=== PATIENT | female | born 1945 | race Caucasian/White ===

== ENCOUNTER → 2017-10-25 02:32 | Outpatient (CLI) | payer MEDICARE, SELFPAY ==
--- NOTE | 2017-10-25 13:01 | DI.REPORT_ITS ---
SYMPTOMS/DIAGNOSIS: SCREENING, Z12.31 MAMMOGRAMS: Mammograms were interpreted according to the usual protocol including computer analysis with CAD system, tomosynthesis and C view imaging. Comparison is with the prior examinations. Breast density B. There is an asymmetric density in the medial right breast seen on the craniocaudad view. This area should be further evaluated with a spot compression view. Ultrasound may be indicated at that time. IMPRESSION: Additional views of the right breast as described above. Category 0. MQSA ASSESSMENT OF FINDINGS: Incomplete: Needs additional imaging evaluation. Category 0. Patient will receive a letter notifying them of these results. BI-RADS category B. There are scattered areas of fibroglandular density.
== END ==
PROVIDERS: PCP Family Medicine; Visit Provider Family Medicine
DX: Z12.31 Encounter for screening mammogram for malignant neoplasm of breast (principal); R92.8 Other abnormal and inconclusive findings on diagnostic imaging of breast
CPT/HCPCS: 77063; 77067

== ENCOUNTER 2017-10-28 00:54 | Outpatient (CLI) | payer MEDICARE, SELFPAY ==
--- NOTE | 2017-10-28 09:29 | DI.REPORT_ITS ---
SYMPTOM/DIAGNOSIS: F/U MAMMO, ASYMMETRIC DENSITY RT BREAST RIGHT BREAST ADDITIONAL VIEWS AND RIGHT BREAST ULTRASOUND: Additional images are interpreted according to the usual protocol including tomosynthesis and 2D imaging. Compression CC spot film of the right breast reveals persistence of a small radiodensity in the right breast. Further assessment with ultrasound was carried out. No cyst or mass is seen. SUMMARY: A small asymmetric density in the medial right breast is seen only in the CC projection and in fact appears less prominent than on a prior examination of 03/13/13. Category 3. Follow up right mammogram and ultrasound is suggested in 6 months is suggested for further review. MQSA ASSESSMENT OF FINDINGS: Probably benign. Six month follow-up recommended. Category 3. Patient will receive a letter notifying them of these results. BI-RADS category B. There are scattered areas of fibroglandular density.
== END 2017-10-28 00:55 ==
PROVIDERS: PCP Family Medicine; Visit Provider Family Medicine
DX: Z12.31 Encounter for screening mammogram for malignant neoplasm of breast (principal); R92.8 Other abnormal and inconclusive findings on diagnostic imaging of breast; N60.81 Other benign mammary dysplasias of right breast
CPT/HCPCS: 76642; 77063; 77067

== ENCOUNTER 2018-02-05 11:17 | Inpatient (IN) | payer MEDICARE, SELFPAY ==
[2018-02-05] VITALS (14 sets, daily range): BP systolic 115–139; BP diastolic 47–92; PULSE 62–83; RESP 11–18; TEMP 35.8–36.8; O2SAT 96–100
--- NOTE | 2018-02-05 11:25 | W.ED.GENAD ---
Discharge Plan Disposition Patient Disposition: [facility] INPATIENT Condition: Serious Discharge Details Chief Complaint: Orthopedic Clinical Impression: Closed trimalleolar fracture of right ankle Reason For Visit: BIMALLEOLAR FX R ANKLE Admit Date/Time: 02/05/18 12:30 Admit Provider: Ozzy Dias Attending Provider: Ozzy Dias Primary Care Provider: Tanika Meyer ED Provider: Margarito Liriano Discharge Data Discharge Date/Time-TO BE ENTERED AT DEPARTURE: 02/05/18 13:38 Medical Decision Making <Satish Winters NP - Last Filed: 02/06/18 08:34> Plan to initiate IV and provide Fentanyl for pain control. Zofran if needed. Will change splint prior to x-ray. Will x-ray foot, ankle and tib/fib. Patient received 50mg of Fentanyl with good effect. I assisted Dr. Liriano with removing EMS splint and placing in posterior ortho glass splint. He was successful in reducing the displacement at the ankle medially. She tolerated well. I did feel an initial clunk of the ankle bones with better alignment of the ankle. Dorsalis pedis pulse strong and regular. Good sensation to the toes and foot. Good color and temperature to the foot pre and post splint placement. Care will be transitioned to Dr. Liriano for disposition of the patient. He is in agreement. <Margarito Liriano MD - Last Filed: 02/05/18 12:29> 12:15 -- Asked by ROBB Winters to participate in care. Please see his documentation regarding initial presentation and care. On initial exam, right ankle with obvious fracture dislocation with tenting of skin medially. Neurovasc intact in foot. Patient provided verbal consent to reduction and splinting for pain and immobilization for imaging. Patient given fentanyl 50mcg, gentle traction applied and talus reduced medially. Posterior splint applied. Xray reviewed and interpreted by me: trimaleolar fx 12:20 -- Spoke with Dr. Dias: I discussed case presentation, ED course and treatment. He will admit for OR likely later today. He requests bridging orders be placed to include NPO, fentanyl 50mcg q1h PRN. coal handling supervisor notified. HPI <Satish Winters NP - Last Filed: 02/06/18 08:34> General Mode of arrival: EMS. Date/Time Provider Initiated Documentation: 02/05/18 11:23. Limitations to Documentation: no limitations. Information obtained by: patient. History of Present Illness 72 year old F presents to the emergency department with the chief complaint of ankle pain, described as moderate, with intensity rated at 8. Quality is described as aching, and is localized to the right (ankle). Patient started experiencing this minute(s) and it has been constant. No relieving factors improve symptom(s), Movement worsens symptoms . HPI Narrative: 72 y/o female brought in by [place] ambulance for right ankle injury after fall. She slipped on her carpeted stairs causing twisting injury to the right ankle. She twisted the foot and ankle inward. Noted deformity and pain immediately. Denies any other injury. Related Data Home Medications Medication Instructions Recorded Confirmed multivitamin 1 ea PO DAILY 08/11/12 02/05/18 levothyroxine 50 mcg PO DAILY #90 tab-cap 18 02/05/18 metoprolol tartrate 0.5 tab PO DAILY PRN #45 tab 07/27/17 02/05/18 albuterol sulfate [Proair Hfa] 1 - 2 puff INHALATION Q6H PRN #1 09/07/17 02/05/18 inhaler gabapentin 300 mg capsule 300 mg PO DAILY PRN #90 tab 11/29/17 02/05/18 eszopiclone 2 mg tablet 2 mg PO HS PRN #30 tab 02/03/18 02/05/18 hydrocodone 5 mg-acetaminophen 325 1 tab PO TID PRN #90 tab-cap MDD 3 02/03/18 02/05/18 mg tablet latanoprost 0.005 % eye drops 1 drp OPHTHALMIC (EYE) HS ml 02/03/18 02/05/18 penicillin V potassium 500 mg PO TID 02/05/18 02/05/18 Previous Rx's Medication Instructions Recorded levothyroxine 50 mcg PO DAILY #90 tab-cap 07/27/17 albuterol sulfate [Proair Hfa] 1 - 2 puff INHALATION Q6H PRN #1 09/07/17 inhaler gabapentin 300 mg capsule 300 mg PO DAILY PRN #90 tab 11/29/17 eszopiclone 2 mg tablet 2 mg PO HS PRN #30 tab 02/03/18 hydrocodone 5 mg-acetaminophen 325 1 tab PO TID PRN #90 tab-cap MDD 3 02/03/18 mg tablet Allergies Allergy/AdvReac Type Severity Reaction Status Date / Time No Known Drug Allergies Allergy Unverified 02/05/18 11:22 General Stated Complaint: Orthopedic MADISON: 3 Review of Systems <Satish Winters NP - Last Filed: 02/06/18 08:34> Cardiovascular Reports system reviewed and no additional complaints, except as docu Respiratory Reports system reviewed and no additional complaints, except as docu Gastrointestinal Reports system reviewed and no additional complaints, except as docu Musculoskeletal Comments: right ankle pain with deformity Neurologic Reports system reviewed and no additional complaints, except as docu Exam <Satish Winters NP - Last Filed: 02/06/18 08:34> Const General: cooperative, healthy appearing, comfortable and no acute distress Nutritional Appearance: average body habitus Orientation: alert, awake and oriented x3 HENMT Head: atraumatic Ears: hearing grossly normal bilaterally and external ears normal General nose exam: external nose normal and nares normal Eyes General: appearance normal, both eyes and all related structures Neck Neck: normal visual inspection and full ROM Resp Effort & Inspection: normal respiratory effort Cardio Rate: regular rate Rhythm: regular rhythm Extrem General: abnormal to inspection (ankle splinted by ems. deformity noted to ankle. Swelling noted. Dorsalis pedis pulse strong and regular. ), normal capillary refill and no calf tenderness Right lower extremity: normal capillary refill, hip/thigh Details: normal ROM; no tenderness and no swelling, knee Details: no tenderness and no swelling, ankle Details: abnormal to inspection (deformity noted to the ankle) Details: obviously dislocated, tenderness (ankle and foot), swelling (ankle), abnormal ROM (pain to move ankle/foot. Good CSMT to toes. She does have chronic abnormal sensation to great toe after her back surgery. ) Details: pain with active ROM and pain with passive ROM and achilles tendon exam abnormal Details: tenderness to palpation of achilles tendon and foot Details: normal capillary refill, normal to inspection and tenderness Location: of the calcaneus Ankle/foot/toe images: 1. swelling and deformity to the ankle. Ankle looks displaced laterally 2. swelling and deformity to the ankle. Ankle looks displaced laterally Psych Appearance: grossly normal Speech and Movement: speech and movement normal Mood: congruent mood Affect: normal affect Attitude: cooperative Thought Process: normal Thought Content: normal Insight: insight good Course <Satish Winters NP - Last Filed: 02/06/18 08:34> Vital Signs Temperature 36.3 C L 02/05/18 11:18 Pulse 72 02/05/18 11:18 Respiratory Rate 12 02/05/18 11:18 Blood Pressure 134/92 H 02/05/18 11:18 Pulse Oximetry 100 02/05/18 11:18 Temperature 36.3 C L 02/05/18 11:18 Temperature Source Temporal Artery Scan 02/05/18 11:18 Pulse 72 02/05/18 11:18 Respiratory Rate 12 02/05/18 11:18 Respiratory Effort Non-Labored 02/05/18 11:21 Blood Pressure 134/92 H 02/05/18 11:18 Pulse Oximetry 100 02/05/18 11:18 Oxygen Delivery Method Room Air 02/05/18 11:18 Oxygen Flow Rate 0 02/05/18 11:18 Pain Level 8 02/05/18 11:18 <Margarito Liriano MD - Last Filed: 02/05/18 12:29> Orthopedic Fracture Reduction Fracture #1: Side: right Fracture Reduction Location: tibia and fibula Analgesia: other (fentanyl 50mcg) Technique: direct manipulation Post Reduction X-rays Demonstrate: anatomical reduction Post-reduction neuro exam: intact Post-reduction vascular exam: intact Splint Applied: Yes Patient Tolerated Procedure: well and no complications Sign Out <Satish Winters NP - Last Filed: 02/06/18 08:34> Sign Out Data: Sign Out Comment: Care will be transitioned to Dr. Liriano for disposition of the patient. He is in agreement. Last updated by Satish Winters NP at 02/05/18 12:11
--- NOTE | 2018-02-05 11:31 | ED.GENADUL_ITS ---
Discharge Plan Disposition Patient Disposition: [facility] INPATIENT Condition: Serious Discharge Details Chief Complaint: Orthopedic Clinical Impression: Closed trimalleolar fracture of right ankle Reason For Visit: BIMALLEOLAR FX R ANKLE Admit Date/Time: 02/05/18 12:30 Admit Provider: Ozzy Dias Attending Provider: Ozzy Dias Primary Care Provider: Tanika Meyer ED Provider: Margarito Liriano Discharge Data Discharge Date/Time-TO BE ENTERED AT DEPARTURE: 02/05/18 13:38 Medical Decision Making <Satish Winters NP - Last Filed: 02/06/18 08:34> Plan to initiate IV and provide Fentanyl for pain control. Zofran if needed. Will change splint prior to x-ray. Will x-ray foot, ankle and tib/fib. Patient received 50mg of Fentanyl with good effect. I assisted Dr. Liriano with removing EMS splint and placing in posterior ortho glass splint. He was successful in reducing the displacement at the ankle medially. She tolerated well. I did feel an initial clunk of the ankle bones with better alignment of the ankle. Dorsalis pedis pulse strong and regular. Good sensation to the toes and foot. Good color and temperature to the foot pre and post splint placement. Care will be transitioned to Dr. Liriano for disposition of the patient. He is in agreement. <Margarito Liriano MD - Last Filed: 02/05/18 12:29> 12:15 -- Asked by ROBB Winters to participate in care. Please see his documentation regarding initial presentation and care. On initial exam, right ankle with obvious fracture dislocation with tenting of skin medially. Neurovasc intact in foot. Patient provided verbal consent to reduction and splinting for pain and immobilization for imaging. Patient given fentanyl 50mcg, gentle traction applied and talus reduced medially. Posterior splint applied. Xray reviewed and interpreted by me: trimaleolar fx 12:20 -- Spoke with Dr. Dias: I discussed case presentation, ED course and treatment. He will admit for OR likely later today. He requests bridging orders be placed to include NPO, fentanyl 50mcg q1h PRN. insurance sales supervisor notified. HPI <Satish Winters NP - Last Filed: 02/06/18 08:34> General Mode of arrival: EMS . Date/Time Provider Initiated Documentation: 02/05/18 11:23 . Limitations to Documentation: no limitations . Information obtained by: patient . History of Present Illness 72 year old F presents to the emergency department with the chief complaint of ankle pain, described as moderate, with intensity rated at 8. Quality is described as aching, and is localized to the right (ankle). Patient started experiencing this minute(s) and it has been constant. No relieving factors improve symptom(s), Movement worsens symptoms . HPI Narrative: 72 y/o female brought in by [place] ambulance for right ankle injury after fall. She slipped on her carpeted stairs causing twisting injury to the right ankle. She twisted the foot and ankle inward. Noted deformity and pain immediately. Denies any other injury. Related Data Home Medications Medication Instructions Recorded Confirmed multivitamin 1 ea PO DAILY 08/11/12 02/05/18 levothyroxine 50 mcg PO DAILY #90 tab-cap 18 02/05/18 metoprolol tartrate 0.5 tab PO DAILY PRN #45 tab 07/27/17 02/05/18 albuterol sulfate [Proair Hfa] 1 - 2 puff INHALATION Q6H PRN #1 09/07/17 inhaler gabapentin 300 mg capsule 300 mg PO DAILY PRN #90 tab 11/29/17 02/05/18 eszopiclone 2 mg tablet 2 mg PO HS PRN #30 tab 02/03/18 02/05/18 hydrocodone 5 mg-acetaminophen 325 1 tab PO TID PRN #90 tab-cap MDD 3 02/03/18 02/05/18 mg tablet latanoprost 0.005 % eye drops 1 drp OPHTHALMIC (EYE) HS ml 02/03/18 02/05/18 penicillin V potassium 500 mg PO TID 02/05/18 02/05/18 Previous Rx's Medication Instructions Recorded levothyroxine 50 mcg PO DAILY #90 tab-cap 07/27/17 albuterol sulfate [Proair Hfa] 1 - 2 puff INHALATION Q6H PRN #1 09/07/17 inhaler gabapentin 300 mg capsule 300 mg PO DAILY PRN #90 tab 11/29/17 eszopiclone 2 mg tablet 2 mg PO HS PRN #30 tab 02/03/18 hydrocodone 5 mg-acetaminophen 325 1 tab PO TID PRN #90 tab-cap MDD 3 02/03/18 mg tablet Allergies Allergy/AdvReac Type Severity Reaction Status Date / Time No Known Drug Allergies Allergy Unverified 02/05/18 11:22 General Stated Complaint: Orthopedic MADISON: 3 Review of Systems <Satish Winters NP - Last Filed: 02/06/18 08:34> Cardiovascular Reports system reviewed and no additional complaints, except as docu Respiratory Reports system reviewed and no additional complaints, except as docu Gastrointestinal Reports system reviewed and no additional complaints, except as docu Musculoskeletal Comments: right ankle pain with deformity Neurologic Reports system reviewed and no additional complaints, except as docu Exam <Satish Winters NP - Last Filed: 02/06/18 08:34> Const General: cooperative, healthy appearing, comfortable and no acute distress Nutritional Appearance: average body habitus Orientation: alert, awake and oriented x3 HENMT Head: atraumatic Ears: hearing grossly normal bilaterally and external ears normal General nose exam: external nose normal and nares normal Eyes General: appearance normal, both eyes and all related structures Neck Neck: normal visual inspection and full ROM Resp Effort & Inspection: normal respiratory effort Cardio Rate: regular rate Rhythm: regular rhythm Extrem General: abnormal to inspection (ankle splinted by ems. deformity noted to ankle. Swelling noted. Dorsalis pedis pulse strong and regular. ), normal capillary refill and no calf tenderness Right lower extremity: normal capillary refill, hip/thigh Details: normal ROM; no tenderness and no swelling, knee Details: no tenderness and no swelling, ankle Details: abnormal to inspection (deformity noted to the ankle) Details: obviously dislocated, tenderness (ankle and foot), swelling (ankle), abnormal ROM (pain to move ankle/foot. Good CSMT to toes. She does have chronic abnormal sensation to great toe after her back surgery. ) Details: pain with active ROM and pain with passive ROM and achilles tendon exam abnormal Details: tenderness to palpation of achilles tendon and foot Details: normal capillary refill, normal to inspection and tenderness Location: of the calcaneus Ankle/foot/toe images: 2 1. swelling and deformity to the ankle. Ankle looks displaced laterally 2. swelling and deformity to the ankle. Ankle looks displaced laterally Psych Appearance: grossly normal Speech and Movement: speech and movement normal Mood: congruent mood Affect: normal affect Attitude: cooperative Thought Process: normal Thought Content: normal Insight: insight good Course <Satish Winters NP - Last Filed: 02/06/18 08:34> Vital Signs Temperature 36.3 C L 02/05/18 11:18 Pulse 72 02/05/18 11:18 Respiratory Rate 12 02/05/18 11:18 Blood Pressure 134/92 H 02/05/18 11:18 Pulse Oximetry 100 02/05/18 11:18 Temperature 36.3 C L 02/05/18 11:18 Temperature Source Temporal Artery Scan 02/05/18 11:18 Pulse 72 02/05/18 11:18 Respiratory Rate 12 02/05/18 11:18 Respiratory Effort Non-Labored 02/05/18 11:21 Blood Pressure 134/92 H 02/05/18 11:18 Pulse Oximetry 100 02/05/18 11:18 Oxygen Delivery Method Room Air 02/05/18 11:18 Oxygen Flow Rate 0 02/05/18 11:18 Pain Level 8 02/05/18 11:18 <Margarito Liriano MD - Last Filed: 02/05/18 12:29> Orthopedic Fracture Reduction Fracture #1: Side: right Fracture Reduction Location: tibia and fibula Analgesia: other (fentanyl 50mcg) Technique: direct manipulation Post Reduction X-rays Demonstrate: anatomical reduction Post-reduction neuro exam: intact Post-reduction vascular exam: intact Splint Applied: Yes Patient Tolerated Procedure: well and no complications Sign Out <Satish Winters NP - Last Filed: 02/06/18 08:34> Sign Out Data: Sign Out Comment: Care will be transitioned to Dr. Liriano for disposition of the patient. He is in agreement. Last updated by Satish Winters NP at 02/05/18 12:11
[2018-02-05] MEDS: Ondansetron 4 MG/2 ML VIAL IVP (11:35)
[2018-02-05] MEDS: Normal Saline 1,000 ML 150 ML IV (11:35)
[2018-02-05] MEDS: fentaNYL 100 MCG/2 ML VIAL 50 MCG IVP ×2 (11:36→12:21)
--- NOTE | 2018-02-05 12:05 | DI.RAD_ITS ---
SYMPTOM/DIAGNOSIS: FELL AND TWISTED ANKLE. DEFORMITY RIGHT ANKLE: A posterior splint is in place. There is a comminuted trimalleolar fracture. There is significant displacement of the talus laterally as well as posteriorly with respect to the distal tibia. There is significant separation of the malleolar fracture. No talar dome defect is seen. IMPRESSION: Displaced trimalleolar fracture.
--- NOTE | 2018-02-05 12:10 | DI.RAD_ITS ---
SYMPTOM/DIAGNOSIS: FELL AND TWISTED ANKLE. DEFORMITY RIGHT FOOT: There is a posterior splint in place which somewhat obscures the bony detail. A trimalleolar fracture is seen. No fractures are visible in the foot.
--- NOTE | 2018-02-05 12:15 | DI.RAD_ITS ---
SYMPTOM/DIAGNOSIS: DEFORMITY AFTER FALL. RIGHT TIBIA AND FIBULA: Posterior splint is in place. There are fractures of the medial and lateral malleoli as well as posterior malleolus with significant displacement. No fractures are seen more proximally in the lower leg or knee. IMPRESSION: Trimalleolar fracture
--- NOTE | 2018-02-05 12:37 | DI.VRAD_ITS ---
EXAM: XR Right Foot Complete, 3 or more Views EXAM DATE/TIME: 02/05/2018 11:26 AM CLINICAL HISTORY: 72 years old, female; Pain; Foot; Right; Patient HX: Patient fell this morning, pain right foot after fall. TECHNIQUE: XR Right foot 3 or more views. COMPARISON: No relevant prior studies available. FINDINGS: Bones/joints: Degenerative changes in the first metatarsal phalangeal joint This patient has a significant ankle fracture subluxation. Soft tissues: Normal. Other findings: This study is seen through plaster which obscures detail IMPRESSION: This patient has a significant ankle fracture subluxation. Dictated and Authenticated by: Dave Lakhani MD. Ordering:INDIGO GERMAIN MD
--- NOTE | 2018-02-05 12:37 | DI.VRAD_ITS ---
EXAM: XR Right Ankle Complete, 3 or more Views EXAM DATE/TIME: 02/05/2018 11:25 AM CLINICAL HISTORY: 72 years old, female; Pain; Ankle; Right; Patient HX: Right ankle pain, patient fell down steps this morning. TECHNIQUE: XR Right ankle 3 or more views. COMPARISON: No relevant prior studies available. FINDINGS: Bones/joints: Comminuted displaced distal tibia fracture, distal fibula fracture and medial malleolar fracture. There may be a posterior malleolar fracture. There is posterior subluxation of the talus with respect to the tibia.. Soft tissues: Circumferential soft tissue swelling IMPRESSION: 1. Comminuted displaced distal tibia fracture, distal fibula fracture and medial malleolar fracture. There may be a posterior malleolar fracture. 2. There is posterior subluxation of the talus with respect to the tibia.. CT may be helpful for further evaluation Dictated and Authenticated by: Dave Lakhani MD. Ordering:INDIGO GERMAIN MD
--- NOTE | 2018-02-05 12:38 | DI.VRAD_ITS ---
EXAM: XR Right Tibia and Fibula, 2 Views EXAM DATE/TIME: 02/05/2018 11:32 AM CLINICAL HISTORY: 72 years old, female; Pain; Ankle and lower leg; Right; Patient HX: Patient with pain after fall. Deformity noted. TECHNIQUE: XR Right tibia and fibula 2 views COMPARISON: No relevant prior studies available. FINDINGS: Bones/joints: Displaced tibial fractures and fibular fractures. Subluxation of the tibiotalar joint. No tibial shaft fracture. Soft tissues: Normal. IMPRESSION: 1. Displaced tibial fractures and fibular fractures. 2. Subluxation of the tibiotalar joint. 3. No tibial shaft fracture. Dictated and Authenticated by: Dave Lakhani MD. Ordering:INDIGO GERMAIN MD
--- NOTE | 2018-02-05 15:14 | DI.RAD_ITS ---
SYMPTOM/DIAGNOSIS: RIGHT ANKLE FRACTURE C-ARM FLUOROSCOPY RIGHT ANKLE:: Fluoroscopy Time: 9.0 sec Fluoroscopy was provided in the O.R. for Dr. Dias. Hard copy images show placement of two K-wires through the medial malleolus as well as screw and plate fixation of the lateral malleolus. Please see procedure note for details.
[2018-02-05] MEDS: Lactated Ringers 1,000 ML 125 ML IV (15:43)
--- NOTE | 2018-02-05 16:06 | NUR.NOTE ---
Nursing Note: 1600 PT TRASPORTED TO OR FOR SURGERY VIA STRETCHER WITH i LR RUNNING AT 125CC/HR ,KD INPLACE,MASHA ON,
[2018-02-05] MEDS: Lactated Ringers 1,000 ML 30 ML IV (16:08)
--- NOTE | 2018-02-05 18:15 | DI.RAD_ITS ---
SYMPTOM/DIAGNOSIS: CHECK ORIF BIMALLEOLAR FX RT ANKLE, IN RR RIGHT ANKLE: Comparison is made with intraoperative images performed earlier the same day. A splint is in place. The patient is status post ORIF for trimalleolar fracture. Alignment appears anatomic.
--- NOTE | 2018-02-05 18:32 | NUR.NOTE ---
Nursing [id number] pt is alert,aware,and oriented x 3 returned from surgery via stretcher to room 215- has bulky dressing on right lower leg and up on 3 pillows ,,pt denies any pain discomfort at this time
[2018-02-05] MEDS: DEXTROSE 5%-0.9% SALINE 1,000 ML 125 ML IV (19:53)
[2018-02-05] MEDS: oxyCODONE-CR 10 MG TABCR PO (22:38)
[2018-02-05] MEDS: Docusate Sodium 100 MG CAP PO (22:38)
[2018-02-05] MEDS: Latanoprost 0.005% 2.5 ML BTL OP (22:39)
[2018-02-05] MEDS: Acetaminophen 325 MG TAB 650 MG PO (23:48)
[2018-02-06] VITALS (7 sets, daily range): BP systolic 124–145; BP diastolic 69–86; PULSE 68–92; RESP 16–18; TEMP 36–37.8; O2SAT 96–98
[2018-02-06] MEDS: DEXTROSE 5%-0.9% SALINE 1,000 ML 125 ML IV (03:53)
[2018-02-06] MEDS: oxyCODONE 5 mg/Acetaminophen 325 mg TAB 1 TAB PO ×3 (04:10→15:55)
[2018-02-06] MEDS: Levothyroxine 50 MCG TAB PO (06:47)
--- NOTE | 2018-02-06 07:34 | PHARADMIT ---
Admission Pharmacy Clinical Review BiMALEOLAR FRACTURE RIGHT ANKLE patient went to OR yesterday afternoon, probable discharge later today.
[2018-02-06] MEDS: Multivitamin w/Minerals TAB 1 TAB PO (08:23)
[2018-02-06] MEDS: Docusate Sodium 100 MG CAP PO ×2 (08:23→20:27)
[2018-02-06] MEDS: Pantoprazole 40 MG TABCR PO (08:23)
--- NOTE | 2018-02-06 08:32 | PDOC.CMIN ---
Care Management Initial Assess REASON FOR HOSPITALIZATION:: Bimalleolar Fx R Ankle PAST MEDICAL HISTORY/PAST SURGICAL HISTORY:: Back pain, cataract, chronic pain disorder, depression, esophageal reflux, glaucoma, hepatitis C, Hypothyroidism, impaired renal function, seasonal allergies, spinal stenosis, ectopic , solitary kidney nephrectomy, appendectomy, shoulder surgeries, bilat wrists, ovarian cyst, spinal fusion, recent dental infection. PREVIOUS FUNCTIONAL STATUS/SOCIAL/FAMILY SUPPORTS:: Germaine resides in [place]. One of her grandson's moved in to help her care for her ailing who was on Hospice. Germaine's recently (September 2017) after a long ferrara with Parkinson's Dementia. Germaine reports her daughter, son in law and three grandchildren also moved in due to losing their home over an estate dispute. She reports having plenty of help at home. The grandchildren are ages 3, 8, and 11 and attend [employer]. When asked if Germaine has had space and time to grieve the loss of her , she states I don't think so. She was slated to go to [place] soon, but reports the trip is now on hold. She is independent with ADLs in the community at baseline. CURRENT FUNCTIONAL STATUS:: Germaine is pleasant in interaction and forthcoming with information. At first attempt at CM interview a visitor arrives; her grandson and great grandson. Next attempt, crutches were brought to her and then her brother called from out of state. CM was able to gather most needed information and will continue to attempt to meet with Germaine. ADVANCE DIRECTIVES:: On file at [facility], Gerry Bravo as Agent, Verona Ellsworth as Alternate. Has patient been provided with information about the portal?: Yes Did the patient sign up for the portal?: No CODE STATUS:: Full Code INSURANCE COVERAGE / FINANCIAL ISSUES:: Medicaid, Medicare CURRENT HOME/COMMUNITY SERVICES/EQUIPMENT:: Hospital bed, side rails, bedside commode, grab bars, tub seat/bench, wheelchair, walker PRIMARY CARE PHYSICIAN:: Tanika Meyer. POTENTIAL DISCHARGE NEEDS:: Crutches for home use, PT/OT evaluations, follow up appointments. PATIENT/FAMILY EDUCATION NEEDS:: Review of instructions; encouragement of healthy coping; outlets and support groups for caregiver support and grieving. ANTICIPATED BARRIERS TO DISCHARGE:: None identified at this time. TRANSPORTATION:: Via private vehicle with family. PLAN:: Germaine will work with PT/OT to prepare for discharge, her pain will continue to be monitored and treated. She will return home when ready per MD, she will utilize crutches and FWW. CM will continue to monitor and support discharge planning considerations as well as provide resources for caregiver burnout/grief support. Germaine will transport via private vehicle with family.
[2018-02-06] MEDS: oxyCODONE-CR 10 MG TABCR PO ×2 (09:54→21:40)
--- NOTE | 2018-02-06 10:40 | HPE_ITS ---
DATE OF ADMISSION: February 05, 2018 REASON FOR ADMISSION: Bimalleolar fracture dislocation of the right ankle closed. IMPRESSION: Bimalleolar fracture dislocation of right ankle, possibly a trimalleolar fracture. PLAN: I recommended open reduction and internal fixation later today. We will do a posterolateral a pproach to the ankle so I can check the posterior tibia for any fractures to rule out a trimalleolar fracture. If a posterior malleolar fragment is identified, I would fix that as well as the medial an d lateral sides. HISTORY: This is a 72-year-old, white female who earlier this morning slipped on her carpeted stairs , causing an external rotation injury to her right ankle. She noticed immediately severe pain and a deformity of her ankle. She was unable to bear weight on her right foot after this. She was transpo rted to the Emergency Room by EMS who splinted her ankle. She was seen by the ER provider who noted a significant deformity of her ankle. He corrected the deformity and someone put her in a splint. I t was noted that neurovascular status of the right foot was completely normal postreduction and splin ting. I was then contacted for further treatment. Since the patient had only had two sips of coffee this morning, I felt that optimum treatment would be to take her to the Operating Room today and fix her ankle fracture before swelling sets in. I explained to the patient that there was a 24-hour win jakob before there would be too much swelling and this would force the surgery to be postponed five day s or so to allow the swelling to subside. She agreed with my recommendation and wished to have her a nkle fixed today if possible. SIGNIFICANT PAST HISTORY: She has one kidney, having had the other one removed. REVIEW OF SYSTEMS: She is hypothyroid is on thyroid medication. She has a history of hepatitis C th at was treated with antivirals and interferon and she states it was cured. She also has hypertension . She is status post spinal surgery and has some chronic back pain for which she is being treated wi gabapentin. She takes albuterol as well and this is for probable asthma. MEDICATIONS: 1. Eyedrops. 2. Eszopiclone 2 mg p.o. q.h.s. 3. Hydrocodone. 4. Acetaminophen 5 mg/325 mg, 1 p.o. t.i.d. for chronic back pain. 5. Multivitamin, 1 a day. 6. Levothyroxine 50 mcg p.o. daily. 7. Metoprolol 25 mg, one-half tab p.o. daily. 8. Albuterol sulfate inhaler, 1-2 puffs q.6h. p.r.n. 9. Gabapentin 300 mg p.o. daily p.r.n. 10. Penicillin VK 500 mg tablet p.o. t.i.d. for unknown reason. PHYSICAL EXAMINATION: HEAD: Normocephalic, no evidence of any external trauma to her head. EYES: Her pupils are equal, reactive to light and accommodation. Sclerae are not icteric. ENT: External auditory canals are clear. Tongue is well papillated and midline. Pharynx is clear. NECK: No bruits, no masses even palpating her thyroid. LUNGS: She is breathing easily. Her lungs are clear to auscultation. HEART: No murmurs are appreciated. Rate is regular. ABDOMEN: Flat, nontender, active bowel sounds. NEURO: She is oriented to time, place, person, and situation. Cranial nerves are intact. EXTREMITIES: Her right lower extremity is in a splint. She has good sensation to light touch of her toes. She is able to move her toes actively and has good capillary refill in her toes of her right foot. IMAGING: I reviewed her x-rays and I cannot tell whether this is a bimalleolar fracture with comminu tion of the fibula or a trimalleolar fracture.
--- NOTE | 2018-02-06 10:44 | W.PM.PROGNOT ---
Date of Service Date of service: 02/06/18 Time of Service: 10:44 Assessment and Plan (1) Bimalleolar fracture of right ankle: Start date: 02/05/18 Start time: 10:51 Current visit: Yes Status: Acute Assessment: Stable postop day #1 ORIF of bimalleolar fracture dislocation of the right ankle. Her popliteal nerve block has not worn off yet. Plan: Mobilize with PT. Will discharge home when she is independent with transfers and ambulation and needing only p.o. pain meds when her nerve block wears off. (2) Status post nephrectomy: Current visit: Yes Status: Acute Subjective Interval history since last seen: Germaine reports that her right foot is still numb. She is having no pain. Her back is sore from lying supine all night. Exam Narrative Exam Narrative: She is afebrile vital signs are stable. She has good capillary refill of the toes of the right foot. She can lift her right leg off the pillows. Her toes are not numb to light touch. The toes are not swollen. She is voiding since her Gomes catheter has been DC'd. Objective Objective Clinical Data: Vital Signs Temperature 37.2 C 02/06/18 07:35 Temperature Source Tympanic 02/06/18 07:35 Pulse 82 02/06/18 07:35 Pulse Rhythm Regular 02/05/18 23:35 Respiratory Rate 17 02/06/18 07:35 Respiratory Effort Non-Labored 02/05/18 23:35 Respiratory Depth Normal 02/05/18 23:35 Respiratory Pattern Normal 02/05/18 23:35 Blood Pressure 124/76 02/06/18 07:35 Pulse Oximetry 97 02/06/18 07:35 Respiratory End-tidal CO2 32 02/05/18 18:18 Oxygen Delivery Method Room Air 02/06/18 07:35 Oxygen Flow Rate 0 02/06/18 07:35 Pain Level 7 02/06/18 07:35 Intake & Output 02/05/18 02/05/18 02/06/18 11:59 23:59 11:59 Intake Total 1387.0 / 1387.0 1500 / 1500 Output Total 1200 / 1200 700 / 700 Balance 187.0 / 187.0 800 / 800 Weight 58.967 kg 58.967 kg 58.967 kg Intake: IV 1387.0 / 1387.0 1100 / 1100 Oral 400 / 400 Output: Urine 1200 / 1200 700 / 700 Other: Urine Color Yellow Yellow Urine Appearance Clear Clear Urine Odor None Normal Comment gomes removed in Pacu Emesis Description None Voiding Methods Bedside Commode
--- NOTE | 2018-02-06 10:53 | PT.INIE ---
Date of service: 02/06/18 Time of Service: 09:15 PT Notes Inpatient Physical Therapy Evaluation Date: 02/06/18 Referring Doctor: Ozzy Dias MD PT Orders: PT CONSULT: Postop ORIF of bimalleolar fracture right ankle, nonweightbearing on right foot. Gait training with walker or crutches. Precautions: Nonweightbearing right foot Patient Profile/Admitting Diagnosis: Patient is status post ORIF of right bimalleolar fracture 02/05/2018. Patient fell while ambulating down her carpeted stairs at home, twisting her ankle. 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 Her has passed Parkinson's. Her bedroom is on the second floor, and she just returned to sleeping with schedule him, since her 's passing 3 years ago. Bathroom is on the main floor, with a walk-in shower stall, and accommodated with handicapped rails new the toilet and sink. She does have a shower chair. Current Functional Limitations: Nonweightbearing right lower extremity, requires use of assistive device of walker or crutches. She will be unable to drive, she will be unable to ambulate her stairs. She would only be able to tolerate short household distances, she will not be able to do any housework activities or cooking. She will dependent and on her family for support. Equipment Owned/DME: Walker Subjective: Reports no discomfort, her right lower extremity is still numb and she is unable to move her toes yet. Objective: [] General Observation: Reclined in bed, with right lower extremity elevated on pillows, cast on the right ankle. IV left elbow. She has good color, appears in no distress or great pain. Mental Status: A and O x3 Pain: 0/10 Vital Signs: BP 125/66, HR 75 ROM: Right Upper Extremity: WNL Left Upper Extremity: WNL, with pain of the left shoulder and endrange flexion and abduction, of mild level. Right Lower Extremity: Right hip grossly WNL, knee WNL. Ankle casted. Left Lower Extremity: WNL Strength: Right Upper Extremity: Grossly 5/5 Left Upper Extremity: Grossly 5/5 Right Lower Extremity: Hip flexion 5/5, right knee flexion extension at least 3/5 with ease and good motor control. Left Lower Extremity: Grossly 5/5 Sensation: Numbness right toes, otherwise WNL. Bed Mobility/Transfers: Independent with bed mobility, supervision with sit to stand at walker, and vice versa. Contact-guard with transfer to chair, with use of walker and hopping gait. Nonweightbearing right LE. Gait: Walker, nonweightbearing right lower extremity Balance: [] Static Sitting: Good Dynamic Sitting: Good Static Standing: Good with walker Dynamic Standing: Fair Special Tests: Mobility Limitations Standardized Measure [facility]-PAC 6 clicks Basic Mobility Inpatient Short Form: Raw Score: 21 Standardized Score: [] CMS Score: 28% disability CMS Modifier: CJ Informed Consent/Education: Patient instructed in purpose of PT consult and plan of care. Assessment: Patient is a 72 year old female referred to physical therapy services with the diagnosis of status post ORIF of bimalleolar fracture right ankle, 02/05/2018. Patient presents with clinical signs and symptoms consistent with this diagnosis, as demonstrated by the following impairment level findings: Nonweightbearing right lower extremity, casted right ankle. Impairments are contributing to the following functional limitations: Dependent on use of walker, and possibly crutches in the future, for all ambulation, limited to household distances. She is unable to drive, she is unable to ambulate stairs easily, she will be dependent on her family for assist. She requires supervision for transfer activities, at the present time. [facility] score 28% disability. Patient is assessed as a [X] Low 92231 [] Moderate 41569 [] High 93074 complexity based on the following: History: See comorbidities Examination: See above impairments and functional limitations Presentation: Stable and predictable Decision Making: Easy Goals: Goals X1 week 1. Supine-Sit, Independent with walker 2. Sit-Supine independent with walker 3. Sit-Stand independent with walker 4. Stand-Sit independent with walker 5. Bed-Chair independent with walker 6. Chair-Bed independent with walker 7. Gait independent, nonweightbearing right lower extremity, with use of walker or crutches 8. Stairs with close supervision of family, one crutch or bilateral rails. 9. Independent with home exercise program 10. Balance Good with AD and NWB status of R LE. Plan of Care/Treatment Plan: 1-2x/day, 7 days/week x 1 week. Plan of care has been reviewed with the [facility] providing the service under Physical Therapy direction. Initiate Physical Therapy intervention for strengthening, bed mobility, transfers, gait, stairs, balance training, use of assistive device. Awaiting standard walker and crutches from [facility], to be utilized tomorrow. DISCHARGE RECOMMENDATIONS: Home with family supervision, with walker and crutches. Outpatient therapy as ordered by MD, when appropriate. TREATMENT CODE/TIME: 40 minutes, 92845 G Codes in the area mobility of walking and moving around: current status [id number]; projected status GP [id number].
--- NOTE | 2018-02-06 10:58 | IN_ITS ---
Date of service: 02/06/18 Time of Service: 09:15 PT Notes Inpatient Physical Therapy Evaluation Date: 02/06/18 Referring Doctor: Ozzy Dias MD PT Orders: PT CONSULT: Postop ORIF of bimalleolar fracture right ankle, nonweightbearing on right foot. Gait training with walker or crutches. Precautions: Nonweightbearing right foot Patient Profile/Admitting Diagnosis: Patient is status post ORIF of right bimalleolar fracture 02/05/2018. Patient fell while ambulating down her carpeted stairs at home, twisting her ankle. 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 Her has passed Parkinson's. Her bedroom is on the second floor, and she just returned to sleeping with schedule him, since her 's passing 3 years ago. Bathroom is on the main floor, with a walk-in shower stall, and accommodated with handicapped rails new the toilet and sink. She does have a shower chair. Current Functional Limitations: Nonweightbearing right lower extremity, requires use of assistive device of walker or crutches. She will be unable to drive, she will be unable to ambulate her stairs. She would only be able to tolerate short household distances, she will not be able to do any housework activities or cooking. She will dependent and on her family for support. Equipment Owned/DME: Walker Subjective: Reports no discomfort, her right lower extremity is still numb and she is unable to move her toes yet. Objective: [] General Observation: Reclined in bed, with right lower extremity elevated on pillows, cast on the right ankle. IV left elbow. She has good color, appears in no distress or great pain. Mental Status: A and O x3 Pain: 0/10 Vital Signs: BP 125/66, HR 75 ROM: Right Upper Extremity: WNL Left Upper Extremity: WNL, with pain of the left shoulder and endrange flexion and abduction, of mild level. Right Lower Extremity: Right hip grossly WNL, knee WNL. Ankle casted. Left Lower Extremity: WNL Strength: Right Upper Extremity: Grossly 5/5 Left Upper Extremity: Grossly 5/5 Right Lower Extremity: Hip flexion 5/5, right knee flexion extension at least 3/ 5 with ease and good motor control. Left Lower Extremity: Grossly 5/5 Sensation: Numbness right toes, otherwise WNL. Bed Mobility/Transfers: Independent with bed mobility, supervision with sit to stand at walker, and vice versa. Contact-guard with transfer to chair, with use of walker and hopping gait. Nonweightbearing right LE. Gait: Walker, nonweightbearing right lower extremity Balance: [] Static Sitting: Good Dynamic Sitting: Good Static Standing: Good with walker Dynamic Standing: Fair Special Tests: Mobility Limitations Standardized Measure [facility]-PAC 6 clicks Basic Mobility Inpatient Short Form: Raw Score: 21 Standardized Score: [] CMS Score: 28% disability CMS Modifier: CJ Informed Consent/Education: Patient instructed in purpose of PT consult and plan of care. Assessment: Patient is a 72 year old female referred to physical therapy services with the diagnosis of status post ORIF of bimalleolar fracture right ankle, 02/05/2018. Patient presents with clinical signs and symptoms consistent with this diagnosis, as demonstrated by the following impairment level findings : Nonweightbearing right lower extremity, casted right ankle. Impairments are contributing to the following functional limitations: Dependent on use of walker , and possibly crutches in the future, for all ambulation, limited to household distances. She is unable to drive, she is unable to ambulate stairs easily, she will be dependent on her family for assist. She requires supervision for transfer activities, at the present time. [facility] score 28% disability. Patient is assessed as a [X] Low 13469 [] Moderate 24022 [] High 05649 complexity based on the following: History: See comorbidities Examination: See above impairments and functional limitations Presentation: Stable and predictable Decision Making: Easy Goals: Goals X1 week 1. Supine-Sit, Independent with walker 2. Sit-Supine independent with walker 3. Sit-Stand independent with walker 4. Stand-Sit independent with walker 5. Bed-Chair independent with walker 6. Chair-Bed independent with walker 7. Gait independent, nonweightbearing right lower extremity, with use of walker or crutches 8. Stairs with close supervision of family, one crutch or bilateral rails. 9. Independent with home exercise program 10. Balance Good with AD and NWB status of R LE. Plan of Care/Treatment Plan: 1-2x/day, 7 days/week x 1 week. Plan of care has been reviewed with the [facility] providing the service under Physical Therapy direction. Initiate Physical Therapy intervention for strengthening, bed mobility, transfers, gait, stairs, balance training, use of assistive device. Awaiting standard walker and crutches from [facility], to be utilized tomorrow. DISCHARGE RECOMMENDATIONS: Home with family supervision, with walker and crutches. Outpatient therapy as ordered by MD, when appropriate. TREATMENT CODE/TIME: 40 minutes, 10319 G Codes in the area mobility of walking and moving around: current status [id number]; projected status GP [id number].
--- NOTE | 2018-02-06 11:04 | ROE_ITS ---
DATE OF PROCEDURE: February 05, 2018 PREOPERATIVE DIAGNOSIS: Bimalleolar fracture dislocation, right ankle, possible trimalleolar fractur e. POSTOPERATIVE DIAGNOSIS: Bimalleolar fracture dislocation, right ankle, closed. PROCEDURE: #1. Open reduction and internal fixation of bimalleolar fracture dislocation, right ankle. #2. Application of Vargas compressive dressing and posterior short leg fiberglass splint. SURGEON: Ozzy Dias M.D. GUM PULLER: Yakov Randhawa PA-C ANESTHESIA: General, Brannon Schmidt CRNA INDICATIONS: This is a 72-year-old white female who slipped on her stairs at home today sustaining a n external rotation injury to her right ankle. She was brought to the Emergency Room where it was no miguel that she had a visible deformity, with severe pain and inability to step on her right foot. X-ra ys showed that she had at least a bimalleolar fracture dislocation and possibly a trimalleolar fractu re. The ankle mortise was disrupted and open reduction and internal fixation was recommended as opti mum treatment. The patient wished to have me proceed as soon as possible to fix the fracture. PROCEDURE: The patient was taken to the Operating Room on 02/05/18. A lower extremity regional block was performed by the nurse portrait artist preoperatively. She was then placed supine on the operating table, a proximal tourniquet was applied to the right thigh, and a roll was placed under her right bu ttock. The right ankle and lower leg were then prepped and draped free in the usual sterile fashion. Under proximal tourniquet control, I made a small curved incision centered over the anterior aspect o f the medial malleolus. The incision was about 3 inches in length. The incision was carried down to the periosteum. The saphenous vein was identified and retracted anteriorly. The fracture site was entered. I irrigated a hematoma from the fracture site. I was then able to retract the medial malle olar fracture distally and look inside and view the ankle. The patient had some scuffing of the medi al dome of the talus on the articular cartilage. It was just a superficial injury and not deep. Aft er thorough irrigation of the joint, I provisionally reduced the medial malleolar fracture and tempor arily fixed it with two parallel 0.062 K-wires. I then took an AP view with the image intensifier an d found that the ankle was anatomically reduced on the AP view. I then made a posterolateral incision on the ankle beginning at the distal tip of the fibula and exte nding proximally about 5 inches. The incision was carried down to the peroneal fascia which was inci sed in line with the skin incision. I went medial to the peroneal muscle and exposed the posterior t ibia. I could not visualize or palpate a fracture of the posterior tibia. I then took a lateral vie w of the ankle with the C-arm and no posterior malleolar fracture fragment was identified. What we w ere seeing on the x-rays preoperatively was really a portion of the distal fibula that was displaced posteriorly. I then cleaned the fibula fracture which was a short spiral fracture. I cleaned the fracture hematom a with irrigation and suction. I then reduced the fracture with a self-centering towel clip. I then fixed the fracture using a 3.5 cortical screw inserted with a lag technique from posterior to anteri or. The screw was maximally tightened, compressing the fracture. The self-centering towel clip was now removed. The fracture was then further fixed with a neutralization plate. I used a 7-hole one-t hird tubular plate contoured to fit the lateral fibula. The plate was then secured to the fibula wit h appropriate-length locking and nonlocking screws. A nonlocking screw was placed initially to bring the plate in close proximity to the bone. Then I was able to alternate between locking and nonlocki ng screws. The holes that were adjacent to the lag screw were left unfilled in the plate. A final c heck of the ankle with AP and lateral views with the C-arm showed anatomic reduction of the fracture. The screws were all felt to be good length and closure could be begun. Both incisions were irrigated with Betadine and saline solution. The wound margins were infiltrated with 0.5% Marcaine with epinephrine solution for postoperative analgesia. The K-wires used to fix th e medial malleolus were bent, cut short, and then the bent ends impacted into the tip of the medial m alleolus with a tamp and a mallet. The skin and subcu were approximated on the medial side with inte rrupted near-far far-near sutures of #3-0 nylon suture to relieve tension on the skin. On the latera l side I repaired the peroneal fascia laterally with interrupted gtvhib-ax-vpubz sutures of #2-0 Vicr yl suture material. Distally in the wound I just approximated the subcu with a few interrupted #2-0 Vicryl sutures. The skin edges were approximated with interrupted near-far far-near sutures of #3-0 nylon to take tension off the wound and allow for postoperative swelling. The wounds were dressed wi th Xeroform gauze, sterile gauze 4x4s, covered with ABD pads, and wrapped with a 4-inch Kerlix bandag e. The right ankle was then incorporated in a short leg Vargas compressive dressing and then a short leg fiberglass splint was applied over the compressive dressing to maintain the ankle in neutral dors iflexion. The splint was applied with a 6-inch Reyes bandage. The tourniquet was released. [facility] reversed without complications. Blood loss was minimal due to tourniquet use. The patient is admitted for postoperative antibiotics for 24 hours, mobilization with Physical Therap y, and pain control following ORIF of her ankle fracture.
--- NOTE | 2018-02-06 12:02 | INITIAL_ITS ---
Care Management Initial Assess REASON FOR HOSPITALIZATION:: Bimalleolar Fx R Ankle PAST MEDICAL HISTORY/PAST SURGICAL HISTORY:: Back pain, cataract, chronic pain disorder, depression, esophageal reflux, glaucoma, hepatitis C, Hypothyroidism, impaired renal function, seasonal allergies, spinal stenosis, ectopic , solitary kidney nephrectomy, appendectomy, shoulder surgeries, bilat wrists, ovarian cyst, spinal fusion, recent dental infection. PREVIOUS FUNCTIONAL STATUS/SOCIAL/FAMILY SUPPORTS:: Germaine resides in [place]. One of her grandson's moved in to help her care for her ailing who was on Hospice. Germaine's recently (September 2017) after a long ferrara with Parkinson's Dementia. Germaine reports her daughter, son in law and three grandchildren also moved in due to losing their home over an estate dispute. She reports having plenty of help at home. The grandchildren are ages 3 , 8, and 11 and attend [employer]. When asked if Germaine has had space and time to grieve the loss of her , she states I don't think so. She was slated to go to [place] soon, but reports the trip is now on hold. She is independent with ADLs in the community at baseline. CURRENT FUNCTIONAL STATUS:: Germaine is pleasant in interaction and forthcoming with information. At first attempt at CM interview a visitor arrives; her grandson and great grandson. Next attempt, crutches were brought to her and then her brother called from out of state. CM was able to gather most needed information and will continue to attempt to meet with Germaine. ADVANCE DIRECTIVES:: On file at [facility], Gerry Bravo as Agent, Verona Ellsworth as Alternate. Has patient been provided with information about the portal?: Yes Did the patient sign up for the portal?: No CODE STATUS:: Full Code INSURANCE COVERAGE / FINANCIAL ISSUES:: Medicaid, Medicare CURRENT HOME/COMMUNITY SERVICES/EQUIPMENT:: Hospital bed, side rails, bedside commode, grab bars, tub seat/bench, wheelchair, walker PRIMARY CARE PHYSICIAN:: Tanika Meyer. POTENTIAL DISCHARGE NEEDS:: Crutches for home use, PT/OT evaluations, follow up appointments. PATIENT/FAMILY EDUCATION NEEDS:: Review of instructions; encouragement of healthy coping; outlets and support groups for caregiver support and grieving. ANTICIPATED BARRIERS TO DISCHARGE:: None identified at this time. TRANSPORTATION:: Via private vehicle with family. PLAN:: Germaine will work with PT/OT to prepare for discharge, her pain will continue to be monitored and treated. She will return home when ready per MD, she will utilize crutches and FWW. CM will continue to monitor and support discharge planning considerations as well as provide resources for caregiver burnout/grief support. Germaine will transport via private vehicle with family.
--- NOTE | 2018-02-06 12:02 | PT.INTREAT ---
Date of service: 02/06/18 Time of Service: 11:45 PT Notes Gait training [id number]: Fitted crutches to patient. Instructed in use of cructhes, with 3-point gait, NWB Erica CORTES. CGx1. Ambulated 20 ft. Instructed in sit to stand with crutches in L hand, with proper transfer to R hand once standing, and same transition from stand to sit. Treatment time: 10 minutes
--- NOTE | 2018-02-06 12:06 | PTTR_ITS ---
Date of service: 02/06/18 Time of Service: 11:45 PT Notes Gait training [id number]: Fitted crutches to patient. Instructed in use of cructhes , with 3-point gait, NWB Erica CORTES. CGx1. Ambulated 20 ft. Instructed in sit to stand with crutches in L hand, with proper transfer to R hand once standing, and same transition from stand to sit. Treatment time: 10 minutes
[2018-02-06] MEDS: fentaNYL 100 MCG/2 ML VIAL 50 MCG IVP ×3 (14:45→20:29)
[2018-02-06] MEDS: Normal Saline Flush 10 ML SYR IVP ×3 (14:47→20:29)
[2018-02-06] MEDS: Gabapentin 300 MG CAP PO (15:55)
[2018-02-06] MEDS: Latanoprost 0.005% 2.5 ML BTL OP (21:41)
[2018-02-07] MEDS: oxyCODONE 5 mg/Acetaminophen 325 mg TAB 1 TAB PO ×3 (00:56→19:56)
[2018-02-07] MEDS: fentaNYL 100 MCG/2 ML VIAL 50 MCG IVP ×3 (02:06→08:50)
[2018-02-07] MEDS: Normal Saline Flush 10 ML SYR IVP ×4 (02:10→08:52)
[2018-02-07 05:09] VITALS: BP 121/74; PULSE 96; RESP 16; TEMP 37; O2SAT 99
[2018-02-07] MEDS: Levothyroxine 50 MCG TAB PO (05:42)
[2018-02-07 06:50] VITALS: BP 129/75; PULSE 68; RESP 16; TEMP 38.1; O2SAT 95
[2018-02-07] MEDS: Multivitamin w/Minerals TAB 1 TAB PO (08:50)
[2018-02-07] MEDS: Acetaminophen 325 MG TAB 650 MG PO (08:50)
[2018-02-07] MEDS: Pantoprazole 40 MG TABCR PO (08:51)
[2018-02-07] MEDS: Docusate Sodium 100 MG CAP PO ×2 (08:51→19:53)
[2018-02-07] MEDS: oxyCODONE-CR 10 MG TABCR PO (10:19)
--- NOTE | 2018-02-07 11:52 | PT.INTREAT ---
Date of service: 02/07/18 Time of Service: 11:52 PT Notes Inpatient Physical Therapy Treatment Note Date: 02/07/18 PRECAUTIONS: NWB on R SUBJECTIVE: Germaine states that she is having burning pain in her R ankle this morning, however, is willing to participate in PT. OBJECTIVE: PAIN: See subjective portion of this note. BED MOBILITY/TRANSFERS Supine-sit: S Sit-stand: SBA with FWW; CGA with B ax crutches Stand-sit: S with FWW; SBA with B ax crutches GAIT Assistive Device: FWW; B ax crutches Weight bearing: NWB on R Assist: CGA with FWW; Min A with B ax crutches Distance: 10' x2 with FWW; 5' with B ax crutches Deviation: Unsteady and max cueing with B ax crutches THEREX: Patient completed a LE strengthening and stabilization program, as per flow sheet. ASSESSMENT: Patient tolerated session with c/o increased fatigue with gait training. She was able to tolerate a progression in her gait distance today, as well as the addition of a ther ex program. She would benefit from continued gait and transfer training as well as strengthening for improved mobility. PLAN: Continue with PT's POC TREATMENT CODE/TIME: 30 minutes; TA/TP
[2018-02-07 13:37] VITALS: BP 117/68; PULSE 75; RESP 18; TEMP 37.3; O2SAT 95
--- NOTE | 2018-02-07 14:50 | PDOC.CMPRO ---
- If Service Date Differs Date of service: 02/07/18 Time of Service: 14:50 Care Management Progress Note S/O: CM met with patient at the bedside she is alert and engaged with CM. She states that she continues to have a lot of discomfort, and requesting IV pain medication. She understands that she will need to be non weight bearing for 6 weeks and has a plan to manage at home with support family. A; Germaine is a 72 year old female admitted status post Open reduction and internal fixation of bimalleolar fracture dislocation, right ankle. and application of Vargas compressive dressing and posterior short leg fiberglass splint on 02/08/18. P: Germaine will remain acute today, she continues to receive IV pain management and PT/OT, her pain will continue to be monitored and treated. She will return home when ready per MD, she will utilize crutches and FWW. CM will continue to monitor and support discharge planning considerations
--- NOTE | 2018-02-07 15:02 | PT.INTREAT ---
Date of service: 02/07/18 Time of Service: 15:02 PT Notes Inpatient Physical Therapy Treatment Note Date: 02/07/18 PRECAUTIONS:NWB on R SUBJECTIVE: Germaine is stating that she is having less pain this afternoon, but would like to get back to bed as she is feeling fatigued. OBJECTIVE: PAIN: No c/o pain BED MOBILITY/TRANSFERS Sit-supine: S Sit-stand: S with FWW Stand-sit: S with FWW GAIT Assistive Device: FWW Weight bearing: NWB on R Assist: SBA Distance: 20' x2 THEREX: Patient completed a LE strengthening and stabilization program, as per flow sheet. ASSESSMENT: Patient tolerated session well without c/o pain. She did c/o increased UE fatigue with gait training, but was able to tolerate a progression in gait distance with FWW support. She would benefit from continued gait training as well as strengthening for improved mobility. PLAN: Continue with PT's POC TREATMENT CODE/TIME: 25 minutes; TA/TP
--- NOTE | 2018-02-07 15:03 | CHAPLAIN ---
Germiane was in bed, getting some ice on her leg, when I visited. She told me that we'd met before when her , Len, was a patient here often, dealing with Parkinsons and dementia. According to Care Management notes, he in September. Germaine has been reading to pass the time, and said she has lots of help at home. She was suppose to leave for [place] in March to stay with a friend, but will have to postpone that trip now. I will check in with Sonya tomorrow to see if she would like support around the recent of her .
[2018-02-07 16:00] VITALS: BP 120/70; PULSE 72; RESP 18; TEMP 37.3; O2SAT 95
[2018-02-07] MEDS: Latanoprost 0.005% 2.5 ML BTL OP (19:53)
[2018-02-07] MEDS: Gabapentin 300 MG CAP PO (19:54)
[2018-02-07 19:58] VITALS: BP 124/74; PULSE 68; RESP 18; TEMP 37; O2SAT 98
[2018-02-08 00:25] VITALS: BP 123/73; PULSE 76; RESP 18; TEMP 37.9; O2SAT 93
[2018-02-08 04:10] VITALS: BP 123/68; PULSE 68; RESP 17; TEMP 37; O2SAT 97
[2018-02-08] MEDS: oxyCODONE 5 mg/Acetaminophen 325 mg TAB 1 TAB PO ×2 (04:36→09:17)
[2018-02-08] MEDS: Levothyroxine 50 MCG TAB PO (06:38)
[2018-02-08 09:10] VITALS: O2SAT 97
[2018-02-08] MEDS: Docusate Sodium 100 MG CAP PO (09:17)
[2018-02-08] MEDS: Pantoprazole 40 MG TABCR PO (09:17)
[2018-02-08] MEDS: Multivitamin w/Minerals TAB 1 TAB PO (09:17)
[2018-02-08 09:45] VITALS: BP 101/64; PULSE 68; RESP 17; TEMP 36.9; O2SAT 97
--- NOTE | 2018-02-08 10:20 | PT.INTREAT ---
Date of service: 02/08/18 Time of Service: 10:20 PT Notes Inpatient Physical Therapy Treatment Note Date: 02/08/18 PRECAUTIONS: NWB on R SUBJECTIVE: Germaine reports that she has been transferring independently from bed<>commode. She reports that she feels safe doing so. OBJECTIVE: PAIN: No c/o pain BED MOBILITY/TRANSFERS Sit-stand: I Stand-sit: I GAIT Assistive Device: FWW Weight bearing: NWB on R Assist: S Distance: 20' + 10' + 5' x2 STAIRS: Up/down 3x4 using B rails and a hop-to pattern with SBA; up/down 3x4 using 1 rail/ax crutch and a hop-to pattern with CGA WHEELCHAIR MOBILITY: Patient performed self-propulsion with wc, independently, 50'x2 ASSESSMENT: Patient tolerated session well without complaint. She was able to tolerate stair training with CGA/SBA. She is demonstrating independence with transfers at this time. PLAN: Stacy with PT's POC TREATMENT CODE/TIME: 25 minutes; TAx2
--- NOTE | 2018-02-08 10:23 | PTTR_ITS ---
Date of service: 02/08/18 Time of Service: 10:20 PT Notes Inpatient Physical Therapy Treatment Note Date: 02/08/18 PRECAUTIONS: NWB on R SUBJECTIVE: Germaine reports that she has been transferring independently from bed <>commode. She reports that she feels safe doing so. OBJECTIVE: PAIN: No c/o pain BED MOBILITY/TRANSFERS Sit-stand: I Stand-sit: I GAIT Assistive Device: FWW Weight bearing: NWB on R Assist: S Distance: 20' + 10' + 5' x2 STAIRS: Up/down 3x4 using B rails and a hop-to pattern with SBA; up/down 3x4 using 1 rail/ax crutch and a hop-to pattern with CGA WHEELCHAIR MOBILITY: Patient performed self-propulsion with wc, independently, 50'x2 ASSESSMENT: Patient tolerated session well without complaint. She was able to tolerate stair training with CGA/SBA. She is demonstrating independence with transfers at this time. PLAN: Stacy with PT's POC TREATMENT CODE/TIME: 25 minutes; TAx2
[2018-02-08 12:45] VITALS: BP 106/65; PULSE 72; RESP 17; TEMP 36.9; O2SAT 95
--- NOTE | 2018-02-08 12:46 | W.PM.DS.N ---
Date of service: 02/08/18 Time of Service: 12:46 DS: Diagnosis Discharge Diagnosis (1) Bimalleolar fracture of right ankle: Status: Acute (2) Status post nephrectomy: Status: Acute Discharge Plan Disposition Patient Disposition: HOME Condition: Good Discharge Details Chief Complaint: Orthopedic Clinical Impression: Closed trimalleolar fracture of right ankle Reason For Visit: BIMALLEOLAR FX R ANKLE Admit Date/Time: 02/05/18 12:30 Admit Provider: Ozzy Dias Attending Provider: Ozzy Dias Primary Care Provider: Tanika Meyer ED Provider: Margarito Liriano [place] [facility] Hospital Course: Patient was taken to to OR on 02/05/18 for ORIF of bimalleolar fx R ankle. No intraop complications. She was admitted for post-op pain control and mobilization NWB on R. She remained afebrile throughout her post-op recovery. By 02/08/18, she was independant with transfers and ambulation. She was using only PO pain meds. I felt she had completed all acute care goals and was ready for discharge. Home Meds and New Rx's Prescriptions: New hydrocodone-acetaminophen 5-325 mg tablet 1 tab PO Q6H PRN (Reason: pain) Qty: 20 RF: 0 No Action latanoprost 0.005 % drops 1 drp ophthalmic (eye) HS RF: 0 eszopiclone 2 mg tablet 2 mg PO HS PRN Qty: 30 RF: 3 hydrocodone-acetaminophen 5-325 mg tablet 1 tab PO TID MDD 3 PRN (Reason: pain) Qty: 90 RF: 0 multivitamin 1 EACH tablet 1 ea PO DAILY RF: 0 levothyroxine 50 MCG tablet 50 mcg PO DAILY Qty: 90 RF: 12 metoprolol tartrate 25 MG tablet 0.5 tab PO DAILY PRNQty: 45 RF: 4 albuterol sulfate [ProAir HFA] 8.5 GM HFA aerosol inhaler 1 - 2 puff Inhalation Q6H PRN Qty: 1 RF: 12 gabapentin 300 mg capsule 300 mg PO DAILY PRN (Reason: neuropathy) Qty: 90 RF: 5 penicillin V potassium 500 mg Tablet 500 mg PO TID RF: 0 Discharge Instructions Additional Instructions: Elevate R ankle when sitting. Keep splint and dressings dry until return. Return to 's office on 02/17/18. Referrals: Ozzy Dias MD [ [facility] STAFF PHYSICIAN] - (f/u 02/17/18) Activity:: Activity as Tolerated Equipment/Supplies:: Walker Diet:: As Tolerated Discharge Orders Discharge Orders: Discharge Order (Routine); Ordered 02/08/18 Ordered By: Ozzy Dias DS: Data Vitals/I&O Vitals and I&O: Vital Signs Temperature 37.0 C 02/08/18 04:10 Temperature Source Skin 02/08/18 04:10 Pulse 68 02/08/18 04:10 Pulse Rhythm Regular 02/08/18 11:54 Respiratory Rate 17 02/08/18 04:10 Respiratory Effort Non-Labored 02/08/18 11:54 Respiratory Depth Normal 02/08/18 11:54 Respiratory Pattern Normal 02/08/18 11:54 Blood Pressure 123/68 02/08/18 04:10 Pulse Oximetry 97 02/08/18 09:10 Respiratory End-tidal CO2 32 02/05/18 18:18 Oxygen Delivery Method Room Air 02/08/18 09:10 Oxygen Flow Rate 0 02/08/18 09:10 Pain Level 4 02/08/18 09:17 Comment 02/08/18 04:10 Intake & Output 02/07/18 02/08/18 02/08/18 23:59 11:59 23:59 Intake Total 990 / 990 930 / 930 Output Total 1150 / 1150 1200 / 1200 Balance -160 / -160 -270 / -270 Intake: Oral 990 / 990 930 / 930 Output: Urine 1150 / 1150 1200 / 1200 Other: Urine Color Yellow Yellow Urine Appearance Clear Clear Urine Odor Normal Normal Voiding Methods Bedside Commode Bedside Commode [facility] Spinal stenosis (Chronic 09/03/14) Seasonal allergies (Chronic 07/27/13) Impaired renal function (Chronic 07/27/13) Hypothyroidism (Chronic 09/10/14) Hepatitis C (Chronic) Glaucoma (Chronic 07/27/13) Esophageal reflux (Chronic) Depression (Chronic) Cataract (Chronic 04/06/17) Back pain (Chronic) Chronic pain disorder (Chronic 12/10/16) Family History Mother Breast cancer Lung cancer Father CAD (coronary artery disease) Hypertension Heart disease Alcohol abuse Sister Myocardial infarction Heart disease Alcohol abuse Brother Arrhythmia Hypertension Heart disease Son Hypertension Daughter No problems noted. Maternal Grandfather Nephritis Paternal Grandfather Esophageal cancer Maternal Grandmother Stroke Paternal Grandmother Dementia PROCEDURES , Ectopic Family History Mother Breast cancer Lung cancer Father CAD (coronary artery disease) Hypertension Heart disease Alcohol abuse Sister Myocardial infarction Heart disease Alcohol abuse Brother Arrhythmia Hypertension Heart disease Son Hypertension Daughter No problems noted. Maternal Grandfather Nephritis Paternal Grandfather Esophageal cancer Maternal Grandmother Stroke Paternal Grandmother Dementia Medical History Spinal stenosis (Chronic 09/03/14) Seasonal allergies (Chronic 07/27/13) Impaired renal function (Chronic 07/27/13) Hypothyroidism (Chronic 09/10/14) Hepatitis C (Chronic) Glaucoma (Chronic 07/27/13) Esophageal reflux (Chronic) Depression (Chronic) Cataract (Chronic 04/06/17) Back pain (Chronic) Chronic pain disorder (Chronic 12/10/16) Social History current occupational status: retired pets and animals: No frequency: 1-2 times per week duration: decline to answer Smoking/Tobacco Use Status: Never alcohol intake: current alcohol intake frequency: a few times a week Alcohol type: wine substance use type: does not use alysa/jew: Yarsanism special alysa needs: No Surgical History PROCEDURES , Ectopic Social History current occupational status: retired pets and animals: No frequency: 1-2 times per week duration: decline to answer Smoking/Tobacco Use Status: Never alcohol intake: current alcohol intake frequency: a few times a week Alcohol type: wine substance use type: does not use alysa/jew: Yarsanism special alysa needs: No
--- NOTE | 2018-02-08 12:53 | DSE_ITS ---
Date of service: 02/08/18 Time of Service: 12:46 DS: Diagnosis Discharge Diagnosis (1) Bimalleolar fracture of right ankle: Status: Acute (2) Status post nephrectomy: Status: Acute Discharge Plan Disposition Patient Disposition: HOME Condition: Good Discharge Details Chief Complaint: Orthopedic Clinical Impression: Closed trimalleolar fracture of right ankle Reason For Visit: BIMALLEOLAR FX R ANKLE Admit Date/Time: 02/05/18 12:30 Admit Provider: Ozzy Dias Attending Provider: Ozzy Dias Primary Care Provider: Tanika Meyer ED Provider: Margarito Liriano [facility] Hospital Course: Patient was taken to to OR on 02/05/18 for ORIF of bimalleolar fx R ankle. No intraop complications. She was admitted for post-op pain control and mobilization NWB on R. She remained afebrile throughout her post-op recovery. By 02/08/18, she was independant with transfers and ambulation. She was using only PO pain meds. I felt she had completed all acute care goals and was ready for discharge. Home Meds and New Rx's Prescriptions: New hydrocodone-acetaminophen 5-325 mg tablet 1 tab PO Q6H PRN (Reason: pain) Qty: 20 RF: 0 No Action latanoprost 0.005 % drops 1 drp ophthalmic (eye) HS RF: 0 eszopiclone 2 mg tablet 2 mg PO HS PRN Qty: 30 RF: 3 hydrocodone-acetaminophen 5-325 mg tablet 1 tab PO TID MDD 3 PRN (Reason: pain) Qty: 90 RF: 0 multivitamin 1 EACH tablet 1 ea PO DAILY RF: 0 levothyroxine 50 MCG tablet 50 mcg PO DAILY Qty: 90 RF: 12 metoprolol tartrate 25 MG tablet 0.5 tab PO DAILY PRNQty: 45 RF: 4 albuterol sulfate [ProAir HFA] 8.5 GM HFA aerosol inhaler 1 - 2 puff Inhalation Q6H PRN Qty: 1 RF: 12 gabapentin 300 mg capsule 300 mg PO DAILY PRN (Reason: neuropathy) Qty: 90 RF: 5 penicillin V potassium 500 mg Tablet 500 mg PO TID RF: 0 Discharge Instructions Additional Instructions: Elevate R ankle when sitting. Keep splint and dressings dry until return. Return to 's office on 02/17/18. Referrals: Ozzy Dias MD [ [facility]FF [facility]YSICIAN] - (f/u 02/17/18) Activity:: Activity as Tolerated Equipment/Supplies:: Walker Diet:: As Tolerated Discharge Orders Discharge Orders: Discharge Order (Routine); Ordered 02/08/18 Ordered By: Ozzy Dias DS: Data Vitals/I&O Vitals and I&O: Vital Signs Temperature 37.0 C 02/08/18 04:10 Temperature Source Skin 02/08/18 04:10 Pulse 68 02/08/18 04:10 Pulse Rhythm Regular 02/08/18 11:54 Respiratory Rate 17 02/08/18 04:10 Respiratory Effort Non-Labored 02/08/18 11:54 Respiratory Depth Normal 02/08/18 11:54 Respiratory Pattern Normal 02/08/18 11:54 Blood Pressure 123/68 02/08/18 04:10 Pulse Oximetry 97 02/08/18 09:10 Respiratory End-tidal CO2 32 02/05/18 18:18 Oxygen Delivery Method Room Air 02/08/18 09:10 Oxygen Flow Rate 0 02/08/18 09:10 Pain Level 4 02/08/18 09:17 Comment 02/08/18 04:10 Intake & Output 02/07/18 02/08/18 02/08/18 23:59 11:59 23:59 Intake Total 990 / 990 930 / 930 Output Total 1150 / 1150 1200 / 1200 Balance -160 / -160 -270 / -270 Intake: Oral 990 / 990 930 / 930 Output: Urine 1150 / 1150 1200 / 1200 Other: Urine Color Yellow Yellow Urine Appearance Clear Clear Urine Odor Normal Normal Voiding Methods Bedside Commode Bedside Commode [facility] Spinal stenosis (Chronic 09/03/14) Seasonal allergies (Chronic 07/27/13) Impaired renal function (Chronic 07/27/13) Hypothyroidism (Chronic 09/10/14) Hepatitis C (Chronic) Glaucoma (Chronic 07/27/13) Esophageal reflux (Chronic) Depression (Chronic) Cataract (Chronic 04/06/17) Back pain (Chronic) Chronic pain disorder (Chronic 12/10/16) Family History Mother Breast cancer Lung cancer Father CAD (coronary artery disease) Hypertension Heart disease Alcohol abuse Sister Myocardial infarction Heart disease Alcohol abuse Brother Arrhythmia Hypertension Heart disease Son Hypertension Daughter No problems noted. Maternal Grandfather Nephritis Paternal Grandfather Esophageal cancer Maternal Grandmother Stroke Paternal Grandmother Dementia PROCEDURES , Ectopic Family History Mother Breast cancer Lung cancer Father CAD (coronary artery disease) Hypertension Heart disease Alcohol abuse Sister Myocardial infarction Heart disease Alcohol abuse Brother Arrhythmia Hypertension Heart disease Son Hypertension Daughter No problems noted. Maternal Grandfather Nephritis Paternal Grandfather Esophageal cancer Maternal Grandmother Stroke Paternal Grandmother Dementia Medical History Spinal stenosis (Chronic 09/03/14) Seasonal allergies (Chronic 07/27/13) Impaired renal function (Chronic 07/27/13) Hypothyroidism (Chronic 09/10/14) Hepatitis C (Chronic) Glaucoma (Chronic 07/27/13) Esophageal reflux (Chronic) Depression (Chronic) Cataract (Chronic 04/06/17) Back pain (Chronic) Chronic pain disorder (Chronic 12/10/16) Social History current occupational status: retired pets and animals: No frequency: 1-2 times per week duration: decline to answer Smoking/Tobacco Use Status: Never alcohol intake: current alcohol intake frequency: a few times a week Alcohol type: wine substance use type: does not use alysa/methodist: Restorationist special alysa needs: No Surgical History PROCEDURES , Ectopic Social History current occupational status: retired pets and animals: No frequency: 1-2 times per week duration: decline to answer Smoking/Tobacco Use Status: Never alcohol intake: current alcohol intake frequency: a few times a week Alcohol type: wine substance use type: does not use alysa/methodist: Restorationist special alysa needs: No
--- NOTE | 2018-02-08 14:48 | PT.INDS ---
Date of service: 02/08/18 Time of Service: 14:49 PT Notes Inpatient Physical Therapy Discharge Summary Date: 02/08/18 Dates of Service: 02/05/18-02/08/18 SUBJECTIVE: NT OBJECTIVE: 02/05/18-02/08/18 BED MOBILITY/TRANSFERS: Supine-sit : supervision Sit-supine : supervision Sit-stand : independent Stand-sit : independent GAIT: supervision with FWW 20ftx2 NWB R LE Wheelchair Mobility: independent 50ftx2 STAIRS: up/down 3 with railings, SBA BALANCE: Static sitting: normal Dynamic sitting: normal Static standing: fair Dynamic standing: fair ASSESSMENT: Pt was seen for 4 PT Visits. Progressed from supervision standing transfers to independent, from CGA gait with FWW 5ft to superivsion gait with FWW 20ft, able to ascend/descend 3 steps with railings SBA, with crutches CGA NAB R LE. Pt is discharged to home setting, home PT recommended for continued gait and stair training. GOALS 1. Supine-Sit, Independent with walker 2. Sit-Supine independent with walker 3. Sit-Stand independent with walker 4. Stand-Sit independent with walker 5. Bed-Chair independent with walker 6. Chair-Bed independent with walker 7. Gait independent, nonweightbearing right lower extremity, with use of walker or crutches 8. Stairs with close supervision of family, one crutch or bilateral rails. 9. Independent with home exercise program 10. Balance Good with AD and NWB status of R LE. Pt met goals # 3, 4 - recommend home PT to meet remaining goals DISCHARGE RECOMMENDATIONS: Home with family supervision, with walker and crutches. G Codes in the area mobility of walking and moving around: projected status GP [id number], discharge GP [id number] Maria Teresa Winter PT
--- NOTE | 2018-02-08 15:42 | CHAPLAIN ---
Germaine was sitting up in her chair reading when I visited. She said she expects to be discharged home today, and that she has her son and his family living with her and able to help her out. Germaine's , Len, who had Parkinson and Alzhiemer's disease, this past summer. 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 She talked about him losing his ability to read and listen to her read to him, and slowly become unable to the things he enjoyed. We talked about adjusting to a new normal after someone you've cared for dies. Germaine likes to read mysteries, and has a couple of [employer] books to read now. She was planning to go to [place] with a friend for weeks this winter, but her injury has delayed her trip.
--- NOTE | 2018-02-08 16:10 | PDOC.CMDIS ---
- If Service Date Differs Date of service: 02/08/18 Time of Service: 16:10 LACE Index Scoring Tool - Questions: Length of Stay (in days): 4 - 6 Acuity (Admit via E.D.?): Yes Comorbidities: Liver or Renal Disease E.D. Visits: 1 - Answers: Total Score: 13 Risk of Readmission: High Risk Care Management Discharge Reason for Hospitalization: Bimalleolar Fx R Ankle Discharge Plan: Germaine is being discharged home with no services at this time. PT has recomended home PT however patieint declines. Germaine has a plan to manage her pain which she feels is tolerable. She will transport home with her daughter via private car. CM offered informaiton related to local grief support groups and local therapist. Germaine declines at this time. CM offered support and encourage her to call if she has any questions related to plan of care or resources. Germaine has her own equipment. Patient/Family Education Needs: Discharge education, limitations and follow up plan of care. Ask me three discussion and self management.
== END 2018-02-08 15:25 | disposition home or self-care (01) | DRG 494 ==
LOC: ER 13:26 → MS 13:42
PROVIDERS: Admitting Provider Orthopaedic Surgery; Emergency Provider Student in an Organized Health Care Education/Training Program; PCP Family Medicine; Visit Provider Orthopaedic Surgery
PROC: 0QSG04Z Reposition Right Tibia with Internal Fixation Device, Open Approach (ICD-10-PCS; CPT 27814; principal; 2018-02-05 16:00)
DX: S82.841A Displaced bimalleolar fracture of right lower leg, initial encounter for closed fracture (principal); X50.0XXA Overexertion from strenuous movement or load, initial encounter; E03.9 Hypothyroidism, unspecified; G89.29 Other chronic pain; I10 Essential (primary) hypertension
CPT/HCPCS: 27814; 29515; 76942; 96361; 96374; 96375; 96376; 97110; 97116; 97161; 97530; 99222; 99285; NC; 73590; 73600; 73610; 73630; 99284; E0114; J0690; J1100; J2370; J2405; J3010; J7042

== ENCOUNTER 2018-02-17 12:11 | Outpatient (CLI) | payer MEDICARE, SELFPAY ==
--- NOTE | 2018-02-17 12:09 | DI.RAD_ITS ---
SYMPTOM/DIAGNOSISs: ORIF RT ANKLE RIGHT ANKLE: There is generalized soft tissue swelling. The patient is status post fixation of fractures of the medial and lateral malleolus. The medial malleolus with pins, the lateral malleolus with a plate and screw fixation device. There has been no significant interval change when compared with images of 02/05/18.
== END 2018-02-17 12:31 ==
PROVIDERS: PCP Family Medicine; Visit Provider Physician Assistant
DX: S82.841D Displaced bimalleolar fracture of right lower leg, subsequent encounter for closed fracture with routine healing (principal); W10.8XXD Fall (on) (from) other stairs and steps, subsequent encounter
CPT/HCPCS: 73610; L4361

== ENCOUNTER → 2018-02-24 10:11 | Outpatient (BNVA) | payer MEDICARE, SELFPAY | PROVIDERS: PCP Family Medicine; Referring Provider Family Medicine; Visit Provider Orthopaedic Surgery | DX: R69 Illness, unspecified (principal) ==

== ENCOUNTER 2018-03-17 10:52 | Outpatient (CLI) | payer OTHER, SELFPAY ==
--- NOTE | 2018-03-17 10:47 | DI.RAD_ITS ---
SYMPTOMS/DIAGNOSIS: INJURY RIGHT ANKLE: Three views. Comparison examination is 02/17/18. There are again seen sideplate, screws and pins transfixing fractures of the distal right tibia and fibula. The orthopedic hardware shows no evidence of failure. The fracture components are stable in alignment. The fracture lines are still visualized. No new fractures or dislocations are appreciated.
== END 2018-03-17 11:12 ==
PROVIDERS: PCP Family Medicine; Referring Provider Family Medicine; Visit Provider Orthopaedic Surgery
DX: S82.841D Displaced bimalleolar fracture of right lower leg, subsequent encounter for closed fracture with routine healing (principal); W01.0XXD Fall on same level from slipping, tripping and stumbling without subsequent striking against object, subsequent encounter
CPT/HCPCS: 73610

== ENCOUNTER 2018-04-12 10:03 | Outpatient (CLI) | payer OTHER, SELFPAY ==
--- NOTE | 2018-04-12 09:59 | DI.RAD_ITS ---
SYMPTOM/DIAGNOSIS: S/P ORIF RT ANKLE FRACTURE RIGHT ANKLE: Three views. Comparison is made with 03/17/18. There are again seen sideplate screws and pins transfixing fractures involving the distal right tibia and fibula. There has been no change in the orthopedic hardware or fracture components compared to the prior examination. No new fractures or dislocations are seen. The bones appear mildly osteopenic, likely reflecting decreased use.
== END 2018-04-12 10:23 ==
PROVIDERS: PCP Family Medicine; Referring Provider Family Medicine; Visit Provider Orthopaedic Surgery
DX: S82.841D Displaced bimalleolar fracture of right lower leg, subsequent encounter for closed fracture with routine healing; X50.0XXD Overexertion from strenuous movement or load, subsequent encounter
CPT/HCPCS: 73610; L1902

== ENCOUNTER 2018-06-24 02:51 | Outpatient (CLI) | payer OTHER, SELFPAY ==
[2018-06-24 12:57] LABS: ALT 29 U/L (12-78); AST 20 U/L (15-37); Albumin 4.3 g/dL (3.4-5.0); Alkaline Phosphatase 64 U/L (46-116); Anion Gap 10.3 mmol/L (3-11); BUN 18 mg/dL (7-18); Bilirubin, Total 0.6 mg/dL (0.2-1.0); CO2 28.7 mmol/L (21.0-32.0); CREATININE 1.29 mg/dL (0.55-1.02); Calcium 10.2 mg/dL (8.5-10.1); Chloride 102 mmol/L (98-107); Glucose 107 mg/dL (70-100); Potassium 4.2 mmol/L (3.5-5.1); Sodium 141 mmol/L (136-145); TSH (W/Ref FT4) 3.19 uIU/mL (0.358-3.74); Total Protein 7.9 g/dL (6.4-8.2)
== END 2018-06-24 03:11 ==
PROVIDERS: PCP Family Medicine; Visit Provider Family Medicine
DX: E03.9 Hypothyroidism, unspecified (principal); N28.9 Disorder of kidney and ureter, unspecified
CPT/HCPCS: 36415; 80053; 84443

== ENCOUNTER 2018-07-26 00:09 | Outpatient (CLI) | payer OTHER, SELFPAY ==
--- NOTE | 2018-07-26 09:19 | DI.COMBO_ITS ---
SYMPTOM/DIAGNOSIS: F/U ABNL MAMMO, 6 MO F/U, R92.8, SMALL ASYMMETRIC DENSITY RIGHT MAMMOGRAM AND RIGHT BREAST ULTRASOUND: Mammograms were interpreted according to the usual protocol including computer analysis with CAD system, tomosynthesis and C view imaging. Comparison is made with 09/2017. Breast density, Category B. No suspicious masses or microcalcifications are seen in the right breast. The nodular density in the medial right breast is unchanged in size. A right breast ultrasound was performed of the upper inner and lower inner quadrants were evaluated sonographically. No cystic or solid masses are present. IMPRESSION: No definite evidence for malignancy. The patient should return for mammography in 3 months for her screening left mammogram. At that time, right mammogram and ultrasound should be obtained for follow up . Category 3. MQSA ASSESSMENT OF FINDINGS: Probably benign. Six month follow-up recommended. Category 3. Patient will receive a letter notifying them of these results. BI-RADS category B. There are scattered areas of fibroglandular density. The results were discussed with the patient on the date of the examination.
== END 2018-07-26 00:29 ==
PROVIDERS: PCP Family Medicine; Visit Provider Family Medicine
DX: Z12.31 Encounter for screening mammogram for malignant neoplasm of breast (principal); R92.8 Other abnormal and inconclusive findings on diagnostic imaging of breast; N60.81 Other benign mammary dysplasias of right breast
CPT/HCPCS: 76642; 77061; 77065; G0279

== ENCOUNTER 2018-11-11 11:46 | Outpatient (CLI) | payer OTHER, SELFPAY ==
[2018-11-11 13:17] LABS: ALT 26 U/L (14-59); AST 13 U/L (15-37); Albumin 4.3 g/dL (3.4-5.0); Alkaline Phosphatase 61 U/L (46-116); Anion Gap 9.8 mmol/L (3-11); BUN 18 mg/dL (7-18); Bilirubin, Total 0.6 mg/dL (0.2-1.0); CO2 28.2 mmol/L (21.0-32.0); CREATININE 1.27 mg/dL (0.55-1.02); Calcium 9.6 mg/dL (8.5-10.1); Chloride 104 mmol/L (98-107); Estimated GFR 41.02 (mL/min/1.73m2); Glucose 116 mg/dL (70-100); Potassium 4.2 mmol/L (3.5-5.1); Sodium 142 mmol/L (136-145); Total Protein 7.6 g/dL (6.4-8.2)
[2018-11-14 11:37] LABS: Hepatitis C Ab w Rflx HCV PCR Reactive (NEGAT)
[2018-11-15 15:58] LABS: HCV RNA Detection Quantitative Undetected IU/mL (UNDECT)
== END 2018-11-11 12:06 ==
PROVIDERS: PCP Family Medicine; Visit Provider Family Medicine
DX: B19.20 Unspecified viral hepatitis C without hepatic coma (principal); N28.9 Disorder of kidney and ureter, unspecified
CPT/HCPCS: 36415; 80053; 86803; 87522

== ENCOUNTER 2018-11-14 00:31 | Outpatient (CLI) | payer OTHER, SELFPAY ==
--- NOTE | 2018-11-14 06:56 | MERGEMPI_ITS ---
*[facility]* *[facility]* [address] [place] [address] Myocardial Perfusion Imaging - SPECT Doe protocol Date of study: 11/14/2018 *PATIENT PRESENTATION* Height: 165.1cm (65in) Blood Pressure: Weight: 59.5kg (131lb) BSA: 1.65m^2 Referring physician: Sonny Cross Ordering physician: Tanika Meyer Impressions: - Normal myocardial perfusion and contraction after maximal exercise. - Low risk of cardiac events. Summary: 1. Myocardial perfusion imaging: No myocardial perfusion defects noted. 2. The calculated left ventricular ejection fraction after stress: 70%. LV global systolic function is normal. No left ventricular regional motion abnormality. 3. Stress ECG conclusions: The stress ECG is negative. 4. Stress: The target heart rate was achieved. The heart rate response to stress is exaggerated. There is a normal resting blood pressure with an appropriate response to stress. The patient experienced no chest pain during stress. Exercise capacity is above normal for age. 5. Treadmill exercise testing was performed using the Doe protocol. The patient exercised for 6 min 52 sec, to protocol stage 3, to a maximal work rate of 8.4mets. Exercise was terminated due to achievement of target heart rate. Indication: R07.9, Appropriate Use Criteria: A (Appropriate). History: REASON FOR TESTING: PATIENT TESTING TODAY FOR PRE OPERATIVE SURGICAL CLEARANCE FOR CATERACT SURGERY. FOR 1 YEAR NOW PATIENT HAS BEEN EXPERIENCING SOME MIDSTERNAL/EPIGASTRIC CHEST DISCOMFORT THAT LASTS 5 TO 20 MINUTES. THIS DISCOMFORT HAS INCREASED IN FREQUENCY TO DAILY OVER THE LAST FEW MONTHS. SHE ALSO REPORTS, 2 WEEKS AGO, AN EPISODE OF EXTREME DIZZYNESS AND VOMITING--DIZZYNESS LASTING APPROXIMATELY ONE HOUR. AND LAST WEDNESDAY HAD ANOTHER SPELL OF NAUSEA AND DIZZYNESS THAT LASTED APPROXIMATLEY TWO HOURS. PATIENT DENIES CHEST PAIN UPON ARRIVAL TO TESTING TODAY. SIGNIFICANT PAST MEDICAL HISTORY: CARDIAC MURMUR, NEPHRECTOMY, SPINAL FUSION, GERD, CHRONIC PAIN DISORDER. SMOKING STATUS: NEVER. EXERCISE ROUTINE: GARDENING AND DAILY ADL'S. AND SHE ALSO HAS AN 8 YEAR OLD GRANDSON WHO LIVES WITH HER. Risk factors: Family history of coronary artery disease. Cholesterol: 243mg/dl. HDL: 44mg/dl. LDL: 166mg/dl. Triglycerides: 157mg/dl. ALLERGIES: NO KNOWN DRUG ALLERGIES. SEASONAL ALLERGIES. CATS AND DOGS. DUST. MEDICATIONS: MULTIVITAMIN DAILY, GABAPENTIN 300 MG DAILY PRN, LATANOPROST 0.005% EYE DROPS HS, LEVOTHYROXINE 50 MCG DAILY, METOPROLOL TARTRATE 12.5 MG PRN, HYDROCODONE/ACETAMINOPHEN 5/325 MG PRN. Imaging Technique: Protocol: Doe protocol. Acquisition: Gated SPECT; 1 day - rest/stress. The patient was imaged in the supine position. Attenuation correction used. Isotope administration: - Rest. Tc[99m]-sestamibi. Dose: 9.7mCi. Injection time: 09:00 AM. Injection to stress time: 00:45. - Stress. Tc[99m]-sestamibi. Dose: 32mCi. Injection time: 11:15 AM. 1-2 min before end of exercise Baseline ECG: SINUS RHYTHM. HR 76 BPM. RARE PAC'S. Normal sinus rhythm. Occasional ventricular ectopy. Stress protocol: + +---+ + !Stage !HR !BP (mmHg) ! + +---+ + !Baseline supine !76 !160/68 (99) ! + +---+ + !Baseline standing !69 !112/52 (72) ! + +---+ + !Stage I; 1.7mph, 10degrees; 3 min !115!160/84 (109)! + +---+ + !Stage II; 2.5mph, 12degrees; 3 min!136!172/82 (112)! + +---+ + !Peak stress !150! ! + +---+ + !Recovery; 1 min !120!190/84 (119)! + +---+ + !Recovery; 3 min !93 !160/64 (96) ! + +---+ + !Recovery; 6 min !88 !142/70 (94) ! + +---+ + !Recovery; 9 min !83 !120/70 (87) ! + +---+ + * Stress results: STRESS TEST ENDED IN 6 MINUTES 52 SECONDS DUE TO PATIENT HAVING MET 100% OF HER TARGET HEART RATE. NORMAL HEART RATE AND BLOOD PRESSURE. MAX HEART RATE: 150 103 % OF TARGET HEART RATE ACHIEVED. MET'S: 8.38. FREQUENT PAC'S AND PVC'S POST RECOVERY FROM EXERCISE. PATIENT STATED SHE COULD FEEL PALPITATIONS. BURNING MIDSTERNAL CHEST PAIN AT 5 MINUTES 29 SECONDS OF EXERCISE. BURNING PAIN RELIEVED WITH STOPPING EXERCISE. NO SIGNIFICANT ST SEGMENT CHANGES. ABOVE AVERAGE FUNCTIONAL CAPACITY. Maximal heart rate during stress was 150bpm (103% of maximal predicted heart rate). The maximal predicted heart rate was 145bpm. The target heart rate was achieved. The heart rate response to stress is exaggerated. There is a normal resting blood pressure with an appropriate response to stress. The rate-pressure product for the peak heart rate and blood pressure was 95328zd Hg/min. The patient experienced no chest pain during stress. Exercise capacity is above normal for age. Stress ECG: The stress ECG is negative. Myocardial perfusion: Imaging information: gated. The image quality was excellent. Left ventricular size is normal. No myocardial perfusion defects noted. Ventricular Function (Wall Motion): The calculated left ventricular ejection fraction after stress: 70%. LV global systolic function is normal. No left ventricular regional motion abnormality. Study data: Sonny Cross MD supervised and was readily available during the procedure. This study was interpreted by [facility]. Study status: Routine. Consent: The risks, benefits, and alternatives to the procedure were explained to the patient and informed consent was obtained. Procedure: Initial setup. A baseline ECG was recorded. Surface ECG leads and manual cuff blood pressure measurements were monitored. Heart sounds: Normal. Lung sounds: Normal. Treadmill exercise testing was performed using the Doe protocol. The patient exercised for 6 min 52 sec, to protocol stage 3, to a maximal work rate of 8.4mets. Exercise was terminated due to achievement of target heart rate. Study completion: All catheters inserted during the procedure were removed. The patient tolerated the procedure well and was discharged from the lab. Discharge: The patient left the laboratory in stable condition. Birthdate: Patient birthdate: 1945. Sex: Gender: female. Study date: Study date: 11/14/2018. Study time: 00:01 AM. Signature Documentation: - The imaging portion of this study was interpreted by [employer] Sonny Cross MD. - The Stress ECG portion of this study was interpreted by oSnny Cross MD. Electronically signed by Sonny Cross 11/14/2018 13:30
== END 2018-11-14 00:51 ==
PROVIDERS: PCP Family Medicine; Visit Provider Family Medicine
DX: R07.9 Chest pain, unspecified (principal); R10.13 Epigastric pain; R01.1 Cardiac murmur, unspecified; K21.9 Gastro-esophageal reflux disease without esophagitis; Z82.49 Family history of ischemic heart disease and other diseases of the circulatory system
CPT/HCPCS: 78452; 93016; 93018; 93017

== ENCOUNTER 2019-04-21 02:40 | Outpatient (CLI) | payer OTHER, SELFPAY ==
--- NOTE | 2019-04-21 11:35 | DI.RAD_ITS ---
EXAM: XR HIP RT COMPLETE AP PELVIS INDICATION: r hip pain, M25.551. COMPARISON: BILATERAL HIPS ADULT from 07/07/2016 TECHNIQUE: 2D digital imaging was performed. FINDINGS: The hip joint spaces show mild bilateral narrowing as well as acetabular spurring, slightly greater o n the left side. There is minimal spurring at the greater trochanters. Mild degenerative changes ar e seen of the inferior SI joints as well as pubic symphysis. IMPRESSION: Mild degenerative changes. DATA REPOSITORY: RADIATION DOSE DELIVERED:
--- NOTE | 2019-04-21 11:38 | DI.RAD_ITS ---
EXAM: XR LUMBAR SPINE COMPLETE INDICATION: LBP and r hip pain, SPINAL STENOSIS, M48.00. COMPARISON: No exams were available for comparison TECHNIQUE: 2D digital imaging was performed. FINDINGS: There is a severe levorotoscoliosis. There has been previous surgery with fusion from the L3 through L5 levels. Vertebral bodies are well maintained in height. There are small endplate osteophytes. Th ere are facet degenerative changes greatest at L 4-5 and L5-S1. The aorta is calcified and normal in diameter. There is a large quantity of stool incidentally noted. IMPRESSION: Scoliosis, degenerative changes and postsurgical changes. DATA REPOSITORY: RADIATION DOSE DELIVERED:
== END 2019-04-21 03:00 ==
PROVIDERS: PCP Family Medicine; Visit Provider Family Medicine
DX: M25.551 Pain in right hip (principal); M54.5 Low back pain; M17.0 Bilateral primary osteoarthritis of knee; Z98.1 Arthrodesis status; M25.78 Osteophyte, vertebrae; M41.26 Other idiopathic scoliosis, lumbar region; M47.27 Other spondylosis with radiculopathy, lumbosacral region; M47.26 Other spondylosis with radiculopathy, lumbar region
CPT/HCPCS: 72110; 73502

== ENCOUNTER → 2019-08-07 09:53 | Outpatient (BNVA) | payer OTHER, SELFPAY | PROVIDERS: PCP Family Medicine; Referring Provider Family Medicine; Visit Provider Student in an Organized Health Care Education/Training Program | DX: M25.551 Pain in right hip (principal); M70.61 Trochanteric bursitis, right hip; M16.11 Unilateral primary osteoarthritis, right hip | CPT/HCPCS: 20610; 99213; J1040 ==

== ENCOUNTER 2019-08-08 01:46 | Outpatient (CLI) | payer OTHER, SELFPAY ==
--- NOTE | 2019-08-08 06:20 | DI.US_ITS ---
EXAM: MG MAMMO DIAGNOSTIC BI CLINICAL HISTORY: 3-6 MO F/U ABNORMAL RT BREAST,R92.8. COMPARISON: US US BREAST RT COMPLETE from 08/08/2019 TECHNIQUE: Craniocaudal and mediolateral oblique Full Field Digital Mammography views of the bilater al breast with Computer Aided Diagnosis followed by Tomosynthesis and right breast ultrasound. FINDINGS: Mammography/Tomosynthesis: Masses/Architectural Distortion: The asymmetric density in the medial right breast is unchanged. No suspicious masses are seen. Microcalcifications: No suspicious pleomorphic-type are seen. Skin Thickening/Nipple Retraction: None. Right breast US: Echotexture: Normal appearance of the glandular tissue. Shadowing: No suspicious foci. Cyst: None. Solid lesions: None seen. Ductal dilation: None. IMPRESSION: 1. No evidence of malignancy is noted. 2. A six-month follow-up right mammogram and ultrasound are recommended for re-evaluation of the nodu lar density in the medial breast. BI-RADS Category 3 - 6 month - Probably Benign Finding: Recommend follow-up mammography in 6 months Breast Density - Category B - Scattered areas of fibroglandular density Findings were discussed with the patient on the date of the examination. A negative radiographic report should not delay biopsy if a dominant or clinically suspicious mass is present. Up to ten percent of cancers are not identified on mammography. A negative report may reinforce clinical impression. Adenosis and dense breasts may obscure an underlying neoplasm. False positive reports average 6 to 10%. Patient will receive a letter notifying them of these results.
== END 2019-08-08 02:06 ==
PROVIDERS: PCP Family Medicine; Visit Provider Family Medicine
DX: Z12.31 Encounter for screening mammogram for malignant neoplasm of breast (principal); R92.8 Other abnormal and inconclusive findings on diagnostic imaging of breast; N60.81 Other benign mammary dysplasias of right breast
CPT/HCPCS: 76642; 77062; 77066; G0279

== ENCOUNTER 2019-11-27 13:15 | Outpatient (CLI) | payer OTHER, SELFPAY | END 2019-11-27 13:35 | PROVIDERS: PCP Family Medicine; Visit Provider Student in an Organized Health Care Education/Training Program | DX: M25.551 Pain in right hip (principal); M70.61 Trochanteric bursitis, right hip | CPT/HCPCS: 20610; 99213; J1040 ==

== ENCOUNTER 2020-01-01 12:57 | Outpatient (REF) | payer OTHER, SELFPAY ==
[2020-01-01 14:10] LABS: *AMPHETAMINES SCREEN URINE Negative (Negative); *BARBITURATES SCREEN URINE Negative (Negative); *BENZODIAZEPINES SCREEN URINE Negative (Negative); Cannabinoids THC Negative (Negative); Cocaine Screen,Urine Negative (Negative); METHADONE URINE SCREEN Negative (Negative); OPIATES URINE SCREEN POSITIVE (Negative)
[2020-01-01 14:12] LABS: Tricyclic Antidepressants Negative (Negative)
== END 2020-01-01 13:17 ==
LOC: LBN 12:57
PROVIDERS: PCP Family Medicine; Visit Provider Family Medicine
DX: G89.4 Chronic pain syndrome (principal)
CPT/HCPCS: 80307

== ENCOUNTER 2020-02-13 03:34 | Outpatient (CLI) | payer OTHER, SELFPAY ==
[2020-02-13 12:56] LABS: ALT 52 U/L (14-59); AST 33 U/L (15-37); Albumin 4.3 g/dL (3.4-5.0); Alkaline Phosphatase 46 U/L (46-116); Anion Gap 9.6 mmol/L (3-11); BUN 24 mg/dL (7-18); Bilirubin, Total 0.6 mg/dL (0.2-1.0); CO2 29.4 mmol/L (21.0-32.0); CREATININE 1.26 mg/dL (0.55-1.02); Calcium 9.9 mg/dL (8.5-10.1); Calculated LDL 128 mg/dL (<100); Chloride 106 mmol/L (98-107); Cholesterol 196 mg/dL (<200); Estimated GFR 41.29 (mL/min/1.73m2); Glucose 84 mg/dL (74-106); HDL Cholesterol 55 mg/dL (40-60); Sodium 145 mmol/L (136-145); Total Protein 7.4 g/dL (6.4-8.2); Triglyceride 65 mg/dL (<150)
[2020-02-14 10:41] LABS: Hepatitis C Ab w Rflx HCV PCR Reactive (Negative)
[2020-02-15 14:06] LABS: HCV RNA Qualitative Undetected (Undetected)
== END 2020-02-13 03:54 ==
PROVIDERS: PCP Family Medicine; Visit Provider Family Medicine
DX: E03.9 Hypothyroidism, unspecified (principal); I10 Essential (primary) hypertension; B19.20 Unspecified viral hepatitis C without hepatic coma
CPT/HCPCS: 36415; 80053; 80061; 86803; 87522; 84443

== ENCOUNTER 2020-02-20 01:13 | Outpatient (CLI) | payer OTHER, SELFPAY ==
--- NOTE | 2020-02-20 09:45 | DI.MRI_ITS ---
EXAM: MR LOWER JOINT RT WO CLINICAL HISTORY: RT HIP PAIN,M25.551,RT HIP OA,M16.11,BURSITIS,M70.61,DJD RT HIP,. TECHNIQUE: Multiplanar multisequence MRI was performed. COMPARISON: CR XR LUMBAR SPINE COMPLETE from 04/21/2019 CR XR HIP RT COMPLETE AP PELVIS from 04/21/2019 FINDINGS: BONES: There is no fracture or contusion pattern. JOINTS: Articular cartilage is unremarkable. No effusion is present. TENDONS:There is increased signal around the right gluteus medius tendon. There may be some thinning of the gluteus medius tendon at its insertion site onto the greater trochanter. MUSCLES: There is hyperintense signal seen within the right gluteal muscles, particularly the gluteus medius muscle. LABRUM: The labrum appears unremarkable on this noncontrast examination. The lateral meniscus is unr emarkable. SOFT TISSUES: Please see the above discussion under muscles. OTHER: IMPRESSION: Hyperintense edema seen within the right gluteus muscles, particularly the gluteus medius muscle. In creased signal seen around the right gluteus medius tendon with thinning of the tendon which may repr esent a partial tear and/or degeneration. The findings are consistent with gluteus medius muscle str ain and possible partial tear/degeneration of the gluteus medius tendon. DATA REPOSITORY:
== END 2020-02-20 01:33 ==
PROVIDERS: PCP Family Medicine; Visit Provider Student in an Organized Health Care Education/Training Program
DX: M62.89 Other specified disorders of muscle (principal); M25.551 Pain in right hip; M16.11 Unilateral primary osteoarthritis, right hip; M70.61 Trochanteric bursitis, right hip; M67.853 Other specified disorders of tendon, right hip
CPT/HCPCS: 73721

== ENCOUNTER 2020-03-22 08:15 | Outpatient (CLI) | payer OTHER, SELFPAY ==
[2020-03-23 16:57] LABS: COVID-19 RT-PCR Result NEGATIVE (Negative)
== END 2020-03-22 08:35 ==
PROVIDERS: PCP Family Medicine; Visit Provider Student in an Organized Health Care Education/Training Program
DX: Z11.52 Encounter for screening for COVID-19 (principal); Z01.818 Encounter for other preprocedural examination
CPT/HCPCS: 99213; U0003

== ENCOUNTER 2020-03-26 08:19 | Day surgery (SDC) | payer OTHER, SELFPAY ==
[2020-03-26] VITALS (8 sets, daily range): BP systolic 93–129; BP diastolic 54–78; PULSE 59–85; RESP 11–18; TEMP 35.5–37.1; O2SAT 95–100
--- NOTE | 2020-03-26 08:22 | PDOC.DSDIS_ITS ---
Documented by User: REECE Maradiaga 03/26/20 08:27 Discharge Plan Disposition Patient Disposition: HOME Condition: Good Discharge Details Reason For Visit: R hip trochanteric bursitis Attending Provider: Scotty Ortega Primary Care Provider: Tanika Meyer Home Meds and New Rx's Prescriptions: New hydrocodone-acetaminophen 5-325 mg tablet 1 tab PO Q6H PRN (Reason: pain) Qty: 6 RF: 0 ibuprofen 600 mg tablet 600 mg PO TID PRN (Reason: pain) Qty: 30 RF: 0 acetaminophen 500 mg capsule 1,000 mg PO Q8H PRN PRNQty: 90 RF: 0 Continued latanoprost 0.005 % drops 1 drp ophthalmic (eye) HS RF: 0 gabapentin 300 mg capsule 600 mg PO QHS Qty: 180 RF: 5 multivitamin 1 EACH tablet 1 ea PO DAILY RF: 0 albuterol sulfate [ProAir HFA] 90 mcg/actuation HFA aerosol inhaler 1 - 2 puff Inhalation Q6H PRN Qty: 1 RF: 12 levothyroxine 50 mcg tablet 50 mcg PO DAILY Qty: 90 RF: 12 metoprolol tartrate 25 mg tablet 12.5 mg PO DAILY PRN (Reason: palpitation) Qty: 45 RF: 0 Discontinued hydrocodone-acetaminophen 5-325 mg tablet 1 tab PO TID MDD 3 PRN (Reason: pain) Qty: 90 RF: 0 Discharge Instructions Additional Instructions: Hi Bursa Discharge Instructions Activity: You may move and walk as tolerated but always use two crutches or a walker until instructed otherwise. You should try to take short walks a few times a day. You have no restrictions on movement or positioning, but do not try to force what you do. You will find some stiffness and weakness. Do not try to strengthen this too early, continue to practice walking. Always keep some support on your arms/hands while ambulating or standing. - Outpatient physical therapy can be helpful to help return you to a normal gait and improve your flexibility and strength. This can start around 2 weeks. For some patients, it?s not necessary. Usually this is determined at the time of discharge or at the first post-operative visit. Dressing: Keep the surgical dressing in place for at least one week. After the first week it may be removed and replace with light gauze and tape or nothing. It may get wet after 3 days but avoid soaking the dressing. If it gets wet, just lightly pat dry. There are no sutures to be removed. Medications: - You should take Tylenol and an anti-inflammatory Ibuprofen as your primary pain control medications - You have been prescribed a stronger pain medication Hydrocodone for breakthrough pain, take as needed as prescribed. - If you have constipation you should take Colace or Miralax (both over-the-c ounter). It takes most people 3-4 days to have a bowel movement. Follow-up: 2 weeks Equipment/Supplies: Walker Activity:: Walker at all times Shower/Bathe:: 72 hours Diet:: As Tolerated Discharge Orders Discharge Orders: Discharge Order (Routine); Ordered 03/26/20 Ordered By: Yakov Randhawa DS: Diagnosis Discharge Diagnosis (1) Trochanteric bursitis, right hip: Status: Chronic Documented by User: Scotty Ortega MD 03/26/20 11:02 Discharge Plan Disposition Patient Disposition: HOME Condition: Good Discharge Details Reason For Visit: R hip trochanteric bursitis Attending Provider: Scotty Ortega Primary Care Provider: Tanika Meyer Home Meds and New Rx's Prescriptions: New hydrocodone-acetaminophen 5-325 mg tablet 1 tab PO Q6H PRN (Reason: pain) Qty: 6 RF: 0 ibuprofen 600 mg tablet 600 mg PO TID PRN (Reason: pain) Qty: 30 RF: 0 acetaminophen 500 mg capsule 1,000 mg PO Q8H PRN PRNQty: 90 RF: 0 Continued latanoprost 0.005 % drops 1 drp ophthalmic (eye) HS RF: 0 gabapentin 300 mg capsule 600 mg PO QHS Qty: 180 RF: 5 multivitamin 1 EACH tablet 1 ea PO DAILY RF: 0 albuterol sulfate [ProAir HFA] 90 mcg/actuation HFA aerosol inhaler 1 - 2 puff Inhalation Q6H PRN Qty: 1 RF: 12 levothyroxine 50 mcg tablet 50 mcg PO DAILY Qty: 90 RF: 12 metoprolol tartrate 25 mg tablet 12.5 mg PO DAILY PRN (Reason: palpitation) Qty: 45 RF: 0 Discontinued hydrocodone-acetaminophen 5-325 mg tablet 1 tab PO TID MDD 3 PRN (Reason: pain) Qty: 90 RF: 0 Discharge Instructions Additional Instructions: Hi Bursa Discharge Instructions Activity: You may move and walk as tolerated but always use two crutches or a walker until instructed otherwise. You should try to take short walks a few times a day. You have no restrictions on movement or positioning, but do not try to force what you do. You will find some stiffness and weakness. Do not try to strengthen this too early, continue to practice walking. Always keep some support on your arms/hands while ambulating or standing. - Outpatient physical therapy can be helpful to help return you to a normal gait and improve your flexibility and strength. This can start around 2 weeks. For some patients, it?s not necessary. Usually this is determined at the time of discharge or at the first post-operative visit. Dressing: Keep the surgical dressing in place for at least one week. After the first week it may be removed and replace with light gauze and tape or nothing. It may get wet after 3 days but avoid soaking the dressing. If it gets wet, just lightly pat dry. There are no sutures to be removed. Medications: - You should take Tylenol and an anti-inflammatory Ibuprofen as your primary pain control medications - You have been prescribed a stronger pain medication Hydrocodone for breakthrough pain, take as needed as prescribed. - If you have constipation you should take Colace or Miralax (both [id number]). It takes most people 3-4 days to have a bowel movement. Follow-up: 2 weeks Equipment/Supplies: Walker Activity:: Walker at all times Shower/Bathe:: 72 hours Diet:: As Tolerated Discharge Orders Discharge Orders: Discharge Order (Routine); Ordered 03/26/20 Ordered By: Yakov Randhawa
[2020-03-26] MEDS: Lactated Ringers 1,000 ML 80 ML IV (09:07)
[2020-03-26] MEDS: ceFAZolin 2 GM/50 ML BAG IVPB (10:16)
[2020-03-26] MEDS: Bupivacaine 0.25% Pres-Free 30 ML VIAL (10:42)
[2020-03-26] MEDS: Ketorolac 30 MG/ML VIAL (10:42)
[2020-03-26] MEDS: HYDROcodone 5/Acetaminophen 325 TAB PO (12:49)
--- NOTE | 2020-03-26 17:00 | W.PM.OP ---
Date of service: 03/26/20 Time of Service: 11:00 Operative Note Operative Note DATE OF PROCEDURE: 03/26/20 PRE-OP DIAGNOSIS: Recalcitrant Trochanteric Bursitis, RIGHT, with abductor tendon tear POST-OP DIAGNOSIS: same PROCEDURE: Open Debridement/Excision of RIGHT Trochanteric Bursa, Repair of Abductor Tendons, and Iliotibial Band Lengthening SURGEON: Scotty Ortega HEARING AIDE TECHNICIAN: Yakov Randhawa ANESTHESIA: GETA ESTIMATED BLOOD LOSS: 50 PATHOLOGY: none sent COMPLICATIONS: None Patient was transported to: PACU Patient's condition: stable Indications: Germaine is a 74 year old female who I have seen for recurrent symptoms of lateral hip pain with notable weakness. A diagnosis of trochanteric bursitis with abductor tendon tear was made. Conservative treatment options were employed first. However, pain continued. After failure of conservative treatment options and MRI which confirmed abductor tendon tear, I recommended surgical intervention. I reviewed the technical details of the surgery. I reviewed the risk of the surgery to include bleeding, infection, pain, stiffness, damage to nerves and vessels, damage to muscles and tendons, hardware failure, fracture, continued weakness, blood clot. Despite these risks, the patient desired to proceed. Findings: The iliotibial band was significantly tight. The bursa was inflamed and excised and debrided. There was a full thickness tear of the abductor tendons over the anteiror half of the greater trochanter. Iliotibial band was lengthened with a transverse tenotomy. Procedure Description: Germaine was greeted in the preoperative holding area. The identity was confirmed with the correct site and side. The consent was reviewed with the patient and signed. History and physical was updated. The patient was taken back to the operating room. A general anesthetic was administered. The patient was then positioned into the left lateral decubitus position for access to the right hip. All bony prominences well-padded. The right hip was prepped with ChloraPrep and draped in a standard fashion. Prophylactic antibiotics in the form of Cefazolin were administered. A timeout was performed for safe surgery. An approximately 10 cm incision was made overlying the posterior lateral hip. This was centered over the vastus ridge extending just proximal to the tip of the greater trochanter. The skin was incised sharply. Bleeding was stopped with light cautery. The iliotibial band was identified and cleared for better visualization. It was noted to be quite taut against the lateral femur. The iliotibial band was then incised longitudinally extending into the gluteus fascia and extending distally along the IT band. This was split bluntly and a Charnley retractor was inserted. We had excellent visualization of the lateral femur and the trochanteric bursa. There was notable bursitis with an enlarged and inflamed bursa. This was excised sharply with electrocautery and remnants debrided with a rongeur. Once this was fully removed we had excellent visualization of the insertion of the abductor tendons. They were inspected both visually and by palpation on both the lateral and medial surfaces. There was a clear, full thickness tear of the anterior aspet of the abductor tendons with retractions. The edge was frayed but there was still good tnedon bulk with clear donor site off of the trochanter. An Riana clamp was placed on the tendon edge and it was easily mobilized back to the greater trochanter. I further examined the undersurface of the tendons to make sure there is no retracted stump that I did not capture with a clamp. The posterior half of the greater trochanter was attached without notable tearing. I then used a rongeur, curette, and a rasp to prepare the trochanteric surface. The torn edge of the tendon was debrided with a rongeur. A single 6.5 mm Mitek Bere anchor was then placed with excellent purchase into the trochanter. This was tested by pulling on the sutures and there is no displacement of the anchor. I then placed a running Krak?w suture into the abductor tendons with 1 limb of each suture. The other limb was brought to the tendon only one time to use as a pulldown chi type reduction maneuver of the tendon. With this post suture, I was easily able to reduce the tendon back down to bone. The sutures were then tied. This was repeated for the second set of sutures. There is no excellent reduction of the tendon back down to bone. Using a #2 FiberWire I reinforced the torn edge of the abductor tendons to the vastus lateralis edge and the fascia of the lateral proximal femur. The wound was then thoroughly irrigated. There is no other tearing appreciated. The deep tissues were injected with a mixture of 0.5% bupivacaine and 20 cc of Exparel. The iliotibial band was then closed with a #1 Vicryl. Once the longitudinal split was closed completely the point of maximal tightness was incised transversely. This was done between sutures allowing for some the longitudinal split open as well creating a cruciate style tenotomy for lengthening, gaining about 1-1/2 cm to 2 cm of extra length. Once again the deep tissues and iliotibial band were injected with the remainder of the bupivacaine/Exparel cocktail. The wound was thoroughly irrigated. The deep tissues were closed with 0 Vicryl followed by 2-0 Vicryl. The skin was closed with a 4-0 Monocryl in a running subcuticular fashion which was reinforced with skin glue and Steri-Strips. The wound was dressed with Mepilex silver dressing. At the end of the case all counts are correct. The patient was transitioned back into the supine position. There were no notable complications. The patient was transferred to the PACU in stable condition.
== END 2020-03-26 14:00 | disposition home or self-care (01) ==
PROVIDERS: PCP Family Medicine; Visit Provider Student in an Organized Health Care Education/Training Program
PROC: (CPT 27062; principal; 2020-03-26 10:45)
DX: M70.61 Trochanteric bursitis, right hip (principal); M25.551 Pain in right hip; S76.011A Strain of muscle, fascia and tendon of right hip, initial encounter; X58.XXXA Exposure to other specified factors, initial encounter
CPT/HCPCS: 27062; 27305; C1713; J0690; J1885; J2001; J2405; J2704

== ENCOUNTER → 2020-04-08 08:06 | Outpatient (BNVA) | payer OTHER, SELFPAY | PROVIDERS: PCP Family Medicine; Referring Provider Family Medicine; Visit Provider Physician Assistant | DX: Z47.89 Encounter for other orthopedic aftercare (principal); M70.61 Trochanteric bursitis, right hip ==

== ENCOUNTER → 2020-05-06 09:30 | Outpatient (BNVA) | payer OTHER, SELFPAY | PROVIDERS: PCP Family Medicine; Visit Provider Student in an Organized Health Care Education/Training Program | DX: Z47.89 Encounter for other orthopedic aftercare (principal); M70.61 Trochanteric bursitis, right hip ==

== ENCOUNTER → 2020-06-17 09:10 | Outpatient (BNVA) | payer OTHER, SELFPAY | PROVIDERS: PCP Family Medicine; Visit Provider Student in an Organized Health Care Education/Training Program | DX: Z47.89 Encounter for other orthopedic aftercare (principal); M70.61 Trochanteric bursitis, right hip ==

== ENCOUNTER → 2020-08-12 08:58 | Outpatient (BNVA) | payer OTHER, SELFPAY | PROVIDERS: PCP Family Medicine; Visit Provider Student in an Organized Health Care Education/Training Program | DX: Z47.89 Encounter for other orthopedic aftercare (principal); M70.61 Trochanteric bursitis, right hip | CPT/HCPCS: 99213 ==

== ENCOUNTER 2020-10-08 18:22 | Outpatient (REF) | payer OTHER, SELFPAY ==
[2020-10-08 19:28] LABS: *AMPHETAMINES SCREEN URINE Negative (Negative); *BARBITURATES SCREEN URINE Negative (Negative); *BENZODIAZEPINES SCREEN URINE Negative (Negative); Cannabinoids THC Negative (Negative); Cocaine Screen,Urine Negative (Negative); METHADONE URINE SCREEN Negative (Negative); OPIATES URINE SCREEN Positive (Negative)
[2020-10-08 19:33] LABS: Tricyclic Antidepressants Negative (Negative)
== END 2020-10-08 18:23 | disposition home or self-care (01) ==
LOC: LBN 18:22
PROVIDERS: PCP Family Medicine; Visit Provider Family Medicine
DX: M54.5 Low back pain (principal); G89.4 Chronic pain syndrome; Z79.891 Long term (current) use of opiate analgesic
CPT/HCPCS: 80307

== ENCOUNTER 2020-10-21 00:49 | Outpatient (CLI) | payer OTHER, SELFPAY ==
--- NOTE | 2020-10-21 07:30 | DI.RAD_ITS ---
Exam(s) XR CERVICAL SPINE COMP 4-5V EXAM: XR CERVICAL SPINE COMP 4-5V CLINICAL HISTORY: neck pain, decreased rom, M54.2. TECHNIQUE: 2D digital imaging was performed. COMPARISON: No exams were available for comparison FINDINGS: There is no evidence of fracture, listhesis, nor offset of the spinal laminar line. There is disc space narrowing at C5-6 and C6-7 levels. No prominent Luschka joint osteophytes. No c ervical ribs. Mild facet arthropathy at multiple levels. No osseous lesions IMPRESSION: Chronic degenerative disc disease C5-6 and C6-7. DATA REPOSITORY: RADIATION DOSE DELIVERED:
== END 2020-10-21 01:09 ==
PROVIDERS: PCP Family Medicine; Visit Provider Family Medicine
DX: M50.322 Other cervical disc degeneration at C5-C6 level (principal); M50.323 Other cervical disc degeneration at C6-C7 level; M14.88 Arthropathies in other specified diseases classified elsewhere, vertebrae
CPT/HCPCS: 72050

== ENCOUNTER 2022-03-18 03:24 | Outpatient (CLI) | payer MEDICARE, SELFPAY ==
[2022-03-18 12:43] LABS: HCT 41.7 % (36.0-46.0); MCHC 33.6 % (32.0-36.0); MCV 93 fL (80-95); Platelet Count 219 10^3/uL (130-400); RBC 4.51 10^6/uL (3.93-5.22); RDW 12.8 % (11.7-14.6); RDW-SD 43.4 fL; WBC 4.32 10^3/uL (4.4-10.8)
[2022-03-18 13:11] LABS: ALT 55 U/L (14-59); AST 41 U/L (15-37); Albumin 4.2 g/dL (3.4-5.0); Alkaline Phosphatase 59 U/L (46-116); BUN 22 mg/dL (7-18); Bilirubin, Total 0.6 mg/dL (0.2-1.0); CREATININE 1.4 mg/dL (0.55-1.02); Chloride 103 mmol/L (98-107); Estimated GFR 38.51 (mL/min/1.73m2); Glucose 103 mg/dL (74-106); Potassium 4.1 mmol/L (3.5-5.1); Sodium 134 mmol/L (136-145); Total Protein 7.9 g/dL (6.4-8.2)
[2022-03-18 13:31] LABS: FREE T4 1.03 ng/dL (0.76-1.46)
[2022-03-19 10:40] LABS: Hepatitis C Ab w Rflx HCV PCR Reactive (Negative)
[2022-03-20 13:51] LABS: HCV RNA Qualitative Undetected (Undetected)
== END 2022-03-18 03:25 | disposition home or self-care (01) ==
LOC: LOS 03:25
PROVIDERS: PCP Family Medicine; Visit Provider Family Medicine
DX: E03.9 Hypothyroidism, unspecified (principal); B19.20 Unspecified viral hepatitis C without hepatic coma; N28.9 Disorder of kidney and ureter, unspecified
CPT/HCPCS: 36415; 80053; 85027; 86803; 87522; 84439; 84443

== ENCOUNTER 2022-06-19 19:11 | Emergency (ER) | payer MEDICARE, SELFPAY ==
[2022-06-19 19:15] VITALS: BP 156/104; PULSE 78; RESP 16; TEMP 37.1; O2SAT 97
--- NOTE | 2022-06-19 20:04 | W.ED.GENAD ---
Discharge Plan Disposition Patient Disposition: Home Discharge Details Clinical Impression: Skin tear of left upper extremity Primary Care Provider: Tanika Meyer ED Provider: Meir Mi Home Meds and New Rx's Prescriptions: Continued albuterol sulfate [ProAir HFA] 90 mcg/actuation HFA aerosol inhaler 1 - 2 puff Inhalation Q6H PRN Qty: 1 12RF latanoprost 0.005 % drops 1 drp ophthalmic (eye) HS Patient Comments: Left eye only levothyroxine 50 mcg tablet 50 mcg PO DAILY Qty: 90 0RF metoprolol tartrate 25 mg tablet 12.5 mg PO DAILY PRN (Reason: palpitation) Qty: 45 0RF Rx Instructions: 12.5MG DAILY PRN escitalopram oxalate 10 mg tablet 10 mg PO DAILY Qty: 90 5RF gabapentin 300 mg capsule 600 mg PO QHS Qty: 180 3RF diphth,pertus(acell),tetanus 2.5-8-5 Lf-mcg-Lf/0.5mL syringe 0.5 ml IM ONCE Qty: 0.5 0RF Rx Instructions: as a single dose multivitamin 1 EACH tablet 1 ea PO DAILY memantine [Namenda] 5 mg tablet 5 mg PO BID Qty: 60 6RF hydrocodone-acetaminophen 5-325 mg tablet 1 tab PO Q6H MDD 4 PRN (Reason: pain) Qty: 90 0RF acetaminophen 500 mg capsule 1,000 mg PO Q8H PRN PRNQty: 90 0RF Discharge Instructions Instructions: Skin Tear (ED) Additional Instructions: Please monitor for signs of infection and return immediately if these occur. Otherwise perform standard wound care and only clip edges of Steri-Strips if they start to become loose. You may replace any that completely fall off if it has been less than 2 weeks. Feel free to follow-up with your primary care provider as needed for reassessment. Referrals: Tanika Meyer MD, [place] [Primary Care Provider] - Medical Decision Making 4 cm x 1.5 cm at maximum with skin tear to dorsal aspect of left hand. Exam otherwise unremarkable, full range of motion full sensation full cap refill no deep structures involved. Skin tear repaired with Steri-Strips and approximated well except for little bit more tension needed on radial aspect of care. Patient instructed to monitor for any signs of infection and return if these occur. Otherwise wound was appropriately dressed and patient's tetanus was updated given that it been more than 10 years. After discussion of diagnosis and plan of care patient has no further needs, questions, or concerns and states clear understanding to return to the emergency department for any worsening symptoms. This documentation was generated using [employer] dictation system, please disregard any oddities of phrase or misspellings. HPI General Mode of arrival: ambulatory. Date/Time Provider Initiated Documentation: 06/19/22 19:18. Limitations to Documentation: no limitations. Information obtained by: patient and RN notes reviewed. History of Present Illness 76 year old F presents to the emergency department with the chief complaint of left hand injury-skin tear, described as mild, Quality is described as burning, and is localized to the left and upper extremity. Patient started experiencing this hour(s) (1) and it has been constant. No relieving factors improve symptom(s), No exacerbating factors reported . Patient notes no other symptoms.. Patient did receive the following treatments prior to arrival, none Related Data Home Medications Medication Instructions Recorded Confirmed multivitamin 1 ea PO DAILY 08/11/12 06/19/22 latanoprost 0.005 % eye drops 1 drp ophthalmic (eye) HS 02/03/18 06/19/22 acetaminophen 500 mg capsule 1,000 mg PO Q8H PRN PRN #90 caps 03/26/20 06/19/22 albuterol sulfate 90 mcg/actuation 1 - 2 puff inhalation Q6H PRN ##1 04/08/20 06/19/22 aerosol inhaler (ProAir HFA) memantine 5 mg tablet (Namenda) 5 mg PO BID #60 tabs 03/25/22 06/19/22 diphth,pertus(acell),tetanus 2.5 0.5 ml IM ONCE #0.5 mL 04/20/22 06/19/22 Lf unit-8 mcg-5 Lf/0.5mL IM syringe escitalopram oxalate 10 mg tablet 10 mg PO DAILY #90 tabs 04/20/22 06/19/22 gabapentin 300 mg capsule 600 mg PO QHS neuropathy #180 tabs 04/20/22 06/19/22 levothyroxine 50 mcg tablet 50 mcg PO DAILY #90 tab-caps 04/20/22 06/19/22 metoprolol tartrate 25 mg tablet 12.5 mg PO DAILY PRN palpitation 04/20/22 06/19/22 #45 tabs hydrocodone 5 mg-acetaminophen 325 1 tab PO Q6H PRN pain #90 tabs 05/29/22 06/19/22 mg tablet Previous Rx's Medication Instructions Recorded acetaminophen 500 mg capsule 1,000 mg PO Q8H PRN PRN #90 caps 03/26/20 albuterol sulfate 90 mcg/actuation 1 - 2 puff inhalation Q6H PRN ##1 04/08/20 aerosol inhaler (ProAir HFA) memantine 5 mg tablet (Namenda) 5 mg PO BID #60 tabs 03/25/22 diphth,pertus(acell),tetanus 2.5 0.5 ml IM ONCE #0.5 mL 04/20/22 Lf unit-8 mcg-5 Lf/0.5mL IM syringe escitalopram oxalate 10 mg tablet 10 mg PO DAILY #90 tabs 04/20/22 gabapentin 300 mg capsule 600 mg PO QHS neuropathy #180 tabs 04/20/22 levothyroxine 50 mcg tablet 50 mcg PO DAILY #90 tab-caps 04/20/22 metoprolol tartrate 25 mg tablet 12.5 mg PO DAILY PRN palpitation 04/20/22 #45 tabs hydrocodone 5 mg-acetaminophen 325 1 tab PO Q6H PRN pain #90 tabs 05/29/22 mg tablet Allergies Allergy/AdvReac Type Severity Reaction Status Date / Time cat dander Allergy Mild Itching Verified 06/19/22 19:18 seasonal Allergy Mild Other (See Uncoded 06/19/22 19:18 Comment) General Stated Complaint: Laceration MADISON: 4 Review of Systems Narrative: 6 systems reviewed and unremarkable except what is marked below. Musculoskeletal Musculoskeletal: Denies deformity, Denies arthralgias, Denies limited range of motion, Denies numbness, Denies stiffness and Denies tingling Integumentary/Breasts Skin/Breast: Reports as per HPI and Reports wounds Neurologic Neurologic: Denies numbness and Denies tingling PFSH All Active Problems (Updated 06/19/22 @ 20:08 by Meir Mi NP) Skin tear of left upper extremity (Acute) Bunion of great toe of right foot (Acute) Memory deficit (Acute) Environmental allergies (Acute) Rupture of hip abductor tendon (Acute) s/p right trochanteric bursectomy, abductor tendon repair and IT band lengthening DOS: 03/26/20 Degenerative joint disease of right hip (Acute) Trochanteric bursitis, right hip (Chronic) s/p right trochanteric bursectomy, abductor tendon repair and IT band lengthening DOS: 03/26/20 Injection: 11/27/2019; 08/07/2019 Spinal stenosis (Chronic 09/03/14) Seasonal allergies (Chronic 07/27/13) Impaired renal function (Chronic 07/27/13) 1969- 5 kidney surgeries R - 1; L -3 surgeries and then removal. 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 , Ectopic Left PROCEDURES SOLITARY KIDNEY NEPHRECT left SPINAL FUSION NOS L ovarian cystectomy - benign teratoma S/P removal of left ovary 07/27/13 tubal Status post open reduction with internal fixation (ORIF) of fracture of ankle Family History Mother , AGE 85 Breast cancer Lung cancer Father , AGE 63 CAD (coronary artery disease) Hypertension Heart disease Alcohol abuse Sister , AGE 45 Myocardial infarction Heart disease Alcohol abuse Brother Arrhythmia Hypertension Heart disease Son Hypertension Hyperlipidemia Daughter No problems noted. Maternal Grandfather , age 58 Nephritis Paternal Grandfather , 50s Esophageal cancer Maternal Grandmother , 70s Stroke Hypertension Paternal Grandmother , age 94 Dementia Social History (Updated 11/25/21 @ 15:05 by Betty Onofre) Smoking/Tobacco Use Status: Never Second Hand Exposure: Yes Smoking risk assessment performed?: Yes Alcohol Intake: current Alcohol Intake frequency: a few times a week Alcohol type: wine Drug use: Never Substance use type: does not use Caregiver/Support person: No Household members: family and other Details: great-grandson Housing: apartment Communication Needs: Hard of Hearing and Corrective Lenses Do you need help understanding health information?: Never Pets and animals: Yes Pets and animals: dog(s) Sexually active: No Do you think of yourself as: straight/heterosexual Current gender identity: female What is your relationship status?: How often do you talk on the phone with friends or family?: three or more times per week How often do you get together with friends or relatives?: three or more times per week How often do you attend spiritism or jehovah's witness services?: decline to answer Do you belong to any clubs or organized social groups?: yes Panel score (0-1 are the most socially isolated patients): 2 What type of physical activity do you participate in: walking Duration: 30-45 minutes/day Frequency: daily Leonie/Orthodox: Anabaptism Special leonie needs: No Seatbelt use: always Drive intox or ride w/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: No Do you feel safe at home: Yes Do you feel safe in your relationship?: Yes Additional Social history: Exam Const General: cooperative, no acute distress and not ill appearing Orientation: alert, awake and oriented x3 HENMT Mouth: moist mucous membranes Resp Effort & Inspection: normal respiratory effort, able to speak in complete sentences and no respiratory distress Skin General skin exam: no rashes or lesions noted Neuro General: patient alert, patient awake, patient oriented x3, moves all extremities and no focal motor deficits Sensory Exam: no sensory deficits noted Extrem General: normal exam except as noted Left upper extremity: hand Details: neuromotor exam normal, neurosensory exam normal, tendon exam normal, normal ROM of fingers and laceration dorsal hand dorsal aspect central Details: irregular, flap, actively bleeding, superficial, with motor nerve function intact and with sensation intact Course Vital Signs Vital signs: Vital Signs Temperature 37.1 C 06/19/22 19:15 Pulse 78 06/19/22 19:15 Respiratory Rate 16 06/19/22 19:15 Blood Pressure 156/104 H 06/19/22 19:15 Pulse Oximetry 97 06/19/22 19:15 Temperature 37.1 C 06/19/22 19:15 Temperature Source Temporal Artery Scan 06/19/22 19:15 Pulse 78 06/19/22 19:15 Respiratory Rate 16 06/19/22 19:15 Respiratory Effort Normal 06/19/22 19:15 Blood Pressure 156/104 H 06/19/22 19:15 Blood Pressure Position Sitting 06/19/22 19:15 Pulse Oximetry 97 06/19/22 19:15 Pain Level 4 06/19/22 19:15
[2022-06-19 20:25] VITALS: BP 139/89; PULSE 76; RESP 18; O2SAT 96
== END 2022-06-19 20:33 | disposition home or self-care (01) ==
PROVIDERS: Emergency Provider Nurse Practitioner Family; PCP Family Medicine
DX: S61.412A Laceration without foreign body of left hand, initial encounter (principal); X58.XXXA Exposure to other specified factors, initial encounter; Z23 Encounter for immunization
CPT/HCPCS: 90471; 99283

== ENCOUNTER 2022-10-25 13:17 | Emergency (ER) | payer MEDICARE, SELFPAY ==
[2022-10-25 13:36] VITALS: BP 186/97; PULSE 60; RESP 20; TEMP 36.7; O2SAT 100
--- NOTE | 2022-10-25 13:45 | DI.RAD_ITS ---
Exam(s) XR WRIST LT COMP NAVICULAR EXAM: XR WRIST LT COMP NAVICULAR CLINICAL HISTORY: fall. TECHNIQUE: 2D digital imaging was performed of the left wrist. Four images were obtained. Scaphoid , PA, oblique and lateral views were obtained. COMPARISON: No exams were available for comparison FINDINGS: BONES: There is an acute mildly displaced fracture through the base of the ulnar styloid process. Th ere is a comminuted fracture of the distal metaphysis of the right radius. The fracture is impacted and mildly displaced. There does appear to be extension into the radiocarpal joint. No bony destruc tive lesion is seen. JOINTS: The carpal bones are normally aligned. There are marked degenerative changes seen at the 1st CMC joint characterized by joint space narrowing and osteophytes. SOFT TISSUE: Normal. IMPRESSION: 1. Acute intra-articular distal radial fracture. 2. Mildly displaced ulnar styloid process fracture. DATA REPOSITORY: RADIATION DOSE DELIVERED:
[2022-10-25] MEDS: Acetaminophen 325 MG TAB 650 MG PO (14:01)
--- NOTE | 2022-10-25 14:39 | DI.VRAD_ITS ---
PROCEDURE INFORMATION: Exam: XR Left Wrist Exam date and time: 10/25/2022 2:12 PM Age: 77 years old Clinical indication: Injury or trauma; Fall TECHNIQUE: Imaging protocol: Radiologic exam of the left wrist. Views: 3 or more views. COMPARISON: No relevant prior studies available. FINDINGS: Bones/joints: Comminuted displaced impacted distal radius fracture. Fracture fragments are displaced volarly which is unusual. This may represent acute fracture on previously healed malunion. Severe degenerative changes in the thumb carpometacarpal joint Soft tissues: Significant soft tissue swelling of the wrist IMPRESSION: Comminuted displaced impacted distal radius fracture. Fracture fragments are displaced volarly which is unusual. This may represent acute fracture on previously healed malunion. Dictated and Authenticated by: Dave Lakhani MD. Ordering:FRANDY Worley MD
--- NOTE | 2022-10-25 15:00 | DI.CT_ITS ---
Exam(s) CT UPPER EXTREMITY LT WO EXAM: CT UPPER EXTREMITY LT WO CLINICAL HISTORY: wrist fracture TECHNIQUE: Imaging Protocol: Axial computed tomography images with coronal and sagittal reformatted images were created and reviewed. CONTRAST MATERIAL: Noncontrast COMPARISON: CR,XR XR WRIST LT COMP NAVICULAR from 10/25/2022 FINDINGS: There is artifact related to patient arm positioning. Bones: There is comminuted intra-articular fracture of the distal radius. There is impaction. The u lnar styloid is also fractured. No additional carpal fractures are identified however subtle fractur es may be missed due to artifact. Degenerative changes are noted at the 1st carpal metacarpal joint. Widening of the scapholunate distance could represent acute or scapholunate ligament disruption. No cellulitic or osteomyelitic changes are identified. Soft Tissues: A cast is in place. Swelling around distal radius and ulna. IMPRESSION: Somewhat limited exam. Comminuted intra-articular fracture of the distal radius. Ulnar styloid frac ture.. RADIATION DOSE DELIVERED: 118.9mGy.cm Total DLP DATA REPOSITORY: All CT scans at this facility are submitted to the National Radiology Data Registry (NRDR) Dose Index Registry (DIR) with the [employer] (ACR). RADIATION OPTIMIZATION: All CT scans at this facility use at least one of these dose optimization te chniques: automated exposure control; mA and/or kV adjustment per patient size (includes targeted exa ms where dose is matched to clinical indication); or iterative reconstruction.
[2022-10-25 15:12] LABS: Abs Immature Grans 0.02 10^3/uL (0.0-0.06); Absolute Basophil Count 0.04 10^3/uL (0.0-0.2); Absolute Eosinophil Count 0.12 10^3/uL (0.0-0.7); Absolute Lymphocyte Count 1.73 10^3/uL (1.2-3.4); Absolute Monocyte Count 0.41 10^3/uL (0.1-0.8); Absolute Neutrophil Count 6.05 10^3/uL (1.2-6.7); Basophils % 0.5; Eosinophils % 1.4; HCT 43.6 % (36.0-46.0); HGB 14.2 g/dL (11.2-15.7); Immature Grans % 0.2; Lymphocytes % 20.7; MCH 30.9 pg (27.0-33.0); MCHC 32.6 % (32.0-36.0); MCV 95 fL (80-95); MPV 10.4 fL (8.0-11.0); Monocytes % 4.9; Neutrophils % 72.3; Platelet Count 203 10^3/uL (130-400); RDW 12.7 % (11.7-14.6); WBC 8.37 10^3/uL (4.4-10.8)
[2022-10-25] MEDS: HYDROmorphone 2 MG/ML SYR 0.5 MG IVP ×2 (15:25→15:59)
[2022-10-25 15:28] LABS: ALT 31 U/L (14-59); AST 26 U/L (15-37); Albumin 4.2 g/dL (3.4-5.0); Alkaline Phosphatase 58 U/L (46-116); Anion Gap 9.8 mmol/L (3-11); BUN 17 mg/dL (7-18); Bilirubin, Total 0.7 mg/dL (0.2-1.0); CO2 27.2 mmol/L (21.0-32.0); CREATININE 1.3 mg/dL (0.55-1.02); Calcium 9.9 mg/dL (8.5-10.1); Chloride 103 mmol/L (98-107); Estimated GFR 41.83 (mL/min/1.73m2); Glucose 115 mg/dL (74-106); Potassium 4.5 mmol/L (3.5-5.1); Sodium 140 mmol/L (136-145); Total Protein 7.9 g/dL (6.4-8.2)
--- NOTE | 2022-10-25 15:51 | W.ED.GENAD ---
Discharge Plan Disposition Patient Disposition: Home Discharge Details Clinical Impression: Distal radius fracture, left Primary Care Provider: Tanika Meyer ED Provider: Meir Mi Home Meds and New Rx's Prescriptions: Continued albuterol sulfate [ProAir HFA] 90 mcg/actuation HFA aerosol inhaler 1 - 2 puff Inhalation Q6H PRN Qty: 1 12RF metoprolol tartrate 25 mg tablet 12.5 mg PO DAILY PRN (Reason: palpitation) Qty: 45 0RF Rx Instructions: 12.5MG DAILY PRN escitalopram oxalate 10 mg tablet 10 mg PO DAILY Qty: 90 5RF gabapentin 300 mg capsule 600 mg PO QHS Qty: 180 3RF timolol 0.5 % drops 1 drp ophthalmic (eye) DAILY lisinopril 20 mg tablet 20 mg PO DAILY Qty: 90 5RF multivitamin 1 EACH tablet 1 ea PO DAILY hydrocodone-acetaminophen 5-325 mg tablet 1 tab PO Q6H MDD 4 PRN (Reason: pain) Qty: 90 0RF levothyroxine 50 mcg tablet 50 mcg PO DAILY Qty: 90 7RF memantine [Namenda] 5 mg tablet 5 mg PO BID Qty: 180 6RF fluorometholone 0.1 % drops,suspension 1 drp ophthalmic (eye) 2XD Patient Comments: INSTILL 1 DROP INTO BOTH EYES TWICE A DAY, SHAKE WELL BEFORE USE acetaminophen 500 mg capsule 1,000 mg PO Q8H PRN PRNQty: 90 0RF Discharge Instructions Instructions: Wrist Fracture in Adults (ED) Additional Instructions: Please continue to take your normally prescribed pain medication. Please follow-up with orthopedic surgeon for definitive care of your wound. Please leave splinting in place at all times but you may apply ice to help with swelling. If you have any new or significant worsening of symptoms, numbness tingling, or other concerns feel free to return to the emergency department for reassessment Referrals: Scotty Ortega MD [ [facility] STAFF PHYSICIAN] - Discharge Data Discharge Date/Time-TO BE ENTERED AT DEPARTURE: 10/25/22 16:39 Medical Decision Making Patient presenting to the emergency department for chief complaint of fall with injury to left wrist. Patient reports previous fracture of left wrist approximately 20 years ago with need of surgical repair. Patient denies any other injury or trauma. Physical exam shows obvious deformity and ecchymosis to most area of palpable pain is to the distal radius. Radial pulses intact and distal to injury there is intact sensation motor and cap refill. We will plan on performing radiological imaging. Pending results will give patient acetaminophen. Review of radiological imaging shows a comminuted displaced and impacted distal radius fracture with some volar displaced fragments. There is note of previously healed fracture. Given comminuted fracture with somewhat complex presentation did speak with Dr. Ortega who recommended hematoma block, fingertrap with 5-minute wait hanging and patient placed in a volar splint. Hematoma block was performed under sterile procedure with 10 cc of lidocaine instilled, patient was able to tolerate fingertrap and splinting. CT imaging was ordered as per Dr. Ortega. Patient already has prescribed Vicodin for back pain which she states she will take as needed for wrist pain pending follow-up with orthopedic surgeon. After discussion of diagnosis and plan of care patient has no further needs, questions, or concerns and states clear understanding to return to the emergency department for any worsening symptoms. This documentation was generated using [employer] system, please disregard any oddities of phrase or misspellings. preop labs were drawn and reviewed and CBC is unremarkable. CMP does show creatinine of 1.3 with a GFR of 41 otherwise normal CMP of note creatinine is at patient's baseline. Imaging Data Radiologic Study: Imaging: X-Ray Radiologist's impression: Exam(s) PROCEDURE INFORMATION: Exam: XR Left Wrist Exam date and time: 10/25/2022 2:12 PM Age: 77 years old Clinical indication: Injury or trauma; Fall TECHNIQUE: Imaging protocol: Radiologic exam of the left wrist. Views: 3 or more views. COMPARISON: No relevant prior studies available. FINDINGS: Bones/joints: Comminuted displaced impacted distal radius fracture. Fracture fragments are displaced volarly which is unusual. This may represent acute fracture on previously healed malunion. Severe degenerative changes in the thumb carpometacarpal joint Soft tissues: Significant soft tissue swelling of the wrist IMPRESSION: Comminuted displaced impacted distal radius fracture. Fracture fragments are displaced volarly which is unusual. This may represent acute fracture on previously healed malunion. Dictated and Authenticated by: Dave Lakhani MD. HPI General Mode of arrival: ambulatory. Date/Time Provider Initiated Documentation: 10/25/22 13:55. Limitations to Documentation: no limitations. Information obtained by: patient and RN notes reviewed. History of Present Illness 77 year old F presents to the emergency department with the chief complaint of Fall with injury to left wrist, described as moderate and severe, and is localized to the left and upper extremity. Patient started experiencing this minute(s) (45) and it has been constant. No relieving factors improve symptom(s), No exacerbating factors reported . Patient notes no other symptoms.. Patient did receive the following treatments prior to arrival, none Related Data Home Medications Medication Instructions Recorded Confirmed multivitamin 1 ea PO DAILY 08/11/12 07/06/22 acetaminophen 500 mg capsule 1,000 mg PO Q8H PRN PRN #90 caps 03/26/20 07/06/22 albuterol sulfate 90 mcg/actuation 1 - 2 puff inhalation Q6H PRN ##1 04/08/20 07/06/22 aerosol inhaler (ProAir HFA) escitalopram oxalate 10 mg tablet 10 mg PO DAILY #90 tabs 04/20/22 07/06/22 gabapentin 300 mg capsule 600 mg PO QHS neuropathy #180 tabs 04/20/22 10/25/22 metoprolol tartrate 25 mg tablet 12.5 mg PO DAILY PRN palpitation 04/20/22 10/25/22 #45 tabs lisinopril 20 mg tablet 20 mg PO DAILY #90 tabs 07/06/22 10/25/22 timolol 0.5 % eye drops 1 drp ophthalmic (eye) DAILY 07/06/22 07/06/22 hydrocodone 5 mg-acetaminophen 325 1 tab PO Q6H PRN pain #90 tabs 10/21/22 10/25/22 mg tablet levothyroxine 50 mcg tablet 50 mcg PO DAILY #90 tab-caps 10/23/22 10/25/22 memantine 5 mg tablet (Namenda) 5 mg PO BID #180 tabs 10/24/22 10/25/22 fluorometholone 0.1 % eye 1 drp ophthalmic (eye) 2XD 10/25/22 10/25/22 drops,suspension Previous Rx's Medication Instructions Recorded acetaminophen 500 mg capsule 1,000 mg PO Q8H PRN PRN #90 caps 03/26/20 albuterol sulfate 90 mcg/actuation 1 - 2 puff inhalation Q6H PRN ##1 04/08/20 aerosol inhaler (ProAir HFA) escitalopram oxalate 10 mg tablet 10 mg PO DAILY #90 tabs 04/20/22 gabapentin 300 mg capsule 600 mg PO QHS neuropathy #180 tabs 04/20/22 metoprolol tartrate 25 mg tablet 12.5 mg PO DAILY PRN palpitation 04/20/22 #45 tabs lisinopril 20 mg tablet 20 mg PO DAILY #90 tabs 07/06/22 hydrocodone 5 mg-acetaminophen 325 1 tab PO Q6H PRN pain #90 tabs 10/21/22 mg tablet levothyroxine 50 mcg tablet 50 mcg PO DAILY #90 tab-caps 10/23/22 memantine 5 mg tablet (Namenda) 5 mg PO BID #180 tabs 10/24/22 Allergies Allergy/AdvReac Type Severity Reaction Status Date / Time cat dander Allergy Mild Itching Verified 10/25/22 13:40 seasonal Allergy Mild Other (See Uncoded 10/25/22 13:40 Comment) General Stated Complaint: Orthopedic MADISON: 3 Review of Systems Constitutional Constitutional: Denies body ache(s), Denies chills and Denies fever(s) Cardiovascular Cardiovascular: Denies chest pain and Denies dyspnea Respiratory Respiratory: Denies dyspnea Gastrointestinal Gastrointestinal: Denies abdominal pain, Denies nausea and Denies vomiting Musculoskeletal Musculoskeletal: Reports as per HPI, Reports arthralgias, Reports joint swelling, Reports limited range of motion, Denies numbness and Denies tingling Integumentary/Breasts Skin/Breast: Denies rash Neurologic Neurologic: Denies confusion, Denies numbness, Denies sensory deficit and Denies tingling Psychiatric Psychiatric: Denies confusion PFSH All Active Problems (Updated 10/25/22 @ 16:07 by Meir Mi NP) Distal radius fracture, left (Acute) Bunion of great toe of right foot (Acute) Memory deficit (Acute) Environmental allergies (Acute) Rupture of hip abductor tendon (Acute) s/p right trochanteric bursectomy, abductor tendon repair and IT band lengthening DOS: 03/26/20 Degenerative joint disease of right hip (Acute) Trochanteric bursitis, right hip (Chronic) s/p right trochanteric bursectomy, abductor tendon repair and IT band lengthening DOS: 03/26/20 Injection: 11/27/2019; 08/07/2019 Spinal stenosis (Chronic 09/03/14) Seasonal allergies (Chronic 07/27/13) Impaired renal function (Chronic 07/27/13) 1969- 5 kidney surgeries R - 1; L -3 surgeries and then removal. 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 , Ectopic Left PROCEDURES SOLITARY KIDNEY NEPHRECT left SPINAL FUSION NOS L ovarian cystectomy - benign teratoma S/P removal of left ovary 07/27/13 tubal Status post open reduction with internal fixation (ORIF) of fracture of ankle Family History Mother , AGE 85 Breast cancer Lung cancer Father , AGE 63 CAD (coronary artery disease) Hypertension Heart disease Alcohol abuse Sister , AGE 45 Myocardial infarction Heart disease Alcohol abuse Brother Arrhythmia Hypertension Heart disease Son Hypertension Hyperlipidemia Daughter No problems noted. Maternal Grandfather , age 58 Nephritis Paternal Grandfather , 50s Esophageal cancer Maternal Grandmother , 70s Stroke Hypertension Paternal Grandmother , age 94 Dementia Social History Smoking/Tobacco Use Status: Never Second Hand Exposure: Yes Smoking risk assessment performed?: Yes Alcohol Intake: current Alcohol Intake frequency: a few times a week Alcohol type: wine Drug use: Never Substance use type: does not use Caregiver/Support person: No Household members: family and other Details: great-grandson Housing: apartment Communication Needs: Hard of Hearing and Corrective Lenses Do you need help understanding health information?: Never Pets and animals: Yes Pets and animals: dog(s) Sexually active: No Do you think of yourself as: straight/heterosexual Current gender identity: female What is your relationship status?: How often do you talk on the phone with friends or family?: three or more times per week How often do you get together with friends or relatives?: three or more times per week How often do you attend tenriism or roman catholic services?: decline to answer Do you belong to any clubs or organized social groups?: yes Panel score (0-1 are the most socially isolated patients): 2 What type of physical activity do you participate in: walking Duration: 30-45 minutes/day Frequency: daily Leonie/Yarsani: Moravian Special leonie needs: No Seatbelt use: always Drive intox or ride w/intox bottom hoop driver: No Do you feel safe at home: Yes Do you feel safe in your relationship?: Yes Additional Social history: Exam Const General: cooperative, no acute distress and not ill appearing Orientation: alert, awake and oriented x3 HENMT Mouth: moist mucous membranes Resp Effort & Inspection: normal respiratory effort, able to speak in complete sentences and no respiratory distress Cardio Rate: regular rate Rhythm: regular rhythm Pulses: radial pulses present and normal peripheral pulses Skin General skin exam: no rashes or lesions noted Neuro General: patient alert, patient awake, patient oriented x3, moves all extremities and no focal motor deficits Sensory Exam: no sensory deficits noted Extrem General: normal exam except as noted Left upper extremity: wrist Details: abnormal to inspection Details: obvious deformity, abnormal ROM Details: pain with active ROM, pain with passive ROM and with range as follows (None due to pain), ecchymosis, deformity, normal vascular exam and radial pulse present; no abrasions and no lacerations Course Vital Signs Vital signs: Vital Signs Temperature 36.7 C 10/25/22 13:36 Pulse 60 10/25/22 13:36 Respiratory Rate 20 10/25/22 13:36 Blood Pressure 186/97 H 10/25/22 13:36 Pulse Oximetry 100 10/25/22 13:36 Temperature 36.7 C 10/25/22 13:36 Temperature Source Skin 10/25/22 13:36 Pulse 60 10/25/22 13:36 Respiratory Rate 20 10/25/22 13:36 Respiratory Effort Normal 10/25/22 14:10 Blood Pressure 186/97 H 10/25/22 13:36 Pulse Oximetry 100 10/25/22 13:36 Oxygen Delivery Method Room Air 10/25/22 13:36 Oxygen Flow Rate 0 10/25/22 13:36 Pain Level 8 10/25/22 13:36 Lab/Test Results Lab/Test Results: Laboratory Tests Range/Units 10/25/22 10/25/22 15:08 15:08 WBC (4.4-10.8) 10^3/uL 8.37 RBC (3.93-5.22) 10^6/uL 4.60 Hgb (11.2-15.7) g/dL 14.2 Hct (36.0-46.0) % 43.6 MCV (80-95) fL 95 MCH (27.0-33.0) pg 30.9 MCHC (32.0-36.0) % 32.6 RDW (11.7-14.6) % 12.7 Plt Count (130-400) 10^3/uL 203 MPV (8.0-11.0) fL 10.4 Immature Gran % 0.2 Neutrophils % 72.3 Lymphocytes % 20.7 Monocytes % 4.9 Eosinophils % 1.4 Basophils % 0.5 Nucleated RBC % (0.0-0.3) % 0.0 Absolute Neutrophils (1.2-6.7) 10^3/uL 6.05 Absolute Lymphocytes (1.2-3.4) 10^3/uL 1.73 Absolute Monocytes (0.1-0.8) 10^3/uL 0.41 Absolute Eosinophils (0.0-0.7) 10^3/uL 0.12 Absolute Basophils (0.0-0.2) 10^3/uL 0.04 Sodium (136-145) mmol/L 140 Potassium (3.5-5.1) mmol/L 4.5 Chloride (98-107) mmol/L 103 Carbon Dioxide (21.0-32.0) mmol/L 27.2 Anion Gap (3-11) mmol/L 9.8 BUN (7-18) mg/dL 17 Creatinine (0.55-1.02) mg/dL 1.3 H Est GFR (CKD-EPI 2020) (mL/min/1.73m2) 41.83 Glucose (74-106) mg/dL 115 H Calcium (8.5-10.1) mg/dL 9.9 Total Bilirubin (0.2-1.0) mg/dL 0.7 AST (15-37) U/L 26 ALT (14-59) U/L 31 Alkaline Phosphatase (46-116) U/L 58 Total Protein (6.4-8.2) g/dL 7.9 Albumin (3.4-5.0) g/dL 4.2 Procedures Orthopedic Joint Reduction Joint #1: Time Out Performed: Yes Joint Reduction Location: other (wrist) Analgesia: hematoma block Local Anesthesia: Lidocaine 1% Amount of anesthesic used (mL): 10 Technique used: direct manipulation Post-reduction neuro exam: intact and no change Post-reduction vascular: intact and no change Post Reduction X-Ray Obtained: Yes Post Reduction X-Ray Results: reduced Splint Applied: Yes Patient Tolerated Procedure: well and no complications
--- NOTE | 2022-10-25 16:44 | DI.VRAD_ITS ---
PROCEDURE INFORMATION: Exam: CT Left Upper Extremity Without Contrast, Wrist Exam date and time: 10/25/2022 4:22 PM Age: 77 years old Clinical indication: Injury or trauma; Fall; Blunt trauma (contusions or hematomas); Left; Patient HX: Wrist fracture TECHNIQUE: Imaging protocol: Computed tomography of the left upper extremity without contrast. Exam focused on the wrist. COMPARISON: CR XR WRIST LT COMP NAVICULAR 10/25/2022 2:12 PM FINDINGS: Bones/joints: Comminuted displaced fracture of the distal radius. . This is an intra-articular fracture. Fracture fragments are displaced to the volar aspect of the wrist.. Soft tissues: Soft tissue swelling of the wrist IMPRESSION: Comminuted displaced fracture of the distal radius. . This is an intra-articular fracture. Fracture fragments are displaced to the volar aspect of the wrist.. Dictated and Authenticated by: Dave Lakhani MD. Ordering:FRANDY Worley MD
== END 2022-10-25 16:39 | disposition home or self-care (01) ==
PROVIDERS: Emergency Provider Nurse Practitioner Family; PCP Family Medicine
DX: S52.502A Unspecified fracture of the lower end of left radius, initial encounter for closed fracture; W19.XXXA Unspecified fall, initial encounter
CPT/HCPCS: 80053; 96374; 96376; 99285; 25605; 73110; 73200; 85025; J1170

== ENCOUNTER 2022-10-29 13:22 | Outpatient (CLI) | payer MEDICARE, SELFPAY ==
--- NOTE | 2022-10-29 11:30 | DI.RAD_ITS ---
Exam(s) XR WRIST LT LIMITED EXAM: XR WRIST LT LIMITED CLINICAL HISTORY: LEFT DISTAL RADIUS FX. TECHNIQUE: 2D digital imaging was performed of the left wrist. Three images were obtained. PA and lateral views were obtained. COMPARISON: CR,XR XR WRIST LT COMP NAVICULAR from 10/25/2022 FINDINGS: The patient's wrist is in a cast. BONES: There is again seen an acute fracture of the ulnar styloid process. There is also a comminute d intra-articular impacted fracture of the distal radius. JOINTS: The carpal bones are normally aligned. Marked degenerative changes are seen at the 1st CMC alvino int characterized by joint space narrowing and osteophytes. SOFT TISSUE: Normal. IMPRESSION: Distal left radial ulnar fractures as described. DATA REPOSITORY: RADIATION DOSE DELIVERED:
== END 2022-10-29 13:23 | disposition home or self-care (01) ==
LOC: DIORS 13:22
PROVIDERS: PCP Family Medicine; Referring Provider Family Medicine; Visit Provider Student in an Organized Health Care Education/Training Program
DX: S52.502A Unspecified fracture of the lower end of left radius, initial encounter for closed fracture (principal); X58.XXXA Exposure to other specified factors, initial encounter
CPT/HCPCS: 99213; 73100

== ENCOUNTER 2022-11-05 13:55 | Outpatient (CLI) | payer MEDICARE, SELFPAY ==
--- NOTE | 2022-11-05 12:03 | DI.RAD_ITS ---
Exam(s) XR WRIST LT LIMITED EXAM: XR WRIST LT LIMITED CLINICAL HISTORY: F/U FRACTURE. TECHNIQUE: 2D digital imaging was performed of the left wrist. Two images were obtained. PA and la teral views were obtained. COMPARISON: CR XR WRIST LT LIMITED from 10/29/2022 FINDINGS: BONES: There has been no change in alignment of the fracture involving the distal radius which is com minuted and intra-articular. There is also no change in alignment of the ulnar styloid process fract ure. No bony destructive lesion is seen. JOINTS: The carpal bones are normally aligned. Marked degenerative changes are again seen at the 1st carpometacarpal joint. SOFT TISSUE: Normal. IMPRESSION: Stable alignment of the distal radial and ulnar fractures. DATA REPOSITORY: RADIATION DOSE DELIVERED:
== END 2022-11-05 13:56 | disposition home or self-care (01) ==
LOC: DIORS 13:55
PROVIDERS: PCP Family Medicine; Referring Provider Family Medicine; Visit Provider Student in an Organized Health Care Education/Training Program
DX: S52.502D Unspecified fracture of the lower end of left radius, subsequent encounter for closed fracture with routine healing (principal); X58.XXXD Exposure to other specified factors, subsequent encounter
CPT/HCPCS: 99213; 73100

== ENCOUNTER 2022-11-12 12:15 | Outpatient (CLI) | payer MEDICARE, SELFPAY ==
--- NOTE | 2022-11-12 11:30 | DI.RAD_ITS ---
Exam(s) XR WRIST LT LIMITED EXAM: XR WRIST LT LIMITED INDICATION: F/U FRACTURE. COMPARISON: CR XR WRIST LT LIMITED from 11/05/2022 TECHNIQUE: 2D digital imaging was performed. Two views. FINDINGS: The cast has been removed. There has been no change in the alignment of the distal radial and ulnar styloid fractures. DATA REPOSITORY: RADIATION DOSE DELIVERED:
== END 2022-11-12 12:16 | disposition home or self-care (01) ==
LOC: DIORS 12:15
PROVIDERS: PCP Family Medicine; Referring Provider Family Medicine
DX: S52.351D Displaced comminuted fracture of shaft of radius, right arm, subsequent encounter for closed fracture with routine healing (principal); X58.XXXD Exposure to other specified factors, subsequent encounter
CPT/HCPCS: 73100

== ENCOUNTER 2022-11-24 20:28 | Outpatient (REF) | payer MEDICARE, SELFPAY ==
[2022-11-24 21:23] LABS: *AMPHETAMINES SCREEN URINE Negative (Negative); *BARBITURATES SCREEN URINE Negative (Negative); *BENZODIAZEPINES SCREEN URINE Negative (Negative); Cannabinoids THC Negative (Negative); Cocaine Screen,Urine Negative (Negative); METHADONE URINE SCREEN Negative (Negative); OPIATES URINE SCREEN Positive (Negative)
[2022-11-24 21:26] LABS: Tricyclic Antidepressants Negative (Negative)
== END 2022-11-24 20:29 | disposition home or self-care (01) ==
LOC: LBN 20:28
PROVIDERS: PCP Family Medicine; Visit Provider Family Medicine
DX: G89.4 Chronic pain syndrome (principal); Z79.891 Long term (current) use of opiate analgesic
CPT/HCPCS: 80307

== ENCOUNTER 2022-11-30 11:35 | Outpatient (CLI) | payer MEDICARE, SELFPAY ==
--- NOTE | 2022-11-30 11:00 | DI.RAD_ITS ---
Exam(s) XR WRIST LT LIMITED EXAM: XR WRIST LT LIMITED CLINICAL HISTORY: F/U L DISTAL RADIUS FX. TECHNIQUE: 2D digital imaging was performed. COMPARISON: CR XR WRIST LT LIMITED from 11/12/2022 FINDINGS: Two views. The appearance of the fracture sites in the distal radius and ulnar styloid are unchanged. Significant degenerative changes again noted at the 1st carpometacarpal joint. IMPRESSION: No change from 11/12/2022. DATA REPOSITORY: RADIATION DOSE DELIVERED:
== END 2022-11-30 11:36 | disposition home or self-care (01) ==
LOC: DIORS 11:35
PROVIDERS: PCP Family Medicine; Visit Provider Student in an Organized Health Care Education/Training Program
DX: S52.502D Unspecified fracture of the lower end of left radius, subsequent encounter for closed fracture with routine healing (principal); X58.XXXD Exposure to other specified factors, subsequent encounter; Z87.81 Personal history of (healed) traumatic fracture
CPT/HCPCS: 99213; 73100

== ENCOUNTER 2022-12-21 13:15 | Outpatient (CLI) | payer MEDICARE, SELFPAY ==
--- NOTE | 2022-12-21 13:15 | DI.RAD_ITS ---
Exam(s) XR WRIST LT LIMITED EXAM: XR WRIST LT LIMITED INDICATION: left distal radius fx. COMPARISON: CR XR WRIST LT LIMITED from 11/30/2022 TECHNIQUE: 2D digital imaging was performed. Two views. FINDINGS: There has been no change in the alignment of the distal radial fracture. There has been increased h ealing since the previous exam. Ulnar styloid fracture is nonunited. Severe degenerative changes ag ain noted at 1st carpal metacarpal joint. DATA REPOSITORY: RADIATION DOSE DELIVERED:
== END 2022-12-22 10:46 | disposition home or self-care (01) ==
LOC: DIORS 01-18 13:35
PROVIDERS: PCP Family Medicine; Visit Provider Student in an Organized Health Care Education/Training Program
DX: S52.502D Unspecified fracture of the lower end of left radius, subsequent encounter for closed fracture with routine healing; X58.XXXD Exposure to other specified factors, subsequent encounter
CPT/HCPCS: 99213; 73100

== ENCOUNTER 2023-01-25 15:08 | Outpatient (CLI) | payer MEDICARE, SELFPAY ==
--- NOTE | 2023-01-25 13:30 | DI.RAD_ITS ---
Exam(s) XR WRIST LT LIMITED EXAM: XR WRIST LT LIMITED CLINICAL HISTORY: F/U FRACTURE. TECHNIQUE: 2D digital imaging was performed of the left wrist. Two images were obtained. PA and la teral views were obtained. COMPARISON: CR XR WRIST LT LIMITED from 12/21/2022 FINDINGS: BONES: There is stable alignment of the distal radial and ulnar fractures. There does appear to be c ontinuous healing of the distal radial fracture. No new fracture is seen. No bony destructive lesio n is seen. The bones are osteopenic. JOINTS: The carpal bones are normally aligned. Degenerative changes are seen at the 1st CMC joint and the radiocarpal joint. SOFT TISSUE: Normal. IMPRESSION: Stable alignment of the distal left radius and ulna. DATA REPOSITORY: RADIATION DOSE DELIVERED:
== END 2023-01-25 15:09 | disposition home or self-care (01) ==
LOC: DIORS 15:08
PROVIDERS: PCP Family Medicine; Visit Provider Student in an Organized Health Care Education/Training Program
DX: S52.502D Unspecified fracture of the lower end of left radius, subsequent encounter for closed fracture with routine healing (principal); X58.XXXD Exposure to other specified factors, subsequent encounter
CPT/HCPCS: 99213; 73100

== ENCOUNTER 2023-04-19 15:46 | Outpatient (CLI) | payer MEDICARE, SELFPAY ==
--- NOTE | 2023-04-19 13:35 | DI.RAD_ITS ---
Exam(s) XR WRIST LT LIMITED EXAM: XR WRIST LT LIMITED CLINICAL HISTORY: left wrist fracture. TECHNIQUE: 2D digital imaging was performed of the left wrist. Two images were obtained. PA and la teral views were obtained. COMPARISON: CR XR WRIST LT LIMITED from 01/25/2023 FINDINGS: BONES: There has been no change in alignment of the distal left radial and ulnar fractures. The ulna r fracture shows continued healing. No new fracture is seen. No bony destructive lesion is seen. JOINTS: The carpal bones are normally aligned. There are degenerative changes seen at the 1st CMC sujey nt. SOFT TISSUE: Chondrocalcinosis is present. IMPRESSION: Stable alignment of the distal left radial and ulnar fractures. DATA REPOSITORY: RADIATION DOSE DELIVERED:
== END 2023-04-19 15:47 | disposition home or self-care (01) ==
LOC: DIORS 15:46
PROVIDERS: PCP Family Medicine; Referring Provider Family Medicine; Visit Provider Student in an Organized Health Care Education/Training Program
DX: M75.82 Other shoulder lesions, left shoulder (principal); S52.502D Unspecified fracture of the lower end of left radius, subsequent encounter for closed fracture with routine healing; X58.XXXD Exposure to other specified factors, subsequent encounter
CPT/HCPCS: 20605; 20610; 73100; J1030; J1040

== ENCOUNTER → 2023-06-08 02:24 | Outpatient (CLI) | payer MEDICARE, SELFPAY ==
--- NOTE | 2023-06-08 06:30 | DI.US_ITS ---
APPROVED REPORT EXAM: Comprehensive 2D, Doppler, and color-flow Echocardiogram Patient Location: Out-Patient Teacher Selection Specialist: Kylee Salcedo RDCS (AE) Indications: SOB Other Information Study Quality: Adequate Conclusion Normal left ventricular wall thickness and chamber size.EF is 50-55%. Wall motion is normal Normal right ventricular size and function both atria are normal in size The aortic valve is sclerotic and trileaflet without stenosis . There is trace to mild aortic regurgi tation Normal mitral valve with mild regurgitation Normal tricuspid valve with mild regurgitation. Estimated right ventricular systolic pressure is 26 m mHg Mildly dilated aortic root Wall motion Left Ventricle The left ventricle is normal size. The left ventricular systolic function is normal. The left ventric ular ejection fraction is within the normal range. There is normal left ventricular wall thickness. T here is normal LV segmental wall motion. There is no ventricular septal defect visualized. LVEF is 52 %. Right Ventricle Right ventricle is grossly normal in size. Right ventricular systolic function is grossly normal. Atria The left atrium size is normal. The right atrium size is normal. The interatrial septum is intact wit h no evidence for an atrial septal defect. Aortic Valve The Aortic valve is sclerotic. Aortic valve is trileaflet. There is no aortic valvular stenosis. Trac e to mild aortic regurgitation. Mitral Valve The mitral valve is normal in structure. No evidence of mitral valve stenosis. Mild mitral regurgitat ion. Tricuspid Valve The tricuspid valve is normal in structure. There is no tricuspid valve stenosis. Mild tricuspid regu rgitation. The RVSP is 26.3 mmHg. Pulmonic Valve The pulmonary valve is normal in structure. There is no pulmonic valvular stenosis. Trace pulmonic re gurgitation. Great Vessels Aortic root is mildly dilated. The ascending aorta is normal in size. Aortic arch is normal in calib er. IVC is normal in size and collapses >50% with inspiration. Pericardium There is no pericardial effusion. 2D Dimensions IVSD d PLAX 0.91 cm F: 0.6-1.0 Ao Root d 3.56 cm F: 2.7 - 3.3 LVPW d PLAX 0.89 cm F: 0.6 - 1.0 Ao Asc Diam d 3.14 cm F: 2.3 - 3.1 LVID d PLAX 4.00 cm F: 3.8 - 5.2 LVDs 2.94 cm F: 2.2 - 3.5 LV EF Teichholz 52.5 % FS 26.58 % LV EDV (Teich) 70.2 mL LV ESV (Teich) 33.3 mL M-Mode TAPSE 2.21 cm (M/F) >1.7 Auto EF LV EDV A4C 78.2 mL LV EDV A2C 64.8 mL LV EDV BP 71.2 mL LV ESV A4C 37.4 mL LV ESV A2C 31.4 mL LV ESV BP 34.7 mL LVEF(%) A4C 52.2 % LVEF(%) A2C 51.6 % LVEF(%) BP 51.3 % LV SV A4C 40.8 ml LV SV A2C 33.4 ml LV SV BP 36.5 ml LV CO A4C 2.4 L/min LV CO A2C 2.1 L/min LV CO BP 2.2 L/min HR A4C 59.31 BPM HR A2C 61.65 BPM LV EDV Index (BP) LA Volume LA Length A4C 4.3 cm LA Length A2C 5.0 cm LA Area A4C s 13.57 cm2 LA Area A2C s 16.45 cm2 LA Vol A4C A-L 36.33 mL LA Vol A2C A-L 45.92 mL LA Vol Biplane A-L 44.0 mL LA Vol/BSA A4C A-L LA Vol/BSA A2C A-L LA Vol/BSA BP A-L 26.2 mL/m2 LA Vol A4C MOD 33.7 mL LA Vol A2C MOD 41.7 mL LA Vol BP MOD 39.9 mL RA Volume RA Area A4C 11.2 cm2 RA ESV A4C (A-L) 21.4mL RA Vol/BSA A4C A-L RA Length A4C 5.0 cm RA ESV A4C (MOD) 20.9mL LV Diastology MV E' medial 0.062 (>0.07 m/s) MV E Vmax 0.84 (0.4-1.3 m/s) MV E/E' MED 13.73 (<14) MV A Vmax 1.00 (0.4-1.3 m/s) MV E' lateral 0.062 (>0.1 m/s) E/A Ratio 0.8 MV E/E' LAT 13.73 (<14) MV E' Average 0.062 m/s MV E/E'(average) 13.73 Aortic Valve AoV Vmax 1.12 m/s LVOT Vmax 0.77 m/s AoV Peak Grad 29.1 mmHg LVOT Peak Grad 2.4 mmHg AoV Area (Vmax) 2.07 cm2 LVOT VTI 0.195 m AoV VTI 0.303 m LVOT Mean Grad 1.4 mmHg AoV Mean Ajith. 0.86 m/s LVOT SV 59.24 mL AoV Mean Grad 3.3 mmHg LVOT Diam s 1.95 cm AoV Area (VTI) 1.95 cm2 AV Regurg Peak Gr. 53.20 mmHg Velocity Ratio 0.69 AR Decel Mccormick 1.2m/sec2 AR DT 3062 msec AR PHT 888 msec AR Vmax 3.65 m/s Mitral Valve MV DT 181 (160-240 msec) MV Vmax TIPS 0.96 m/s MV Mean Grad 1.2 (<2mmHg) MV VTI 0.294 m Pulmonary Valve PV Vmax 0.59 (0.5-1.5 m/s) RVOT Vmax 0.43 m/s PV Peak Grad 1.4 mmHg RVOT Peak Gr. 0.7 mmHg PV Mean Ajith 0.44 m/s RVOT VTI 0.121 m PV Mean Grad 0.9 mmHg RVOT Mean Gr. 0.4 mmHg Tricuspid Valve RA Pressure 3.00 mmHg TR Vmax 2.41 m/s TV S' 0.09 m/s TR Peak Grad 23.3 mmHg RVSP (TR) 26.3 mmHg
== END ==
PROVIDERS: PCP Family Medicine; Visit Provider Family Medicine
DX: R06.02 Shortness of breath (principal)
CPT/HCPCS: 93306

== ENCOUNTER 2023-08-05 05:09 | Outpatient (CLI) | payer MEDICARE, SELFPAY ==
[2023-08-05 10:53] LABS: HCT 40.1 % (36.0-46.0); HGB 13.1 g/dL (11.2-15.7); MCH 31.1 pg (27.0-33.0); MCHC 32.7 % (32.0-36.0); MCV 95 fL (80-95); MPV 10.7 fL (8.0-11.0); Platelet Count 183 10^3/uL (130-400); RBC 4.21 10^6/uL (3.93-5.22); RDW 12.7 % (11.7-14.6); RDW-SD 44.2 fL; WBC 3.92 10^3/uL (4.4-10.8)
[2023-08-05 11:06] LABS: Hemoglobin A1C 5.8 % (<5.7)
[2023-08-05 11:30] LABS: Iron 111 ug/dL (50-170)
[2023-08-05 11:34] LABS: ALT 43 U/L (14-59); AST 26 U/L (15-37); Alkaline Phosphatase 49 U/L (46-116); Anion Gap 10.8 mmol/L (3-11); BUN 18 mg/dL (7-18); Bilirubin, Total 0.7 mg/dL (0.2-1.0); CO2 26.2 mmol/L (21.0-32.0); CREATININE 1.4 mg/dL (0.55-1.02); Calcium 9.6 mg/dL (8.5-10.1); Chloride 107 mmol/L (98-107); Estimated GFR 38.27 (mL/min/1.73m2); Glucose 109 mg/dL (74-106); Potassium 3.8 mmol/L (3.5-5.1); Sodium 144 mmol/L (136-145); TSH (W/Ref FT4) 1.63 uIU/mL (0.36-3.74); Total Protein 7.4 g/dL (6.4-8.2); Vitamin B12 391 pg/mL (193-986)
[2023-08-06 09:32] LABS: Hepatitis C Ab w Rflx HCV PCR Reactive (Negative)
[2023-08-09 11:56] LABS: HCV RNA Qualitative Undetected (Undetected)
== END 2023-08-05 05:10 | disposition home or self-care (01) ==
LOC: LOS 05:09
PROVIDERS: PCP Family Medicine; Visit Provider Family Medicine
DX: E03.9 Hypothyroidism, unspecified; E11.9 Type 2 diabetes mellitus without complications; I10 Essential (primary) hypertension; L65.9 Nonscarring hair loss, unspecified
CPT/HCPCS: 36415; 80053; 85027; 86803; 87522; 82607; 83036; 83540; 84443

== ENCOUNTER → 2023-10-28 14:39 | Outpatient (BNVA) | payer MEDICARE, SELFPAY | PROVIDERS: PCP Family Medicine; Referring Provider Family Medicine; Visit Provider Student in an Organized Health Care Education/Training Program | DX: M19.032 Primary osteoarthritis, left wrist (principal); S52.502P Unspecified fracture of the lower end of left radius, subsequent encounter for closed fracture with malunion; X58.XXXD Exposure to other specified factors, subsequent encounter | CPT/HCPCS: 20605; J1010 ==

== ENCOUNTER 2024-03-09 04:51 | Outpatient (CLI) | payer MEDICARE, SELFPAY ==
[2024-03-09 12:40] LABS: Hemoglobin A1C 5.8 % (<5.7)
[2024-03-09 13:07] LABS: TSH (W/Ref FT4) 5.12 uIU/mL (0.36-3.74); Vitamin B12 412 pg/mL (193-986)
[2024-03-09 13:33] LABS: FREE T4 1.07 ng/dL (0.76-1.46)
== END 2024-03-09 04:52 | disposition home or self-care (01) ==
LOC: LOS 04:51
PROVIDERS: PCP Family Medicine; Visit Provider Family Medicine
DX: E03.9 Hypothyroidism, unspecified (principal); E53.8 Deficiency of other specified B group vitamins; E11.9 Type 2 diabetes mellitus without complications
CPT/HCPCS: 36415; 82607; 83036; 84439; 84443

== ENCOUNTER 2024-04-17 14:42 | Inpatient (IN) | payer MEDICARE, SELFPAY ==
[2024-04-17] VITALS (14 sets, daily range): BP systolic 106–147; BP diastolic 63–85; PULSE 83–110; RESP 10–23; TEMP 36.5–37; O2SAT 93–98
--- NOTE | 2024-04-17 15:02 | DI.US_ITS ---
Exam(s) US ABDOMEN EXAM: US ABDOMEN CLINICAL HISTORY: ruq abdominal pain TECHNIQUE: Ultrasound of complete upper abdomen performed COMPARISON: None FINDINGS: There is no ascites evident. LIVER: Liver is mildly hyperechoic indicating steatosis. There no discrete focal hepatic lesions janet dent. GALLBLADDER/BILIARY: Gallbladder appears mildly distended. It contains mild sludge but no shadowing calcified gallstones. Gallbladder wall is not edematous and there is no pericholecystic fluid. The common hepatic duct isdilated, measuring 13-14mm at the level of shanna hepatis. CBD measures 17 mm PANCREAS: There is no evidence of pancreatic mass nor dilatation of the pancreatic duct. SPLEEN: The spleen is not enlarged and there are no intrasplenic lesions evident. KIDNEYS:Kidneys exhibit normal size with no evidence of solid mass, calculus, nor hydronephrosis. The re is a 2.5 x 2.0 cm benign cyst in the right kidney. The left kidney is either severely atrophic or absent. ABDOMINAL AORTA: There is no evidence of abdominal aortic aneurysm. IVC: Normal diameter where visualized. IMPRESSION: 1. Gallbladder is distended and there is also dilatation of the common hepatic duct and common bowel duct up to 17 mm. No pancreatic head mass identified. The lower most CBD is not able to be seen. Findings are most probably consistent with obstructing finding in lower CBD such is calculus or stric ture/neoplasm. CT scan recommended 2. Hepatic steatosis. No neoplastic lesions identified in the liver. Pancreas and spleen appear un remarkable. 3. Atrophic or absent left kidney. Benign 2.5 cm cyst noted in the right kidney. This does not req uire further workup. Discussed by myself with ER physician 04/17/2024 at 5:15 p.m. DATA REPOSITORY:
--- NOTE | 2024-04-17 15:03 | W.ED.GENAD ---
Discharge Plan Disposition Patient Disposition: Admit to [facility] Condition: Stable Discharge Details Clinical Impression: Abdominal pain, RUQ, Elevated bilirubin Primary Care Provider: Tanika Meyer ED Provider: Satish Butler Home Meds and New Rx's Prescriptions: No Action albuterol sulfate [ProAir HFA] 90 mcg/actuation HFA aerosol inhaler 1 - 2 puff Inhalation Q6H PRN Qty: 1 12RF metoprolol tartrate 25 mg tablet 12.5 mg PO DAILY PRN (Reason: palpitation) Qty: 45 6RF Rx Instructions: 12.5MG DAILY PRN memantine 10 mg tablet 10 mg PO BID Qty: 180 6RF gabapentin 300 mg capsule 600 mg PO BID Qty: 360 3RF mecobalamin (vitamin B12) 1,000 mcg tablet,chewable 1,000 mcg PO DAILY Qty: 90 4RF timolol 0.5 % drops 1 drp ophthalmic (eye) BID multivitamin 1 EACH tablet 1 ea PO DAILY lisinopril 20 mg tablet 20 mg PO DAILY Qty: 90 5RF levothyroxine 50 mcg tablet 50 mcg PO DAILY Qty: 90 7RF hydrocodone-acetaminophen 5-325 mg tablet 1 tab PO TID MDD 3 PRN (Reason: pain) Qty: 90 0RF HPI General Mode of arrival: ambulatory. Date/Time Provider Initiated Documentation: 04/17/24 14:47. Limitations to Documentation: no limitations. Information obtained by: patient. History of Present Illness 78 year old F presents to the emergency department with the chief complaint of ruq pain, described as moderate, Patient started experiencing this week(s) (2) and it has been intermittent. No relieving factors improve symptom(s), Patient notes fever/chills and malaise; denies chest pain, nausea/vomiting and shortness of breath. Patient did receive the following treatments prior to arrival, none Related Data Home Medications ?Medication ?Instructions ?Recorded ?Confirmed multivitamin 1 ea PO DAILY 08/11/12 04/17/24 albuterol sulfate 90 mcg/actuation 1 - 2 puff inhalation Q6H PRN ##1 04/08/20 04/17/24 aerosol inhaler (ProAir HFA) timolol 0.5 % eye drops 1 drp ophthalmic (eye) BID 11/24/22 04/17/24 lisinopril 20 mg tablet 20 mg PO DAILY #90 tabs 07/23/23 04/17/24 levothyroxine 50 mcg tablet 50 mcg PO DAILY #90 tab-caps 11/24/23 04/17/24 gabapentin 300 mg capsule 600 mg (2 x 300 mg) PO BID 12/28/23 04/17/24 neuropathy #360 tabs mecobalamin (vitamin B12) 1,000 1,000 mcg PO DAILY #90 tabs 12/28/23 04/17/24 mcg chewable tablet memantine 10 mg tablet 10 mg PO BID #180 tabs 12/28/23 04/17/24 metoprolol tartrate 25 mg tablet 12.5 mg (1/2 x 25 mg) PO DAILY PRN 12/28/23 04/17/24 palpitation #45 tabs hydrocodone 5 mg-acetaminophen 325 1 tab PO TID PRN pain #90 tabs 03/29/24 04/17/24 mg tablet Previous Rx's ?Medication ?Instructions ?Recorded albuterol sulfate 90 mcg/actuation 1 - 2 puff inhalation Q6H PRN ##1 04/08/20 aerosol inhaler (ProAir HFA) lisinopril 20 mg tablet 20 mg PO DAILY #90 tabs 07/23/23 levothyroxine 50 mcg tablet 50 mcg PO DAILY #90 tab-caps 11/24/23 gabapentin 300 mg capsule 600 mg (2 x 300 mg) PO BID 12/28/23 neuropathy #360 tabs mecobalamin (vitamin B12) 1,000 1,000 mcg PO DAILY #90 tabs 12/28/23 mcg chewable tablet memantine 10 mg tablet 10 mg PO BID #180 tabs 12/28/23 metoprolol tartrate 25 mg tablet 12.5 mg (1/2 x 25 mg) PO DAILY PRN 12/28/23 palpitation #45 tabs hydrocodone 5 mg-acetaminophen 325 1 tab PO TID PRN pain #90 tabs 03/29/24 mg tablet Allergies Allergy/AdvReac Type Severity Reaction Status Date / Time cat dander Allergy Mild Itching Verified 04/17/24 14:55 seasonal Allergy Mild Other (See Uncoded 04/17/24 14:55 Comment) General Stated Complaint: Abd Prob MADISON: 3 Review of Systems All systems reviewed & are unremarkable except as noted in HPI and below Constitutional Constitutional: Reports chills, Denies fever(s) and Reports weakness Cardiovascular Cardiovascular: Denies chest pain and Denies dyspnea Respiratory Respiratory: Denies cough and Denies dyspnea Gastrointestinal Gastrointestinal: Reports abdominal pain, Denies nausea and Denies vomiting Neurologic Neurologic: Reports weakness Psychiatric Psychiatric: Denies depression Exam Const General: no acute distress Orientation: alert HENPR Head: normal to inspection Ears: external ears normal General nose exam: external nose normal Mouth: moist mucous membranes Eyes General: appearance normal, both eyes and all related structures Neck Neck: normal visual inspection Resp Effort & Inspection: normal respiratory effort and able to speak in complete sentences Cardio Rate: regular rate GI Palpation: soft and tender Skin General skin exam: no rashes or lesions noted Neuro General: patient alert and patient oriented x3 Extrem General: normal to inspection Psych Mental Status: mental status grossly normal Course Vital Signs Vital signs: Vital Signs Temperature 36.5 C 04/17/24 14:47 Pulse 101 H 04/17/24 14:47 Respiratory Rate 10 L 04/17/24 14:47 Blood Pressure 115/63 04/17/24 14:47 Pulse Oximetry 94 04/17/24 14:47 Temperature 36.5 C 04/17/24 14:47 Temperature Source Oral 04/17/24 14:47 Pulse 101 H 04/17/24 14:47 Respiratory Rate 10 L 04/17/24 14:47 Blood Pressure 115/63 04/17/24 14:47 Blood Pressure Position Sitting 04/17/24 14:47 Pulse Oximetry 94 04/17/24 14:47 Oxygen Delivery Method Room Air 04/17/24 14:47 Oxygen Flow Rate 0 04/17/24 14:47 Pain Level 5 04/17/24 14:47 Medical Decision Making 6-year-old female with a history of a single kidney, hypothyroidism, chronic back pain, who comes in with 2 weeks of intermittent right upper quadrant pain but has been constant since last night and also developed chills overnight. Denies any chest pain, difficulty breathing, cough, vomiting. Her abdomen is soft and nondistended but she is tender in the right upper quadrant, has some yellow discoloration of her eyes which she is not sure is new or not. Concern for possible cholecystitis vs cholangitis vs pancreatic mass, will check CBC, CMP, UA and obtain an ultrasound to further evaluate. Labs show elevated LFTs, no leukocytosis but her procalcitonin is elevated so ordered Zosyn. She feels better but still does have tenderness on exam. Ultrasound reading read as distended gallbladder and CBD. Recommend CT which I ordered. She is hemodynamically stable currently. CT does not really show any other significant findings Compared to the ultrasound. Given her elevated LFTs and bilirubin I am concerned that this potentially could be developing cholangitis. I discussed the case with our on-call surgeon Dr. Lewis who agrees with IV antibiotics and admission for MRCP, will discuss with hospitalist about admitting Differential Diagnosis Differential Diagnosis: Cholecystitis, pancreatitis, biliary colic Medical Records Medical records reviewed: Yes I reviewed the patient's medical records. Imaging Data Radiologic Study: Attestation: I personally reviewed and interpreted this imaging study as follows: Imaging: CT Scan Radiologist's impression: IMPRESSION: 1. Gallbladder is distended and there is also dilatation of the common hepatic duct and common bowel duct up to 17 mm. No pancreatic head mass identified. The lower most CBD is not able to be seen. Findings are most probably consistent with obstructing finding in lower CBD such is calculus or stricture/neoplasm. CT scan recommended 2. Hepatic steatosis. No neoplastic lesions identified in the liver. Pancreas and spleen appear unremarkable. 3. Atrophic or absent left kidney. Benign 2.5 cm cyst noted in the right kidney. This does not require further workup. Lab Data Lab results reviewed: Yes I reviewed the patient's lab results. Quality:SDOH Health Related Social Needs: No Data to Display PFSH All Active Problems (Updated 04/17/24 @ 19:24 by Satish Butler MD) Elevated bilirubin (Acute) Abdominal pain, RUQ (Acute) Dilated cbd, acquired (Acute) B12 deficiency (Acute) Arthritis of left wrist (Acute) Displaced fracture of distal end of left radius with malunion (Acute) Polyneuropathic pain (Acute) Tendonitis of left rotator cuff (Chronic) 80 mg Depo-medrol injection: 04/19/23 Bunion of great toe of right foot (Acute) Memory deficit (Acute) Environmental allergies (Acute) Rupture of hip abductor tendon (Acute) s/p right trochanteric bursectomy, abductor tendon repair and IT band lengthening DOS: 03/26/20 Degenerative joint disease of right hip (Acute) Trochanteric bursitis, right hip (Chronic) s/p right trochanteric bursectomy, abductor tendon repair and IT band lengthening DOS: 03/26/20 Injection: 11/27/2019; 08/07/2019 Spinal stenosis (Chronic 09/03/14) Seasonal allergies (Chronic 07/27/13) Impaired renal function (Chronic 07/27/13) 1969- 5 kidney surgeries R - 1; L -3 surgeries and then removal. Ovarian V Crossing syndrome Hypothyroidism (Chronic 09/10/14) Hepatitis C (Chronic) s/p tx Glaucoma (Chronic 07/27/13) Esophageal reflux (Chronic) Depression (Chronic) Back pain (Chronic) chronic chronic narcotics MRi and spinal at [facility] [place]: scoliosis and spinal stenosis Chronic pain disorder (Chronic 12/10/16) Medical History Neck pain Skin lesion Dysphonia Face lesion Right hip pain Chest pain Cataract Abnormal mammogram (~07/26/18) 6m f/u Shoulder pain Cardiac murmur mid-systolic click Wrist fracture, bilateral 2006; Shoulder fracture, left 07/27/13 Stress due to spouse with dementia 03/04/15 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 H/O spinal fusion L3-L5 S/P removal of left ovary 07/27/13 tubal Status post open reduction with internal fixation (ORIF) of fracture of ankle Bimalleolar fracture of right ankle S/P ORIF DOS: 02/05/18 , Ectopic Left PROCEDURES SOLITARY KIDNEY NEPHRECT left SPINAL FUSION NOS L ovarian cystectomy - benign teratoma Family History Mother , AGE 85 Breast cancer Lung cancer Father , AGE 63 CAD (coronary artery disease) Hypertension Heart disease Alcohol abuse Sister , AGE 45 Myocardial infarction Heart disease Alcohol abuse Brother Arrhythmia Hypertension Heart disease Son Hypertension Hyperlipidemia Daughter No problems noted. Maternal Grandfather , age 58 Nephritis Paternal Grandfather , 50s Esophageal cancer Maternal Grandmother , 70s Stroke Hypertension Paternal Grandmother , age 94 Dementia Social History Smoking/Tobacco Use Status: Never Tobacco: How many years used: 0 Second Hand Exposure: Yes Smoking risk assessment performed?: Yes Alcohol Intake: current Alcohol Intake frequency: a few times a week Alcohol type: wine Drug use: Never Substance use type: does not use Caregiver/Support person: No Household members: family and other Details: great-grandson Housing: apartment Communication Needs: Hard of Hearing and Corrective Lenses Do you need help understanding health information?: Never Pets and animals: No Sexually active: No Do you think of yourself as: straight/heterosexual Current gender identity: female What is your relationship status?: How often do you talk on the phone with friends or family?: three or more times per week How often do you get together with friends or relatives?: three or more times per week How often do you attend jainism or anglican services?: decline to answer Do you belong to any clubs or organized social groups?: yes Panel score (0-1 are the most socially isolated patients): 2 What type of physical activity do you participate in: walking Duration: decline to answer Frequency: 1-2 times per week Leonie/Yazidi: [employer] Special leonie needs: No Seatbelt use: always Drive intox or ride w/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
[2024-04-17 16:03] LABS: COVID-19 PCR Negative (Negative); Influenza A PCR Negative (Negative); Influenza B PCR Negative (Negative); RSV PCR Negative (Negative)
[2024-04-17 16:13] LABS: Source NASOPHARYNX
[2024-04-17 16:35] LABS: Abs Immature Grans 0.03 10^3/uL (0.0-0.06); Absolute Basophil Count 0.03 10^3/uL (0.0-0.2); Absolute Eosinophil Count 0.01 10^3/uL (0.0-0.7); Absolute Lymphocyte Count 0.35 10^3/uL (1.2-3.4); Absolute Monocyte Count 0.35 10^3/uL (0.1-0.8); Absolute Neutrophil Count 6.84 10^3/uL (1.2-6.7); Basophils % 0.4 %; Eosinophils % 0.1 %; HCT 43.9 % (36.0-46.0); HGB 14.5 g/dL (11.2-15.7); Immature Grans % 0.4 %; Lymphocytes % 4.6 %; MCH 30.9 pg (27.0-33.0); MCV 94 fL (80-95); MPV 10.3 fL (8.0-11.0); Monocytes % 4.6 %; Neutrophils % 89.9 %; Platelet Count 134 10^3/uL (130-400); RBC 4.69 10^6/uL (3.93-5.22); RDW 12.7 % (11.7-14.6); RDW-SD 43.3 fL; WBC 7.61 10^3/uL (4.4-10.8)
[2024-04-17] MEDS: ACETAMINOPHEN 1,000 MG/100 ML BAG 400 MG IVPB (16:44)
[2024-04-17 16:58] LABS: ALT 373 U/L (14-59); AST 386 U/L (15-37); Albumin 4.1 g/dL (3.4-5.0); Alkaline Phosphatase 92 U/L (46-116); Anion Gap 6.6 mmol/L (3-11); BUN 16 mg/dL (7-18); Bilirubin, Total 4.63 mg/dL (0.2-1.0); CO2 28.4 mmol/L (21.0-32.0); CREATININE 1.5 mg/dL (0.55-1.02); Calcium 9.9 mg/dL (8.5-10.1); Chloride 105 mmol/L (98-107); Estimated GFR 35.01 (mL/min/1.73m2); Glucose 139 mg/dL (74-106); Lipase 31 U/L (<78); Magnesium 1.7 mg/dL (1.8-2.4); Potassium 3.3 mmol/L (3.5-5.1); Sodium 140 mmol/L (136-145); TSH (W/Ref FT4) 0.99 uIU/mL (0.36-3.74); Total Protein 8.1 g/dL (6.4-8.2)
[2024-04-17 17:11] LABS: Procalcitonin 3.26 ng/mL
--- NOTE | 2024-04-17 17:15 | DI.CT_ITS ---
Exam(s) CT ABDOMEN PELVIS W EXAM: CT ABDOMEN PELVIS W CLINICAL HISTORY: ruq pain, distended gallbladder and cbd enlarged. TECHNIQUE: Imaging Protocol: Axial computed tomography images with coronal and sagittal reformatted images were created and reviewed CONTRAST MATERIAL: Intravenous: Omnipaque-350 100cc Oral: None COMPARISON: No exams were available for comparison FINDINGS: VISUALIZED LUNG BASES: No nodules nor pleural effusions evident. Prominent hiatal hernia is noted. ABDOMEN: There is no ascites. LIVER: Liver is diffusely hypodense implying steatosis. There no discrete focal hepatic lesions evid ent. There are minimal dilatation of intrahepatic ducts. GALLBLADDER/BILIARY: The gallbladder is moderately distended. There are no obvious radiopaque gallst ones. Gallbladder wall thickness is upper normal. There is no pericholecystic fluid. Common hepati c duct is dilated exhibiting diameter of 11 mm. CBD is dilated, also exhibiting diameter 11 mm. At the level the pancreatic head this CBD is 6 mm. There is no obvious radiopaque calculus in the lower CBD. Junction of the CBD and wall of the duodenum is somewhat obscured by a duodenal diverticulum a t this level which measures 1.7 x 1.8 cm size. PANCREAS: There is no evidence of obvious pancreatic mass. There is no obvious dilatation of the moreno creatic duct. SPLEEN: Spleen is not enlarged. No obvious intrasplenic lesions. Splenic and portal veins are paten t. ADRENALS: There are no significant adrenal masses. KIDNEYS:There is a cyst in the posterior cortex of the right kidney measuring 2.3 by 2.2 cm. This is not require further workup. No solid renal masses. No calculi nor hydronephrosis.. Left kidney is not evident, either non developed or surgically absent. There is no abnormal tissue in the left avila al fossa nor regional adenopathy. ABDOMINAL AORTA: Abdominal aorta is not enlarged. LYMPH NODES:There is no retroperitoneal nor paraaortic adenopathy. ABDOMINAL WALL: No evidence of significant anterior abdominal wall nor inguinal hernia. GI: There is no evidence of bowel obstruction, free air, nor abscess. There is abundant fecal material in the rectum. PELVIS: GI: No evidence of appendicitis.No evidence of sigmoid diverticulitis. LYMPH NODES: There is no intrapelvic nor inguinal adenopathy. REPRODUCTIVE: Uterus is heterogeneous. Difficult to determine endometrium from myometrium. There ar e no abnormal adnexal masses. No free fluid in the pelvis. URINARY BLADDER: No calculi nor obvious masses evident OSSEOUS: Scoliosis. Multilevel degenerative changes. No listhesis. Multilevel facet arthropathy. IMPRESSION: 1. Gallbladder is mildly distended and extrahepatic biliary tree is moderately dilated. There does n ot appear to be an obvious radiopaque calculus within the lower CBD nor pancreatic head mass. This a domenic is somewhat obscured by a duodenal diverticulum at this location. Consider MRCP. There are no ominous focal hepatic lesions. Hepatic steatosis noted 2. Left kidney is absent. Right kidney exhibits normal size 3. Heterogeneous uterus difficult to determine endometrium from myometrium and if clinically indicate d can be further studied with ultrasound. Findings discussed with ER physician 04/17/2022 at 6:45 p.m. RADIATION DOSE DELIVERED: 359.69mGy.cm Total DLP DATA REPOSITORY: All CT scans at this facility are submitted to the National Radiology Data Registry (NRDR) Dose Index Registry (DIR) with the [employer] (ACR). RADIATION OPTIMIZATION: All CT scans at this facility use at least one of these dose optimization te chniques: automated exposure control; mA and/or kV adjustment per patient size (includes targeted exa ms where dose is matched to clinical indication); or iterative reconstruction.
[2024-04-17] MEDS: Normal Saline 1,000 ML 1000 ML IV (18:11)
[2024-04-17] MEDS: Normal Saline - Diluent 50 ML VIAL IJ (18:14)
[2024-04-17] MEDS: Omnipaque 350 MG/ML 100 ML BTL 75 ML IJ (18:15)
[2024-04-17 18:41] LABS: Bilirubin Negative (Negative); Blood Negative (Negative); Clarity Clear (Clear); Glucose Negative (Negative); Ketones Trace mg/dL (Negative); Leukocyte Esterase Trace (Negative); Nitrite Negative (Negative); Specific Gravity 1.015 (1.005-1.025); Urobilinogen 0.2 mg/dL (Up to 0.2); pH 5.5 (5-8)
[2024-04-17 18:47] LABS: Bacteria Few HPF (Negative); Crystals Negative HPF (Negative); Epithelial Cells Rare HPF (Negative); RBC Negative HPF (0-2)
[2024-04-17 18:48] LABS: C & S Indicated? Yes; Casts Negative LPF (Negative); Mucus Trace (Negative)
--- NOTE | 2024-04-17 19:03 | SCONE_ITS ---
Date of service: 04/17/24 Time of Service: 19:04 Assessment and Plan Assessment and plan (1) Dilated cbd, acquired: Status: Acute Assessment and plan: 78 yo woman with dilated common bile duct of unclear etiology but suspicious to be at level of sphincter or Panc head. No gallstones and no US evidence of cholecystitis. Picture concerning for developing cholangitis. Reportedly HD stable. Recommend: admit to hospitalist service, surgery will follow along IV abx MRCP in the morning GI consultation for ERCP decompression vs stent vs brushings/biopsy If patient decompensates or starts to worsen clinically, urgent or emergent GI consult for transfer and ERCP control of the CBD. History of Present Illness Narrative: Called by ED provider about patient with 2 weeks of abdominal discomfort and vague, malaise symptoms. U/S and CT showed dilated CBD but no stones. Associated duo diverticulum. Bilirubin elevated 4.6 WBC not elevated but neutrophil shift and elevated proCalc. PFSH All Active Problems (Updated 04/17/24 @ 19:06 by Nico Lewis MD) Dilated cbd, acquired (Acute) B12 deficiency (Acute) Arthritis of left wrist (Acute) Displaced fracture of distal end of left radius with malunion (Acute) Polyneuropathic pain (Acute) Tendonitis of left rotator cuff (Chronic) 80 mg Depo-medrol injection: 04/19/23 Bunion of great toe of right foot (Acute) Memory deficit (Acute) Environmental allergies (Acute) Rupture of hip abductor tendon (Acute) s/p right trochanteric bursectomy, abductor tendon repair and IT band lengthening DOS: 03/26/20 Degenerative joint disease of right hip (Acute) Trochanteric bursitis, right hip (Chronic) s/p right trochanteric bursectomy, abductor tendon repair and IT band lengthening DOS: 03/26/20 Injection: 11/27/2019; 08/07/2019 Spinal stenosis (Chronic 09/03/14) Seasonal allergies (Chronic 07/27/13) Impaired renal function (Chronic 07/27/13) 1969- 5 kidney surgeries R - 1; L -3 surgeries and then removal. Ovarian V Crossing syndrome Hypothyroidism (Chronic 09/10/14) Hepatitis C (Chronic) s/p tx Glaucoma (Chronic 07/27/13) Esophageal reflux (Chronic) Depression (Chronic) Back pain (Chronic) chronic chronic [place] [facility] [place]osis and spinal stenosis Chronic pain disorder (Chronic 12/10/16) Medical History Neck pain Skin lesion Dysphonia Face lesion Right hip pain Chest pain Cataract Abnormal mammogram (~07/26/18) 6m f/u Shoulder pain Cardiac murmur mid-systolic click Wrist fracture, bilateral 2006;1989' Shoulder fracture, left 07/27/13 Stress due to spouse with dementia 03/04/15 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 H/O spinal fusion L3-L5 S/P removal of left ovary 07/27/13 tubal Status post open reduction with internal fixation (ORIF) of fracture of ankle Bimalleolar fracture of right ankle S/P ORIF DOS: 02/05/18 , Ectopic Left PROCEDURES SOLITARY KIDNEY NEPHRECT left SPINAL FUSION NOS L ovarian cystectomy - benign teratoma Family History Mother , AGE 85 Breast cancer Lung cancer Father , AGE 63 CAD (coronary artery disease) Hypertension Heart disease Alcohol abuse Sister , AGE 45 Myocardial infarction Heart disease Alcohol abuse Brother Arrhythmia Hypertension Heart disease Son Hypertension Hyperlipidemia Daughter No problems noted. Maternal Grandfather , age 58 Nephritis Paternal Grandfather , 50s Esophageal cancer Maternal Grandmother , 70s Stroke Hypertension Paternal Grandmother , age 94 Dementia Social History Smoking/Tobacco Use Status: Never Tobacco: How many years used: 0 Second Hand Exposure: Yes Smoking risk assessment performed?: Yes Alcohol Intake: current Alcohol Intake frequency: a few times a week Alcohol type: wine Drug use: Never Substance use type: does not use Caregiver/Support person: No Household members: family and other Details: great-grandson Housing: apartment Communication Needs: Hard of Hearing and Corrective Lenses Do you need help understanding health information?: Never Pets and animals: No Sexually active: No Do you think of yourself as: straight/heterosexual Current gender identity: female What is your relationship status?: How often do you talk on the phone with friends or family?: three or more times per week How often do you get together with friends or relatives?: three or more times per week How often do you attend protestant or jehovah's witness services?: decline to answer Do you belong to any clubs or organized social groups?: yes Panel score (0-1 are the most socially isolated patients): 2 What type of physical activity do you participate in: walking Duration: decline to answer Frequency: 1-2 times per week Leonie/Druze: Mormon Special leonie needs: No Seatbelt use: always Drive intox or ride w/intox driver 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 Results Last Vital Signs Temp 98.2 F 04/17/24 16:56 Pulse 110 H 04/17/24 16:56 Resp 18 04/17/24 16:56 BP 106/78 04/17/24 16:56 Pulse Ox 98 04/17/24 16:56 Labs 04/17/24 16:25 04/17/24 16:25 Labs: Laboratory Results - last 24 hr 04/17/24 04/17/24 04/17/24 15:15 16:13 16:25 WBC 7.61 RBC 4.69 Hgb 14.5 Hct 43.9 MCV 94 MCH 30.9 MCHC 33.0 RDW 12.7 Plt Count 134 MPV 10.3 Immature Gran % 0.4 Neutrophils % 89.9 Lymphocytes % 4.6 Monocytes % 4.6 Eosinophils % 0.1 Basophils % 0.4 Nucleated RBC % 0.0 Absolute Neutrophils 6.84 H Absolute Lymphocytes 0.35 L Absolute Monocytes 0.35 Absolute Eosinophils 0.01 Absolute Basophils 0.03 Sodium 140 Potassium 3.3 L Chloride 105 Carbon Dioxide 28.4 Anion Gap 6.6 BUN 16 Creatinine 1.5 H Est GFR (CKD-EPI 2020) 35.01 Glucose 139 H Calcium 9.9 Magnesium 1.7 L Total Bilirubin 4.63 H AST 386 H ALT 373 H Alkaline Phosphatase 92 Total Protein 8.1 Albumin 4.1 Lipase 31 Procalcitonin 3.26 TSH 0.99 Urine Color Yellow Urine Clarity Clear Urine pH 5.5 Ur Specific [place] 1.015 Urine Protein 30 H Urine Ketones Trace H Urine Blood Negative Urine Nitrite Negative Urine Bilirubin Negative Urine Urobilinogen 0.2 Ur Leukocyte Esterase Trace H Urine RBC Negative Urine WBC 5-10 Ur Epithelial Cells Rare Urine Crystals Negative Urine Bacteria Few Urine Casts Negative Urine Mucus Trace Ur Culture Indicated? Yes Urine Glucose Negative COVID-19 Source NASOPHARYNX SARS-CoV-2 (PCR) Negative Influenza Type A (PCR) Negative Influenza Type B (PCR) Negative RSV (PCR) Negative
[2024-04-17 19:13] LABS: Lab Add On Test DONE
[2024-04-17 19:23] LABS: Bilirubin, Direct 3.4 mg/dL (0.0-0.2)
--- NOTE | 2024-04-17 19:39 | W.PM.HP.N ---
Date of service: 04/17/24 Time of Service: 19:39 Assessment and Plan Assessment and plan (1) Abdominal pain, RUQ: Status: Acute Assessment and plan: Jaundice. The case is adhering more closely to a painless jaundice picture, though obviously there has been some pain; which is to say I think this is likely a low obstructive lesion. Without fever or leukocytosis it is hard at this point to call a cholangitis, though with the uncertainties in the case I think empiric antibiotics sooner than later is sales. 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 In short, will obtain MRCP and continue Zosyn, with prn analgesics for now (has required only APAP at this point). Further w/u per MRCP. Surgery to follow along. Reviewed ADs, requests Full Code. History of Present Illness History of Present Illness Chief Complaint: RUQ pain Narrative: 78 female here with two weeks of ROQ pain, at first less intense, perhaps intermittent, then more constant and intense over past 1-2 days, prompting her visit. No radiation, no nausea/vomiting, some degree of anorexia perhaps but she thinks this is more a oysterman issue. In ER findings of note for absence of fever (patient did say she had a chill shortly before arrival), normal white count, AST 386, ALT 373, TBili 3.4, Alk phos 92; U/S shows dilated gall bladder and CBD but no pericholic fluid and no stone; CT with similar findings. Patient given APAP and Zosyn. Surgery consulted, advised MRCP I was asked to evaluate for admission. Review of Systems Narrative: per HPI PFSH All Active Problems Elevated bilirubin (Acute) Abdominal pain, RUQ (Acute) Dilated cbd, acquired (Acute) B12 deficiency (Acute) Arthritis of left wrist (Acute) Displaced fracture of distal end of left radius with malunion (Acute) Polyneuropathic pain (Acute) Tendonitis of left rotator cuff (Chronic) 80 mg Depo-medrol injection: 04/19/23 Bunion of great toe of right foot (Acute) Memory deficit (Acute) Environmental allergies (Acute) Rupture of hip abductor tendon (Acute) s/p right trochanteric bursectomy, abductor tendon repair and IT band lengthening DOS: 03/26/20 Degenerative joint disease of right hip (Acute) Trochanteric bursitis, right hip (Chronic) s/p right trochanteric bursectomy, abductor tendon repair and IT band lengthening DOS: 03/26/20 Injection: 11/27/2019; 08/07/2019 Spinal stenosis (Chronic 09/03/14) Seasonal allergies (Chronic 07/27/13) Impaired renal function (Chronic 07/27/13) 1969- 5 kidney surgeries R - 1; L -3 surgeries and then removal. Ovarian V Crossing syndrome Hypothyroidism (Chronic 09/10/14) Hepatitis C (Chronic) s/p tx Glaucoma (Chronic 07/27/13) Esophageal reflux (Chronic) Depression (Chronic) Back pain (Chronic) chronic chronic narcotics MR[place] spinal [place] [facility] [place]: scoliosis and spinal stenosis Chronic pain disorder (Chronic 12/10/16) Medical History Neck pain Skin lesion Dysphonia Face lesion Right hip pain Chest pain Cataract Abnormal mammogram (~07/26/18) 6m f/u Shoulder pain Cardiac murmur mid-systolic click Wrist fracture, bilateral 2006;1989' Shoulder fracture, left 07/27/13 Stress due to spouse with dementia 03/04/15 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 H/O spinal fusion L3-L5 S/P removal of left ovary 07/27/13 tubal Status post open reduction with internal fixation (ORIF) of fracture of ankle Bimalleolar fracture of right ankle S/P ORIF DOS: 02/05/18 , Ectopic Left PROCEDURES SOLITARY KIDNEY NEPHRECT left SPINAL FUSION NOS L ovarian cystectomy - benign teratoma Family History Mother , AGE 85 Breast cancer Lung cancer Father , AGE 63 CAD (coronary artery disease) Hypertension Heart disease Alcohol abuse Sister , AGE 45 Myocardial infarction Heart disease Alcohol abuse Brother Arrhythmia Hypertension Heart disease Son Hypertension Hyperlipidemia Daughter No problems noted. Maternal Grandfather , age 58 Nephritis Paternal Grandfather , 50s Esophageal cancer Maternal Grandmother , 70s Stroke Hypertension Paternal Grandmother , age 94 Dementia Social History Smoking/Tobacco Use Status: Never Tobacco: How many years used: 0 Second Hand Exposure: Yes Smoking risk assessment performed?: Yes Alcohol Intake: current Alcohol Intake frequency: a few times a week Alcohol type: wine Drug use: Never Substance use type: does not use Caregiver/Support person: No Household members: family and other Details: great-grandson Housing: apartment Communication Needs: Hard of Hearing and Corrective Lenses Do you need help understanding health information?: Never Pets and animals: No Sexually active: No Do you think of yourself as: straight/heterosexual Current gender identity: female What is your relationship status?: How often do you talk on the phone with friends or family?: three or more times per week How often do you get together with friends or relatives?: three or more times per week How often do you attend rastafari or mormonism services?: decline to answer Do you belong to any clubs or organized social groups?: yes Panel score (0-1 are the most socially isolated patients): 2 What type of physical activity do you participate in: walking Duration: decline to answer Frequency: 1-2 times per week Leonie/Latter Day: Spiritism Special leonie needs: No Seatbelt use: always Drive intox or ride w/intox otr 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: No Do you feel safe at home: Yes Do you feel safe in your relationship?: Yes Additional Social history: Meds Allergies and Home Medications Allergies Allergy/AdvReac Type Severity Reaction Status Date / Time cat dander Allergy Mild Itching Verified 04/17/24 14:55 seasonal Allergy Mild Other (See Uncoded 04/17/24 14:55 Comment) Home Medications ?Medication ?Instructions ?Recorded ?Confirmed ?Type multivitamin 1 ea PO DAILY 08/11/12 04/17/24 History albuterol sulfate 90 mcg/actuation 1 - 2 puff inhalation Q6H PRN ##1 04/08/20 04/17/24 Rx aerosol inhaler (ProAir HFA) timolol 0.5 % eye drops 1 drp ophthalmic (eye) BID 11/24/22 04/17/24 History lisinopril 20 mg tablet 20 mg PO DAILY #90 tabs 07/23/23 04/17/24 Rx levothyroxine 50 mcg tablet 50 mcg PO DAILY #90 tab-caps 11/24/23 04/17/24 Rx gabapentin 300 mg capsule 600 mg (2 x 300 mg) PO BID 12/28/23 04/17/24 Rx neuropathy #360 tabs mecobalamin (vitamin B12) 1,000 1,000 mcg PO DAILY #90 tabs 12/28/23 04/17/24 Rx mcg chewable tablet memantine 10 mg tablet 10 mg PO BID #180 tabs 12/28/23 04/17/24 Rx metoprolol tartrate 25 mg tablet 12.5 mg (1/2 x 25 mg) PO DAILY PRN 12/28/23 04/17/24 Rx palpitation #45 tabs hydrocodone 5 mg-acetaminophen 325 1 tab PO TID PRN pain #90 tabs 03/29/24 04/17/24 Rx mg tablet Exam Narrative Exam Narrative: 106/78, 110, 36.8, 18, 98% RA. HEENT muddy sclera, without dhaval icterus; neck supple; lungs clear; heart RRR; abdomen +BS, soft and NT; extremities w/o edema; neuro Ox3, lucid, moves all 4s Results Labs 04/17/24 16:25 04/17/24 16:25 Labs: Laboratory Results - last 24 hr 04/17/24 04/17/24 04/17/24 15:15 16:13 16:25 WBC 7.61 RBC 4.69 Hgb 14.5 Hct 43.9 MCV 94 MCH 30.9 MCHC 33.0 RDW 12.7 Plt Count 134 MPV 10.3 Immature Gran % 0.4 Neutrophils % 89.9 Lymphocytes % 4.6 Monocytes % 4.6 Eosinophils % 0.1 Basophils % 0.4 Nucleated RBC % 0.0 Absolute Neutrophils 6.84 H Absolute Lymphocytes 0.35 L Absolute Monocytes 0.35 Absolute Eosinophils 0.01 Absolute Basophils 0.03 Sodium 140 Potassium 3.3 L Chloride 105 Carbon Dioxide 28.4 Anion Gap 6.6 BUN 16 Creatinine 1.5 H Est GFR (CKD-EPI 2020) 35.01 Glucose 139 H Calcium 9.9 Magnesium 1.7 L Total Bilirubin 4.63 H Conjugated Bilirubin 3.4 H AST 386 H ALT 373 H Alkaline Phosphatase 92 Total Protein 8.1 Albumin 4.1 Lipase 31 Procalcitonin 3.26 TSH 0.99 Urine Color Yellow Urine Clarity Clear Urine pH 5.5 Ur Specific [place] 1.015 Urine Protein 30 H Urine Ketones Trace H Urine Blood Negative Urine Nitrite Negative Urine Bilirubin Negative Urine Urobilinogen 0.2 Ur Leukocyte Esterase Trace H Urine RBC Negative Urine WBC 5-10 Ur Epithelial Cells Rare Urine Crystals Negative Urine Bacteria Few Urine Casts Negative Urine Mucus Trace Ur Culture Indicated? Yes Urine Glucose Negative COVID-19 Source NASOPHARYNX SARS-CoV-2 (PCR) Negative Influenza Type A (PCR) Negative Influenza Type B (PCR) Negative RSV (PCR) Negative Add-On Test Request DONE Last Vital Signs Temp 36.8 C 04/17/24 16:56 Pulse 110 H 04/17/24 16:56 Resp 18 04/17/24 16:56 BP 106/78 04/17/24 16:56 Pulse Ox 98 04/17/24 16:56 PAWSS Have you Been Recently Intoxicated or Drunk Within the Last 30 days?: No Have you Ever Experienced Previous Episodes of Alcohol Withdrawal?: No Have you ever Experienced Withdrawal Seizures?: No Have you ever Experienced Delirium Tremens(DT)s?: No Have you ever undergone Alcohol Rehabilitation Treatment (i.e, inpt ot outpatient treatment programs)?: No Have you ever Experienced Blackouts?: No Have you ever Combined Alcohol with other Downers within the last 90 days?: No Have you ever Combined Alcohol with any other Substance of Abuse during the last 90 days?: No Positive Blood Alcohol level on Presentation? [PCS.BAL]: No Evidence of Increased Autonomic Activity (i.e. HR>120, tremor, sweating, agitation, nausea)?: No Result: 0 Time Spent Time spent with Patient: 55-74 minutes Time was spent: preparing to see the patient(eg.review tests), obtaining and/or reviewing separately otained hiistory, ordering medications,tests, procedures, referring, communicating with other health ambulatory care coordinator and indepentently interpreting results
--- NOTE | 2024-04-17 21:44 | W.PC.ACHO ---
Registration Status: Primary Language: Preferred Language: ED Information & Data Chief Complaint Abd Prob 04/17/24 16:52 Chief Complaint Abd Prob 04/17/24 15:03 Other Complaint AMS/LOC 04/17/24 14:47 Triage Note Patient here with ams per 04/17/24 14:47 son who she lives with. Patient states she has a pain under R rib, she believes it is her gallbladder. Having difficulty walking which is unusual for her. Medical / Surgical History (Last Reviewed 04/17/24 @ 19:50 by Star Mars MD) Neck pain Skin lesion Dysphonia Face lesion Right hip pain Chest pain Cataract Abnormal mammogram (~07/26/18) Shoulder pain Cardiac murmur Wrist fracture, bilateral Shoulder fracture, left Stress due to spouse with dementia S/p nephrectomy Cataract (04/06/17) (Last Reviewed 04/17/24 @ 19:50 by Star Mars MD) History of kidney surgery H/O spinal fusion S/P removal of left ovary Status post open reduction with internal fixation (ORIF) of fracture of ankle Bimalleolar fracture of right ankle , Ectopic PROCEDURES Most Recent Vital Signs Temperature 36.8 C 04/17/24 16:56 Temperature Source Oral 04/17/24 16:56 Pulse 84 04/17/24 21:40 Pulse 84 04/17/24 21:40 Respiratory Rate 18 04/17/24 21:40 Blood Pressure 126/73 04/17/24 20:30 Blood Pressure Mean 85 04/17/24 20:30 Blood Pressure Position Sitting 04/17/24 16:56 Pulse Oximetry 96 04/17/24 21:40 Oxygen Delivery Method Room Air 04/17/24 16:56 Oxygen Flow Rate 0 04/17/24 14:47 Pain Level 5 04/17/24 14:47 Allergies cat dander Allergy (Mild, Verified 04/17/24 14:55) Itching seasonal Allergy (Mild, Uncoded 04/17/24 14:55) Other (See Comment) runny nose Active Medications Generic Name Dose Route Start Last Admin Trade Name Freq PRN Reason Stop Dose Admin Iohexol 75 ml 04/17/24 18:15 04/17/24 18:15 Omnipaque 350 Mg/Ml 100 Ml Btl IJ 05/17/24 23:59 75 ml DIRECTED YOHANA Administration Sodium Chloride 50 ml 04/17/24 18:15 04/17/24 18:14 Normal Saline - Diluent 50 Ml Vial IJ 50 ml .FOR DI USE YOHANA Administration IV IV Catheter Type [Right Saline Lock Antecubital] IV Catheter Gauge [Right 18 Antecubital] Diet Orders Category Date Time Status Regular/Normal [DIET] Nutrition 04/18/24 Breakfast Ordered Diagnostics 04/17/24 04/17/24 04/17/24 Range/Units 16:25 16:13 15:15 WBC 7.61 (4.4-10.8) 10^3/uL RBC 4.69 (3.93-5.22) 10^6/uL Hgb 14.5 (11.2-15.7) g/dL Hct 43.9 (36.0-46.0) % MCV 94 (80-95) fL MCH 30.9 (27.0-33.0) pg MCHC 33.0 (32.0-36.0) % RDW 12.7 (11.7-14.6) % Plt Count 134 (130-400) 10^3/uL MPV 10.3 (8.0-11.0) fL Immature Gran % 0.4 % Neutrophils % 89.9 % Lymphocytes % 4.6 % Monocytes % 4.6 % Eosinophils % 0.1 % Basophils % 0.4 % Nucleated RBC % 0.0 (0.0-0.3) % Absolute Neutrophils 6.84 H (1.2-6.7) 10^3/uL Absolute Lymphocytes 0.35 L (1.2-3.4) 10^3/uL Absolute Monocytes 0.35 (0.1-0.8) 10^3/uL Absolute Eosinophils 0.01 (0.0-0.7) 10^3/uL Absolute Basophils 0.03 (0.0-0.2) 10^3/uL Sodium 140 (136-145) mmol/L Potassium 3.3 L (3.5-5.1) mmol/L Chloride 105 (98-107) mmol/L Carbon Dioxide 28.4 (21.0-32.0) mmol/L Anion Gap 6.6 (3-11) mmol/L BUN 16 (7-18) mg/dL Creatinine 1.5 H (0.55-1.02) mg/dL Est GFR (CKD-EPI 2020) 35.01 (mL/min/1.73m2) Glucose 139 H (74-106) mg/dL Calcium 9.9 (8.5-10.1) mg/dL Magnesium 1.7 L (1.8-2.4) mg/dL Total Bilirubin 4.63 H (0.2-1.0) mg/dL Conjugated Bilirubin 3.4 H (0.0-0.2) mg/dL AST 386 H (15-37) U/L ALT 373 H (14-59) U/L Alkaline Phosphatase 92 (46-116) U/L Total Protein 8.1 (6.4-8.2) g/dL Albumin 4.1 (3.4-5.0) g/dL Lipase 31 (<78) U/L Procalcitonin 3.26 ng/mL TSH 0.99 (0.36-3.74) uIU/mL Urine Color Yellow (Yellow) Urine Clarity Clear (Clear) Urine pH 5.5 (5-8) Ur Specific [place] 1.015 (1.005-1.025) Urine Protein 30 H (Neg-Trace) mg/dL Urine Ketones Trace H (Negative) mg/dL Urine Blood Negative (Negative) Urine Nitrite Negative (Negative) Urine Bilirubin Negative (Negative) Urine Urobilinogen 0.2 (Up to 0.2) mg/dL Ur Leukocyte Esterase Trace H (Negative) Urine RBC Negative (0-2) HPF Urine WBC 5-10 (0-5) HPF Ur Epithelial Cells Rare (Negative) HPF Urine Crystals Negative (Negative) HPF Urine Bacteria Few (Negative) HPF Urine Casts Negative (Negative) LPF Urine Mucus Trace (Negative) Ur Culture Indicated? Yes Urine Glucose Negative (Negative) mg/dL COVID-19 Source NASOPHARYNX SARS-CoV-2 (PCR) Negative (Negative) Influenza Type A (PCR) Negative (Negative) Influenza Type B (PCR) Negative (Negative) RSV (PCR) Negative (Negative) Add-On Test Request DONE 04/17/24 16:13 Urine Culture - Pending Urine - Reflex from Ua 04/17/24 18:00 Blood Culture - Pending Blood 04/17/24 17:52 Blood Culture - Pending Blood Intake and Output - 24 Hour Total 04/17/24 14:42 thru 04/17/24 18:12 Intake Total 100 Balance 100 Weight 59.421 kg Intake: IV 100 Problems (Last Reviewed 04/17/24 @ 19:50 by Star Mars MD) Abdominal pain, RUQ (Acute) Dilated cbd, acquired (Acute) v v v v v v v v v Sending and/or Receiving Nurses: Please use comment section below to note any information pertinent to the patient hand-off not included above. Information / Comments: report received, all questions answered. Report received from: JAMES Rowley at [id number]
[2024-04-17] MEDS: Normal Saline Flush 10 ML SYR IVP (22:33)
[2024-04-17] MEDS: Memantine 5 MG TAB 10 MG PO (22:33)
[2024-04-17] MEDS: MAGNESIUM SULFATE 1 GM/100 ML BAG IV_INF (22:33)
[2024-04-17] MEDS: Gabapentin 300 MG CAP 600 MG PO (22:33)
[2024-04-17] MEDS: POTASSIUM CHLORIDE/0.9% NACL 1,000 ML 75 MEQ IV (22:38)
[2024-04-17] MEDS: HYDROcodone 5/Acetaminophen 325 TAB PO (23:07)
--- NOTE | 2024-04-18 | DI.MRI_ITS ---
Exam(s) MR ABDOMEN WO EXAM: MR ABDOMEN WO CLINICAL HISTORY: jaundice TECHNIQUE: Multiplanar multisequence MRI of the Abdomen was performed. COMPARISON: MR MRI ABDOMEN WO CONTRAST from 03/15/[address] ABDOMEN PELVIS W from 04/17/2024 FINDINGS: The examination is limited due to patient motion artifact. Lung bases: There is a large hiatal hernia. There are tiny pleural effusions. Liver: There is diffuse fatty infiltration of the liver. There is no evidence of a hepatic mass. Pancreas: There is no evidence of a pancreatic mass. There is dilatation of the pancreatic duct. No peripancreatic fluid collections are seen. Gallbladder and Bile Ducts: The gallbladder is distended but no stones are identified. There is extr ahepatic and mild intrahepatic biliary ductal dilatation. No choledocholithiasis. Adrenals: Unremarkable. Kidneys: The left kidney is absent. There are 2 simple cysts seen on the right kidney. No follow-up is recommended. No suspicious renal mass is seen on the right. No obstructive uropathy. Spleen: Unremarkable. Bowel: There is a 1.8 x 1.4 cm duodenal diverticulum adjacent to the head of the pancreas and the amp lanre. There is diverticulosis seen in the colon. There is no evidence of bowel obstruction. Aorta: Unremarkable. Soft Tissues: Unremarkable. Bone: There is an S-type thoracolumbar scoliosis. Multilevel degenerative changes are present in the lumbar spine resulting in central spinal canal stenosis. Lymph Nodes: Unremarkable. IMPRESSION: 1. Intra and extrahepatic biliary ductal dilatation. No filling defects are seen to suggest choledoch olithiasis. No pancreatic mass is seen. 2. Note is made of a 1.8 x 1.4 cm duodenal diverticulum adjacent to the head of the pancreas and the ambulance. 3. Incidental findings in the abdomen as described. DATA REPOSITORY:
[2024-04-18] MEDS: Levothyroxine 50 MCG TAB PO (05:05)
[2024-04-18 06:05] LABS: HCT 36.3 % (36.0-46.0); HGB 12.2 g/dL (11.2-15.7); MCH 31.1 pg (27.0-33.0); MCHC 33.6 % (32.0-36.0); MCV 93 fL (80-95); MPV 11.1 fL (8.0-11.0); Platelet Count 125 10^3/uL (130-400); RBC 3.92 10^6/uL (3.93-5.22); RDW 13.1 % (11.7-14.6); RDW-SD 43.8 fL; WBC 7.97 10^3/uL (4.4-10.8)
[2024-04-18 06:20] LABS: ALT 443 U/L (14-59); AST 356 U/L (15-37); Bilirubin, Total 3.16 mg/dL (0.2-1.0)
[2024-04-18 07:49] VITALS: BP 103/60; PULSE 71; RESP 15; TEMP 36.7; O2SAT 96
[2024-04-18] MEDS: Multivitamin TAB 1 TAB PO (09:17)
[2024-04-18] MEDS: Gabapentin 300 MG CAP 600 MG PO (09:17)
[2024-04-18] MEDS: Memantine 5 MG TAB 10 MG PO ×2 (09:17→21:17)
[2024-04-18] MEDS: Cyanocobalamin 500 MCG TAB 1000 MCG PO (09:17)
[2024-04-18] MEDS: Lisinopril 20 MG TAB PO (09:17)
[2024-04-18] MEDS: HYDROcodone 5/Acetaminophen 325 TAB PO (09:18)
[2024-04-18] MEDS: Normal Saline Flush 10 ML SYR IVP ×2 (09:19→22:58)
[2024-04-18] MEDS: Timolol 0.5% 5 ML BTL OP ×2 (09:20→21:16)
[2024-04-18] MEDS: LORazepam 1 MG TAB PO (11:06)
--- NOTE | 2024-04-18 11:21 | W.PM.PROGNOT ---
Date of Service Date of service: 04/18/24 Time of Service: 11:21 Assessment and Plan Assessment and plan (1) Abdominal pain, RUQ: Status: Acute Assessment and plan: Jaundice. The case is adhering more closely to a painless jaundice picture, though obviously there has been some pain; which is to say I think this is likely a low obstructive lesion. Without fever or leukocytosis it is hard at this point to call a cholangitis, though with the uncertainties in the case I think empiric antibiotics sooner than later is sales. 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 In short, will obtain MRCP and continue Zosyn, with prn analgesics for now (has required only APAP at this point). Further w/u per MRCP. Surgery to follow along. Reviewed ADs, requests Full Code. 04/18/24 MRCP is pending read, pt was premedicated with ativan 2/2 claustrophobia. Awaiting results Subjective Subjective Interval history since last seen: PT seen and examined in her room this AM. POC d/w pt and son who was in the room. POC also d/w Dr. Lewis as well as the bedside nurse during MDR. Exam Narrative Exam Narrative: . HEENT muddy sclera, without dhaval icterus; neck supple; lungs clear; heart RRR; abdomen +BS, soft and NT; extremities w/o edema; neuro Ox3, lucid, moves all 4s\ no hepato or splenomegaly appreciated Objective Last Vital Signs Temp 36.7 C 04/18/24 07:49 Pulse 71 04/18/24 07:49 Resp 15 04/18/24 07:49 BP 103/60 04/18/24 07:49 Pulse Ox 96 04/18/24 07:49 Laboratory Results - last 24 hr 04/17/24 04/17/24 04/17/24 15:15 16:13 16:25 WBC 7.61 RBC 4.69 Hgb 14.5 Hct 43.9 MCV 94 MCH 30.9 MCHC 33.0 RDW 12.7 Plt Count 134 MPV 10.3 Immature Gran % 0.4 Neutrophils % 89.9 Lymphocytes % 4.6 Monocytes % 4.6 Eosinophils % 0.1 Basophils % 0.4 Nucleated RBC % 0.0 Absolute Neutrophils 6.84 H Absolute Lymphocytes 0.35 L Absolute Monocytes 0.35 Absolute Eosinophils 0.01 Absolute Basophils 0.03 Sodium 140 Potassium 3.3 L Chloride 105 Carbon Dioxide 28.4 Anion Gap 6.6 BUN 16 Creatinine 1.5 H Est GFR (CKD-EPI 2020) 35.01 Glucose 139 H Calcium 9.9 Magnesium 1.7 L Total Bilirubin 4.63 H Conjugated Bilirubin 3.4 H AST 386 H ALT 373 H Alkaline Phosphatase 92 Total Protein 8.1 Albumin 4.1 Lipase 31 Procalcitonin 3.26 TSH 0.99 Urine Color Yellow Urine Clarity Clear Urine pH 5.5 Ur Specific [place] 1.015 Urine Protein 30 H Urine Ketones Trace H Urine Blood Negative Urine Nitrite Negative Urine Bilirubin Negative Urine Urobilinogen 0.2 Ur Leukocyte Esterase Trace H Urine RBC Negative Urine WBC 5-10 Ur Epithelial Cells Rare Urine Crystals Negative Urine Bacteria Few Urine Casts Negative Urine Mucus Trace Ur Culture Indicated? Yes Urine Glucose Negative COVID-19 Source NASOPHARYNX SARS-CoV-2 (PCR) Negative Influenza Type A (PCR) Negative Influenza Type B (PCR) Negative RSV (PCR) Negative Add-On Test Request DONE 04/18/24 05:24 WBC 7.97 RBC 3.92 L Hgb 12.2 D Hct 36.3 MCV 93 MCH 31.1 MCHC 33.6 RDW 13.1 Plt Count 125 L MPV 11.1 H Immature Gran % Neutrophils % Lymphocytes % Monocytes % Eosinophils % Basophils % Nucleated RBC % Absolute Neutrophils Absolute Lymphocytes Absolute Monocytes Absolute Eosinophils Absolute Basophils Sodium Potassium Chloride Carbon Dioxide Anion Gap BUN Creatinine Est GFR (CKD-EPI 2020) Glucose Calcium Magnesium Total Bilirubin 3.16 H Conjugated Bilirubin AST 356 H ALT 443 H Alkaline Phosphatase Total Protein Albumin Lipase Procalcitonin TSH Urine Color Urine Clarity Urine pH Ur Specific [place] Urine Protein Urine Ketones Urine Blood Urine Nitrite Urine Bilirubin Urine Urobilinogen Ur Leukocyte Esterase Urine RBC Urine WBC Ur Epithelial Cells Urine Crystals Urine Bacteria Urine Casts Urine Mucus Ur Culture Indicated? Urine Glucose COVID-19 Source SARS-CoV-2 (PCR) Influenza Type A (PCR) Influenza Type B (PCR) RSV (PCR) Add-On Test Request PAWSS Have you Been Recently Intoxicated or Drunk Within the Last 30 days?: No Have you Ever Experienced Previous Episodes of Alcohol Withdrawal?: No Have you ever Experienced Withdrawal Seizures?: No Have you ever Experienced Delirium Tremens(DT)s?: No Have you ever undergone Alcohol Rehabilitation Treatment (i.e, inpt ot outpatient treatment programs)?: No Have you ever Experienced Blackouts?: No Have you ever Combined Alcohol with other Downers within the last 90 days?: No Have you ever Combined Alcohol with any other Substance of Abuse during the last 90 days?: No Positive Blood Alcohol level on Presentation? [PCS.BAL]: No Evidence of Increased Autonomic Activity (i.e. HR>120, tremor, sweating, agitation, nausea)?: No Result: 0 Time Spent with Patient Time Spent with Patient: 35-49 minutes Time was spent: preparing to see the patient(eg.review tests), obtaining and/or reviewing separately otained hiistory, ordering medications,tests, procedures, referring, communicating with other health animal care giver, indepentently interpreting results, counseling the patient and care coordination
--- NOTE | 2024-04-18 11:51 | PDOC.CMIN ---
Date of service: 04/18/24 Time of Service: 11:51 Care Management Initial Assmt Initial Assessment Reason for Hospitalization: abdominal pain and jaundice Functional Status/Living Situation Patient Presentation: Maulik, as Germaine prefers to be called, was sitting up in bed when CM met with her. She was conversing with Dr. Lewis who was explaining that she does not have biliaary stones and does not need surgery.. He was not sure what is causing her bilirubin and LFTs to be elevated and recommended an outpatient follow up with GI. Maulik lives on [address] [facility] in an apartment in her daughter's home. She shared that she lives with her adult son Bert and that it is really nice to all be together. 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 She is independent at baseline and is still able to do much of the cooking and housework at home although her son Bert does help a lot. Maulik does not receive any community services but does use a pole for ambulation as she is a bit unsteady. Town of Residence: [place] Resides with: Child Significant Other/Family: Local Employment Status: Retired Instrumental Activities of Daily Living (ADLs): Independent Activities/Hobbies/SocialSupport: knits and hooks rugs Medications Medication Management: No Issues/Barriers identified Physical Functioning/Mobility Assistive Device: uses a pole for ambulatory assistance owns a walker, commode and shower chair but does not use. Advance Directives Advance Directives: Do you have an Advance Directive: Y 12/22/22 13:43 AD On File at [facility]: Y 12/22/22 13:43 Date Asked 08/02/23 08/02/23 16:19 AD Date Reviewed 04/17/24 04/17/24 14:51 COLST On File at [facility] COLST Date Scanned Code Status Resuscitation Status Full Code Insurance Coverage/Financial Issues Insurance: BC/BS Medicare Advantage Care Team Visit Care Team Role Provider Type Tanika Meyer MD, [place] Primary Care Provider , [facility] Satish Butler MD Emergency Provider [facility] STAFF PHYSICIAN Star Mars MD Admit Provider [facility] STAFF PHYSICIAN Attending Provider Discharge Potential Discharge Needs: PCP F/U Appt Anticipated Barriers to Discharge: None Identified Patient/Family Education Needs: Review discharge instructions, discuss Ask Me Three Transportation: Private vehicle Plan: Anticipate Germaine will be discharged home, possibly with new home health services, when medically ready. She will follow up with her PCP and plan of care and transport with family.CM will follow and continue to support discharge planning. Social Determinants of Health Screening Will the Patient Participate in the Screening?: Declined to provide Do you worry about having a steady place to live?: choose not to answer PFSH All Active Problems Elevated bilirubin (Acute) Abdominal pain, RUQ (Acute) Dilated cbd, acquired (Acute) B12 deficiency (Acute) Arthritis of left wrist (Acute) Displaced fracture of distal end of left radius with malunion (Acute) Polyneuropathic pain (Acute) Tendonitis of left rotator cuff (Chronic) 80 mg Depo-medrol injection: 04/19/23 Bunion of great toe of right foot (Acute) Memory deficit (Acute) Environmental allergies (Acute) Rupture of hip abductor tendon (Acute) s/p right trochanteric bursectomy, abductor tendon repair and IT band lengthening DOS: 03/26/20 Degenerative joint disease of right hip (Acute) Trochanteric bursitis, right hip (Chronic) s/p right trochanteric bursectomy, abductor tendon repair and IT band lengthening DOS: 03/26/20 Injection: 11/27/2019; 08/07/2019 Spinal stenosis (Chronic 09/03/14) Seasonal allergies (Chronic 07/27/13) Impaired renal function (Chronic 07/27/13) 1969- 5 kidney surgeries R - 1; L -3 surgeries and then removal. Ovarian V Crossing syndrome Hypothyroidism (Chronic 09/10/14) Hepatitis C (Chronic) s/p tx Glaucoma (Chronic 07/27/13) Esophageal reflux (Chronic) Depression (Chronic) Back pain (Chronic) chronic chronic narcotics MRi and spinal at [facility] [place] [place]: scoliosis and spinal stenosis Chronic pain disorder (Chronic 12/10/16) Medical History Neck pain Skin lesion Dysphonia Face lesion Right hip pain Chest pain Cataract Abnormal mammogram (~07/26/18) 6m f/u Shoulder pain Cardiac murmur mid-systolic click Wrist fracture, bilateral 2006; Shoulder fracture, left 07/27/13 Stress due to spouse with dementia 03/04/15 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 H/O spinal fusion L3-L5 S/P removal of left ovary 07/27/13 tubal Status post open reduction with internal fixation (ORIF) of fracture of ankle Bimalleolar fracture of right ankle S/P ORIF DOS: 02/05/18 , Ectopic Left PROCEDURES SOLITARY KIDNEY NEPHRECT left SPINAL FUSION NOS L ovarian cystectomy - benign teratoma Family History Mother , AGE 85 Breast cancer Lung cancer Father , AGE 63 CAD (coronary artery disease) Hypertension Heart disease Alcohol abuse Sister , AGE 45 Myocardial infarction Heart disease Alcohol abuse Brother Arrhythmia Hypertension Heart disease Son Hypertension Hyperlipidemia Daughter No problems noted. Maternal Grandfather , age 58 Nephritis Paternal Grandfather , 50s Esophageal cancer Maternal Grandmother , 70s Stroke Hypertension Paternal Grandmother , age 94 Dementia Social History Smoking/Tobacco Use Status: Never Tobacco: How many years used: 0 Second Hand Exposure: Yes Smoking risk assessment performed?: Yes Alcohol Intake: current Alcohol Intake frequency: a few times a week Alcohol type: wine Drug use: Never Substance use type: does not use Caregiver/Support person: No Household members: family and other Details: great-grandson Housing: apartment Communication Needs: Hard of Hearing and Corrective Lenses Do you need help understanding health information?: Never Pets and animals: No Sexually active: No Do you think of yourself as: straight/heterosexual Current gender identity: female What is your relationship status?: How often do you talk on the phone with friends or family?: three or more times per week How often do you get together with friends or relatives?: three or more times per week How often do you attend islam or presybeterian services?: decline to answer Do you belong to any clubs or organized social groups?: yes Panel score (0-1 are the most socially isolated patients): 2 What type of physical activity do you participate in: walking Duration: decline to answer Frequency: 1-2 times per week Leonie/Baptist: Church Special leonie needs: No Seatbelt use: always Drive intox or ride w/intox goat driver: No Do you feel safe at home: Yes Do you feel safe in your relationship?: Yes Additional Social history:
--- NOTE | 2024-04-18 15:53 | PGE_ITS ---
Date of Service Date of service: 04/18/24 Time of Service: 15:53 Assessment and Plan Assessment and plan (1) Elevated bilirubin: Status: Acute Assessment and plan: 78 yo woman with elevated LFTs, elevated bilirubin, but without CBD obstructing debris and no stones in the GB to suggest one was passed. 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 No surgery. Recommend GI consultation and follow their recs. If persists and continues, might benefit from HB surgery consultation, but doubtful this will be beneficial. Subjective Subjective Interval history since last seen: MRCP shows no stones and obstructing lesion or bile duct debris. Objective Last Vital Signs Temp 98.1 F 04/18/24 07:49 Pulse 71 04/18/24 07:49 Resp 15 04/18/24 07:49 BP 103/60 04/18/24 07:49 Pulse Ox 96 04/18/24 07:49 Laboratory Results - last 24 hr 04/17/24 04/17/24 04/17/24 15:15 16:13 16:25 WBC 7.61 RBC 4.69 Hgb 14.5 Hct 43.9 MCV 94 MCH 30.9 MCHC 33.0 RDW 12.7 Plt Count 134 MPV 10.3 Immature Gran % 0.4 Neutrophils % 89.9 Lymphocytes % 4.6 Monocytes % 4.6 Eosinophils % 0.1 Basophils % 0.4 Nucleated RBC % 0.0 Absolute Neutrophils 6.84 H Absolute Lymphocytes 0.35 L Absolute Monocytes 0.35 Absolute Eosinophils 0.01 Absolute Basophils 0.03 Sodium 140 Potassium 3.3 L Chloride 105 Carbon Dioxide 28.4 Anion Gap 6.6 BUN 16 Creatinine 1.5 H Est GFR (CKD-EPI 2020) 35.01 Glucose 139 H Calcium 9.9 Magnesium 1.7 L Total Bilirubin 4.63 H Conjugated Bilirubin 3.4 H AST 386 H ALT 373 H Alkaline Phosphatase 92 Total Protein 8.1 Albumin 4.1 Lipase 31 Procalcitonin 3.26 TSH 0.99 Urine Color Yellow Urine Clarity Clear Urine pH 5.5 Ur Specific [place] 1.015 Urine Protein 30 H Urine Ketones Trace H Urine Blood Negative Urine Nitrite Negative Urine Bilirubin Negative Urine Urobilinogen 0.2 Ur Leukocyte Esterase Trace H Urine RBC Negative Urine WBC 5-10 Ur Epithelial Cells Rare Urine Crystals Negative Urine Bacteria Few Urine Casts Negative Urine Mucus Trace Ur Culture Indicated? Yes Urine Glucose Negative COVID-19 Source NASOPHARYNX SARS-CoV-2 (PCR) Negative Influenza Type A (PCR) Negative Influenza Type B (PCR) Negative RSV (PCR) Negative Add-On Test Request DONE 04/18/24 05:24 WBC 7.97 RBC 3.92 L Hgb 12.2 D Hct 36.3 MCV 93 MCH 31.1 MCHC 33.6 RDW 13.1 Plt Count 125 L MPV 11.1 H Immature Gran % Neutrophils % Lymphocytes % Monocytes % Eosinophils % Basophils % Nucleated RBC % Absolute Neutrophils Absolute Lymphocytes Absolute Monocytes Absolute Eosinophils Absolute Basophils Sodium Potassium Chloride Carbon Dioxide Anion Gap BUN Creatinine Est GFR (CKD-EPI 2020) Glucose Calcium Magnesium Total Bilirubin 3.16 H Conjugated Bilirubin AST 356 H ALT 443 H Alkaline Phosphatase Total Protein Albumin Lipase Procalcitonin TSH Urine Color Urine Clarity Urine pH Ur Specific [place] Urine Protein Urine Ketones Urine Blood Urine Nitrite Urine Bilirubin Urine Urobilinogen Ur Leukocyte Esterase Urine RBC Urine WBC Ur Epithelial Cells Urine Crystals Urine Bacteria Urine Casts Urine Mucus Ur Culture Indicated? Urine Glucose COVID-19 Source SARS-CoV-2 (PCR) Influenza Type A (PCR) Influenza Type B (PCR) RSV (PCR) Add-On Test Request PAWSS Have you Been Recently Intoxicated or Drunk Within the Last 30 days?: No Have you Ever Experienced Previous Episodes of Alcohol Withdrawal?: No Have you ever Experienced Withdrawal Seizures?: No Have you ever Experienced Delirium Tremens(DT)s?: No Have you ever undergone Alcohol Rehabilitation Treatment (i.e, inpt ot outpatient treatment programs)?: No Have you ever Experienced Blackouts?: No Have you ever Combined Alcohol with other Downers within the last 90 days?: No Have you ever Combined Alcohol with any other Substance of Abuse during the last 90 days?: No Positive Blood Alcohol level on Presentation? [PCS.BAL]: No Evidence of Increased Autonomic Activity (i.e. HR>120, tremor, sweating, agitation, nausea)?: No Result: 0 Time Spent with Patient Time Spent with Patient: <25 minutes Time was spent: referring, communicating with other health urgent care technician and indepentently interpreting results
[2024-04-18 15:57] VITALS: BP 100/56; PULSE 80; RESP 15; TEMP 38.7; O2SAT 93
[2024-04-18] MEDS: POTASSIUM CHLORIDE/0.9% NACL 1,000 ML 75 MEQ IV (16:29)
[2024-04-18] MEDS: Ibuprofen 400 MG TAB 600 MG PO (16:33)
[2024-04-18] MEDS: Enoxaparin 30 MG/0.3 ML SYR SC (18:10)
[2024-04-18] MEDS: Magnesium Chloride 64 MG TABCR PO (21:17)
[2024-04-18] MEDS: Potassium Chloride 20 MEQ TABCR PO (21:17)
[2024-04-18 23:15] VITALS: BP 109/66; PULSE 61; RESP 19; TEMP 36.9; O2SAT 95
[2024-04-19] MEDS: Levothyroxine 50 MCG TAB PO (06:13)
[2024-04-19 06:37] LABS: Absolute Basophil Count 0.03 10^3/uL (0.0-0.2); Absolute Eosinophil Count 0.15 10^3/uL (0.0-0.7); Absolute Monocyte Count 0.31 10^3/uL (0.1-0.8); Absolute Neutrophil Count 2.11 10^3/uL (1.2-6.7); Basophils % 0.8 %; Eosinophils % 4.1 %; HCT 32.3 % (36.0-46.0); HGB 10.7 g/dL (11.2-15.7); Lymphocytes % 29.7 %; MCHC 33.1 % (32.0-36.0); MCV 94 fL (80-95); MPV 11.1 fL (8.0-11.0); Monocytes % 8.4 %; RBC 3.45 10^6/uL (3.93-5.22); RDW 13.1 % (11.7-14.6); RDW-SD 44.8 fL
[2024-04-19 06:57] LABS: INR 1.1 (0.9-1.1); Prothrombin Time 11.1 sec (9.1-11.1)
[2024-04-19 07:03] LABS: Diff Comment PLT Morph Reviewed; Platelet Count 95 10^3/uL (130-400); RBC Morphology Normal
[2024-04-19 07:22] LABS: ALT 430 U/L (14-59); AST 298 U/L (15-37); Albumin 2.7 g/dL (3.4-5.0); Alkaline Phosphatase 58 U/L (46-116); Anion Gap 9.4 mmol/L (3-11); BUN 16 mg/dL (7-18); Bilirubin, Total 1.97 mg/dL (0.2-1.0); CO2 21.6 mmol/L (21.0-32.0); CREATININE 1.6 mg/dL (0.55-1.02); Chloride 111 mmol/L (98-107); Glucose 102 mg/dL (74-106); Potassium 4.6 mmol/L (3.5-5.1); Sodium 142 mmol/L (136-145)
--- NOTE | 2024-04-19 08:56 | W.PM.DS.N ---
Date of service: 04/19/24 Time of Service: 08:56 DS: Diagnosis Discharge Diagnosis (1) Elevated bilirubin: Status: Acute Discharge Plan Disposition Patient Disposition: Home Condition: Good Discharge Details Reason For Visit: Jaundice, Abdominal Pain Admit Date/Time: 04/17/24 19:58 Admit Provider: Star Mars Attending Provider: Star Mars Primary Care Provider: Tanika Meyer [facility] Course Hospital Course: Patient initially presented with complaints of 2 weeks of right upper quadrant pain became worse 1 to 2 days prior to arrival. She was found to have elevated AST ALT and T. bili with an ultrasound showing dilated gallbladder and common bile duct without pericolic fluid or stone. MRCP was performed which did not show any obstruction but did so dilated common bile duct and gallbladder as well as some local duodenal swelling. Appreciate general surgery consultation who thought that either localized duodenal swelling or stone (which is since passed), may have been caused. Patient's LFTs were monitored and showed significant improvement. Additionally, patient's right upper quadrant discomfort significantly improved and she was able to tolerate p.o. intake without any pain. Which time was determined the patient was stable for discharge home. Home Meds and New Rx's Prescriptions: Continued albuterol sulfate [ProAir HFA] 90 mcg/actuation HFA aerosol inhaler 1 - 2 puff Inhalation Q6H PRN Qty: 1 12RF memantine 10 mg tablet 10 mg PO BID Qty: 180 6RF gabapentin 300 mg capsule 600 mg PO BID Qty: 360 3RF mecobalamin (vitamin B12) 1,000 mcg tablet,chewable 1,000 mcg PO DAILY Qty: 90 4RF timolol 0.5 % drops 1 drp ophthalmic (eye) BID lisinopril 20 mg tablet 20 mg PO DAILY Qty: 90 5RF levothyroxine 50 mcg tablet 50 mcg PO DAILY Qty: 90 7RF hydrocodone-acetaminophen 5-325 mg tablet 1 tab PO TID MDD 3 PRN (Reason: pain) Qty: 90 0RF No Action metoprolol tartrate 25 mg tablet 12.5 mg PO DAILY PRN (Reason: palpitation) Qty: 45 6RF Rx Instructions: 12.5MG DAILY PRN multivitamin 1 EACH tablet 1 ea PO DAILY Discharge Instructions Activity:: Activity as Tolerated Equipment/Supplies:: No Equipment Needed Diet:: As Tolerated Discharge Orders Discharge Orders: Discharge Order (Routine); Ordered 04/19/24 Ordered By: Juanito Villanueva DS: Summary Time Spent with Patient providing and/or coordinating discharge services: Greater than 30 minutes Status at Discharge Functional status at discharge: independent ambulation Overall status at discharge: patient is back to baseline Mental Status: mental status grossly normal Speech and Movement: speech and movement normal Mood: congruent mood Affect: normal affect Quality:SDOH Health Related Social Needs: No Data to Display Exam Narrative Exam Narrative: Well-appearing female sitting up in bed in no acute distress, ANO x 4, heart regular rhythm, lungs clear to auscultation bilaterally, abdomen soft, nontender, nondistended Psych Mental Status: mental status grossly normal Speech and Movement: speech and movement normal Mood: congruent mood Affect: normal affect DS: Data Vitals/I&O Vitals and I&O: Vital Signs Temperature 98.4 F 04/18/24 23:15 Temperature Source Tympanic 04/18/24 23:15 Pulse 61 04/18/24 23:15 Pulse Rhythm Regular 04/17/24 22:02 Pulse 83 04/17/24 21:48 Respiratory Rate 19 04/18/24 23:15 Respiratory Effort Normal, Non-Labored 04/17/24 22:02 Respiratory Depth Normal 04/17/24 22:02 Respiratory Pattern Normal 04/17/24 22:02 Blood Pressure 109/66 04/18/24 23:15 Blood Pressure Mean 105 04/17/24 21:48 Blood Pressure Position Sitting 04/17/24 16:56 Pulse Oximetry 95 04/18/24 23:15 Oxygen Delivery Method Room Air 04/18/24 23:15 Oxygen Flow Rate 0 04/18/24 23:15 Pain Level 0 04/18/24 15:57 Intake & Output 04/18/24 04/19/24 04/19/24 17:59 05:59 17:59 Intake Total 1415 / 1415 681.00 / 2096.00 128.750 / 128.750 Balance 1415 / 1415 681.00 / 2096.00 128.750 / 128.750 Weight 138 lb 10.732 oz Intake: IV 1055 / 1055 681.00 / 1736.00 128.750 / 128.750 Oral 360 / 360 Other: Urine Color Yellow Yellow Urine Appearance Clear Clear Comment unmeasured, void in toilet unmeasured, void in toilet Data Completed and Pending Labs on day of discharge: Labs from last 24 hours 04/19/24 05:48 WBC 3.70 L RBC 3.45 L Hgb 10.7 L Hct 32.3 L MCV 94 MCH 31.0 MCHC 33.1 RDW 13.1 Plt Count 95 L MPV 11.1 H Immature Gran % 0.0 Neutrophils % 57.0 Lymphocytes % 29.7 Monocytes % 8.4 Eosinophils % 4.1 Basophils % 0.8 Nucleated RBC % 0.0 Absolute Neutrophils 2.11 Absolute Lymphocytes 1.10 L Absolute Monocytes 0.31 Absolute Eosinophils 0.15 Absolute Basophils 0.03 RBC Morphology Normal PT 11.1 INR 1.1 Sodium 142 Potassium 4.6 D Chloride 111 H Carbon Dioxide 21.6 Anion Gap 9.4 BUN 16 Creatinine 1.6 H Est GFR (CKD-EPI 2020) 32.40 Glucose 102 Calcium 9.0 Total Bilirubin 1.97 H AST 298 H ALT 430 H Alkaline Phosphatase 58 Total Protein 6.0 L Albumin 2.7 L Preliminary micro results at discharge 04/17/24 18:00 Blood Culture - Preliminary Blood NO GROWTH 24 HOURS 04/17/24 17:52 Blood Culture - Preliminary Blood NO GROWTH 24 HOURS PFSH All Active Problems Elevated bilirubin (Acute) Abdominal pain, RUQ (Acute) Dilated cbd, acquired (Acute) B12 deficiency (Acute) Arthritis of left wrist (Acute) Displaced fracture of distal end of left radius with malunion (Acute) Polyneuropathic pain (Acute) Tendonitis of left rotator cuff (Chronic) 80 mg Depo-medrol injection: 04/19/23 Bunion of great toe of right foot (Acute) Memory deficit (Acute) Environmental allergies (Acute) Rupture of hip abductor tendon (Acute) s/p right trochanteric bursectomy, abductor tendon repair and IT band lengthening DOS: 03/26/20 Degenerative joint disease of right hip (Acute) Trochanteric bursitis, right hip (Chronic) s/p right trochanteric bursectomy, abductor tendon repair and IT band lengthening DOS: 03/26/20 Injection: 11/27/2019; 08/07/2019 Spinal stenosis (Chronic 09/03/14) Seasonal allergies (Chronic 07/27/13) Impaired renal function (Chronic 07/27/13) 1969- 5 kidney surgeries R - 1; L -3 surgeries and then removal. Ovarian V Crossing syndrome Hypothyroidism (Chronic 09/10/14) Hepatitis C (Chronic) s/p tx Glaucoma (Chronic 07/27/13) Esophageal reflux (Chronic) Depression (Chronic) Back pain (Chronic) chronic chronic narcotics MRi and spinal at [facility]: scoliosis and spinal stenosis Chronic pain disorder (Chronic 12/10/16) Medical History Neck pain Skin lesion Dysphonia Face lesion Right hip pain Chest pain Cataract Abnormal mammogram (~07/26/18) 6m f/u Shoulder pain Cardiac murmur mid-systolic click Wrist fracture, bilateral 2006;1989' Shoulder fracture, left 07/27/13 Stress due to spouse with dementia 03/04/15 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 H/O spinal fusion L3-L5 S/P removal of left ovary 07/27/13 tubal Status post open reduction with internal fixation (ORIF) of fracture of ankle Bimalleolar fracture of right ankle S/P ORIF DOS: 02/05/18 , Ectopic Left PROCEDURES SOLITARY KIDNEY NEPHRECT left SPINAL FUSION NOS L ovarian cystectomy - benign teratoma Family History Mother , AGE 85 Breast cancer Lung cancer Father , AGE 63 CAD (coronary artery disease) Hypertension Heart disease Alcohol abuse Sister , AGE 45 Myocardial infarction Heart disease Alcohol abuse Brother Arrhythmia Hypertension Heart disease Son Hypertension Hyperlipidemia Daughter No problems noted. Maternal Grandfather , age 58 Nephritis Paternal Grandfather , 50s Esophageal cancer Maternal Grandmother , 70s Stroke Hypertension Paternal Grandmother , age 94 Dementia Social History Smoking/Tobacco Use Status: Never Tobacco: How many years used: 0 Second Hand Exposure: Yes Smoking risk assessment performed?: Yes Alcohol Intake: current Alcohol Intake frequency: a few times a week Alcohol type: wine Drug use: Never Substance use type: does not use Caregiver/Support person: No Household members: family and other Details: great-grandson Housing: apartment Communication Needs: Hard of Hearing and Corrective Lenses Do you need help understanding health information?: Never Pets and animals: No Sexually active: No Do you think of yourself as: straight/heterosexual Current gender identity: female What is your relationship status?: How often do you talk on the phone with friends or family?: three or more times per week How often do you get together with friends or relatives?: three or more times per week How often do you attend restorationism or catholic services?: decline to answer Do you belong to any clubs or organized social groups?: yes Panel score (0-1 are the most socially isolated patients): 2 What type of physical activity do you participate in: walking Duration: decline to answer Frequency: 1-2 times per week Leonie/Synagogue: Yarsanism Special leonie needs: No Seatbelt use: always Drive 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
--- NOTE | 2024-04-19 09:24 | PDOC.CMDIS ---
Date of service: 04/19/24 Time of Service: 09:24 LACE Index Scoring Tool Questions: Length of Stay (in days): 2 Was the patient admitted via the E.D.?: Yes E.D. Visits: 1 Answers: Total Score: 6 Risk of Readmission: Low Risk Care Management Discharge Plan Reason for Hospitalization: elevated bilirubin and abdominal pain Discharge Plan: Maulik is discharged home today with no new services. She will f/u with her PCP and continue per her plan of care. Maulik will transport home with family. Patient/Family Education Needs: Review of discharge instructions, activity, limitations and discuss ask me 3. SDOH Health Related Social Needs: No Data to Display
--- NOTE | 2024-04-19 09:46 | PDOC.CMPRO ---
Date of service: 04/19/24 Time of Service: 09:46 Social Determinants of Health Screening Will the Patient Participate in the Screening?: Declined to provide Do you worry about having a steady place to live?: choose not to answer
[2024-04-19] MEDS: Magnesium Chloride 64 MG TABCR PO (09:51)
[2024-04-19] MEDS: Gabapentin 300 MG CAP PO (09:52)
[2024-04-19] MEDS: Cyanocobalamin 500 MCG TAB 1000 MCG PO (09:52)
[2024-04-19] MEDS: Potassium Chloride 20 MEQ TABCR PO (09:52)
[2024-04-19] MEDS: Lisinopril 20 MG TAB PO (09:52)
[2024-04-19] MEDS: Multivitamin TAB 1 TAB PO (09:52)
[2024-04-19] MEDS: Memantine 5 MG TAB 10 MG PO (09:52)
[2024-04-19] MEDS: Timolol 0.5% 5 ML BTL OP (09:54)
[2024-04-19 10:10] VITALS: BP 144/81; PULSE 80; RESP 16; TEMP 36.5; O2SAT 98
== END 2024-04-19 10:26 | disposition home or self-care (01) | DRG 445 ==
LOC: ER 19:24 → MS 21:58
PROVIDERS: Hospitalist; Admitting Provider General Practice; Emergency Provider Emergency Medicine; PCP Family Medicine; Responsible Provider Family Medicine; Visit Provider General Practice
DX: K83.8 Other specified diseases of biliary tract (principal); R17 Unspecified jaundice; E53.8 Deficiency of other specified B group vitamins; R41.3 Other amnesia; M48.00 Spinal stenosis, site unspecified; E03.9 Hypothyroidism, unspecified; G89.29 Other chronic pain; Z90.5 Acquired absence of kidney; Z98.1 Arthrodesis status; K57.10 Diverticulosis of small intestine without perforation or abscess without bleeding
CPT/HCPCS: 00123; 36415; 80053; 83690; 84145; 85027; 87040; 87637; 96361; 96365; 99222; 99231; 99285; 74177; 74181; 76700; 81003; 81015; 82247; 82248; 83735; 84443; 84450; 84460; 85025; 85610; 87086; 99223; 99233; 99239; J0131; J1650; J2543; J3475; J3490

== ENCOUNTER 2024-04-25 14:12 | Outpatient (CLI) | payer MEDICARE, SELFPAY ==
--- NOTE | 2024-04-25 14:00 | RT.EKG_ITS ---
APPROVED REPORT Exam: Resting ECG Reason for Exam: Abnormal heart rhythm Patient Location: O HR:88 bpm ECG Measurements Heart Rate 88 AXIS WI 145 P 69 QRSd 78 QRS -3 QT 364 T -63 QTc 441 Conclusion Sinus rhythm...normal P axis, V-rate 50- 99 Ventricular premature complex...V complex w/ short R-R interval Inferior infarct, age indeterminate...Q>35mS, T neg, II III aVF Abnrm T, consider ischemia, anterolateral lds...T <-0.20mV, I aVL V2-V6
== END 2024-04-25 14:13 | disposition home or self-care (01) ==
LOC: DI.CM 14:13
PROVIDERS: PCP Family Medicine; Visit Provider Family Medicine
DX: I49.9 Cardiac arrhythmia, unspecified (principal)
CPT/HCPCS: 93010

== ENCOUNTER 2024-04-25 15:00 | Outpatient (REF) | payer MEDICARE, SELFPAY ==
[2024-04-25 21:11] LABS: HCT 42.7 % (36.0-46.0); HGB 14.2 g/dL (11.2-15.7); MCH 30.7 pg (27.0-33.0); MCHC 33.3 % (32.0-36.0); MCV 92 fL (80-95); MPV 12.9 fL (8.0-11.0); Platelet Count 258 10^3/uL (130-400); RBC 4.63 10^6/uL (3.93-5.22); RDW 13.1 % (11.7-14.6); RDW-SD 43.2 fL; WBC 4.88 10^3/uL (4.4-10.8)
[2024-04-25 21:27] LABS: ALT 117 U/L (14-59); AST 28 U/L (15-37); Albumin 4.2 g/dL (3.4-5.0); Alkaline Phosphatase 71 U/L (46-116); BUN 18 mg/dL (7-18); Bilirubin, Total 1.04 mg/dL (0.2-1.0); CREATININE 1.5 mg/dL (0.55-1.02); Calcium 10.5 mg/dL (8.5-10.1); Chloride 106 mmol/L (98-107); Estimated GFR 35.01 (mL/min/1.73m2); Glucose 154 mg/dL (74-106); Potassium 4.4 mmol/L (3.5-5.1); Sodium 142 mmol/L (136-145); Total Protein 8.1 g/dL (6.4-8.2)
== END 2024-04-25 15:01 | disposition home or self-care (01) ==
LOC: NCHCN 15:00
PROVIDERS: PCP Family Medicine; Visit Provider Family Medicine
DX: I10 Essential (primary) hypertension (principal); D64.9 Anemia, unspecified
CPT/HCPCS: 80053; 85027

== ENCOUNTER 2024-05-01 00:56 | Outpatient (CLI) | payer MEDICARE, SELFPAY ==
--- NOTE | 2024-05-01 07:00 | DI.NM_ITS ---
APPROVED REPORT Exam: Pharmacologic Patient Location: Out-Patient Room/Bed: Stress Nurse: Cami Rios RN Ordering Provider:AUDREY MORE, Contact Number: [phone] BMI: 23.20 Baseline Rhythm: Sinus Rhythm Indications: Fatigue, abnormal heart rhythm, Medical History Medical History: Cardiac Murmur, abnormal EKG, hypothyroidism, hepatitis C, depression, esophageal re flux, chronic pain disorder Cardiac Medications: Albuterol sulfate, gabapentin, hydrocodone with tylenol, levothyroxine, lisinopr il, memantine, timolol Allergies: Cat dander, seasonal Cardiac Risk Factors: Family hx, HTN Previous Cardiac Procedures: None Pretest Chest Pain Characteristics: None Exercise History: Sedentary Physical Disabilities: None Lung Sounds: Clear to auscultation Heart Sounds: Regular Stress Test Details Test: Pharmacologic stress testing performed using 0.4 mg of regadenoson per 5 mL given IV over 10 s econds. Reason for pharmacologic stress test: physical limitation. Nuclear Acquisition: Rest Tc-99m/Stress Tc-99m 1 day Rest Isotope: Tc-99m Sestamibi. Dose: 10.5 Date: 05/01/2024 Injection Time: 1100 Stress Isotope: Tc-99m Sestamibi. Dose: 31.0 Date: 05/01/2024 Injection Time: 1235 HR Resting HR Supine: 60 bpm Max Heart Rate (APMHR): 140 bpm Target HR (85% APMHR): 119 bpm Max HR Achieved: 91 bpm % of APMHR: 65 Recovery HR: 79 bpm BP Resting BP Supine: 130/64 mmHg Max BP: 140/80 mmHg Recovery BP: 122/78 mmHg ECG Resting ECG: Sinus Rhythm Stress ECG: Sinus Rhythm ST Change: Nondiagnostic low heart rate Arrhythmia: Occasional PVC's Recovery ECG: Sinus Rhythm Recovery ST Change: Nondiagnostic low heart rate Recovery Arrhythmia: Occasional PVC's Clinical Stress Symptoms: 4/10 chest pressure Angina Score: Non-Limiting Rate Pressure Product: [id number] Stress ECG Conclusion 1. Resting electrocardiogram showed low voltage and late transition 2. Patient underwent testing using pharmacologic stress with regadenoson 3. Peak heart rate achieved was 60% of maximal predicted for age 4. The electrocardiographic portion of the test was nondiagnostic 5. See MPI report Stress Test Summary STAGE HR BP SpO2 Symptoms NOTES Supine 60 130/64 1 min post Lexiscan injection 71 140/80 95% 3 min post Lexiscan injection 87 130/66 97% 4/10 chest heaviness 6 min post Lexiscan injection 79 122/78 Chest heaviness resolved. Patient proceeded to imaging ambulatory in no apparent distress. MPI Conclusion Myocardial perfusion is normal. There is no ischemia or evidence of prior infarction Ejection fraction is 78% with normal wall motion
[2024-05-01] MEDS: Regadenoson 0.4 MG/5 ML SYR IVP (13:22)
== END 2024-05-01 01:16 ==
LOC: DI 00:57
PROVIDERS: PCP Family Medicine; Visit Provider Internal Medicine Cardiovascular Disease
DX: I49.9 Cardiac arrhythmia, unspecified (principal); R94.31 Abnormal electrocardiogram [ECG] [EKG]; R53.83 Other fatigue
CPT/HCPCS: 78452; 93016; 93018; 93017; J2785

== ENCOUNTER 2024-06-29 03:40 | Outpatient (CLI) | payer MEDICARE, SELFPAY ==
[2024-06-29 12:31] LABS: ALT 34 U/L (14-59); AST 27 U/L (15-37); Albumin 4.1 g/dL (3.4-5.0); Alkaline Phosphatase 54 U/L (46-116); Anion Gap 8.9 mmol/L (3-11); BUN 21 mg/dL (7-18); Bilirubin, Total 0.6 mg/dL (0.2-1.0); CO2 29.1 mmol/L (21.0-32.0); CREATININE 1.4 mg/dL (0.55-1.02); Calcium 10.3 mg/dL (8.5-10.1); Chloride 107 mmol/L (98-107); Estimated GFR 38.03 (mL/min/1.73m2); Glucose 129 mg/dL (74-106); Sodium 145 mmol/L (136-145); Total Protein 7.9 g/dL (6.4-8.2)
== END 2024-06-29 03:41 | disposition home or self-care (01) ==
PROVIDERS: PCP Family Medicine; Visit Provider Family Medicine
DX: I10 Essential (primary) hypertension (principal)
CPT/HCPCS: 36415; 80053

== ENCOUNTER 2024-07-11 15:55 | Outpatient (REF) | payer MEDICARE, SELFPAY ==
[2024-07-11 14:06] LABS: *AMPHETAMINES SCREEN URINE Negative (Negative); *BARBITURATES SCREEN URINE Negative (Negative); *BENZODIAZEPINES SCREEN URINE Negative (Negative); Cannabinoids THC Negative (Negative); Cocaine Screen,Urine Negative (Negative); METHADONE URINE SCREEN Negative (Negative); OPIATES URINE SCREEN Positive (Negative)
[2024-07-11 14:08] LABS: Tricyclic Antidepressants Negative (Negative)
== END 2024-07-11 15:56 | disposition home or self-care (01) ==
LOC: LBN 15:55
PROVIDERS: PCP Family Medicine; Visit Provider Family Medicine
DX: G89.4 Chronic pain syndrome (principal)
CPT/HCPCS: 80307

== ENCOUNTER 2024-08-08 20:37 | Inpatient (IN) | payer MEDICARE, SELFPAY ==
[2024-08-08] VITALS (26 sets, daily range): BP systolic 92–171; BP diastolic 45–85; PULSE 85–120; RESP 16–31; TEMP 36.4; O2SAT 93–96
--- NOTE | 2024-08-08 20:45 | DI.CT_ITS ---
Exam(s) CT ABDOMEN PELVIS WO EXAM: CT ABDOMEN PELVIS WO CLINICAL HISTORY: Diffuse abd pain, N/V, hx solitary kidney. TECHNIQUE: Imaging Protocol: Axial computed tomography images with coronal and sagittal reformatted images were created and reviewed. COMPARISON: CT CT ABDOMEN PELVIS W from 04/17/2024 CT,NM,TMT NM MPI REST STRESS GRP from 05/01/2024 FINDINGS: ABDOMEN: Lung Bases: Coronary artery calcifications are present. There is a large hiatal hernia. Liver: Normal density. No measurable mass. Gallbladder and biliary tract: The gallbladder is distended measuring 4.3 cm in diameter. No gallsto jimmy are present. The extrahepatic bile duct measures 2 cm. No choledocholithiasis is seen. Pancreas: There is fatty atrophy seen of the pancreas particularly the head. No evidence of a pancre atic mass or peripancreatic fluid collection is seen. Spleen: Normal. Kidneys: There is a solitary right kidney.No radiodense stones or obstructive uropathy. There is agai n seen a simple right renal cyst. No follow-up is recommended. No evidence of obstructive uropathy. Adrenal glands: Both adrenal glands appear grossly unremarkable. Lymph nodes: Within normal limits. Abdominal Aorta: Abdominal portion non-dilated. Atherosclerotic calcification is present. PELVIS: Bladder:Symmetric distention, no gross wall thickening. Bowel: There is diverticulosis of the colon without evidence of acute diverticulitis. There is no ev idence of bowel obstruction or bowel wall thickening. No evidence of appendicitis is present. Peritoneal cavity: No ascites, collection or mesenteric inflammatory response. No free air. Reproductive organs: Unremarkable as visualized. Bones: Within normal limits. There is a left convex lumbar scoliosis. Soft Tissues: Within normal limits. IMPRESSION: 1. Gallbladder distension. Interval increase in size of the common bile duct to 2 cm. No cholelithi asis or choledocholithiasis is seen. No evidence of a pancreatic head mass is seen. MRCP is recomme nded for further evaluation. 2. Colonic diverticulosis without evidence of acute diverticulitis. 3. Solitary right kidney. 4. The preliminary [facility] report was reviewed. RADIATION DOSE DELIVERED: 827.12mGy.cm Total DLP DATA REPOSITORY: All CT scans at this facility are submitted to the National Radiology Data Registry (NRDR) Dose Index Registry (DIR) with the [employer] ([employer]). RADIATION OPTIMIZATION: All CT scans at this facility use at least one of these dose optimization te chniques: automated exposure control; mA and/or kV adjustment per patient size (includes targeted exa ms where dose is matched to clinical indication); or iterative reconstruction.
--- NOTE | 2024-08-08 20:45 | RT.EKG_ITS ---
APPROVED REPORT Exam: Resting ECG Reason for Exam: dizziness Patient Location: E HR:96 bpm ECG Measurements Heart Rate 96 AXIS HI 45 P 75 QRSd 82 QRS 11 QT 336 T -26 QTc 428 Conclusion Sinus rhythm, rate 96 No interval abnormalities No STEMI PVCs T wave inversion and flattening diffuse leads, not significantly cahnged from priors
[2024-08-08 21:30] LABS: Lactate 2.8 mmol/L (<or=2.0)
[2024-08-08 21:32] LABS: Abs Immature Grans 0.02 10^3/uL (0.0-0.06); Absolute Basophil Count 0.03 10^3/uL (0.0-0.2); Absolute Eosinophil Count 0.03 10^3/uL (0.0-0.7); Absolute Lymphocyte Count 0.48 10^3/uL (1.2-3.4); Absolute Monocyte Count 0.16 10^3/uL (0.1-0.8); Absolute Neutrophil Count 8.49 10^3/uL (1.2-6.7); Basophils % 0.3 %; Eosinophils % 0.3 %; HCT 44.4 % (36.0-46.0); HGB 14.7 g/dL (11.2-15.7); Immature Grans % 0.2 %; Lymphocytes % 5.2 %; MCHC 33.1 % (32.0-36.0); MCV 94 fL (80-95); Monocytes % 1.7 %; Neutrophils % 92.3 %; RBC 4.74 10^6/uL (3.93-5.22); RDW 12.7 % (11.7-14.6); RDW-SD 43.7 fL; WBC 9.21 10^3/uL (4.4-10.8)
[2024-08-08] MEDS: Ondansetron 4 MG/2 ML VIAL IVP ×2 (21:38→22:15)
[2024-08-08] MEDS: Acetaminophen 500 MG TAB 1000 MG PO (21:38)
[2024-08-08] MEDS: Lactated Ringers 1,000 ML 1000 ML IV (21:39)
--- NOTE | 2024-08-08 21:41 | W.ED.GENAD ---
Discharge Plan Disposition Patient Disposition: Admit to [facility] Condition: Fair Discharge Details Chief Complaint: Abd Prob Clinical Impression: Pancreatitis, Acalculous cholecystitis Primary Care Provider: Tanika Meyer ED Provider: Jaylyn Mata Home Meds and New Rx's Prescriptions: No Action albuterol sulfate [ProAir HFA] 90 mcg/actuation HFA aerosol inhaler 1 - 2 puff Inhalation Q6H PRN Qty: 1 12RF metoprolol tartrate 25 mg tablet 12.5 mg PO DAILY PRN (Reason: palpitation) Qty: 45 6RF Rx Instructions: 12.5MG DAILY PRN memantine 10 mg tablet 10 mg PO BID Qty: 180 6RF gabapentin 300 mg capsule 600 mg PO BID Qty: 360 3RF mecobalamin (vitamin B12) 1,000 mcg tablet,chewable 1,000 mcg PO DAILY Qty: 90 4RF timolol 0.5 % drops 1 drp ophthalmic (eye) BID multivitamin 1 EACH tablet 1 ea PO DAILY lisinopril 20 mg tablet 20 mg PO DAILY Qty: 90 5RF levothyroxine 50 mcg tablet 50 mcg PO DAILY Qty: 90 7RF hydrocodone-acetaminophen 5-325 mg tablet 1 tab PO TID MDD 3 PRN (Reason: pain) Qty: 90 0RF HPI General Mode of arrival: ambulatory. Date/Time Provider Initiated Documentation: 08/08/24 20:38. Limitations to Documentation: no limitations. Information obtained by: patient, family and old records reviewed. HPI Narrative: This is AN 79-year-old female patient with a past medical history significant for solitary kidney, GERD, chronic pain, and recent admission for acalculous cholecystitis versus recently passed gallstone, presenting for evaluation of generalized abdominal pain with nausea and vomiting. The patient reports that she started to feel unwell on Wednesday, has had excessive fatigue, lightheadedness, and decreased p.o. intake. She reports that her abdominal pain is diffuse, and seems to be worse when she eats. She has not noted a fever, has not had diarrhea, denies obstructive symptoms and passed stool today. She states that she has not had any dysuria, has tried Pepcid and Tums for her symptoms without improvement. Has had numerous abdominal surgeries, specifically corrective surgeries for obstructive kidney disease and nephrectomy of the left kidney. Related Data Home Medications ?Medication ?Instructions ?Recorded ?Confirmed multivitamin 1 ea PO DAILY 08/11/12 08/08/24 albuterol sulfate 90 mcg/actuation 1 - 2 puff inhalation Q6H PRN ##1 04/08/20 08/08/24 aerosol inhaler (ProAir HFA) timolol 0.5 % eye drops 1 drp ophthalmic (eye) BID 11/24/22 08/08/24 lisinopril 20 mg tablet 20 mg PO DAILY #90 tabs 07/23/23 08/08/24 levothyroxine 50 mcg tablet 50 mcg PO DAILY #90 tab-caps 11/24/23 08/08/24 gabapentin 300 mg capsule 600 mg (2 x 300 mg) PO BID 12/28/23 08/08/24 neuropathy #360 tabs mecobalamin (vitamin B12) 1,000 1,000 mcg PO DAILY #90 tabs 12/28/23 08/08/24 mcg chewable tablet memantine 10 mg tablet 10 mg PO BID #180 tabs 12/28/23 08/08/24 metoprolol tartrate 25 mg tablet 12.5 mg (1/2 x 25 mg) PO DAILY PRN 12/28/23 08/08/24 palpitation #45 tabs hydrocodone 5 mg-acetaminophen 325 1 tab PO TID PRN pain #90 tabs 07/07/24 08/08/24 mg tablet Previous Rx's ?Medication ?Instructions ?Recorded albuterol sulfate 90 mcg/actuation 1 - 2 puff inhalation Q6H PRN ##1 04/08/20 aerosol inhaler (ProAir HFA) lisinopril 20 mg tablet 20 mg PO DAILY #90 tabs 07/23/23 levothyroxine 50 mcg tablet 50 mcg PO DAILY #90 tab-caps 11/24/23 gabapentin 300 mg capsule 600 mg (2 x 300 mg) PO BID 12/28/23 neuropathy #360 tabs mecobalamin (vitamin B12) 1,000 1,000 mcg PO DAILY #90 tabs 12/28/23 mcg chewable tablet memantine 10 mg tablet 10 mg PO BID #180 tabs 12/28/23 metoprolol tartrate 25 mg tablet 12.5 mg (1/2 x 25 mg) PO DAILY PRN 12/28/23 palpitation #45 tabs hydrocodone 5 mg-acetaminophen 325 1 tab PO TID PRN pain #90 tabs 07/07/24 mg tablet Allergies Allergy/AdvReac Type Severity Reaction Status Date / Time cat dander Allergy Mild Itching Verified 08/08/24 20:41 General Stated Complaint: Abd Prob [place]: 3 Exam Narrative Exam Narrative: Gen: Awake and alert, in no apparent distress HEENT: Non-icteric sclera Neck: Supple Lungs: No apparent respiratory distress, normal respiratory effort. Lung sounds clear and equal bilaterally CV: Appears well perfused, heart regular rate and rhythm, strong distal pulses Abdomen: Non-distended, soft, tender to palpation throughout the abdomen without rigidity, rebound, guarding MSK: Moves 4 extremities without apparent limitation in ROM Skin: Visualized skin without rashes, cyanosis. Neuro: Normal Gait, no obvious focal deficits or facial asymmetry. Speaks in full, clear sentences. Psych: Appropriate for situation. Course Vital Signs Vital signs: Vital Signs Temperature 36.4 C 08/08/24 20:38 Pulse 90 08/08/24 20:38 Respiratory Rate 18 08/08/24 20:38 Blood Pressure 144/79 H 08/08/24 20:38 Pulse Oximetry 94 08/08/24 20:38 Temperature 36.4 C 08/08/24 20:42 Temperature Source Oral 08/08/24 20:42 Pulse 90 08/08/24 20:42 Respiratory Rate 18 08/08/24 20:42 Blood Pressure 144/79 H 08/08/24 20:42 Pulse Oximetry 94 08/08/24 20:42 Oxygen Delivery Method Room Air 08/08/24 20:42 Oxygen Flow Rate 0 08/08/24 20:42 Pain Level 8 08/08/24 21:38 Lab/Test Results Lab/Test Results: Laboratory Tests Range/Units 08/08/24 21:17 VBG Lactate (<or=2.0) mmol/L 2.8 H* Medical Decision Making This is an 79-year-old female patient presenting for evaluation of abdominal pain, nausea and vomiting, and lightheadedness. My differential includes but is not limited to intra-abdominal pathology including gastritis, gastroenteritis, pancreatitis, hepatitis, cholecystitis, cholangitis, appendicitis, diverticulitis, bowel obstruction, mesenteric ischemia, aortic pathology. Considered kidney injury especially in the setting of solitary kidney, urinary tract infection, renal stones. Considered metabolic electrolyte derangements, dehydration, liver injury. I will provide the patient with a dose of Zofran, Tylenol, and some IV fluids for rehydration in the setting of a poor oral intake. I obtained an EKG, which shows a sinus rhythm with PVCs but no evidence of acute ischemia. Will obtain laboratory studies to include CBC, CMP, magnesium, lipase, lactate, urinalysis, and troponin. We will obtain a noncontrasted CT study of her abdomen and pelvis given the risk of nephropathy and the solitary kidney patient. - I reviewed the patient's laboratory studies, which show no leukocytosis, anemia, or thrombocytopenia. Chemistry panel is most notable for creatinine of 1.3, largely at the patient's baseline. Bilirubin is notably elevated to 3.7 she has a new transaminitis with an AST of 247 and an ALT of 417. Her lipase is over 3000, troponin is negative and without interval increase on 1 hour recheck. Her lactate was elevated to 2.8. She did receive a liter of IV fluids for this finding. CT reviewed by myself, showing a dilated gallbladder with bile duct dilation, but no obvious gallstones or evidence of significant pancreatic abnormalities within the limits of the noncontrasted study. I did perform a bedside ultrasound that demonstrates the same, with no significant gallbladder wall thickening, pericholecystic fluid, or shadowing suggestive of gallstones. I discussed the case with the hospitalist and with Dr. Byrd of general surgery. Dr. Byrd recommends MRCP in the morning to evaluate for pathology that would be amenable to ERCP, does not recommend acute surgical intervention tonight. I did provide the patient with a dose of Zosyn in the emergency department as well as morphine and a second dose of Zofran for ongoing pain and nausea. This was successful in improving her symptoms and she did tolerate some oral fluids in the emergency department. The patient has been admitted to the hospitalist service for ongoing workup and management of her condition. Transferred to that team without incident hemodynamically stable under my care. Jaylyn Mata MD Quality:SDOH Health Related Social Needs: No Data to Display Critical Care Time Critical Care Time Critical Care Time: Yes Total Critical Care Time: 35 Attestation: Upon my evaluation, this patient had a high probability of imminent or life-threatening deterioration due to lactic acidosis, gallstone pancreatitis which required my direct attention, intervention, and personal management. I have personally provided 35 minutes of critical care time exclusive of time spent on separately billable procedures. Time includes review of laboratory data, radiology results, discussion with consultants, and monitoring for potential decompensation. Interventions were performed as documented above. Jaylyn Mata MD [facility] All Active Problems (Updated 08/08/24 @ 23:39 by Jaylyn Mata MD) Acalculous cholecystitis (Acute) Pancreatitis (Chronic) Balance disorder (Acute) Coordination abnormal (Acute) Fatigue (Acute) Abnormal EKG (Acute) Abnormal heart rhythm (Acute) Anemia (Chronic) LFT elevation (Acute) B12 deficiency (Acute) Arthritis of left wrist (Acute) Displaced fracture of distal end of left radius with malunion (Acute) Polyneuropathic pain (Acute) Tendonitis of left rotator cuff (Chronic) 80 mg Depo-medrol injection: 04/19/23 Bunion of great toe of right foot (Acute) Memory deficit (Acute) Environmental allergies (Acute) Rupture of hip abductor tendon (Acute) s/p right trochanteric bursectomy, abductor tendon repair and IT band lengthening DOS: 03/26/20 Degenerative joint disease of right hip (Acute) Trochanteric bursitis, right hip (Chronic) s/p right trochanteric bursectomy, abductor tendon repair and IT band lengthening DOS: 03/26/20 Injection: 11/27/2019; 08/07/2019 Spinal stenosis (Chronic 09/03/14) Seasonal allergies (Chronic 07/27/13) Impaired renal function (Chronic 07/27/13) 1969- 5 kidney surgeries R - 1; L -3 surgeries and then removal. Ovarian V Crossing syndrome Hypothyroidism (Chronic 09/10/14) Hepatitis C (Chronic) s/p tx Glaucoma (Chronic 07/27/13) Esophageal reflux (Chronic) Depression (Chronic) Back pain (Chronic) chronic chronic narcotics [place] [facility] [place]oliosis and spinal stenosis Chronic pain disorder (Chronic 12/10/16) Medical History Neck pain Skin lesion Dysphonia Face lesion Right hip pain Chest pain Cataract Abnormal mammogram (~07/26/18) 6m f/u Shoulder pain Cardiac murmur mid-systolic click Wrist fracture, bilateral 2006; Shoulder fracture, left 07/27/13 Stress due to spouse with dementia 03/04/15 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 H/O spinal fusion L3-L5 S/P removal of left ovary 07/27/13 tubal Status post open reduction with internal fixation (ORIF) of fracture of ankle Bimalleolar fracture of right ankle S/P ORIF DOS: 02/05/18 , Ectopic Left PROCEDURES SOLITARY KIDNEY NEPHRECT left SPINAL FUSION NOS L ovarian cystectomy - benign teratoma Family History Mother , AGE 85 Breast cancer Lung cancer Father , AGE 63 CAD (coronary artery disease) Hypertension Heart disease Alcohol abuse Sister , AGE 45 Myocardial infarction Heart disease Alcohol abuse Brother Arrhythmia Hypertension Heart disease Son Hypertension Hyperlipidemia Daughter No problems noted. Maternal Grandfather , age 58 Nephritis Paternal Grandfather , 50s Esophageal cancer Maternal Grandmother , 70s Stroke Hypertension Paternal Grandmother , age 94 Dementia Social History Smoking/Tobacco Use Status: Never Tobacco: How many years used: 0 Second Hand Exposure: Yes Smoking risk assessment performed?: Yes Alcohol Intake: current Alcohol Intake frequency: a few times a week Alcohol type: wine Drug use: Never Substance use type: does not use Caregiver/Support person: No Household members: family and other Details: great-grandson Housing: apartment Communication Needs: Hard of Hearing and Corrective Lenses Do you need help understanding health information?: Never Pets and animals: No Sexually active: No Do you think of yourself as: straight/heterosexual Current gender identity: female What is your relationship status?: How often do you talk on the phone with friends or family?: three or more times per week How often do you get together with friends or relatives?: three or more times per week How often do you attend mormonism or mandaen services?: decline to answer Do you belong to any clubs or organized social groups?: yes Panel score (0-1 are the most socially isolated patients): 2 What type of physical activity do you participate in: walking Duration: decline to answer Frequency: 1-2 times per week Leonie/Christianity: Mormon Special leonie needs: No Seatbelt use: always Drive intox or ride w/intox 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
[2024-08-08 21:44] LABS: Diff Comment PLT Morph Reviewed; RBC Morphology Normal
[2024-08-08 21:47] LABS: ALT 417 U/L (14-59); AST 247 U/L (15-37); Albumin 4.2 g/dL (3.4-5.0); Alkaline Phosphatase 116 U/L (46-116); Anion Gap 14.5 mmol/L (3-11); BUN 18 mg/dL (7-18); Bilirubin, Total 3.7 mg/dL (0.2-1.0); CO2 24.5 mmol/L (21.0-32.0); CREATININE 1.3 mg/dL (0.55-1.02); Chloride 102 mmol/L (98-107); Estimated GFR 41.31 (mL/min/1.73m2); Glucose 136 mg/dL (74-106); Potassium 4.4 mmol/L (3.5-5.1); Sodium 141 mmol/L (136-145); Total Protein 8.7 g/dL (6.4-8.2); Troponin I 8 ng/L (<or=51)
[2024-08-08 22:16] LABS: Lipase > 3000 U/L (<78)
[2024-08-08] MEDS: HYDROmorphone 2 MG/ML SYR 0.5 MG IVP (22:35)
[2024-08-08] MEDS: PIPERACILLIN/TAZO 3.375 GM in Normal Saline 50 ML IVPB (22:35)
[2024-08-08 22:56] LABS: Troponin I 9 ng/L (<or=51)
--- NOTE | 2024-08-08 23:14 | DI.VRAD_ITS ---
PROCEDURE INFORMATION: Exam: CT Abdomen And Pelvis Without Contrast Exam date and time: 08/08/2024 9:59 PM Age: 79 years old Clinical indication: Other: Diffuse abd pain, n/v, HX solitary kidney TECHNIQUE: Imaging protocol: Computed tomography of the abdomen and pelvis without contrast. COMPARISON: MR ABDOMEN WO 04/18/2024 11:19 AM FINDINGS: Lungs: Bibasilar atelectasis. Coronary arteries: There is mild atherosclerotic calcification of the coronary arteries. Diaphragm: A large hiatal hernia is present. Liver: Normal. No mass. Gallbladder and biliary ducts: Similar chronic dilatation of the biliary tree. Over distended gallbladder with no surrounding inflammatory changes. Pancreas: Normal. No ductal dilation. Spleen: Normal. No splenomegaly. Adrenal glands: Normal. No mass. Kidneys and ureters: Absent left kidney. Similar simple cyst in the interpolar region of the right kidney measuring 2.5 cm. No right hydronephrosis. Stomach and bowel: Moderate diverticulosis is present in the distal colon. Appendix: No evidence of appendicitis. Intraperitoneal space: Unremarkable. No free air. No significant fluid collection. Vasculature: The vasculature demonstrates diffuse moderate atherosclerotic calcification. There are numerous benign phleboliths in the pelvis. Lymph nodes: Unremarkable. No enlarged lymph nodes. Urinary bladder: Unremarkable as visualized. Reproductive: Unremarkable as visualized. Bones/joints: Curvature of the lumbar spine convex to the left. The pubic symphysis demonstrates moderate degenerative changes. There are mild degenerative changes of the sacroiliac joints. There are mild degenerative changes of the hip joints. Soft tissues: There is a fat-containing umbilical hernia. IMPRESSION: 1. Over distended gallbladder to be follow-up ultrasound if clinically warranted to rule out cholelithiasis or acute cholecystitis. 2. Diverticulosis with no changes of diverticulitis. Dictated and Authenticated by: Fernando Erickson MD. Orderin [facility] MD
--- NOTE | 2024-08-08 23:53 | SCONE_ITS ---
Date of service: 08/09/24 Time of Service: 05:30 Assessment and Plan Assessment and plan (1) Pancreatitis: Status: Chronic Assessment and plan: Germaine is an 79 year old woman with recurrent obstructive jaundice and now pancreatitis. The most common source of this is gallstone panscreatitis, but its hard to image that as the source with no evidence of any gallstones on the MRCP in April and the lack of obvious gallstones on todays ultrasound. 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 I've never seen this before, but it's at least conceivable that obstruction at that level could result in pancreatitis. I would have [facility] [place] [facility] review her old MRCP and see if they are willing to try endoscopy to stent the duct. History of Present Illness History of Present Illness Chief Complaint: abdominal pain and nausea Narrative: Sonya is an 79 year old woman. She noticed abdominal pain approximately 3 days ago. It was sharp and in the midepigastrum. She tried tums without much releif. The pain became more intense over the past 24 hours and has now been associated with nausea and a few episodes of low volume non-bloody emesis. Pain is worse after meals. She came to the emergency department. Lipase and LFT were elevated with lipase consistent with pancreatitis. CT scan showed a dilated biliary tree without signs of cholecystitis or gallasontes. Simliarly ED ultrasound was negative. A similar sequence occurred in April of this year with clinical history consistent with choledocolithiasis. MRCP did not show any stones in the duct or gallabladder, however and signs and symptoms resolved without intervention. Review of Systems Constitutional Constitutional: Reports fatigue and Reports poor appetite Eyes Eyes: Reports system reviewed and no additional complaints, except as documented ENT Ears, Nose, Mouth, and Throat: Reports system reviewed and no additional complaints, except as documented Cardiovascular Cardiovascular: Denies chest pain, Reports leg edema and Denies dyspnea Respiratory Respiratory: Denies chest congestion, Denies cough and Denies dyspnea Gastrointestinal Gastrointestinal: Reports abdominal pain, Reports bloating, Denies change in stool character, Reports dyspepsia, Reports nausea and Reports vomiting Endocrine Endocrine: Reports fatigue Hematologic/Lymphatic Hematologic/Lymphatic: Denies easy bleeding and Denies easy bruising PFSH All Active Problems Acalculous cholecystitis (Acute) Pancreatitis (Chronic) Balance disorder (Acute) Coordination abnormal (Acute) Fatigue (Acute) Abnormal EKG (Acute) Abnormal heart rhythm (Acute) Anemia (Chronic) LFT elevation (Acute) B12 deficiency (Acute) Arthritis of left wrist (Acute) Displaced fracture of distal end of left radius with malunion (Acute) Polyneuropathic pain (Acute) Tendonitis of left rotator cuff (Chronic) 80 mg Depo-medrol injection: 04/19/23 Bunion of great toe of right foot (Acute) Memory deficit (Acute) Environmental allergies (Acute) Rupture of hip abductor tendon (Acute) s/p right trochanteric bursectomy, abductor tendon repair and IT band lengthening DOS: 03/26/20 Degenerative joint disease of right hip (Acute) Trochanteric bursitis, right hip (Chronic) s/p right trochanteric bursectomy, abductor tendon repair and IT band lengthening DOS: 03/26/20 Injection: 11/27/2019; 08/07/2019 Spinal stenosis (Chronic 09/03/14) Seasonal allergies (Chronic 07/27/13) Impaired renal function (Chronic 07/27/13) 1969- 5 kidney surgeries R - 1; L -3 surgeries and then removal. Ovarian V Crossing syndrome Hypothyroidism (Chronic 09/10/14) Hepatitis C (Chronic) s/p tx Glaucoma (Chronic 07/27/13) Esophageal reflux (Chronic) Depression (Chronic) Back pain (Chronic) chronic chronic narcotics MRi and spinal at [facility] [place]: scoliosis and spinal stenosis Chronic pain disorder (Chronic 12/10/16) Medical History Neck pain Skin lesion Dysphonia Face lesion Right hip pain Chest pain Cataract Abnormal mammogram (~07/26/18) 6m f/u Shoulder pain Cardiac murmur mid-systolic click Wrist fracture, bilateral 2006;1989' Shoulder fracture, left 07/27/13 Stress due to spouse with dementia 03/04/15 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 H/O spinal fusion L3-L5 S/P removal of left ovary 07/27/13 tubal Status post open reduction with internal fixation (ORIF) of fracture of ankle Bimalleolar fracture of right ankle S/P ORIF DOS: 02/05/18 , Ectopic Left PROCEDURES SOLITARY KIDNEY NEPHRECT left SPINAL FUSION NOS L ovarian cystectomy - benign teratoma Family History Mother , AGE 85 Breast cancer Lung cancer Father , AGE 63 CAD (coronary artery disease) Hypertension Heart disease Alcohol abuse Sister , AGE 45 Myocardial infarction Heart disease Alcohol abuse Brother Arrhythmia Hypertension Heart disease Son Hypertension Hyperlipidemia Daughter No problems noted. Maternal Grandfather , age 58 Nephritis Paternal Grandfather , 50s Esophageal cancer Maternal Grandmother , 70s Stroke Hypertension Paternal Grandmother , age 94 Dementia Social History Smoking/Tobacco Use Status: Never Tobacco: How many years used: 0 Second Hand Exposure: Yes Smoking risk assessment performed?: Yes Alcohol Intake: current Alcohol Intake frequency: a few times a week Alcohol type: wine Drug use: Never Substance use type: does not use Caregiver/Support person: No Household members: family and other Details: great-grandson Housing: apartment Communication Needs: Hard of Hearing and Corrective Lenses Do you need help understanding health information?: Never Pets and animals: No Sexually active: No Do you think of yourself as: straight/heterosexual Current gender identity: female What is your relationship status?: How often do you talk on the phone with friends or family?: three or more times per week How often do you get together with friends or relatives?: three or more times per week How often do you attend baptist or sabianist services?: decline to answer Do you belong to any clubs or organized social groups?: yes Panel score (0-1 are the most socially isolated patients): 2 What type of physical activity do you participate in: walking Duration: decline to answer Frequency: 1-2 times per week Leonie/Islam: Hinduism Special leonie needs: No Seatbelt use: always Drive intox or ride w/intox 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 Do you feel safe at home: Yes Do you feel safe in your relationship?: Yes Additional Social history: Exam Const General: cooperative Nutritional Appearance: average body habitus Orientation: alert, awake and oriented x3 GI Inspection: non-distended Palpation: soft and tender in the epigastrum Auscultation: normal bowel sounds Results Last Vital Signs Temp 97.6 F 08/08/24 20:42 Pulse 90 08/08/24 20:42 Resp 18 08/08/24 20:42 BP 144/79 H 08/08/24 20:42 Pulse Ox 94 08/08/24 20:42 Labs 08/08/24 21:17 08/08/24 21:17 Labs: Laboratory Results - last 24 hr 08/08/24 08/08/24 08/08/24 21:17 22:31 23:57 WBC 9.21 RBC 4.74 Hgb 14.7 Hct 44.4 MCV 94 MCH 31.0 MCHC 33.1 RDW 12.7 Plt Count MPV Immature Gran % 0.2 Neutrophils % 92.3 Lymphocytes % 5.2 Monocytes % 1.7 Eosinophils % 0.3 Basophils % 0.3 Nucleated RBC % 0.0 Absolute Neutrophils 8.49 H Absolute Lymphocytes 0.48 L Absolute Monocytes 0.16 Absolute Eosinophils 0.03 Absolute Basophils 0.03 RBC Morphology Normal VBG Lactate 2.8 H* Sodium 141 Potassium 4.4 Chloride 102 Carbon Dioxide 24.5 Anion Gap 14.5 H BUN 18 Creatinine 1.3 H Est GFR (CKD-EPI 2020) 41.31 Glucose 136 H Calcium 10.0 Magnesium 2.0 Total Bilirubin 3.7 H AST 247 H ALT 417 H Alkaline Phosphatase 116 Troponin I 8 9 Cancelled Total Protein 8.7 H Albumin 4.2 Lipase > [address] scan report/results: report reviewed and image reviewed CT scan - pelvis: report reviewed and image reviewed
[2024-08-09] VITALS (48 sets, daily range): BP systolic 89–128; BP diastolic 40–83; PULSE 60–98; RESP 9–26; TEMP 35.3–37.3; O2SAT 96–97
--- NOTE | 2024-08-09 | DI.US_ITS ---
Exam(s) US ABDOMEN LIMITED EXAM: US ABDOMEN LIMITED CLINICAL HISTORY: gb stone TECHNIQUE: Ultrasound abdomen performed using standard protocol. COMPARISON: MR MR ABDOMEN WO from 04/18/[address] ABDOMEN PELVIS WO from 08/08/2024 FINDINGS: PANCREAS: Normal where visualized. LIVER: Normal. Hepatopetal flow in the Portal Vein. The liver measures in 17.6 cm length. No evidence of a hepatic mass. GALLBLADDER: No evidence of cholelithiasis. The gallbladder wall measures 4.9 mm. There is very mild pericholecystic fluid present. BILIARY SYSTEM: Common bile duct measures 1.4. No intrahepatic biliary ductal dilation. FONTANA'S SIGN: Negative. RIGHT KIDNEY: Kidney is normal in size. No evidence of renal calculi. No evidence of hydronephrosis. There is again seen a simple right renal cysts. This was present on prior examinations. No follow- up is recommended. ASCITES: None seen. IMPRESSION: 1. There is no evidence of cholelithiasis. 2. Gallbladder wall thickening and minimal pericholecystic fluid. 3. Extrahepatic biliary ductal dilatation up to 1.4 cm. No definite choledocholithiasis. MRCP shoul d be considered for further evaluation. DATA REPOSITORY:
--- NOTE | 2024-08-09 | DI.MRI_ITS ---
Exam(s) MR ABDOMEN WO EXAM: MR ABDOMEN WO CLINICAL HISTORY: gb stone TECHNIQUE: Multiplanar multisequence MRI of the Abdomen was performed. COMPARISON: MR MR ABDOMEN WO from 04/18/[address] ABDOMEN PELVIS WO from 08/08/2024 US US ABDOMEN LIMITED from 08/09/2024 FINDINGS: Lung bases: There is a large hiatal hernia. Liver: There is no evidence of a hepatic mass. There is fatty infiltration of the liver. Pancreas: There is fatty atrophy of the pancreas. No evidence of a pancreatic mass or peripancreatic fluid collection. Gallbladder and Bile Ducts: There are no gallstones. The common duct measures up to 1.7 cm. There a re no filling defects present to suggest choledocholithiasis. There is a small amount of pericholecy stic fluid. Adrenals: Unremarkable. Kidneys: The left kidney is absent. There is a simple cyst again seen on the right kidney. No follo w-up is recommended. There is no evidence of hydronephrosis. Spleen: Unremarkable. Bowel: There is diverticulosis seen in the colon but no evidence of acute diverticulitis. Aorta: Unremarkable. No aneurysmal dilatation. Soft Tissues: There is fatty atrophy of the paraspinal muscles. Bone: There is a left convex lumbar scoliosis. Lymph Nodes: Unremarkable. IMPRESSION: Distended gallbladder with biliary ductal dilatation of 1.7 cm. There is pericholecystic fluid seen. Ultrasound from the same day showed gallbladder wall thickening. Acalculous cholecystitis should b e considered. DATA REPOSITORY:
--- NOTE | 2024-08-09 00:07 | W.PM.HP.N ---
Date of service: 08/09/24 Time of Service: 00:07 Assessment and Plan Assessment and plan (1) Pancreatitis: Status: Chronic Assessment and plan: ivf/pain meds/npo contacted GS who agrees recheck lipase in am (2) LFT elevation: Status: Acute Assessment and plan: MRCP and formal usn consider hepatitis panel in am (3) Acalculous cholecystitis: Status: Acute Assessment and plan: mrcp and formal usn (4) S/p nephrectomy: Assessment and plan: noted dvpt with lovenox History of Present Illness History of Present Illness Chief Complaint: abd pain Narrative: This is an 79-year-old female who was seen in the hospital approximately 4 months ago for essentially same presentation. At that time an MRCP was done which was positive for a 1.8 x 1.4 cm duodenal diverticulum. At that time a consultation to general surgery was placed and has been reviewed. Patient presents today with diffuse abdominal pain over the last 3 days. She also has nausea and vomiting and a decreased appetite over the last few weeks. ED department has reached out to general surgery who are aware of the case. Consultation in the a.m. Review of Systems All systems reviewed & are unremarkable except as noted in HPI and below PFSH All Active Problems (Updated 08/08/24 @ 23:39 by Jaylyn Mata MD) Acalculous cholecystitis (Acute) Pancreatitis (Chronic) Balance disorder (Acute) Coordination abnormal (Acute) Fatigue (Acute) Abnormal EKG (Acute) Abnormal heart rhythm (Acute) Anemia (Chronic) LFT elevation (Acute) B12 deficiency (Acute) Arthritis of left wrist (Acute) Displaced fracture of distal end of left radius with malunion (Acute) Polyneuropathic pain (Acute) Tendonitis of left rotator cuff (Chronic) 80 mg Depo-medrol injection: 04/19/23 Bunion of great toe of right foot (Acute) Memory deficit (Acute) Environmental allergies (Acute) Rupture of hip abductor tendon (Acute) s/p right trochanteric bursectomy, abductor tendon repair and IT band lengthening DOS: 03/26/20 Degenerative joint disease of right hip (Acute) Trochanteric bursitis, right hip (Chronic) s/p right trochanteric bursectomy, abductor tendon repair and IT band lengthening DOS: 03/26/20 Injection: 11/27/2019; 08/07/2019 Spinal stenosis (Chronic 09/03/14) Seasonal allergies (Chronic 07/27/13) Impaired renal function (Chronic 07/27/13) 1969- 5 kidney surgeries R - 1; L -3 surgeries and then removal. Ovarian V Crossing syndrome Hypothyroidism (Chronic 09/10/14) Hepatitis C (Chronic) s/p tx Glaucoma (Chronic 07/27/13) Esophageal reflux (Chronic) Depression (Chronic) Back pain (Chronic) chronic chronic [place] [facility] [place] and spinal stenosis Chronic pain disorder (Chronic 12/10/16) Medical History Neck pain Skin lesion Dysphonia Face lesion Right hip pain Chest pain Cataract Abnormal mammogram (~07/26/18) 6m f/u Shoulder pain Cardiac murmur mid-systolic click Wrist fracture, bilateral 2006; Shoulder fracture, left 07/27/13 Stress due to spouse with dementia 03/04/15 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 H/O spinal fusion L3-L5 S/P removal of left ovary 07/27/13 tubal Status post open reduction with internal fixation (ORIF) of fracture of ankle Bimalleolar fracture of right ankle S/P ORIF DOS: 02/05/18 , Ectopic Left PROCEDURES SOLITARY KIDNEY NEPHRECT left SPINAL FUSION NOS L ovarian cystectomy - benign teratoma Family History Mother , AGE 85 Breast cancer Lung cancer Father , AGE 63 CAD (coronary artery disease) Hypertension Heart disease Alcohol abuse Sister , AGE 45 Myocardial infarction Heart disease Alcohol abuse Brother Arrhythmia Hypertension Heart disease Son Hypertension Hyperlipidemia Daughter No problems noted. Maternal Grandfather , age 58 Nephritis Paternal Grandfather , 50s Esophageal cancer Maternal Grandmother , 70s Stroke Hypertension Paternal Grandmother , age 94 Dementia Social History Smoking/Tobacco Use Status: Never Tobacco: How many years used: 0 Second Hand Exposure: Yes Smoking risk assessment performed?: Yes Alcohol Intake: current Alcohol Intake frequency: a few times a week Alcohol type: wine Drug use: Never Substance use type: does not use Caregiver/Support person: No Household members: family and other Details: great-grandson Housing: apartment Communication Needs: Hard of Hearing and Corrective Lenses Do you need help understanding health information?: Never Pets and animals: No Sexually active: No Do you think of yourself as: straight/heterosexual Current gender identity: female What is your relationship status?: How often do you talk on the phone with friends or family?: three or more times per week How often do you get together with friends or relatives?: three or more times per week How often do you attend temple or yarsani services?: decline to answer Do you belong to any clubs or organized social groups?: yes Panel score (0-1 are the most socially isolated patients): 2 What type of physical activity do you participate in: walking Duration: decline to answer Frequency: 1-2 times per week Leonie/Hinduism: Jehovah'S Witness Special leonie needs: No Seatbelt use: always Drive intox or ride w/intox 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 dedicated 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: No Do you feel safe at home: Yes Do you feel safe in your relationship?: Yes Additional Social history: Meds Allergies and Home Medications Allergies Allergy/AdvReac Type Severity Reaction Status Date / Time cat dander Allergy Mild Itching Verified 08/08/24 20:41 Home Medications ?Medication ?Instructions ?Recorded ?Confirmed ?Type multivitamin 1 ea PO DAILY 08/11/12 08/08/24 History albuterol sulfate 90 mcg/actuation 1 - 2 puff inhalation Q6H PRN ##1 04/08/20 08/08/24 Rx aerosol inhaler (ProAir HFA) timolol 0.5 % eye drops 1 drp ophthalmic (eye) BID 11/24/22 08/08/24 History lisinopril 20 mg tablet 20 mg PO DAILY #90 tabs 07/23/23 08/08/24 Rx levothyroxine 50 mcg tablet 50 mcg PO DAILY #90 tab-caps 11/24/23 08/08/24 Rx gabapentin 300 mg capsule 600 mg (2 x 300 mg) PO BID 12/28/23 08/08/24 Rx neuropathy #360 tabs mecobalamin (vitamin B12) 1,000 1,000 mcg PO DAILY #90 tabs 12/28/23 08/08/24 Rx mcg chewable tablet memantine 10 mg tablet 10 mg PO BID #180 tabs 12/28/23 08/08/24 Rx metoprolol tartrate 25 mg tablet 12.5 mg (1/2 x 25 mg) PO DAILY PRN 12/28/23 08/08/24 Rx palpitation #45 tabs hydrocodone 5 mg-acetaminophen 325 1 tab PO TID PRN pain #90 tabs 07/07/24 08/08/24 Rx mg tablet Exam Narrative Exam Narrative: HEENT-NCAT MMM EOMI PERRLA NECK-NO LAD NO JVD CV-RRR NO MRG LUNGS-CTAB NO AMU ABD-MILD TTP IN RUQ, NO PERITONEAL SIGNS, NO GUARDING EXT-NO CCE BILAT NEURO-CN 2-12 INTACT TESTED PSYCH-AAOX3 Results Labs 08/08/24 21:17 08/08/24 21:17 Labs: Laboratory Results - last 24 hr 08/08/24 08/08/24 08/08/24 21:17 22:31 23:57 WBC 9.21 RBC 4.74 Hgb 14.7 Hct 44.4 MCV 94 MCH 31.0 MCHC 33.1 RDW 12.7 Plt Count MPV Immature Gran % 0.2 Neutrophils % 92.3 Lymphocytes % 5.2 Monocytes % 1.7 Eosinophils % 0.3 Basophils % 0.3 Nucleated RBC % 0.0 Absolute Neutrophils 8.49 H Absolute Lymphocytes 0.48 L Absolute Monocytes 0.16 Absolute Eosinophils 0.03 Absolute Basophils 0.03 RBC Morphology Normal VBG Lactate 2.8 H* Sodium 141 Potassium 4.4 Chloride 102 Carbon Dioxide 24.5 Anion Gap 14.5 H BUN 18 Creatinine 1.3 H Est GFR (CKD-EPI 2020) 41.31 Glucose 136 H Calcium 10.0 Magnesium 2.0 Total Bilirubin 3.7 H AST 247 H ALT 417 H Alkaline Phosphatase 116 Troponin I 8 9 Cancelled Total Protein 8.7 H Albumin 4.2 Lipase > 3000 H Last Vital Signs Temp 36.4 C 08/08/24 20:42 Pulse 90 08/08/24 20:42 Resp 18 08/08/24 20:42 BP 144/79 H 08/08/24 20:42 Pulse Ox 94 08/08/24 20:42 Time Spent Time spent with Patient: 40-54 minutes Time was spent: preparing to see the patient(eg.review tests), obtaining and/or reviewing separately otained hiistory, ordering medications,tests, procedures, referring, communicating with other health careers adviser, indepentently interpreting results, counseling the patient and care coordination
[2024-08-09] MEDS: Lactated Ringers 1,000 ML 150 ML IV ×2 (00:40→11:12)
[2024-08-09 06:18] LABS: Lipase 1766 U/L (<78)
[2024-08-09 07:31] LABS: Abs Immature Grans 0.06 10^3/uL (0.0-0.06); Absolute Basophil Count 0.02 10^3/uL (0.0-0.2); Absolute Lymphocyte Count 0.85 10^3/uL (1.2-3.4); Absolute Monocyte Count 0.49 10^3/uL (0.1-0.8); Absolute Neutrophil Count 8.39 10^3/uL (1.2-6.7); Basophils % 0.2 %; HCT 34.6 % (36.0-46.0); HGB 11.6 g/dL (11.2-15.7); Immature Grans % 0.6 %; Lymphocytes % 8.7 %; MCH 31.1 pg (27.0-33.0); MCHC 33.5 % (32.0-36.0); MCV 93 fL (80-95); MPV 10.8 fL (8.0-11.0); Neutrophils % 85.5 %; Platelet Count 129 10^3/uL (130-400); RBC 3.73 10^6/uL (3.93-5.22); RDW 12.7 % (11.7-14.6); RDW-SD 43.5 fL; WBC 9.81 10^3/uL (4.4-10.8)
[2024-08-09 07:46] LABS: ALT 345 U/L (14-59); AST 231 U/L (15-37); Albumin 2.9 g/dL (3.4-5.0); Alkaline Phosphatase 86 U/L (46-116); Anion Gap 7.7 mmol/L (3-11); BUN 19 mg/dL (7-18); Bilirubin, Total 3.9 mg/dL (0.2-1.0); CO2 27.3 mmol/L (21.0-32.0); CREATININE 1.4 mg/dL (0.55-1.02); Calcium 9.2 mg/dL (8.5-10.1); Chloride 105 mmol/L (98-107); Glucose 153 mg/dL (74-106); Potassium 4.5 mmol/L (3.5-5.1); Sodium 140 mmol/L (136-145); Total Protein 6.5 g/dL (6.4-8.2)
[2024-08-09 07:54] LABS: Lipase 1235 U/L (<78)
[2024-08-09 09:24] LABS: Bilirubin Negative (Negative); Blood Negative (Negative); Clarity Clear (Clear); Glucose Negative (Negative); Ketones Trace mg/dL (Negative); Leukocyte Esterase Trace (Negative); Nitrite Negative (Negative); Specific Gravity <= 1.005 (1.005-1.025); pH 5.5 (5-8)
[2024-08-09 09:33] LABS: Bacteria Few HPF (Negative); C & S Indicated? No; Casts Negative LPF (Negative); Crystals Negative HPF (Negative); Epithelial Cells Rare HPF (Negative); Mucus Trace (Negative); RBC 0-2 HPF (0-2)
--- NOTE | 2024-08-09 11:18 | W.SURGCON ---
Date of service: 08/09/24 Time of Service: 11:18 Assessment and Plan Assessment and plan (1) Pancreatitis: Status: Chronic Assessment and plan: 79-year-old patient with a recurrent episode of pancreatitis, associated elevation of bilirubin, alkaline phosphatase and transaminases. The patient does not have gallstones but she has a chronically inflamed appearing gallbladder on ultrasound with thick snow. Episodic sudden onset of pancreatitis and a nondrinker suggests that the etiology is gallstones despite the absence of such on the ultrasound. Possibly she is developing and passing sludge which is causing the episodes. GI consultation is reasonable but if it is felt that the duodenal diverticulum is not the etiology, and statistically speaking is unlikely to be the etiology, consideration could be made to elective laparoscopic cholecystectomy. Despite the lag and improvement of the hepatic panel, it appears that the patient is improving clinically. I would recommend that clear liquids be started as soon as the MRI report is complete, and shows no indication to hold fluids. (2) Acalculous cholecystitis: Status: Acute Assessment and plan: As above, large thick-walled gallbladder suggests this diagnosis and could be an etiology for pancreas (3) LFT elevation: Status: Acute Assessment and plan: Continue to track lab History of Present Illness Narrative: 79-year-old patient presented to the emergency department 1 day ago with severe abdominal pain. The patient was seen and evaluated by Dr. Pipo Byrd but she does not recall that. She did have a similar episode in April 2024. She states that her pain is much improved now, she actually feels hungry after not having eaten for several days. She is passing some flatus but has not moved her bowels for several days. This morning she did have a formal gallbladder ultrasound in the radiology department, again revealing no stones but the gallbladder wall is thickened at 5 mm. There was an MRI as well but the official reading is not on the medical record yet. I viewed the MRI myself but had difficulty figuring it out with her scoliosis. Review of Systems Narrative: Patient denies chest pain or shortness of breath at rest. When she was first becoming ill with this episode she felt unsteady on her feet but that has improved. She has significant back pain from laying on the stretcher and has a history of arthritis in her back with sciatica. She feels that shortness of breath is secondary to her deconditioning from decreased physical activity. PFSH All Active Problems (Updated 08/09/24 @ 11:28 by Pepper Villafana MD) Acalculous cholecystitis (Acute) Pancreatitis (Chronic) Balance disorder (Acute) Coordination abnormal (Acute) Fatigue (Acute) Abnormal EKG (Acute) Abnormal heart rhythm (Acute) Anemia (Chronic) LFT elevation (Acute) B12 deficiency (Acute) Arthritis of left wrist (Acute) Displaced fracture of distal end of left radius with malunion (Acute) Polyneuropathic pain (Acute) Tendonitis of left rotator cuff (Chronic) 80 mg Depo-medrol injection: 04/19/23 Bunion of great toe of right foot (Acute) Memory deficit (Acute) Environmental allergies (Acute) Rupture of hip abductor tendon (Acute) s/p right trochanteric bursectomy, abductor tendon repair and IT band lengthening DOS: 03/26/20 Degenerative joint disease of right hip (Acute) Trochanteric bursitis, right hip (Chronic) s/p right trochanteric bursectomy, abductor tendon repair and IT band lengthening DOS: 03/26/20 Injection: 11/27/2019; 08/07/2019 Spinal stenosis (Chronic 09/03/14) Seasonal allergies (Chronic 07/27/13) Impaired renal function (Chronic 07/27/13) 1969- 5 kidney surgeries R - 1; L -3 surgeries and then removal. Ovarian V Crossing syndrome Hypothyroidism (Chronic 09/10/14) Hepatitis C (Chronic) s/p tx Glaucoma (Chronic 07/27/13) Esophageal reflux (Chronic) Depression (Chronic) Back pain (Chronic) chronic [place] [facility] [place] stenosis Chronic pain disorder (Chronic 12/10/16) Medical History Neck pain Skin lesion Dysphonia Face lesion Right hip pain Chest pain Cataract Abnormal mammogram (~07/26/18) 6m f/u Shoulder pain Cardiac murmur mid-systolic click Wrist fracture, bilateral 2006; Shoulder fracture, left 07/27/13 Stress due to spouse with dementia 03/04/15 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 H/O spinal fusion L3-L5 S/P removal of left ovary 07/27/13 tubal Status post open reduction with internal fixation (ORIF) of fracture of ankle Bimalleolar fracture of right ankle S/P ORIF DOS: 02/05/18 , Ectopic Left PROCEDURES SOLITARY KIDNEY NEPHRECT left SPINAL FUSION NOS L ovarian cystectomy - benign teratoma Family History Mother , AGE 85 Breast cancer Lung cancer Father , AGE 63 CAD (coronary artery disease) Hypertension Heart disease Alcohol abuse Sister , AGE 45 Myocardial infarction Heart disease Alcohol abuse Brother Arrhythmia Hypertension Heart disease Son Hypertension Hyperlipidemia Daughter No problems noted. Maternal Grandfather , age 58 Nephritis Paternal Grandfather , 50s Esophageal cancer Maternal Grandmother , 70s Stroke Hypertension Paternal Grandmother , age 94 Dementia Social History Smoking/Tobacco Use Status: Never Tobacco: How many years used: 0 Second Hand Exposure: Yes Smoking risk assessment performed?: Yes Alcohol Intake: current Alcohol Intake frequency: a few times a week Alcohol type: wine Drug use: Never Substance use type: does not use Caregiver/Support person: No Household members: family and other Details: great-grandson Housing: apartment Communication Needs: Hard of Hearing and Corrective Lenses Do you need help understanding health information?: Never Pets and animals: No Sexually active: No Do you think of yourself as: straight/heterosexual Current gender identity: female What is your relationship status?: How often do you talk on the phone with friends or family?: three or more times per week How often do you get together with friends or relatives?: three or more times per week How often do you attend yarsanism or samaritan services?: decline to answer Do you belong to any clubs or organized social groups?: yes Panel score (0-1 are the most socially isolated patients): 2 What type of physical activity do you participate in: walking Duration: decline to answer Frequency: 1-2 times per week Leonie/Taoism: Restorationism Special leonie needs: No Seatbelt use: always Drive intox or ride w/intox transit bus driver: No Do you feel safe at home: Yes Do you feel safe in your relationship?: Yes Additional Social history: Exam Narrative Exam Narrative: Patient is alert and cooperative, lying quietly in bed with her son at the bedside. HENMT Head: normal to inspection Mouth: oral mucosae normal Eyes General: appearance normal, both eyes and all related structures Resp Auscultation: clear to auscultation bilaterally (Lower field rhonchi clear with cough) Cardio Rate: regular rate Rhythm: regular rhythm Heart Sounds: S1 normal and S2 normal GI Inspection: normal to inspection Palpation: soft, no guarding and nontender Skin Other: Warm and dry Psych Appearance: grossly normal Mental Status: mental status grossly normal Mood: congruent mood Affect: normal affect Results Last Vital Signs Temp 35.3 C L 08/09/24 10:53 Pulse 70 08/09/24 10:53 Resp 14 08/09/24 10:53 BP 123/83 08/09/24 10:53 Pulse Ox 97 08/09/24 10:53 Labs 08/09/24 07:26 08/09/24 07:26 Labs: Laboratory Results - last 24 hr 08/08/24 08/08/24 08/08/24 21:17 22:31 23:57 WBC 9.21 RBC 4.74 Hgb 14.7 Hct 44.4 MCV 94 MCH 31.0 MCHC 33.1 RDW 12.7 Plt Count MPV Immature Gran % 0.2 Neutrophils % 92.3 Lymphocytes % 5.2 Monocytes % 1.7 Eosinophils % 0.3 Basophils % 0.3 Nucleated RBC % 0.0 Absolute Neutrophils 8.49 H Absolute Lymphocytes 0.48 L Absolute Monocytes 0.16 Absolute Eosinophils 0.03 Absolute Basophils 0.03 RBC Morphology Normal VBG Lactate 2.8 H* Sodium 141 Potassium 4.4 Chloride 102 Carbon Dioxide 24.5 Anion Gap 14.5 H BUN 18 Creatinine 1.3 H Est GFR (CKD-EPI 2020) 41.31 Glucose 136 H Calcium 10.0 Magnesium 2.0 Total Bilirubin 3.7 H AST 247 H ALT 417 H Alkaline Phosphatase 116 Troponin I 8 9 Cancelled Total Protein 8.7 H Albumin 4.2 Lipase > 3000 H Urine Color Urine Clarity Urine pH Ur Specific [place] Urine Protein Urine Ketones Urine Blood Urine Nitrite Urine Bilirubin Urine Urobilinogen Ur Leukocyte Esterase Urine RBC Urine WBC Ur Epithelial Cells Urine Crystals Urine Bacteria Urine Casts Urine Mucus Ur Culture Indicated? Urine Glucose 08/09/24 08/09/24 08/09/24 05:25 07:26 09:14 WBC 9.81 RBC 3.73 L Hgb 11.6 D Hct 34.6 L MCV 93 MCH 31.1 MCHC 33.5 RDW 12.7 Plt Count 129 L MPV 10.8 Immature Gran % 0.6 Neutrophils % 85.5 Lymphocytes % 8.7 Monocytes % 5.0 Eosinophils % 0.0 Basophils % 0.2 Nucleated RBC % 0.0 Absolute Neutrophils 8.39 H Absolute Lymphocytes 0.85 L Absolute Monocytes 0.49 Absolute Eosinophils 0.00 Absolute Basophils 0.02 RBC Morphology VBG Lactate Sodium 140 Potassium 4.5 Chloride 105 Carbon Dioxide 27.3 Anion Gap 7.7 BUN 19 H Creatinine 1.4 H Est GFR (CKD-EPI 2020) 37.80 Glucose 153 H Calcium 9.2 Magnesium Total Bilirubin 3.9 H AST 231 H ALT 345 H Alkaline Phosphatase 86 Troponin I Total Protein 6.5 Albumin 2.9 L Lipase 1766 H 1235 H Urine Color Yellow Urine Clarity Clear Urine pH 5.5 Ur Specific [place] <= 1.005 Urine Protein Trace Urine Ketones Trace H Urine Blood Negative Urine Nitrite Negative Urine Bilirubin Negative Urine Urobilinogen 1.0 H Ur Leukocyte Esterase Trace H Urine RBC 0-2 Urine WBC 3-5 Ur Epithelial Cells Rare Urine Crystals Negative Urine Bacteria Few Urine Casts Negative Urine Mucus Trace Ur Culture Indicated? No Urine Glucose Negative Imaging Abdominal ultrasound report/results: report reviewed and image reviewed Additional studies: Abdominal MRI, images reviewed, report pending
--- NOTE | 2024-08-09 11:51 | W.PC.ACHO ---
Registration Status: Primary Language: Preferred Language: ED Information & Data Chief Complaint Abd Prob 08/08/24 21:45 Triage Note pt with diffuse abdominal 08/08/24 20:38 pain for 2 days with onset of nausea and vomiting tonight Medical / Surgical History (Last Reviewed 08/09/24 @ 06:01 by Pipo Byrd MD) Neck pain Skin lesion Dysphonia Face lesion Right hip pain Chest pain Cataract Abnormal mammogram (~07/26/18) Shoulder pain Cardiac murmur Wrist fracture, bilateral Shoulder fracture, left Stress due to spouse with dementia S/p nephrectomy Cataract (04/06/17) (Last Reviewed 08/09/24 @ 06:01 by Pipo Byrd MD) History of kidney surgery H/O spinal fusion S/P removal of left ovary Status post open reduction with internal fixation (ORIF) of fracture of ankle Bimalleolar fracture of right ankle , Ectopic PROCEDURES Most Recent Vital Signs Temperature 35.3 C L 08/09/24 10:53 Temperature Source Tympanic 08/09/24 10:13 Pulse 70 08/09/24 10:53 Pulse 63 08/09/24 06:30 Respiratory Rate 14 08/09/24 10:53 Respiratory Effort Normal, Non-Labored 08/09/24 10:53 Respiratory Depth Normal 08/09/24 10:53 Respiratory Pattern Normal 08/09/24 10:53 Blood Pressure 123/83 08/09/24 10:53 Blood Pressure Mean 96 08/09/24 10:13 Pulse Oximetry 97 08/09/24 10:53 Oxygen Delivery Method Room Air 08/09/24 10:53 Oxygen Flow Rate 0 08/09/24 10:53 Pain Level 3 08/09/24 10:53 Allergies cat dander Allergy (Mild, Verified 08/08/24 20:41) Itching Active Medications Generic Name Dose Route Start Last Admin Trade Name Freq PRN Reason Stop Dose Admin Enoxaparin Sodium 40 mg 08/09/24 08:30 08/09/24 07:34 Enoxaparin 40 Mg/0.4 Ml Syr SC Not Given Q24H YOHANA Ringer's Solution 1,000 mls @ 150 mls/hr 08/09/24 00:15 08/09/24 11:12 IV 150 mls/hr INFUSION YOHANA Administration Sodium Chloride 0 ml 08/09/24 08:30 08/09/24 11:41 Normal Saline Flush 10 Ml Syr IVP Not Given BID YOHANA Timolol Maleate 0 ml 08/09/24 08:30 08/09/24 11:41 Timolol 0.5% 5 Ml Btl OU Not Given BID YOHANA IV IV Catheter Type [Right Wrist] Diffusics IV Catheter Gauge [Right Wrist 20 ] Diet Orders Category Date Time Status Nothing Per Oral [DIET] Nutrition 08/09/24 Breakfast Active Diagnostics 08/09/24 08/09/24 08/09/24 Range/Units 09:14 07:26 05:25 WBC 9.81 (4.4-10.8) 10^3/uL RBC 3.73 L (3.93-5.22) 10^6/uL Hgb 11.6 D (11.2-15.7) g/dL Hct 34.6 L (36.0-46.0) % MCV 93 (80-95) fL MCH 31.1 (27.0-33.0) pg MCHC 33.5 (32.0-36.0) % RDW 12.7 (11.7-14.6) % Plt Count 129 L (130-400) 10^3/uL MPV 10.8 (8.0-11.0) fL Immature Gran % 0.6 % Neutrophils % 85.5 % Lymphocytes % 8.7 % Monocytes % 5.0 % Eosinophils % 0.0 % Basophils % 0.2 % Nucleated RBC % 0.0 (0.0-0.3) % Absolute Neutrophils 8.39 H (1.2-6.7) 10^3/uL Absolute Lymphocytes 0.85 L (1.2-3.4) 10^3/uL Absolute Monocytes 0.49 (0.1-0.8) 10^3/uL Absolute Eosinophils 0.00 (0.0-0.7) 10^3/uL Absolute Basophils 0.02 (0.0-0.2) 10^3/uL RBC Morphology VBG Lactate (<or=2.0) mmol/L Sodium 140 (136-145) mmol/L Potassium 4.5 (3.5-5.1) mmol/L Chloride 105 (98-107) mmol/L Carbon Dioxide 27.3 (21.0-32.0) mmol/L Anion Gap 7.7 (3-11) mmol/L BUN 19 H (7-18) mg/dL Creatinine 1.4 H (0.55-1.02) mg/dL Est GFR (CKD-EPI 2020) 37.80 (mL/min/1.73m2) Glucose 153 H (74-106) mg/dL Calcium 9.2 (8.5-10.1) mg/dL Magnesium (1.8-2.4) mg/dL Total Bilirubin 3.9 H (0.2-1.0) mg/dL AST 231 H (15-37) U/L ALT 345 H (14-59) U/L Alkaline Phosphatase 86 (46-116) U/L Troponin I (<or=51) ng/L Total Protein 6.5 (6.4-8.2) g/dL Albumin 2.9 L (3.4-5.0) g/dL Lipase 1235 H 1766 H (<78) U/L Urine Color Yellow (Yellow) Urine Clarity Clear (Clear) Urine pH 5.5 (5-8) Ur Specific [place] <= 1.005 (1.005-1.025) Urine Protein Trace (Neg-Trace) mg/dL Urine Ketones Trace H (Negative) mg/dL Urine Blood Negative (Negative) Urine Nitrite Negative (Negative) Urine Bilirubin Negative (Negative) Urine Urobilinogen 1.0 H (Up to 0.2) mg/dL Ur Leukocyte Esterase Trace H (Negative) Urine RBC 0-2 (0-2) HPF Urine WBC 3-5 (0-5) HPF Ur Epithelial Cells Rare (Negative) HPF Urine Crystals Negative (Negative) HPF Urine Bacteria Few (Negative) HPF Urine Casts Negative (Negative) LPF Urine Mucus Trace (Negative) Ur Culture Indicated? No Urine Glucose Negative (Negative) mg/dL 08/08/24 08/08/24 08/08/24 Range/Units 23:57 22:31 21:17 WBC 9.21 (4.4-10.8) 10^3/uL RBC 4.74 (3.93-5.22) 10^6/uL Hgb 14.7 (11.2-15.7) g/dL Hct 44.4 (36.0-46.0) % MCV 94 (80-95) fL MCH 31.0 (27.0-33.0) pg MCHC 33.1 (32.0-36.0) % RDW 12.7 (11.7-14.6) % Plt Count (130-400) 10^3/uL MPV (8.0-11.0) fL Immature Gran % 0.2 % Neutrophils % 92.3 % Lymphocytes % 5.2 % Monocytes % 1.7 % Eosinophils % 0.3 % Basophils % 0.3 % Nucleated RBC % 0.0 (0.0-0.3) % Absolute Neutrophils 8.49 H (1.2-6.7) 10^3/uL Absolute Lymphocytes 0.48 L (1.2-3.4) 10^3/uL Absolute Monocytes 0.16 (0.1-0.8) 10^3/uL Absolute Eosinophils 0.03 (0.0-0.7) 10^3/uL Absolute Basophils 0.03 (0.0-0.2) 10^3/uL RBC Morphology Normal VBG Lactate 2.8 H* (<or=2.0) mmol/L Sodium 141 (136-145) mmol/L Potassium 4.4 (3.5-5.1) mmol/L Chloride 102 (98-107) mmol/L Carbon Dioxide 24.5 (21.0-32.0) mmol/L Anion Gap 14.5 H (3-11) mmol/L BUN 18 (7-18) mg/dL Creatinine 1.3 H (0.55-1.02) mg/dL Est GFR (CKD-EPI 2020) 41.31 (mL/min/1.73m2) Glucose 136 H (74-106) mg/dL Calcium 10.0 (8.5-10.1) mg/dL Magnesium 2.0 (1.8-2.4) mg/dL Total Bilirubin 3.7 H (0.2-1.0) mg/dL AST 247 H (15-37) U/L ALT 417 H (14-59) U/L Alkaline Phosphatase 116 (46-116) U/L Troponin I Cancelled 9 8 (<or=51) ng/L Total Protein 8.7 H (6.4-8.2) g/dL Albumin 4.2 (3.4-5.0) g/dL Lipase > 3000 H (<78) U/L Urine Color (Yellow) Urine Clarity (Clear) Urine pH (5-8) Ur Specific [place] (1.005-1.025) Urine Protein (Neg-Trace) mg/dL Urine Ketones (Negative) mg/dL Urine Blood (Negative) Urine Nitrite (Negative) Urine Bilirubin (Negative) Urine Urobilinogen (Up to 0.2) mg/dL Ur Leukocyte Esterase (Negative) Urine RBC (0-2) HPF Urine WBC (0-5) HPF Ur Epithelial Cells (Negative) HPF Urine Crystals (Negative) HPF Urine Bacteria (Negative) HPF Urine Casts (Negative) LPF Urine Mucus (Negative) Ur Culture Indicated? Urine Glucose (Negative) mg/dL Intake and Output - 24 Hour Total 08/08/24 20:37 thru 08/09/24 10:53 Intake Total 2049 Balance 2049 Weight 61.235 kg Intake: IV 2049 Other: Urine Appearance Clear Falls Risk Assessment History of Falls Previous History 08/09/24 10:53 Contributing Factors Impairments 08/09/24 10:53 Ambulatory Aids Independent 08/09/24 10:53 Tubes/Lines W/no contributing factors 08/09/24 10:53 Gait Evaluation W/no contributing factors 08/09/24 10:53 Cognition No cognitive impairment 08/08/24 20:42 Fall Total Score 38 08/09/24 10:53 Level of Risk Moderate Risk 08/09/24 10:53 Problems (Last Reviewed 08/09/24 @ 06:01 by Pipo Byrd MD) Acalculous cholecystitis (Acute) Pancreatitis (Chronic) LFT elevation (Acute) v v v v v v v v v Sending and/or Receiving Nurses: Please use comment section below to note any information pertinent to the patient hand-off not included above. Information / Comments: Report taken form ER nurse and pt arrived to 212 via stretcher Report received from: Alejandrina Villatoro RN
--- NOTE | 2024-08-09 14:38 | PHA.REVIEW2 ---
Pharmacy Admission Review Admission Clinical Review Admission Pharmacy Review: Acalculous cholecystitis (Acute) LFT elevation (Acute) cat dander Allergy (Mild, Verified 08/08/24 20:41) Itching Resuscitation Status Full Code Height 5 ft 4 in Weight 61.235 kg Comments Comments/Follow Ups: Watch platelets and renal function for possible adjustments. LFTs should be monitored as well, currently high. AST 247, ALT 417 Pharmacy Admission Review Renal Dosing Renal Dosing: BUN 19 mg/dL (7-18) H 08/09/24 07:26 Creatinine 1.4 mg/dL (0.55-1.02) H 08/09/24 07:26 Medications needing adjustments: Reviewed (Renal dose adjustment not necessary at this time. Crcl ~30ml/min) Anticoagulation Anticoagulation: Hgb 11.6 g/dL (11.2-15.7) D 08/09/24 07:26 Hct 34.6 % (36.0-46.0) L 08/09/24 07:26 Plt Count 129 10^3/uL (130-400) L 08/09/24 07:26 Creatinine 1.4 mg/dL (0.55-1.02) H 08/09/24 07:26 DVT Prophylaxis: Reviewed Medications: Enoxaparin Opiate Usage Evaluate Pain Scale/Pains Meds: Reviewed (Morphine 2mg Q4H ordered as needed but patient has not needed any yet. May consider dose reduction due to age and renal function) Scheduled Bowel Reg ordered if on Opiates?: Yes Relevant Labs Relevant Labs: Sodium 140 mmol/L (136-145) 08/09/24 07:26 Potassium 4.5 mmol/L (3.5-5.1) 08/09/24 07:26 Chloride 105 mmol/L (98-107) 08/09/24 07:26 Magnesium 2.0 mg/dL (1.8-2.4) 08/08/24 21:17 Electrolytes, C-Reactive P, ESR: Reviewed DM Control DM Control: Reviewed (No history of DM in H&P) Cardiac Review Cardiac Review: Blood Pressure; Heart rate 123/83; 70 Blood Pressure; Heart rate 123/83; 70 Blood Pressure; Heart rate 120/40; 67 Troponin I Cancelled 08/08/24 23:57 BP, HR, EF%: Reviewed (BP stable) QTc Review QTc: Reviewed (QTc 428 per EKG results on admission) Home Meds Home Med List reviewed: Reviewed (Patient is currently NPO. Home medications not ordered yet) Current Meds Current Medication Order Review: Reviewed (Morphine 2mg dose could be reduced due to age and renal function) Comments Comments/Follow Ups: Watch platelets and renal function for possible adjustments. LFTs should be monitored as well, currently high. AST 247, ALT 417
--- NOTE | 2024-08-09 15:40 | PDOC.CMIN ---
Date of service: 08/09/24 Time of Service: 15:41 Care Management Initial Assmt Initial Assessment Reason for Hospitalization: cholelithiasis/pancreatitis Functional Status/Living Situation Patient Presentation: Sonya, who goes by Maulik, was sitting up in bed when CM met with her. Her son, Bert, was visiting. Maulik stated that she is waiting to hear from the MD regarding MRI results, which will dictate the next steps in her plan of care. She stated that she is hoping the results are negative, and that she can be discharged home. Per RN, depending on the MRI results, surgery may be indicated. At this time, the results are not available. Maulik reported that she is independent in the community, and lives with her son in an apartment at her daughter's home in [place]. She is pleasant and engaged well in conversation. CM will continue to follow. 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[employer]) Instrumental Activities of Daily Living (ADLs): Independent Activities/Hobbies/SocialSupport: enjoys knitting and rug hooking Medications Medication Management: No Issues/Barriers identified Physical Functioning/Mobility Assistive Device: uses a pole for walking Advance Directives Advance Directives: Do you have an Advance Directive: Y 12/22/22 13:43 AD On File at [facility]: Y 12/22/22 13:43 Date Asked AD Date Reviewed 08/09/24 08/09/24 00:23 COLST On File at [facility] COLST Date Scanned Code Status Resuscitation Status Full Code Insurance Coverage/Financial Issues Insurance: BC/BS [facility] Advantage Care Team Visit Care Team Role Provider Type Juanito Villanueva MD MD [facility] STAFF PHYSICIAN Tanika Meyer MD, [place] Primary Care Provider , [facility] Viviana Nguyen Other Providers [employer] Fernanda Hamlin Other Providers [employer] Trini Horan Other Providers [employer] Emerita Anna RN Other Providers [employer] Mindi Persaud Other Providers [employer] Jaylyn Mata MD Emergency Provider [facility] STAFF PHYSICIAN Gerry Persaud MD Admit Provider [facility] STAFF PHYSICIAN Attending Provider Discharge Potential Discharge Needs: PCP F/U Appt Anticipated Barriers to Discharge: None Identified Patient/Family Education Needs: Review discharge instructions, discuss Ask Me Three Transportation: Private vehicle Plan: Anticipate Maulik will return home once medically cleared. Her son will drive her home via private vehicle when ready. She will follow up with her PCP and discharge plan of care. CM will continue to follow. Social Determinants of Health Screening Social Determinants of health last assessed in clinic: 08/09/24 Will the Patient Participate in the Screening?: Yes Do you worry about having a steady place to live?: no Problems where you live: no known problems In the past 12 months, have you had to go without electric, gas, oil or water in your home?: no 1. Within the past 12 months, we worried whether our food would run out before we got money to buy more.: Never true 2. Within the past 12 months, the food we bought just didn't last and we didn't have money to get more.: Never true Has lack of transportation kept you from medical appointments or from doing things needed for daily living?: no Has anyone in your life made you feel unsafe or unsupported?: no How hard is it for you to pay for the very basics like food, housing, medical care, and heating? Would you say it is:: Not hard at all Do you want help finding or keeping work or a job?: I do not need or want help If for any reason you need help with day-to-day activities such as bathing, preparing meals, shopping, managing finances, etc., do you get the help you need?: I need a lot more help How often do you feel lonely or isolated from those around you?: Never Do you speak a language other than [place] at home?: No Does the patient want assistance with any of the above?: No Health Related Social Needs Health related social needs: problems with daily activities (Z73.9) PFSH All Active Problems (Updated 08/09/24 @ 11:28 by Pepper Villafana MD) Acalculous cholecystitis (Acute) Pancreatitis (Chronic) Balance disorder (Acute) Coordination abnormal (Acute) Fatigue (Acute) Abnormal EKG (Acute) Abnormal heart rhythm (Acute) Anemia (Chronic) LFT elevation (Acute) B12 deficiency (Acute) Arthritis of left wrist (Acute) Displaced fracture of distal end of left radius with malunion (Acute) Polyneuropathic pain (Acute) Tendonitis of left rotator cuff (Chronic) 80 mg Depo-medrol injection: 04/19/23 Bunion of great toe of right foot (Acute) Memory deficit (Acute) Environmental allergies (Acute) Rupture of hip abductor tendon (Acute) s/p right trochanteric bursectomy, abductor tendon repair and IT band lengthening DOS: 03/26/20 Degenerative joint disease of right hip (Acute) Trochanteric bursitis, right hip (Chronic) s/p right trochanteric bursectomy, abductor tendon repair and IT band lengthening DOS: 03/26/20 Injection: 11/27/2019; 08/07/2019 Spinal stenosis (Chronic 09/03/14) Seasonal allergies (Chronic 07/27/13) Impaired renal function (Chronic 07/27/13) 1969- 5 kidney surgeries R - 1; L -3 surgeries and then removal. Ovarian V Crossing syndrome Hypothyroidism (Chronic 09/10/14) Hepatitis C (Chronic) s/p tx Glaucoma (Chronic 07/27/13) Esophageal reflux (Chronic) Depression (Chronic) Back pain (Chronic) chronic chronic narcotics MRi and spinal at [facility]: scoliosis and spinal stenosis Chronic pain disorder (Chronic 12/10/16) Medical History Neck pain Skin lesion Dysphonia Face lesion Right hip pain Chest pain Cataract Abnormal mammogram (~07/26/18) 6m f/u Shoulder pain Cardiac murmur mid-systolic click Wrist fracture, bilateral 2006;1989's Shoulder fracture, left 07/27/13 Stress due to spouse with dementia 03/04/15 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 H/O spinal fusion L3-L5 S/P removal of left ovary 07/27/13 tubal Status post open reduction with internal fixation (ORIF) of fracture of ankle Bimalleolar fracture of right ankle S/P ORIF DOS: 02/05/18 , Ectopic Left PROCEDURES SOLITARY KIDNEY NEPHRECT left SPINAL FUSION NOS L ovarian cystectomy - benign teratoma Family History Mother , AGE 85 Breast cancer Lung cancer Father , AGE 63 CAD (coronary artery disease) Hypertension Heart disease Alcohol abuse Sister , AGE 45 Myocardial infarction Heart disease Alcohol abuse Brother Arrhythmia Hypertension Heart disease Son Hypertension Hyperlipidemia Daughter No problems noted. Maternal Grandfather , age 58 Nephritis Paternal Grandfather , 50s Esophageal cancer Maternal Grandmother , 70s Stroke Hypertension Paternal Grandmother , age 94 Dementia Social History Smoking/Tobacco Use Status: Never Tobacco: How many years used: 0 Second Hand Exposure: Yes Smoking risk assessment performed?: Yes Alcohol Intake: current Alcohol Intake frequency: a few times a week Alcohol type: wine Drug use: Never Substance use type: does not use Caregiver/Support person: No Household members: family and other Details: great-grandson Housing: apartment Communication Needs: Hard of Hearing and Corrective Lenses Do you need help understanding health information?: Never Pets and animals: No Sexually active: No Do you think of yourself as: straight/heterosexual Current gender identity: female What is your relationship status?: How often do you talk on the phone with friends or family?: three or more times per week How often do you get together with friends or relatives?: three or more times per week How often do you attend scientology or yarsani services?: decline to answer Do you belong to any clubs or organized social groups?: yes Panel score (0-1 are the most socially isolated patients): 2 What type of physical activity do you participate in: walking Duration: decline to answer Frequency: 1-2 times per week Leonie/Buddhism: Islam Special leonie needs: No Seatbelt use: always Drive intox or ride w/intox 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
--- NOTE | 2024-08-09 17:11 | W.PALLCONSUL ---
Date of service: 08/09/24 Time of Service: 17:11 History of Present Illness History of Present Illness Chief Complaint: Abdominal Pain Narrative: Sonya Willingham as she prefers to be called is an 79-year-old woman whom I know very well. I have been her PCP for approximately 20 years. 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 She has downsized her home to a small apartment. She does have some early cognitive changes. I had seen her recently in the office and at that time she stated that she had some intermittent abdominal pain. She did not want further workup at that time. Unfortunately the pain has escalated and was severe enough that she had decreased p.o. intake and was extremely fatigued. She came to the emergency room and was found that she had pancreatitis and probable gallbladder disease. She has gone through an abdominal CAT scan, abdominal ultrasound, MRCP. She presently is cooling down her pancreas and has hopes to have gallbladder surgery. I am seeing her today to clarify CODE STATUS and goals of care We have talked about CODE STATUS in the past. She had elected during her yearly exams to be a full code. She understands that during surgery she would be a full code, and is not really sure how aggressive she would want to be. Her son was in the room and she wanted to talk about it with her children. Consults Consult date: 08/09/24 Requesting physician: Juanito Villanueva Assessment and Plan Assessment and plan (1) Pancreatitis: Status: Chronic (2) Acalculous cholecystitis: Status: Acute Assessment and plan: Overall Sonya is doing very well. She is awaiting definitive treatment with probable gallbladder surgery. She was extremely happy that Dr. Villanueva came in and explained the MRCP to her. She felt that it made all the difference in the world understanding the procedure she needed to go through. We did talk about goals of care. She wants to return to her apartment. She is very involved in her family and hopes to continue this CODE STATUS she is going to talk to her family about this. Please note her son was in the room at the time that we started the conversation. We talked about how important it was that if they were to make decisions for her that they would make them for what she wants not what they want. Today she chooses to be a full code but would like to think about it and consider a change to this in the future I have spent more than 50% of time in counseling with this patient. (3) Advanced care planning/counseling discussion: Status: Acute Review of Systems Narrative: Abdominal pain, severe fatigue, no chest pain PFSH All Active Problems (Updated 08/09/24 @ 20:48 by Tanika Meyer MD, [place]) Advanced care planning/counseling discussion (Acute) Acalculous cholecystitis (Acute) Pancreatitis (Chronic) Balance disorder (Acute) Coordination abnormal (Acute) Fatigue (Acute) Abnormal EKG (Acute) Abnormal heart rhythm (Acute) Anemia (Chronic) LFT elevation (Acute) B12 deficiency (Acute) Arthritis of left wrist (Acute) Displaced fracture of distal end of left radius with malunion (Acute) Polyneuropathic pain (Acute) Tendonitis of left rotator cuff (Chronic) 80 mg Depo-medrol injection: 04/19/23 Bunion of great toe of right foot (Acute) Memory deficit (Acute) Rupture of hip abductor tendon (Acute) s/p right trochanteric bursectomy, abductor tendon repair and IT band lengthening DOS: 03/26/20 Environmental allergies (Acute) Degenerative joint disease of right hip (Acute) Trochanteric bursitis, right hip (Chronic) s/p right trochanteric bursectomy, abductor tendon repair and IT band lengthening DOS: 03/26/20 Injection: 11/27/2019; 08/07/2019 Spinal stenosis (Chronic 09/03/14) Seasonal allergies (Chronic 07/27/13) Impaired renal function (Chronic 07/27/13) 1969- 5 kidney surgeries R - 1; L -3 surgeries and then removal. Ovarian V Crossing syndrome Hypothyroidism (Chronic 09/10/14) Hepatitis C (Chronic) s/p tx Glaucoma (Chronic 07/27/13) Esophageal reflux (Chronic) Depression (Chronic) Back pain (Chronic) chronic chronic [place] [facility] [place]oliosis and spinal stenosis Chronic pain disorder (Chronic 12/10/16) Medical History Neck pain Skin lesion Dysphonia Face lesion Right hip pain Chest pain Cataract Abnormal mammogram (~07/26/18) 6m f/u Shoulder pain Cardiac murmur mid-systolic click Wrist fracture, bilateral 2006; Shoulder fracture, left 07/27/13 Stress due to spouse with dementia 03/04/15 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 H/O spinal fusion L3-L5 S/P removal of left ovary 07/27/13 tubal Status post open reduction with internal fixation (ORIF) of fracture of ankle Bimalleolar fracture of right ankle S/P ORIF DOS: 02/05/18 , Ectopic Left PROCEDURES SOLITARY KIDNEY NEPHRECT left SPINAL FUSION NOS L ovarian cystectomy - benign teratoma Family History Mother , AGE 85 Breast cancer Lung cancer Father , AGE 63 CAD (coronary artery disease) Hypertension Heart disease Alcohol abuse Sister , AGE 45 Myocardial infarction Heart disease Alcohol abuse Brother Arrhythmia Hypertension Heart disease Son Hypertension Hyperlipidemia Daughter No problems noted. Maternal Grandfather , age 58 Nephritis Paternal Grandfather , 50s Esophageal cancer Maternal Grandmother , 70s Stroke Hypertension Paternal Grandmother , age 94 Dementia Social History Smoking/Tobacco Use Status: Never Tobacco: How many years used: 0 Second Hand Exposure: Yes Smoking risk assessment performed?: Yes Alcohol Intake: current Alcohol Intake frequency: a few times a week Alcohol type: wine Drug use: Never Substance use type: does not use Caregiver/Support person: No Household members: family and other Details: great-grandson Housing: apartment Communication Needs: Hard of Hearing and Corrective Lenses Do you need help understanding health information?: Never Pets and animals: No Sexually active: No Do you think of yourself as: straight/heterosexual Current gender identity: female What is your relationship status?: How often do you talk on the phone with friends or family?: three or more times per week How often do you get together with friends or relatives?: three or more times per week How often do you attend samaritan or jew services?: decline to answer Do you belong to any clubs or organized social groups?: yes Panel score (0-1 are the most socially isolated patients): 2 What type of physical activity do you participate in: walking Duration: decline to answer Frequency: 1-2 times per week Leonie/Zoroastrianism: [employer] Special leonie needs: No Seatbelt use: always Drive intox or ride w/intox drivers' cash clerk: No Do you feel safe at home: Yes Do you feel safe in your relationship?: Yes Additional Social history: Exam Narrative Exam Narrative: Martha is a slim 79-year-old woman. She had good recollection of her past several days. Her lungs were clear without rales. Her heart was regular and rate controlled. Her abdomen was mildly distended and mildly tender. Mood obviously concerned but at the same time did not appear depressed Results Last Vital Signs Temp 95.5 F L 08/09/24 10:53 Pulse 70 08/09/24 10:53 Resp 14 08/09/24 10:53 BP 123/83 08/09/24 10:53 Pulse Ox 97 08/09/24 10:53 Labs 08/09/24 07:26 08/09/24 07:26 Labs: Laboratory Results - last 24 hr 08/08/24 08/08/24 08/08/24 21:17 22:31 23:57 WBC 9.21 RBC 4.74 Hgb 14.7 Hct 44.4 MCV 94 MCH 31.0 MCHC 33.1 RDW 12.7 Plt Count MPV Immature Gran % 0.2 Neutrophils % 92.3 Lymphocytes % 5.2 Monocytes % 1.7 Eosinophils % 0.3 Basophils % 0.3 Nucleated RBC % 0.0 Absolute Neutrophils 8.49 H Absolute Lymphocytes 0.48 L Absolute Monocytes 0.16 Absolute Eosinophils 0.03 Absolute Basophils 0.03 RBC Morphology Normal VBG Lactate 2.8 H* Sodium 141 Potassium 4.4 Chloride 102 Carbon Dioxide 24.5 Anion Gap 14.5 H BUN 18 Creatinine 1.3 H Est GFR (CKD-EPI 2020) 41.31 Glucose 136 H Calcium 10.0 Magnesium 2.0 Total Bilirubin 3.7 H AST 247 H ALT 417 H Alkaline Phosphatase 116 Troponin I 8 9 Cancelled Total Protein 8.7 H Albumin 4.2 Lipase > 3000 H Urine Color Urine Clarity Urine pH Ur Specific [place] Urine Protein Urine Ketones Urine Blood Urine Nitrite Urine Bilirubin Urine Urobilinogen Ur Leukocyte Esterase Urine RBC Urine WBC Ur Epithelial Cells Urine Crystals Urine Bacteria Urine Casts Urine Mucus Ur Culture Indicated? Urine Glucose 08/09/24 08/09/24 08/09/24 05:25 07:26 09:14 WBC 9.81 RBC 3.73 L Hgb 11.6 D Hct 34.6 L MCV 93 MCH 31.1 MCHC 33.5 RDW 12.7 Plt Count 129 L MPV 10.8 Immature Gran % 0.6 Neutrophils % 85.5 Lymphocytes % 8.7 Monocytes % 5.0 Eosinophils % 0.0 Basophils % 0.2 Nucleated RBC % 0.0 Absolute Neutrophils 8.39 H Absolute Lymphocytes 0.85 L Absolute Monocytes 0.49 Absolute Eosinophils 0.00 Absolute Basophils 0.02 RBC Morphology VBG Lactate Sodium 140 Potassium 4.5 Chloride 105 Carbon Dioxide 27.3 Anion Gap 7.7 BUN 19 H Creatinine 1.4 H Est GFR (CKD-EPI 2020) 37.80 Glucose 153 H Calcium 9.2 Magnesium Total Bilirubin 3.9 H AST 231 H ALT 345 H Alkaline Phosphatase 86 Troponin I Total Protein 6.5 Albumin 2.9 L Lipase 1766 H 1235 H Urine Color Yellow Urine Clarity Clear Urine pH 5.5 Ur Specific [place] <= 1.005 Urine Protein Trace Urine Ketones Trace H Urine Blood Negative Urine Nitrite Negative Urine Bilirubin Negative Urine Urobilinogen 1.0 H Ur Leukocyte Esterase Trace H Urine RBC 0-2 Urine WBC 3-5 Ur Epithelial Cells Rare Urine Crystals Negative Urine Bacteria Few Urine Casts Negative Urine Mucus Trace Ur Culture Indicated? No Urine Glucose Negative Imaging Abdomen CT scan report/results: report reviewed Additional studies: MRCP - distened GB, no stones Time Spent Time Spent with Patient Time Spent(min): 32
[2024-08-09] MEDS: Acetaminophen 325 MG TAB PO (17:18)
[2024-08-09] MEDS: Timolol 0.5% 5 ML BTL OU (19:37)
[2024-08-09] MEDS: Normal Saline Flush 10 ML SYR IVP (19:38)
[2024-08-09] MEDS: HYDROcodone 5/Acetaminophen 325 TAB PO (19:45)
[2024-08-10] MEDS: Lactated Ringers 1,000 ML 150 ML IV (01:12)
[2024-08-10 02:54] VITALS: BP 110/54; PULSE 56; RESP 19; TEMP 36.7; O2SAT 94
[2024-08-10 07:14] VITALS: BP 99/55; PULSE 58; RESP 12; TEMP 37.2; O2SAT 95
[2024-08-10] MEDS: Timolol 0.5% 5 ML BTL OU ×2 (08:10→20:41)
[2024-08-10] MEDS: HYDROcodone 5/Acetaminophen 325 TAB PO (08:10)
[2024-08-10] MEDS: Docusate Sodium 100 MG CAP PO (08:28)
[2024-08-10 08:34] LABS: ALT 297 U/L (14-59); AST 143 U/L (15-37); Albumin 2.8 g/dL (3.4-5.0); Alkaline Phosphatase 81 U/L (46-116); Anion Gap 6.7 mmol/L (3-11); BUN 14 mg/dL (7-18); Bilirubin, Total 1.4 mg/dL (0.2-1.0); CO2 28.3 mmol/L (21.0-32.0); CREATININE 1.3 mg/dL (0.55-1.02); Calcium 9.3 mg/dL (8.5-10.1); Chloride 110 mmol/L (98-107); Estimated GFR 41.31 (mL/min/1.73m2); Glucose 95 mg/dL (74-106); Sodium 145 mmol/L (136-145); Total Protein 6.3 g/dL (6.4-8.2)
[2024-08-10 11:13] VITALS: BP 144/74; PULSE 63; RESP 16; TEMP 36.6; O2SAT 95
--- NOTE | 2024-08-10 14:27 | W.PALPGNOTE ---
Date of service: 08/10/24 Time of Service: 12:30 Assessment and Plan Assessment and plan (1) Advanced care planning/counseling discussion: Status: Acute (2) Pancreatitis: Status: Chronic (3) Acalculous cholecystitis: Status: Acute Assessment and plan: She is hoping for surgery soon With her rales etc. I think she would do very well to ambulate in the halls. I went and talked with nursing and they could not see a reason that she is not able to. When I went back in the room to tell the patient she did have a nurse and they are helping her to get up off the bed and ambulate I went to speak to hospitalist but was unable to locate him Subjective Subjective Interval history since last seen: Awaiting surgery. Would like to walk but doesn't think she is allowed to. Has been very happy with Dr. Villanueva's explanations of what is going on. She understands that her pancreatitis will not improve until she gets her gallbladder out Exam Narrative Exam Narrative: Bunelida is in the bed. She is smiling. She does have gas. She has definite rales on the left side. Her abdomen is tender but there are good bowel sounds Objective Last Vital Signs Temp 97.9 F 08/10/24 11:13 Pulse 63 08/10/24 11:13 Resp 16 08/10/24 11:13 BP 144/74 H 08/10/24 11:13 Pulse Ox 95 08/10/24 11:13 Laboratory Results - last 24 hr 08/10/24 08:03 Sodium 145 Potassium 4.0 Chloride 110 H Carbon Dioxide 28.3 Anion Gap 6.7 BUN 14 Creatinine 1.3 H Est GFR (CKD-EPI 2020) 41.31 Glucose 95 Calcium 9.3 Total Bilirubin 1.4 H AST 143 H ALT 297 H Alkaline Phosphatase 81 Total Protein 6.3 L Albumin 2.8 L
[2024-08-10 15:17] VITALS: BP 126/71; PULSE 62; RESP 16; TEMP 36.6; O2SAT 95
--- NOTE | 2024-08-10 16:34 | CMPROGNOTE_ITS ---
Date of service: 08/10/24 Time of Service: 16:34 Care Management Progress Note Progress Note Text Progress Note Text: Maulik was resting in bed under a hand made quilt when CM met with her. Her son was visiting, and Maulik woke up from her nap easily. She reported that she has spoken to two MD's today- the hospitalist and a surgeon, and she is unclear what her plan is at this time. Per report, MD is [place] [facility] [place]. Maulik is looking forward to returning home, but is comfortable at this time, and is awaiting further communication from MD. CM will continue to follow. Discharge Potential Discharge Needs: PCP F/U Appt Anticipated Barriers to Discharge: None Identified Patient/Family Education Needs: Review discharge instructions, discuss Ask Me Three Transportation: Private vehicle Plan: Anticipate Maulik will return home once medically cleared. Her son will drive her home via private vehicle when ready. She will follow up with her PCP and discharge plan of care. CM will continue to follow. Social Determinants of Health Screening Social Determinants of health last assessed in clinic: 08/10/24 Will the Patient Participate in the Screening?: Yes Do you worry about having a steady place to live?: no Problems where you live: no known problems In the past 12 months, have you had to go without electric, gas, oil or water in your home?: no 1. Within the past 12 months, we worried whether our food would run out before we got money to buy more.: Never true 2. Within the past 12 months, the food we bought just didn't last and we didn't have money to get more.: Never true Has lack of transportation kept you from medical appointments or from doing things needed for daily living?: no Has anyone in your life made you feel unsafe or unsupported?: no How hard is it for you to pay for the very basics like food, housing, medical care, and heating? Would you say it is:: Not hard at all Do you want help finding or keeping work or a job?: I do not need or want help If for any reason you need help with day-to-day activities such as bathing, preparing meals, shopping, managing finances, etc., do you get the help you need?: I need a lot more help How often do you feel lonely or isolated from those around you?: Never Do you speak a language other than Citizen [place] at home?: No Does the patient want assistance with any of the above?: No Health Related Social Needs Health related social needs: problems with daily activities (Z73.9)
--- NOTE | 2024-08-10 17:05 | CHAPLAIN ---
Maulik was resting in bed when I visited. Her son Bert was with her. 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 She is waiting on the test results.
--- NOTE | 2024-08-10 17:35 | W.PM.PROGNOT ---
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 Byrd (2) LFT elevation: Status: Acute Assessment and plan: -also likely due to above -LFTs all improving (3) S/p nephrectomy: Assessment and plan: noted dvpt with lovenox Subjective Subjective Interval history since last seen: Patient states that her abdominal pain is improving. She understands that Dr. Byrd of General Surgery will soon be in to see her and discuss her treatment plan. Exam Narrative Exam Narrative: well appearing female laying in bed in no acute distress, AOx4, heart RRR, lungs CTAB, abdomen soft, non-tender, non-distended Objective Last Vital Signs Temp 97.9 F 08/10/24 15:17 Pulse 62 08/10/24 15:17 Resp 16 08/10/24 15:17 BP 126/71 08/10/24 15:17 Pulse Ox 95 08/10/24 15:17 Laboratory Results - last 24 hr 08/10/24 08:03 Sodium 145 Potassium 4.0 Chloride 110 H Carbon Dioxide 28.3 Anion Gap 6.7 BUN 14 Creatinine 1.3 H Est GFR (CKD-EPI 2020) 41.31 Glucose 95 Calcium 9.3 Total Bilirubin 1.4 H AST 143 H ALT 297 H Alkaline Phosphatase 81 Total Protein 6.3 L Albumin 2.8 L PAWSS Have you Been Recently Intoxicated or Drunk Within the Last 30 days?: No Have you Ever Experienced Previous Episodes of Alcohol Withdrawal?: No Have you ever Experienced Withdrawal Seizures?: No Have you ever Experienced Delirium Tremens(DT)s?: No Have you ever undergone Alcohol Rehabilitation Treatment (i.e, inpt ot outpatient treatment programs)?: No Have you ever Experienced Blackouts?: No Have you ever Combined Alcohol with other Downers within the last 90 days?: No Have you ever Combined Alcohol with any other Substance of Abuse during the last 90 days?: No Positive Blood Alcohol level on Presentation? [PCS.BAL]: No Evidence of Increased Autonomic Activity (i.e. HR>120, tremor, sweating, agitation, nausea)?: No Result: 0 Time Spent with Patient Time Spent with Patient: >50 minutes Time was spent: preparing to see the patient(eg.review tests), obtaining and/or reviewing separately otained hiistory, ordering medications,tests, procedures, referring, communicating with other health dialysis patient care technician, indepentently interpreting results, counseling the patient and care coordination
--- NOTE | 2024-08-10 17:41 | PGE_ITS ---
Date of Service Date of service: 08/10/24 Time of Service: 17:42 Assessment and Plan Assessment and plan (1) Pancreatitis: Status: Chronic Assessment and plan: I spoke with the personal computer network analyst at [facility], as well as [facility] throughout the course of today. Drs. Villanueva, Jamia, and I also discussed Sonya, and her recent hospitalization. Clearly, the pathophysiology that is occurring is obstruction of the common bile duct. How the gallbladder, and duodenal diverticulum contribute to this, and perhaps interact, is quite difficult to say. I have not been able to find a personal computer network analyst who feel confident that sphincterotomy and ERCP would provide meaningful benefit. But I am also not entirely convinced that removal of the gallbladder will resolve the issue. At this point, Sonya is improving. Her symptoms are better, and her lipase is dropping quite quickly. In that regards, there is far less urgency to the decision making. For now, I think it is very reasonable to advance her diet a little bit. Assuming the biochemistries continue to improve, and her symptoms are okay at this point, I would discharge her home, and give her a week or 2 for the pancreatitis to completely resolved. At that point, my inclination is probably to move forward with cholecystectomy with cautious optimism that that will fix the problem. Subjective Subjective Interval history since last seen: Overall, Sonya seems to be feeling better, and her liver function tests, and lipase are improving. Exam GI Other: Abdomen is soft, and not at all distended. She is not really tender Objective Last Vital Signs Temp 97.9 F 08/10/24 15:17 Pulse 62 08/10/24 15:17 Resp 16 08/10/24 15:17 BP 126/71 08/10/24 15:17 Pulse Ox 95 08/10/24 15:17 Laboratory Results - last 24 hr 08/10/24 08:03 Sodium 145 Potassium 4.0 Chloride 110 H Carbon Dioxide 28.3 Anion Gap 6.7 BUN 14 Creatinine 1.3 H Est GFR (CKD-EPI 2020) 41.31 Glucose 95 Calcium 9.3 Total Bilirubin 1.4 H AST 143 H ALT 297 H Alkaline Phosphatase 81 Total Protein 6.3 L Albumin 2.8 L PAWSS Have you Been Recently Intoxicated or Drunk Within the Last 30 days?: No Have you Ever Experienced Previous Episodes of Alcohol Withdrawal?: No Have you ever Experienced Withdrawal Seizures?: No Have you ever Experienced Delirium Tremens(DT)s?: No Have you ever undergone Alcohol Rehabilitation Treatment (i.e, inpt ot outpatient treatment programs)?: No Have you ever Experienced Blackouts?: No Have you ever Combined Alcohol with other Downers within the last 90 days?: No Have you ever Combined Alcohol with any other Substance of Abuse during the last 90 days?: No Positive Blood Alcohol level on Presentation? [PCS.BAL]: No Evidence of Increased Autonomic Activity (i.e. HR>120, tremor, sweating, agitation, nausea)?: No Result: 0 Time Spent with Patient Time Spent with Patient: >50 minutes Time was spent: preparing to see the patient(eg.review tests), obtaining and/or reviewing separately otained hiistory, referring, communicating with other health care assistant, indepentently interpreting results, counseling the patient and care coordination
[2024-08-10 19:05] VITALS: BP 135/72; PULSE 62; RESP 16; TEMP 37.7; O2SAT 98
[2024-08-10] MEDS: Normal Saline Flush 10 ML SYR IVP (20:40)
[2024-08-10 23:09] VITALS: BP 130/69; PULSE 74; RESP 18; TEMP 37; O2SAT 97
[2024-08-11 06:59] LABS: ALT 221 U/L (14-59); AST 72 U/L (15-37); Albumin 2.9 g/dL (3.4-5.0); Alkaline Phosphatase 79 U/L (46-116); Bilirubin, Direct 0.6 mg/dL (0.0-0.2); Bilirubin, Total 1.1 mg/dL (0.2-1.0); Lipase 31 U/L (<78); Total Protein 6.6 g/dL (6.4-8.2)
[2024-08-11 07:20] VITALS: BP 143/78; PULSE 66; RESP 12; TEMP 37.2; O2SAT 96
[2024-08-11] MEDS: HYDROcodone 5/Acetaminophen 325 TAB PO (07:41)
[2024-08-11] MEDS: Normal Saline Flush 10 ML SYR IVP (07:42)
--- NOTE | 2024-08-11 10:31 | DSE_ITS ---
Date of service: 08/11/24 Time of Service: 10:31 DS: Diagnosis Discharge Diagnosis (1) Advanced care planning/counseling discussion: Status: Acute (2) Pancreatitis: Status: Chronic (3) Acalculous cholecystitis: Status: Acute Discharge Plan Disposition Patient Disposition: Home Condition: Good Discharge Details Reason For Visit: cholelithiasis Admit Date/Time: 08/09/24 00:05 Admit Provider: Gerry Persaud Attending Provider: Gerry Persaud Primary Care Provider: Tanika Meyer [facility] Hospital Course: Patient initially presented with signs and symptoms that appear to have been secondary to gallstone pancreatitis or cholecystitis. 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 Case was discussed with general surgeon Dr. Pipo Byrd who also consulted both [facility] and [facility] gastroenterology, who did not believe the patient warranted intervention including ERCP. Dr. Byrd discussed with the patient and ultimately determined patient would have very close follow-up next , 08/17/2024 to discuss possible outpatient cholecystectomy. Given that patient tolerated advancement of diet it was determined that she was stable for discharge home. Home Meds and New Rx's Prescriptions: Continued albuterol sulfate [ProAir HFA] 90 mcg/actuation HFA aerosol inhaler 1 - 2 puff Inhalation Q6H PRN Qty: 1 12RF metoprolol tartrate 25 mg tablet 12.5 mg PO DAILY PRN (Reason: palpitation) Qty: 45 6RF Rx Instructions: 12.5MG DAILY PRN memantine 10 mg tablet 10 mg PO BID Qty: 180 6RF gabapentin 300 mg capsule 600 mg PO BID Qty: 360 3RF mecobalamin (vitamin B12) 1,000 mcg tablet,chewable 1,000 mcg PO DAILY Qty: 90 4RF timolol 0.5 % drops 1 drp ophthalmic (eye) BID multivitamin 1 EACH tablet 1 ea PO DAILY lisinopril 20 mg tablet 20 mg PO DAILY Qty: 90 5RF levothyroxine 50 mcg tablet 50 mcg PO DAILY Qty: 90 7RF hydrocodone-acetaminophen 5-325 mg tablet 1 tab PO TID MDD 3 PRN (Reason: pain) Qty: 90 0RF Discharge Instructions Activity:: Activity as Tolerated Equipment/Supplies:: No Equipment Needed Diet:: Low-fat Discharge Orders Discharge Orders: Discharge Order (Routine); Ordered 08/11/24 Ordered By: Juanito Villanueva DS: Summary Time Spent with Patient providing and/or coordinating discharge services: Greater than 30 minutes Status at Discharge Functional status at discharge: independent ambulation Overall status at discharge: patient is back to baseline Mental Status: mental status grossly normal Speech and Movement: speech and movement normal Mood: congruent mood Affect: normal affect Quality:SDOH Health Related Social Needs: Health related social needs daily activities Exam Narrative Exam Narrative: well appearing female laying in bed in no acute distress, AOx4, heart RRR, lungs CTAB, abdomen soft, non-tender, non-distended Psych Mental Status: mental status grossly normal Speech and Movement: speech and movement normal Mood: congruent mood Affect: normal affect DS: Data Vitals/I&O Vitals and I&O: Vital Signs Temperature 99.0 F 08/11/24 07:20 Temperature Source Temporal Artery Scan 08/11/24 07:20 Pulse 66 08/11/24 07:20 Pulse 63 08/09/24 06:30 Respiratory Rate 12 08/11/24 07:20 Respiratory Effort Normal, Non-Labored 08/09/24 10:53 Respiratory Depth Normal 08/09/24 10:53 Respiratory Pattern Normal 08/09/24 10:53 Blood Pressure 143/78 H 08/11/24 07:20 Blood Pressure Mean 99 08/11/24 07:20 Pulse Oximetry 96 08/11/24 07:20 Oxygen Delivery Method Room Air 08/11/24 07:20 Oxygen Flow Rate 0 08/11/24 07:20 Pain Level 6 08/11/24 07:41 Comment RN notified 08/11/24 07:20 Intake & Output 08/10/24 08/11/24 08/11/24 17:59 05:59 17:59 Intake Total 1100 / 1100 300 / 300 Output Total 600 / 600 Balance 500 / 500 300 / 300 Weight 143 lb 134 lb 11.239 oz Intake: IV 1000 / 1000 Oral 100 / 100 300 / 300 Output: Urine 600 / 600 Other: Urine Color Yellow Straw Urine Appearance Clear Urine Odor Normal Comment Pt missed the hat. voided in toilet pt voids independently in room Data Completed and Pending Labs on day of discharge: Labs from last 24 hours 08/11/24 05:57 Total Bilirubin 1.1 H Conjugated Bilirubin 0.6 H AST 72 H ALT 221 H Alkaline Phosphatase 79 Total Protein 6.6 Albumin 2.9 L Lipase 31 PFSH All Active Problems (Updated 08/09/24 @ 20:48 by Tanika Meyer MD, [place]) Advanced care planning/counseling discussion (Acute) Acalculous cholecystitis (Acute) Pancreatitis (Chronic) Balance disorder (Acute) Coordination abnormal (Acute) Fatigue (Acute) Abnormal EKG (Acute) Abnormal heart rhythm (Acute) Anemia (Chronic) LFT elevation (Acute) B12 deficiency (Acute) Arthritis of left wrist (Acute) Displaced fracture of distal end of left radius with malunion (Acute) Polyneuropathic pain (Acute) Tendonitis of left rotator cuff (Chronic) 80 mg Depo-medrol injection: 04/19/23 Bunion of great toe of right foot (Acute) Memory deficit (Acute) Environmental allergies (Acute) Rupture of hip abductor tendon (Acute) s/p right trochanteric bursectomy, abductor tendon repair and IT band lengthening DOS: 03/26/20 Degenerative joint disease of right hip (Acute) Trochanteric bursitis, right hip (Chronic) s/p right trochanteric bursectomy, abductor tendon repair and IT band lengthening DOS: 03/26/20 Injection: 11/27/2019; 08/07/2019 Spinal stenosis (Chronic 09/03/14) Seasonal allergies (Chronic 07/27/13) Impaired renal function (Chronic 07/27/13) 1969- 5 kidney surgeries R - 1; L -3 surgeries and then removal. Ovarian V Crossing syndrome Hypothyroidism (Chronic 09/10/14) Hepatitis C (Chronic) s/p tx Glaucoma (Chronic 07/27/13) Esophageal reflux (Chronic) Depression (Chronic) Back pain (Chronic) chronic chronic narcotics MRi and spinal at [facility]: scoliosis and spinal stenosis Chronic pain disorder (Chronic 12/10/16) Medical History Neck pain Skin lesion Dysphonia Face lesion Right hip pain Chest pain Cataract Abnormal mammogram (~07/26/18) 6m f/u Shoulder pain Cardiac murmur mid-systolic click Wrist fracture, bilateral Shoulder fracture, left 07/27/13 Stress due to spouse with dementia 03/04/15 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 H/O spinal fusion L3-L5 S/P removal of left ovary 07/27/13 tubal Status post open reduction with internal fixation (ORIF) of fracture of ankle Bimalleolar fracture of right ankle S/P ORIF DOS: 02/05/18 , Ectopic Left PROCEDURES SOLITARY KIDNEY NEPHRECT left SPINAL FUSION NOS L ovarian cystectomy - benign teratoma Family History Mother , AGE 85 Breast cancer Lung cancer Father , AGE 63 CAD (coronary artery disease) Hypertension Heart disease Alcohol abuse Sister , AGE 45 Myocardial infarction Heart disease Alcohol abuse Brother Arrhythmia Hypertension Heart disease Son Hypertension Hyperlipidemia Daughter No problems noted. Maternal Grandfather , age 58 Nephritis Paternal Grandfather , 50s Esophageal cancer Maternal Grandmother , 70s Stroke Hypertension Paternal Grandmother , age 94 Dementia Social History Smoking/Tobacco Use Status: Never Tobacco: How many years used: 0 Second Hand Exposure: Yes Smoking risk assessment performed?: Yes Alcohol Intake: current Alcohol Intake frequency: a few times a week Alcohol type: wine Drug use: Never Substance use type: does not use Caregiver/Support person: No Household members: family and other Details: great-grandson Housing: apartment Communication Needs: Hard of Hearing and Corrective Lenses Do you need help understanding health information?: Never Pets and animals: No Sexually active: No Do you think of yourself as: straight/heterosexual Current gender identity: female What is your relationship status?: How often do you talk on the phone with friends or family?: three or more times per week How often do you get together with friends or relatives?: three or more times per week How often do you attend shinto or evangelical services?: decline to answer Do you belong to any clubs or organized social groups?: yes Panel score (0-1 are the most socially isolated patients): 2 What type of physical activity do you participate in: walking Duration: decline to answer Frequency: 1-2 times per week Leonie/Pentecostal: Amish Special leonie needs: No Seatbelt use: always Drive intox or ride w/intox tow driver: No Do you feel safe at home: Yes Do you feel safe in your relationship?: Yes Additional Social history: Time Spent with Patient Time Spent with Patient: <45 minutes Time was spent: preparing to see the patient(eg.review tests), obtaining and/or reviewing separately otained hiistory, ordering medications,tests, procedures, referring, communicating with other health neonatal intensive care unit nurse, indepentently interpreting results, counseling the patient and care coordination
--- NOTE | 2024-08-11 13:21 | PDOC.CMDIS ---
Date of service: 08/11/24 Time of Service: 13:21 LACE Index Scoring Tool Questions: Length of Stay (in days): 2 Was the patient admitted via the E.D.?: Yes E.D. Visits: 1 Answers: Total Score: 6 Risk of Readmission: Low Risk Care Management Discharge Plan Reason for Hospitalization: cholelithiasis Discharge Plan: Germaine returned home today with no new services. Her son will drive her home via private vehicle. She will follow up with surgical services and her discharge plan of care. She was happy to be going home. Patient/Family Education Needs: Review discharge instructions and limitations, discussion of self care needs including ask me three. SDOH Health Related Social Needs: Health related social needs daily activities
== END 2024-08-11 11:33 | disposition home or self-care (01) | DRG 439 ==
LOC: ER 08-09 00:23 → EDHOLD 08-09 00:25 → MS 08-09 09:33
PROVIDERS: Surgery; Admitting Provider Hospitalist; Emergency Provider Emergency Medicine; PCP Family Medicine; Responsible Provider Family Medicine; Visit Provider Hospitalist
DX: K85.10 Biliary acute pancreatitis without necrosis or infection (principal); K81.0 Acute cholecystitis; R26.89 Other abnormalities of gait and mobility; I49.9 Cardiac arrhythmia, unspecified; E53.8 Deficiency of other specified B group vitamins; D64.9 Anemia, unspecified; R41.3 Other amnesia; M48.00 Spinal stenosis, site unspecified; G89.29 Other chronic pain; F32.A Depression, unspecified; K21.9 Gastro-esophageal reflux disease without esophagitis; E03.9 Hypothyroidism, unspecified; Z90.5 Acquired absence of kidney; Z98.1 Arthrodesis status; R74.01 Elevation of levels of liver transaminase levels
CPT/HCPCS: 00123; 36415; 76705; 80053; 80076; 83690; 93005; 99222; 99233; J1650; 74176; 74181; 81003; 81015; 83605; 83735; 84484; 85025; 93010; 99239; J1171; J2405; J2543

== ENCOUNTER → 2024-08-17 13:07 | Outpatient (BNVA) | payer MEDICARE, SELFPAY | PROVIDERS: PCP Family Medicine; Referring Provider Family Medicine; Visit Provider Surgery | DX: K85.90 Acute pancreatitis without necrosis or infection, unspecified (principal) | CPT/HCPCS: 99215 ==

== ENCOUNTER 2024-08-22 12:00 | Day surgery (SDC) | payer MEDICARE, SELFPAY ==
--- NOTE | 2024-08-21 20:20 | W.PM.DSUDISC ---
Date of service: 08/22/24 Discharge Plan Disposition Patient Disposition: Home Condition: Good Discharge Details Reason For Visit: cholecystectomy Attending Provider: Pipo Byrd Primary Care Provider: Tanika Meyer Home Meds and New Rx's Prescriptions: Continued metoprolol tartrate 25 mg tablet 12.5 mg PO DAILY PRN (Reason: palpitation) Qty: 45 6RF Rx Instructions: 12.5MG DAILY PRN memantine 10 mg tablet 10 mg PO BID Qty: 180 6RF gabapentin 300 mg capsule 600 mg PO BID Qty: 360 3RF mecobalamin (vitamin B12) 1,000 mcg tablet,chewable 1,000 mcg PO DAILY Qty: 90 4RF timolol 0.5 % drops 1 drp ophthalmic (eye) BID multivitamin 1 EACH tablet 1 ea PO DAILY lisinopril 20 mg tablet 20 mg PO DAILY Qty: 90 5RF levothyroxine 50 mcg tablet 50 mcg PO DAILY Qty: 90 7RF hydrocodone-acetaminophen 5-325 mg tablet 1 tab PO TID MDD 3 PRN (Reason: pain) Qty: 90 0RF Discharge Instructions Instructions: Cholecystectomy, Laparoscopic Surgery Additional Instructions: Sonya, it was great seeing you as always. We were able to get your gallbladder out today just as we discussed beforehand, using the laparoscope. Everything went very smoothly. Your gallbladder was quite dilated, as is the bile duct that drains down through the pancreas into your small intestine. As we discussed previously, you could very well be the case that the duodenal diverticulum is causing some obstruction of this. Hopefully, removal of the gallbladder will help improve biliary flow, and help overcome some of that obstruction. Hopefully, your transition home and recovery will be uneventful. You should be up and moving around a little bit each day. Some basic exercise and walking is excellent. Please restrict your lifting to about a gallon of milk or less. I would expect to get some pain over the incision sites, and some bruising as well. That is extremely common. You may also experience some pain on your right side where we remove the gallbladder. I think ibuprofen will prove very helpful. It appears that you have a prescription for hydrocodone acetaminophen tablets, and those can also be used to supplement ibuprofen. Ice packs are often times very helpful at the incision sites as well. If you need anything at all, please feel free to call the office. Alternatively, we will see you at the follow-up visit. 1. Resume all of your regular medications. 2. Use ice packs over the incisions for pain and swelling. 3. Use [id number] ibuprofen every 8 hours for the first 2 days. This can be supplemented with your hydrocodone acetaminophen combination tablet if the ibuprofen is insufficient for pain 4. Leave bandages in place for 24 hours, then remove. 5. Shower with warm soapy water. Pat dry. Replace Band-Aids if needed for your comfort or any drainage 6. No soaking or tub baths until I see you in the office. 7. No heavy lifting until I see you in the office. 8. Call the office (or go directly to the emergency room after hours) if you notice any of the following: Develop chills (warm to touch), or if you have a thermometer and your temperature is above 101 Difficulty breathing or difficultly swallowing Persistent vomiting Any bleeding ? exceeding one tablespoon 9. Call your physician if the site where your intravenous was started becomes red, swollen, painful, and warm to touch. Activity:: no heavy lifting Remove Dressings/Wound Care:: 24 hours Shower/Bathe:: 24 hours Diet:: As Tolerated Discharge Orders Discharge Orders: Discharge Order (Routine); Ordered 08/21/24 Ordered By: Pipo Byrd DS: Diagnosis Discharge Diagnosis (1) Pancreatitis: Status: Chronic
--- NOTE | 2024-08-21 20:24 | ROE_ITS ---
Operative Note Operative Note PRE-OP DIAGNOSIS: Pancreatitis and duodenal diverticulum POST-OP DIAGNOSIS: same PROCEDURE: laparoscopic cholecystectomy SURGEON: Ppio Byrd GARMENT CUTTER: Soraida Castle ANESTHESIA TYPE: General LMA/ETT Refer to Anesthesia Record ESTIMATED BLOOD LOSS: 25 PATHOLOGY: other (Gallbladder) COMPLICATIONS: None Patient was transported to: PACU Patient's condition: stable Indications: Sonya is an 79-year-old woman, who is now had 2 hospitalizations with biliary obstruction. Interestingly, she has never been found to have any gallstones. But she does have a large duodenal diverticula adjacent to the distal common bile duct. Unfortunately, her second hospitalization also involved a bout of pancreatitis. After extensive conversations with solution manager at [facility] as well as [facility], the recommendation was made to proceed with cholecystectomy, to see if that helps with antegrade biliary flow, reduced sludge, and perhaps fewer episodes of biliary obstruction. Findings: Massively dilated gallbladder and extrahepatic biliary system Procedure Description: After satisfactory induction of general anesthesia, I prepped and draped the abdomen in usual fashion. Next, I began with a periumbilical incision. I dissected down to the fascia. Next, I entered the peritoneal cavity under direct vision with a 5 mm optical viewing port. Pneumoperitoneum was established. 5 mm 30 degree camera was reintroduced. There was no evidence of any injury from the entry point. Another 5 mm port was then placed in the right anterior axillary line, and the camera was moved into that position to upsized the umbilical port to a 12. Sonya was placed in some reverse Trendelenburg positioning with the left side down, and 2 more 5 mm ports were placed. 1 in the mid epigastrium, right in the mid abdomen. The gallbladder was quite distended and elongated, but it was soft and easy to grasp. The dome was elevated up over the liver edge, and some adhesions of the greater omentum were dissected free from the gallbladder. With the assistance of indocyanine green, I continued this dissection down along the lateral wall of the gallbladder to the infundibulum, which was then grasped, and retracted laterally. As the dissection came down towards the triangle of Tracey, it was clear that the extrahepatic biliary system was also massively dilated. Great care was taken to stay away from the common bile duct in an effort to minimize any trauma there. As Sonya has already had 2 MRCP's, with no evidence of any intraluminal biliary ductal pathology, I did not think there was any benefit to cholangiography. Therefore, the triangle of Jenny was carefully dissected clean, isolating the cystic duct and artery with a critical view of safety. These were both then doubly clipped and divided. The gallbladder was then dissected off of the gallbladder fossa using electrocautery. With the distention of the gallbladder, it was clear that there be no way to remove this through port site. With no significant concerns for infection, as the gallbladder dome was dissected free from the liver edge, small rent was created to drain the bile, which was evacuated with suction irrigation. The gallbladder was then placed in a specimen bag, and removed by way of the umbilical port. The surgical site was all irrigated until the effluent ran clear. The gallbladder fossa and biliary structures were examined once again under indocyanine green visualization. There is no evidence of any biliary leak. The umbilical port was then removed, and the site was closed with a Judd Carson wound closure device and interrupted Vicryl stitches. The remaining 5 mm ports were removed, skin and subcutaneous tissues were irrigated, the final layer of skin was reapproximated with subcuticular stitches. Bandages were applied, Sonya was awakened from the anesthetic, extubated, transferred to the recovery unit. Date of Procedure: 08/22/24
[2024-08-22] VITALS (20 sets, daily range): BP systolic 141–177; BP diastolic 79–99; PULSE 73–89; RESP 15–25; TEMP 36.1–36.5; O2SAT 94–100; BMI 21.2
--- NOTE | 2024-08-22 11:43 | W.ANESPRE ---
General Info Height: 5 ft 4 in Weight: 57.883 kg Body Mass Index (BMI): 21.9 Surgical Procedure: Operation Date: 08/22/24 14:10 Proposed Procedure Side Surgeon p Cholecystectomy Laparoscopic Pipo Byrd MD Meds Allergies and Home Medications Allergies Allergy/AdvReac Type Severity Reaction Status Date / Time cat dander Allergy Mild Itching Verified 08/18/24 14:42 Home Medication ?Medication ?Instructions ?Recorded multivitamin 1 ea PO DAILY 08/11/12 timolol 0.5 % eye drops 1 drp ophthalmic (eye) BID 11/24/22 lisinopril 20 mg tablet 20 mg PO DAILY #90 tabs 07/23/23 levothyroxine 50 mcg tablet 50 mcg PO DAILY #90 tab-caps 11/24/23 gabapentin 300 mg capsule 600 mg (2 x 300 mg) PO BID 12/28/23 neuropathy #360 tabs mecobalamin (vitamin B12) 1,000 1,000 mcg PO DAILY #90 tabs 12/28/23 mcg chewable tablet memantine 10 mg tablet 10 mg PO BID #180 tabs 12/28/23 metoprolol tartrate 25 mg tablet 12.5 mg (1/2 x 25 mg) PO DAILY PRN 12/28/23 palpitation #45 tabs hydrocodone 5 mg-acetaminophen 325 1 tab PO TID PRN pain #90 tabs 08/22/24 mg tablet Current Visit Medications: Current Medications Generic Name Dose Route Start Last Admin Trade Name Freq PRN Reason Stop Dose Admin Acetaminophen 1,000 mg 08/22/24 06:00 Acetaminophen 500 Mg Tab PO 08/22/24 23:59 PREOP YOHANA Celecoxib 200 mg 08/22/24 06:00 Celecoxib 200 Mg Cap PO 08/22/24 23:59 PREOP YOHANA Gabapentin 300 mg 08/22/24 06:00 Gabapentin 300 Mg Cap PO 08/22/24 23:59 PREOP YOHANA Hydromorphone HCl 0.2 mg 08/21/24 20:25 Hydromorphone 2 Mg/Ml Syr IVP 09/20/24 20:24 Q1H PRN PRN Ringer's Solution 1,000 mls @ 80 mls/hr 08/22/24 06:00 IV 08/22/24 23:59 INFUSION YOHANA Cefazolin Sodium/Dextrose 2 gm in 50 mls @ 100 mls/hr 08/22/24 06:00 Ancef Duplex IVPB 08/22/24 23:59 PREOP YOHANA IV Miscellaneous Supplies 1 each 08/22/24 06:00 Iv Access IV 08/22/24 23:59 DIRECTED YOHANA Indocyanine Green 5 mg 08/22/24 06:00 Indocyanine Green 25 Mg Vial IVP 08/22/24 16:00 DIRECTED YOHANA Sodium Chloride 0 ml 08/22/24 06:00 Normal Saline Flush 10 Ml Syr IV 08/22/24 23:59 PRN PRN Sodium Chloride 0 ml 08/22/24 06:00 Normal Saline 10 Ml Vial IJ 08/22/24 23:59 DIRECTED PRN Sterile Water 0 ml 08/22/24 06:00 Water,Injection,Sterile 10 Ml Vial IJ 08/22/24 23:59 DIRECTED PRN Tramadol HCl 50 mg 08/21/24 20:25 Tramadol 50 Mg Tab PO 09/20/24 20:24 Q6H PRN PRN Pain PFSH Active Problems Active Problems: Problem Status Onset Code Acalculous cholecystitis Acute K81.9 Pancreatitis Chronic K85.90 Balance disorder Acute R26.89 Coordination abnormal Acute R27.8 Fatigue Acute R53.83 Abnormal EKG Acute R94.31 Abnormal heart rhythm Acute I49.9 Anemia Chronic D64.9 LFT elevation Acute R79.89 B12 deficiency Acute E53.8 Arthritis of left wrist Acute M19.032 Displaced fracture of distal end of left radius with malunion Acute S52.502P Polyneuropathic pain Acute M79.2 Tendonitis of left rotator cuff Chronic M75.82 Bunion of great toe of right foot Acute M21.611 Memory deficit Acute R41.3 Rupture of hip abductor tendon Acute S76.019A Environmental allergies Acute Z91.09 Degenerative joint disease of right hip Acute M16.11 Trochanteric bursitis, right hip Chronic M70.61 Spinal stenosis Chronic 09/03/14 M48.00 Seasonal allergies Chronic 07/27/13 J30.2 Impaired renal function Chronic 07/27/13 N28.9 Hypothyroidism Chronic 09/10/14 E03.9 Hepatitis C Chronic B19.20 Glaucoma Chronic 07/27/13 H40.9 Esophageal reflux Chronic K21.9 Depression Chronic F32.9 Back pain Chronic M54.9 Chronic pain disorder Chronic 12/10/16 G89.4 Medical History Medical History (Updated 08/18/24 @ 14:38 by Cosmo Patel) Neck pain Skin lesion Dysphonia Face lesion Right hip pain Chest pain resolved Cataract Abnormal mammogram (~07/26/18) 6m f/u Shoulder pain Cardiac murmur mid-systolic click Wrist fracture, bilateral 2006;1989' Shoulder fracture, left 07/27/13 Stress due to spouse with dementia 03/04/15 Cataract (04/06/17) Surgical History Surgical History (Updated 08/18/24 @ 14:38 by Cosmo Patel) History of kidney surgery on right kidney that is in place. Nephrectomy on Left H/O spinal fusion L3-L5 S/P removal of left ovary 07/27/13 tubal Status post open reduction with internal fixation (ORIF) of fracture of ankle Bimalleolar fracture of right ankle S/P ORIF DOS: 02/05/18 , Ectopic Left PROCEDURES SOLITARY KIDNEY NEPHRECT left SPINAL FUSION NOS L ovarian cystectomy - benign teratoma Tobacco Smoking/Tobacco Use Status: Never Passive smoking exposure: Yes (childhood) Second hand exposure: Yes Alcohol Alcohol Intake: current Alcohol intake frequency: a few times a week Alcohol type: wine Substance Use Substance use: Never Substance use type: does not use Vital Signs and Lab Results Lab Results Complete Blood Count: WBC, (4.4-10.8) 9.81 10^3/uL 08/09/24, 07:26 RBC, (3.93-5.22) 3.73 10^6/uL L 08/09/24, 07:26 Hgb, (11.2-15.7) 11.6 g/dL Δ 08/09/24, 07:26 Hct, (36.0-46.0) 34.6 % L 08/09/24, 07:26 Plt Count, (130-400) 129 10^3/uL L 08/09/24, 07:26 VBG Lactate, (<or=2.0) 2.8 mmol/L H* 08/08/24, 21:17 Complete Metabolic Panel: Sodium, (136-145) 145 mmol/L 08/10/24, 08:03 Potassium, (3.5-5.1) 4.0 mmol/L 08/10/24, 08:03 Chloride, (98-107) 110 mmol/L H 08/10/24, 08:03 Carbon Dioxide, (21.0-32.0) 28.3 mmol/L 08/10/24, 08:03 BUN, (7-18) 14 mg/dL 08/10/24, 08:03 Creatinine, (0.55-1.02) 1.3 mg/dL H 08/10/24, 08:03 Est GFR (CKD-EPI 2020), (mL/min/1.73m2) 41.31 08/10/24, 08:03 Magnesium, (1.8-2.4) 2.0 mg/dL 08/08/24, 21:17 Calcium, (8.5-10.1) 9.3 mg/dL 08/10/24, 08:03 Albumin, (3.4-5.0) 2.9 g/dL L 08/11/24, 05:57 Glucose, (74-106) 95 mg/dL 08/10/24, 08:03 Liver Function Panel: ALT, (14-59) 221 U/L H 08/11/24, 05:57 AST, (15-37) 72 U/L H 08/11/24, 05:57 Cardiac Panel: Troponin I, (<or=51) 9 ng/L 08/08/24 Pancreas Panel: Lipase, (<78) 31 U/L 08/11/24, 05:57 Anesthesia Assessment and Plan Anesthesia History Personal History: No History of Anesthesia Complications Family History: No Family History of Anesthesia Complications Implantable Cardiac Device Does patient have a Pacemaker or an ICD?: No Anesthesia Plan Resuscitation Status: Full Code Airway Planned: Endotracheal Tube Monitors Used: Standard Monitors Preoperative Comments:: 79 yo female for lap carito. Sig PMHx: GERD, neuropathic pain, hypothyroid, spinal stenosis (s/p fusion). ECG: sinus. ECHO: LVEF 50-55%, trace AR. mild MR/TR. Stress: ECG nondiagnostic. LVEF 78%, no perfusion defect. Previous Anes: - IT band, LMA 4, easy mask. - ORIF, LMA 4, no issues
[2024-08-22] MEDS: Gabapentin 300 MG CAP PO (12:46)
[2024-08-22] MEDS: Acetaminophen 500 MG TAB 1000 MG PO (12:47)
[2024-08-22] MEDS: Lactated Ringers 1,000 ML 80 ML IV (12:49)
[2024-08-22] MEDS: Indocyanine green 25 MG VIAL 5 MG IVP (12:56)
--- NOTE | 2024-08-22 13:52 | ANES.PREOP_ITS ---
General Info Date of Service Date Performed: 08/22/24 Height: 5 ft 4 in Weight: 56.1 kg Body Mass Index (BMI): 21.2 Surgical Procedure: Operation Date: 08/22/24 14:10 Proposed Procedure Side Surgeon p Cholecystectomy Laparoscopic Pipo Byrd MD Meds Allergies and Home Medications Allergies Allergy/AdvReac Type Severity Reaction Status Date / Time cat dander Allergy Mild Itching Verified 08/22/24 12:41 Home Medication ?Medication ?Instructions ?Recorded multivitamin 1 ea PO DAILY 08/11/12 timolol 0.5 % eye drops 1 drp ophthalmic (eye) BID 0 11/24/22 lisinopril 20 mg tablet 20 mg PO DAILY #90 tabs 06/30 06/22 levothyroxine 50 mcg tablet 50 mcg PO DAILY #90 tab-ca ps 11/24/23 gabapentin 300 mg capsule 600 mg (2 x 300 mg) PO BID 1 neuropathy #360 tabs mecobalamin (vitamin B12) 1,000 1,000 mcg PO DAILY #90 tabs 12/28/23 mcg chewable tablet memantine 10 mg tablet 10 mg PO BID #180 tabs 12/27 metoprolol tartrate 25 mg tablet 12.5 mg (1/2 x 25 mg) PO DAILY PRN 12/28/23 palpitation #45 tabs hydrocodone 5 mg-acetaminophen 325 1 tab PO TID PRN pa in #90 tabs 08/22/24 mg tablet Current Visit Medications: Current Medications Generic Name Dose Route Start Last Admin Trade Name Freq PRN Reason Stop Dose Admin Acetaminophen 1,000 mg 08/22/24 06:00 08/22/24 12:47 Acetaminophen 500 Mg Tab PO 08/22/24 23:59 1,000 mg PREOP YOHANA Administration Celecoxib 200 mg 08/22/24 06:00 Celecoxib 200 Mg Cap PO 08/22/24 23:59 PREOP YOHANA Gabapentin 300 mg 08/22/24 06:00 08/22/24 12:46 Gabapentin 300 Mg Cap PO 08/22/24 23:59 300 mg PREOP YOHANA Administration Hydromorphone HCl 0.2 mg 08/21/24 20:25 Hydromorphone 2 Mg/Ml Syr IVP 09/20/24 20:24 Q1H PRN PRN Ringer's Solution 1,000 mls @ 80 mls/hr 08/22/24 06:00 08/22/24 12:49 IV 08/22/24 23:59 80 mls/hr INFUSION YOHANA Administration Cefazolin Sodium/Dextrose 2 gm in 50 mls @ 100 mls/hr 08/22/24 06:00 Ancef Duplex IVPB 08/22/24 23:59 PREOP YOHANA IV Miscellaneous Supplies 1 each 08/22/24 06:00 Iv Access IV 08/22/24 23:59 DIRECTED YOHANA Indocyanine Green 5 mg 08/22/24 06:00 08/22/24 12:56 Indocyanine Green 25 Mg Vial IVP 08/22/24 16:00 5 mg DIRECTED YOHANA Administration Sodium Chloride 0 ml 08/22/24 06:00 Normal Saline Flush 10 Ml Syr IV 08/22/24 23:59 PRN PRN Sodium Chloride 0 ml 08/22/24 06:00 Normal Saline 10 Ml Vial IJ 08/22/24 23:59 DIRECTED PRN Sterile Water 0 ml 08/22/24 06:00 Water,Injection,Sterile 10 Ml Vial IJ 08/22/24 23:59 DIRECTED PRN Tramadol HCl 50 mg 08/21/24 20:25 Tramadol 50 Mg Tab PO 09/20/24 20:24 Q6H PRN PRN Pain PFSH Active Problems Active Problems: Problem Status Onset Code Acalculous cholecystitis Acute K81.9 Pancreatitis Chronic K85.90 Balance disorder Acute R26.89 Coordination abnormal Acute R27.8 Fatigue Acute R53.83 Abnormal EKG Acute R94.31 Abnormal heart rhythm Acute I49.9 Anemia Chronic D64.9 LFT elevation Acute R79.89 B12 deficiency Acute E53.8 Arthritis of left wrist Acute M19.032 Displaced fracture of distal end of left radius with malunion Acute S52.502P Polyneuropathic pain Acute M79.2 Tendonitis of left rotator cuff Chronic M75.82 Bunion of great toe of right foot Acute M21.611 Memory deficit Acute R41.3 Rupture of hip abductor tendon Acute S76.019A Environmental allergies Acute Z91.09 Degenerative joint disease of right hip Acute M16.11 Trochanteric bursitis, right hip Chronic M70.61 Spinal stenosis Chronic 09/03/14 M48.00 Seasonal allergies Chronic 07/27/13 J30.2 Impaired renal function Chronic 07/27/13 N28.9 Hypothyroidism Chronic 09/10/14 E03.9 Hepatitis C Chronic B19.20 Glaucoma Chronic 07/27/13 H40.9 Esophageal reflux Chronic K21.9 Depression Chronic F32.9 Back pain Chronic M54.9 Chronic pain disorder Chronic 12/10/16 G89.4 Medical History Medical History Neck pain Skin lesion Dysphonia Face lesion Right hip pain Chest pain resolved Cataract Abnormal mammogram (~07/26/18) 6m f/u Shoulder pain Cardiac murmur mid-systolic click Wrist fracture, bilateral 2006;1989' Shoulder fracture, left 07/27/13 Stress due to spouse with dementia 03/04/15 Cataract (04/06/17) Surgical History Surgical History History of kidney surgery on right kidney that is in place. Nephrectomy on Left H/O spinal fusion L3-L5 S/P removal of left ovary 07/27/13 tubal Status post open reduction with internal fixation (ORIF) of fracture of ankle Bimalleolar fracture of right ankle S/P ORIF DOS: 02/05/18 , Ectopic Left PROCEDURES SOLITARY KIDNEY NEPHRECT left SPINAL FUSION NOS L ovarian cystectomy - benign teratoma Tobacco Smoking/Tobacco Use Status: Never Passive smoking exposure: Yes (childhood) Second hand exposure: Yes Alcohol Alcohol Intake: current Alcohol intake frequency: a few times a week Alcohol type: wine Substance Use Substance use: Never Substance use type: does not use Vital Signs and Lab Results Vital Signs Most Recent Vital Signs in EMR: Most Recent Vital Signs Temp Pulse Resp BP Pulse Ox 36.2 C L 88 18 146/85 H 97 08/22/24 12:32 08/22/24 12:32 08/22/24 12:32 08/22/24 12:32 08/22/24 12:32 Lab Results Complete Blood Count: WBC, (4.4-10.8) 9.81 10^3/uL 08/09/24, 07:26 RBC, (3.93-5.22) 3.73 10^6/uL L 08/09/24, 07:26 Hgb, (11.2-15.7) 11.6 g/dL Δ 08/09/24, 07:26 Hct, (36.0-46.0) 34.6 % L 08/09/24, 07:26 Plt Count, (130-400) 129 10^3/uL L 08/09/24, 07:26 VBG Lactate, (<or=2.0) 2.8 mmol/L H* 08/08/24, 21:17 Complete Metabolic Panel: Sodium, (136-145) 145 mmol/L 08/10/24, 08:03 Potassium, (3.5-5.1) 4.0 mmol/L 08/10/24, 08:03 Chloride, (98-107) 110 mmol/L H 08/10/24, 08:03 Carbon Dioxide, (21.0-32.0) 28.3 mmol/L 08/10/24, 08 :03 BUN, (7-18) 14 mg/dL 08/10/24, 08:03 Creatinine, (0.55-1.02) 1.3 mg/dL H 08/10/24, 08:03 Est GFR (CKD-EPI 2020), (mL/min/1.73m2) 41.31 08/10/24, 08:03 Magnesium, (1.8-2.4) 2.0 mg/dL 08/08/24, 21:17 Calcium, (8.5-10.1) 9.3 mg/dL 08/10/24, 08:03 Albumin, (3.4-5.0) 2.9 g/dL L 08/11/24, 05:57 Glucose, (74-106) 95 mg/dL 08/10/24, 08:03 Liver Function Panel: ALT, (14-59) 221 U/L H 08/11/24, 05:57 AST, (15-37) 72 U/L H 08/11/24, 05:57 Cardiac Panel: Troponin I, (<or=51) 9 ng/L 08/08/24 Pancreas Panel: Lipase, (<78) 31 U/L 08/11/24, 05:57 Anesthesia Assessment and Plan Anesthesia History Personal History: No History of Anesthesia Complications Family History: No Family History of Anesthesia Complications Exercise Tolerance Exercise Tolerance: Metabolic Equivalents>4 Pertinent Negatives Pertinent Negatives: No Symptoms of GERD Cardiac & Pulmonary Exam Cardiac Exam: Normal S1/S2 Heart Sounds Pulmonary Exam: Clear Bilateral Breath Sounds Implantable Cardiac Device Does patient have a Pacemaker or an ICD?: No Airway Exam Known Difficult Airway: No Mallampati Class: 2 Mouth Opening: Normal (> 3cm) Thyromental Distance: Greater than 3 cm Neck Range of Motion: Full ROM Neck Circumference: Normal Teeth Condition: Normal Dentition ASA Classification ASA Score: ASA 2 Emergency Case?: No NPO Status NPO Status: NPO Clears >2 hours, Solids >8 hours Anesthesia Plan Resuscitation Status: Full Code Anesthesia Technique: General Anesthesia Airway Planned: Endotracheal Tube Pain Management: Surgeon and patient request nerve block Monitors Used: Standard Monitors and SedLine
--- NOTE | 2024-08-22 16:01 | GB_PTH ---
PATIENT: Germaine Bravo LOC: [facility] U#:[id number] AGE/SX: 79/F ROOM: RE08/22/[address]: Pipo Byrd MD : 1945 BED: DIS: 08/22/2024 SPEC #: [id number] RECD: 08/22/24 17:04 STATUS: FITZ RE #: [id number] BENNETT: 08/22/24 16:[address]: Pipo Byrd DEPT: Surgical Specimen RECD BY: Courtney Metcalf ENTERED: 08/22/24 17:04 SP TYPE: GB OTHR DR: Tanika Meyer MD, DC Tissues: 1 - GALLBLADDER Procedures: GROSS AND MICRO LEVEL 3 Comments: [id number]
[2024-08-22] MEDS: Bupivacaine 0.25% Pres-Free W/EPI 30 ML VIAL (16:03)
[2024-08-22] MEDS: fentaNYL 100 MCG/2 ML VIAL IVP ×2 (16:45→16:50)
--- NOTE | 2024-08-22 17:33 | W.ANESPOSTOP ---
Postoperative Evaluation Date, Time and Location Date Performed: 08/22/24 Time Performed: 17:34 Patient Location: Day Surgery Unit Vital Signs Most Recent Imported Vital Signs: Most Recent Vital Signs Temp Pulse Resp BP Pulse Ox 36.5 C 83 19 158/80 H 96 08/22/24 17:15 08/22/24 17:15 08/22/24 17:15 08/22/24 17:15 08/22/24 17:15 Pain Score Most Recent Pain Score: Most Recent Pain Score Pain Level 4 08/22/24 17:15 Assessment Mental Status: Awake (Alert & Oriented to Patient Baseline) Airway and Respiratory Function: Patent airway with normal (patient baseline) respiratory exam Cardiovascular Function: Hemodynamically Stable Hydration Status: Adequately Hydrated Nausea & Vomiting: No Nausea or Vomiting Pain: Pain is tolerable per patient Peripheral Nerve Block: Patient did not receive a nerve block
[2024-08-22] MEDS: traMADol 50 MG TAB PO (17:53)
== END 2024-08-22 18:55 | disposition home or self-care (01) ==
LOC: SUR 12:01
PROVIDERS: PCP Family Medicine; Visit Provider Surgery
PROC: 0FT44ZZ Resection of Gallbladder, Percutaneous Endoscopic Approach (ICD-10-PCS; CPT 47562; principal; 2024-08-22 14:00)
DX: K81.2 Acute cholecystitis with chronic cholecystitis (principal); K85.90 Acute pancreatitis without necrosis or infection, unspecified; K57.10 Diverticulosis of small intestine without perforation or abscess without bleeding
CPT/HCPCS: 47562; 88304; J1100; J2003; J2405; J2704; J3010

== ENCOUNTER → 2024-09-21 15:22 | Outpatient (BNVA) | payer MEDICARE, SELFPAY | PROVIDERS: PCP Family Medicine; Referring Provider Family Medicine; Visit Provider Physical Therapy Assistant | DX: Z98.890 Other specified postprocedural states (principal) | CPT/HCPCS: 99024 ==

== ENCOUNTER → 2025-02-07 00:20 | Outpatient (CLI) | payer MEDICARE, SELFPAY ==
--- NOTE | 2025-02-07 06:30 | DI.US_ITS ---
Exam(s) US ABDOMEN EXAM: US ABDOMEN CLINICAL HISTORY: persistent abd pain after cholecystectomy,R10.9,Z90.49 TECHNIQUE: Ultrasound abdomen performed using standard protocol. COMPARISON: US US ABDOMEN LIMITED from 08/09/2024 FINDINGS: LIVER: Normal size and echogenicity. No focal liver lesions are seen. GALLBLADDER: Status post cholecystectomy. There is an anechoic thin walled structure measuring 4.9 x 2.3 x 2 cm seen in the gallbladder fossa. It does not have the appearance of free fluid or an abscess. Findings could represent a dilated cystic duct remnant. There are no calculi. FONTANA'S SIGN: Negative. BILIARY SYSTEM: No intrahepatic or extrahepatic biliary ductal dilation. Common bile duct measures 9 millimeters. No calculi are seen. KIDNEYS: Kidneys are symmetric in size. No evidence of renal calculi. No evidence of hydronephrosis. No renal mass or cyst identified. PANCREAS: Normal where visualized. SPLEEN: Not enlarged. ABDOMINAL AORTA AND IVC: Visualized portions normal caliber. ASCITES: None seen. IMPRESSION: Patient is status post cholecystectomy however there is a structure which has the appearance of a gallbladder in the gallbladder fossa. It is possible loops could represent the cystic duct remnant which is dilated. It does not appear in inflamed and there are no calculi within it. MRI could be considered for further evaluation. DATA REPOSITORY:
== END ==
LOC: DI 00:20
PROVIDERS: PCP Family Medicine; Visit Provider Family Medicine
DX: R10.9 Unspecified abdominal pain (principal); Z90.49 Acquired absence of other specified parts of digestive tract
CPT/HCPCS: 76700

== ENCOUNTER 2025-02-08 01:31 | Outpatient (CLI) | payer MEDICARE, SELFPAY ==
[2025-02-08 14:31] LABS: Abs Immature Grans 0.01 10^3/uL (0.0-0.06); HCT 41.2 % (36.0-46.0); HGB 13.3 g/dL (11.2-15.7); Immature Grans % 0.3 %; MCH 30.3 pg (27.0-33.0); MCHC 32.3 % (32.0-36.0); MCV 94 fL (80-95); MPV 11.7 fL (8.0-11.0); Platelet Count 200 10^3/uL (130-400); RBC 4.39 10^6/uL (3.93-5.22); RDW 13.2 % (11.7-14.6); RDW-SD 45.5 fL; WBC 4.00 10^3/uL (4.4-10.8)
[2025-02-08 14:51] LABS: TSH (W/Ref FT4) 2.30 uIU/mL (0.55-4.78)
[2025-02-08 14:55] LABS: C-Reactive Protein < 0.50 mg/dL (<=0.50)
[2025-02-08 14:56] LABS: Lipase 46 U/L (<53)
[2025-02-08 14:57] LABS: ALT 25 U/L (10-49); AST 27 U/L (<34); Albumin 4.4 g/dL (3.2-5.0); Alkaline Phosphatase 52 U/L (46-116); Anion Gap 10.4 mmol/L (3-11); BUN 23 mg/dL (9-23); Bilirubin, Total 0.8 mg/dL (0.2-1.2); CO2 26.6 mmol/L (20.0-31.0); Calcium 9.9 mg/dL (8.3-10.6); Chloride 108 mmol/L (98-107); Glucose 94 mg/dL (74-106); Potassium 4.3 mmol/L (3.5-5.1); Sodium 145 mmol/L (136-145); Total Protein 7.5 g/dL (5.7-8.2)
[2025-02-08 16:31] LABS: INR 1.0 (0.9-1.1); Prothrombin Time 10.1 sec (9.1-11.1)
== END 2025-02-08 01:32 | disposition home or self-care (01) ==
LOC: LOS 01:31
PROVIDERS: PCP Family Medicine; Visit Provider Family Medicine
DX: E03.9 Hypothyroidism, unspecified (principal); R10.9 Unspecified abdominal pain; I10 Essential (primary) hypertension; B19.20 Unspecified viral hepatitis C without hepatic coma; R79.89 Other specified abnormal findings of blood chemistry
CPT/HCPCS: 36415; 80053; 83690; 84443; 85025; 85610; 86140

== ENCOUNTER → 2025-02-16 00:22 | Outpatient (CLI) | payer MEDICARE, SELFPAY ==
--- NOTE | 2025-02-16 07:45 | DI.MRI_ITS ---
Exam(s) MR ABDOMEN WO EXAM: MR ABDOMEN WO CLINICAL HISTORY: f/u abnl us,r93.5,? structure of gallbladder,? cystic duct remnant TECHNIQUE: Multiplanar multisequence MRI of the Abdomen was performed. COMPARISON: MR MR ABDOMEN WO from 08/09/2024 US US ABDOMEN from 02/07/2025 FINDINGS: Lung bases: There is a large hiatal hernia. Liver: Unremarkable. Pancreas: There is no evidence of a pancreatic mass or peripancreatic fluid collection. Gallbladder and Bile Ducts: The patient is status post cholecystectomy. There is marked dilatation of the extrahepatic bile duct with the diameter of 2.2 cm. There are 2 filling defects seen in the portion of the common duct in the pancreatic head. Adrenals: Unremarkable. Kidneys: The left kidney is absent. There is a simple cyst in the right kidney. No follow-up is recommended. Spleen: Unremarkable. Bowel: There is diverticulosis in the colon but no evidence of acute diverticulitis. Aorta: Unremarkable. Soft Tissues: Unremarkable. Bone: There is a left convex thoracolumbar scoliosis. Multilevel degenerative changes are present throughout the lumbar spine resulting in neural foraminal and central spinal canal stenosis. Lymph Nodes: No significant adenopathy is seen in the abdomen. IMPRESSION: The patient is now status post cholecystectomy. There is marked dilatation of the extrahepatic bile ducts likely accounting for the cystic area seen on the recent ultrasound. The common duct measures up to 2.2 cm. There are 2 filling defects seen in the portion of the common duct in the pancreatic head which may be residual stones. Please correlate with patient's clinical history. DATA REPOSITORY:
== END ==
PROVIDERS: PCP Family Medicine; Visit Provider Family Medicine
DX: R93.5 Abnormal findings on diagnostic imaging of other abdominal regions, including retroperitoneum (principal)
CPT/HCPCS: 74181